=== PATIENT | female | born 1945 | race Two or more races ===

== ENCOUNTER 2023-05-05 10:32 | Outpatient (OUT) | payer MEDICARE, SELFPAY ==
[2023-05-05 12:07] LABS: Chol HDL Ratio 3.4; Cholesterol 180 mg/dL (<=200); HDL Cholesterol 53 mg/dL (40-60); LDL Cholesterol Calculated 111.6 mg/dL; Triglycerides 77 mg/dL (<=150); VLDL CHOLESTEROL 15.4 mg/dL
== END 2023-05-05 10:33 | disposition home or self-care (01) ==
LOC: LAB 10:42
PROVIDERS: PCP Family Medicine
DX: I25.10 Atherosclerotic heart disease of native coronary artery without angina pectoris (principal); I51.81 Takotsubo syndrome
CPT/HCPCS: 36415; 80061

== ENCOUNTER 2024-04-16 09:06 | Observation (INO) | payer MEDICARE, SELFPAY ==
[2024-04-16] VITALS (24 sets, daily range): BP systolic 106–158; BP diastolic 56–86; PULSE 46–70; TEMP 36.4–36.8; O2SAT 95–100; BMI 27.3
--- NOTE | 2024-04-16 09:12 | XR_ITS ---
[facility] [place] [id number] Patient Name: ARACELI JAEGER MRN: [id number] date: 1945 Sex: F Assigned Patient Location: ED.MAIN Current Patient Location: ED.MAIN Accession/Order Number: [id number] Exam Date: 04/16/2024 10:29 Report Date: 04/16/2024 10:29 At the request of: JESE BABB Procedure: XR chest 1V Single view chest: CLINICAL HISTORY: chest pain COMPARISON: None FINDINGS: The heart is normal in size. The lungs are clear. The pulmonary vasculature is normal. Mediastinum and hilar regions are unremarkable. No pleural effusions are seen. Visualized bones are intact. XR/XR chest 1V IMPRESSION: NEGATIVE CHEST. Impression dictated by: Matt Dee Jr., D.O.04/16/2024 10:29 AM Dictation Location: [facility] Electronically authenticated by: [id number] Y Date: 04/16/2024 10:29
--- NOTE | 2024-04-16 09:12 | ECG_ITS ---
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
[2024-04-16 09:40] LABS: Basophils Absolute Auto 0.1 10^3/uL (0.0-0.1); Basophils Percent Auto 0.8 % (0.2-2.0); Eosinophils Absolute Auto 0.1 10^3/uL (0.0-0.7); Eosinophils Percent Auto 0.7 % (0.9-7.0); Hematocrit 40.4 % (36.0-48.0); Hemoglobin 13.3 g/dL (12.0-16.0); Immature Granulocytes Abs Auto 0.05 10^3/uL (0.00-0.03); Immature Granulocytes Pct Auto 0.6 % (0.0-0.5); Lymphocytes Absolute Auto 1.4 10^3/uL (1.2-3.8); Lymphocytes Percent Auto 15.7 % (20.5-60.0); Mean Corpuscular HGB Conc 32.9 g/dL (29.9-35.2); Mean Corpuscular Hemoglobin 28.9 pg (26.7-34.0); Mean Corpuscular Volume 87.6 fL (81.0-99.0); Mean Platelet Volume 9.8 fL (9.5-13.5); Monocytes Absolute Auto 0.5 10^3/uL (0.3-0.8); Monocytes Percent Auto 5.5 % (1.7-12.0); Neutrophils Absolute Auto 6.8 10^3/uL (1.4-6.5); Neutrophils Percent Auto 76.7 % (43.0-75.0); Platelet Count 287 10^3/uL (150-450); Red Blood Count 4.61 10^6/uL (4.20-5.40); Red Cell Distribution Width 12.7 % (11.0-15.0); White Blood Count 8.9 10^3/uL (4.0-11.0)
[2024-04-16 09:47] LABS: BUN Creatinine Ratio 28.4; Calcium 9.4 mg/dL (8.5-10.1); Carbon Dioxide 25.4 mmol/L (21.0-32.0); Chloride 105 mmol/L (98-107); Estimated GFR (African America >60 (>=60 mL/min/1.73m^2); Estimated GFR (Non-African Ame >60 (>=60 mL/min/1.73m^2); Glucose 114 mg/dL (74-106); Potassium 4.4 mmol/L (3.5-5.1); Sodium 139 mmol/L (136-145); Troponin I High Sensitivity <4.0 pg/mL (4.0-51.3)
--- NOTE | 2024-04-16 09:58 | ED.CHESTPAI1 ---
HPI - Chest Pain General Chief Complaint: Shortness of Breath/Dyspnea Stated Complaint: CHEST PAINS SOB Time Seen by Provider: 04/16/24 09:12 Mode of arrival: walk-in History of Present Illness HPI narrative: cc = chest pain, SOB Yesterday morning, the patient woke with chest heaviness across the entirety of her chest as well as associated shortness of breath. As the day progressed both the chest pain and the shortness of breath dissipated. By this morning when she woke up, the pain across the chest and the shortness of breath had returned. Both have continued as she has gotten up and started her day and not improved like it did yesterday. She has not skipped any doses of her medications. She is due to take her aspirin and carvedilol around 10 AM. She denies any recent injury or illness. No cough or cold symptoms. No fever or chills. No sweats. She did have some dizziness yesterday in association with the chest pain and shortness of breath. She has less today. Prior medical history includes cardiac catheterization with stenting in 2019. This was done at [facility] but she currently sees Dr. Leblanc at [facility]. Related Data Home Medications ?Medication ?Instructions ?Recorded ?Confirmed carvedilol 6.25 mg tablet 6.25 mg PO Q12H 04/16/24 04/16/24 nitroglycerin 0.4 mg sublingual 0.4 mg sublingual Q5M PRN chest 04/16/24 04/16/24 tablet pain ramipril 2.5 mg capsule 2.5 mg PO DAILY 04/16/24 04/16/24 Allergies Allergy/AdvReac Type Severity Reaction Status Date / Time No Known Drug Allergies Allergy Verified 04/16/24 09:09 [facility] Social History Little interest or pleasure in doing things: not at all Feeling down, depressed, or hopeless: not at all Exam Narrative Exam Narrative: Nurses notes and vital signs reviewed and patient is not hypoxic. afebrile General: Well-appearing and in no apparent distress. Skin: Warm, dry, no pallor noted. Eye: Pupils are equal, round and EOMI. No scleral icterus. Ears, Nose, Mouth, and Throat: Oral mucosa is moist Cardiovascular: Regular Rate and Rhythm without murmur, gallop or rub. Respiratory: No accessory muscle use or respiratory distress. Lungs are clear to auscultation, no wheezing, rales or rhonchi Chest Wall: no tenderness, crepitus or subcutaneous emphysema Musculoskeletal: normal ROM, no calf or popliteal tenderness, no lower extremity edema/swelling GI: Abdomen is soft, non-distended. Normal bowel sounds. No tenderness to palpation. No rebound, guarding, or rigidity noted. Neurological: A&O x4. No cranial nerve dysfunction observed. No truncal ataxia. Moves all extremities. Sensation intact. Psychiatric: Cooperative and interactive. Normal mood and affect. Constitutional Vital Signs, click to edit/add: Last Vital Signs Temp 98.2 F 04/16/24 09:10 Pulse 50 L 04/16/24 11:20 Resp 18 04/16/24 11:20 BP 128/86 04/16/24 11:00 Pulse Ox 100 04/16/24 11:20 Course Vital Signs Vital signs: Vital Signs Temperature 98.2 F 04/16/24 09:10 Pulse Rate 70 04/16/24 09:10 Respiratory Rate 18 04/16/24 09:10 Blood Pressure 157/73 H 04/16/24 09:10 Pulse Oximetry 99 04/16/24 09:10 Temperature 98.2 F 04/16/24 09:10 Pulse Rate 50 L 04/16/24 11:20 Respiratory Rate 18 04/16/24 11:20 Blood Pressure 128/86 04/16/24 11:00 Pulse Oximetry 100 04/16/24 11:20 MDM - Chest Pain MDM Narrative Medical decision making narrative: Cardiac monitoring and continuous pulse ox initiated. Patient was placed on nuclear monitoring technician and EKG obtained. Blood drawn and sent for evaluation. Portable chest x-ray obtained. Chest x-ray was negative. Blood testing including CBC, BMP, troponin and BNP were negative. Repeat troponin was negative Patient was given 162mg aspirin and 6.25mg carvedilol, per her daily dosing, at 10 AM. This patient's story is suspicious and her history gives her a heart score of 6. I spoke to the patient about staying in the hospital to be observed overnight for additional testing with echocardiogram and possible cardiology consult in the morning and she was agreeable. I spoke with Dr. Arthur, the hospitalist on-call, who also agreed to the admission. He said she could go to medical surgical floor with telemetry monitoring for her admission destination. Medical Records Data Attestation: I reviewed the patient's medical records. Lab Data Attestation: I reviewed the patient's lab results. Labs: Lab Results 04/16/24 04/16/24 Range/Units 09:19 10:51 WBC 8.9 (4.0-11.0) 10^3/uL RBC 4.61 (4.20-5.40) 10^6/uL Hgb 13.3 (12.0-16.0) g/dL Hct 40.4 (36.0-48.0) % MCV 87.6 (81.0-99.0) fL MCH 28.9 (26.7-34.0) pg MCHC 32.9 (29.9-35.2) g/dL RDW 12.7 (11.0-15.0) % Plt Count 287 (150-450) 10^3/uL MPV 9.8 (9.5-13.5) fL Neut % (Auto) 76.7 H (43.0-75.0) % Lymph % (Auto) 15.7 L (20.5-60.0) % [place] % (Auto) 5.5 (1.7-12.0) % Eos % (Auto) 0.7 L (0.9-7.0) % Baso % (Auto) 0.8 (0.2-2.0) % Neut # (Auto) 6.8 H (1.4-6.5) 10^3/uL Lymph # (Auto) 1.4 (1.2-3.8) 10^3/uL [place] # (Auto) 0.5 (0.3-0.8) 10^3/uL Eos # (Auto) 0.1 (0.0-0.7) 10^3/uL Baso # (Auto) 0.1 (0.0-0.1) 10^3/uL Abs Immat Gran (auto) 0.05 H (0.00-0.03) 10^3/uL Imm/Tot Granulo (auto) 0.6 H (0.0-0.5) % Sodium 139 (136-145) mmol/L Potassium 4.4 (3.5-5.1) mmol/L Chloride 105 (98-107) mmol/L Carbon Dioxide 25.4 (21.0-32.0) mmol/L Anion Gap 13.0 BUN 23.0 H (7.0-18.0) mg/dL Creatinine 0.81 (0.55-1.02) mg/dL Est GFR ( Amer) >60 (>=60 mL/min/1.73m^2) Est GFR (Non-Af Amer) >60 (>=60 mL/min/1.73m^2) BUN/Creatinine Ratio 28.4 Glucose 114 H (74-106) mg/dL Calcium 9.4 (8.5-10.1) mg/dL Troponin I High Sens <4.0 L <4.0 L (4.0-51.3) pg/mL NT-Pro-B Natriuret Pep 53.0 (<=1800.0) pg/mL Imaging Data Chest x-ray: Attestation: I have reviewed the pertinent imaging results. Radiologist's impression: ITS Impressions Chest X-Ray 04/16/24 09:12 IMPRESSION: NEGATIVE CHEST. Impression dictated by: Matt Dee Jr., D.O.04/16/2024 10:29 AM Dictation Location: [employer] Electronically authenticated by: [id number] Y Date: 04/16/2024 10:29 ECG Data Attestation: I personally reviewed and interpreted this ECG as follows: Interpretation: EKG interpretation: Emergency Department physician interpretation. Normal sinus rhythm at 63bpm. Normal axis, normal intervals and no ST segment elevation or depression. Heart Score History: Highly Suspicious ECG: Normal Age: >65 years Risk Factors: >3 Risk Factors/ HX of CAD:2 Troponin: <Normal Limit Total Heart Score Recommendations & Risks:: 6 Discharge Plan Discharge Chief Complaint: Shortness of Breath/Dyspnea Clinical Impression: Chest pain Patient Disposition: Admitted as Observation Time of Disposition Decision: 10:54
[2024-04-16] MEDS: CARVEDILOL 6.25 MG TABLET PO ×2 (10:11→21:19)
[2024-04-16] MEDS: ASPIRIN 81 MG TABLET.DR 162 MG PO (10:12)
[2024-04-16] MEDS: KETOROLAC TROMETHAMINE 30 MG/ML VIAL 15 MG IVP (11:00)
[2024-04-16 11:12] LABS: Troponin I High Sensitivity <4.0 pg/mL (4.0-51.3)
--- NOTE | 2024-04-16 12:04 | P.HP_ITS ---
HPI H&P: HPI History of Present Illness Chief complaint: CHEST PAINS SOB Narrative: Pt with chest pain yesterday morning with LOPEZ, seem to get better, then this am , same thing - so presented to the ER. + Hx cad with stent. When I saw patient in the hospital, up in the medical surgical floor, she was essentially pain-free but did have about 30 to 40 minutes prior to that an episode of severe chest pain radiating into the back, some into her left arm as well, this is somewhat similar to her heart trouble in the past but not exactly like her heart trouble in the past, resolved with 1 sublingual nitro but did drop her blood pressure significantly, she also states she got pain relief from the IV Protonix, stat EKG and troponins were ordered, repeat EKG no change from ER troponin still pending Opioid HPI Opioid Management Most Recent Pain and Opioid Data: Last Pain Scale 10 04/16/24 15:22 04/16/24 Last Pain Assessment 04/16/24 15:00 Last MAR Pain Assessment 04/16/24 15:22 Last ORT Total Score 0 04/16/24 13:10 04/16/24 Last ORT Risk Category Low Risk 04/16/24 13:10 04/16/24 Review of Systems ROS Status of ROS 10 or more systems reviewed and unremark able except as noted in history and below [facility] Medical History (Updated 04/16/24 @ 13:45 by Mike Ann) Cataract (lens) fragments in eye following cataract surgery, bilateral ?H59.023 - Cataract (lens) fragments in eye following cataract surgery, bilateral (ICD-10) Abdominal hernia with obstruction ?K46.0 - Unspecified abdominal hernia with obstruction, without gangrene (ICD-10) Hip replacement planned Myocardial infarct, old ?I25.2 - Old myocardial infarction (ICD-10) Chest pain ?R07.9 - Chest pain, unspecified (ICD-10) Social History Highest level of school completed/degree received: high school graduate Little interest or pleasure in doing things: not at all Feeling down, depressed, or hopeless: not at all Meds Home Medications and Allergies Home Medications ?Medication ?Instructions ?Recorded ?Confirmed ?Type carvedilol 6.25 mg tablet 6.25 mg PO Q12H 04/16/24 04/16/24 History nitroglycerin 0.4 mg sublingual 0.4 mg sublingual Q5M PRN chest 04/16/24 04/16/24 History tablet pain ramipril 2.5 mg capsule 2.5 mg PO DAILY 04/16/24 04/16/24 History Allergies Allergy/AdvReac Type Severity Reaction Status Date / Time No Known Drug Allergies Allergy Verified 04/16/24 09:09 Exam Constitutional Vital Signs, click to edit/add: Last Vital Signs Temp 98.2 F 04/16/24 09:10 Pulse 50 L 04/16/24 11:20 Resp 18 04/16/24 11:20 BP 128/86 04/16/24 11:00 Pulse Ox 100 04/16/24 11:20 Documenting provider has reviewed patient's vital signs: yes Common normals: no apparent distress Chest Common normals: inspection of chest normal and palpation of chest normal Respiratory Common normals: normal respiratory effort, no retractions and no use of accessory muscles Cardio Common normals: regular rhythm; irregular rate Rate: bradycardic GI Common normals: Normal to inspection, nondistended, normoactive bowel sounds present Extremity Common normals: normal to inspection Results Labs Labs: Short CBC 04/16/24 Range/Units 09:19 WBC 8.9 (4.0-11.0) 10^3/uL Hgb 13.3 (12.0-16.0) g/dL Hct 40.4 (36.0-48.0) % Plt Count 287 (150-450) 10^3/uL BMP 04/16/24 09:19 Sodium 139 Potassium 4.4 Chloride 105 Carbon Dioxide 25.4 BUN 23.0 H Creatinine 0.81 Glucose 114 H Calcium 9.4 Assessment and Plan Assessment and Plan (1) Chest pain: (2) CAD (coronary artery disease): (3) Dyspnea: Plan Admission findings: trop neg , but + strong hx and the dyspnea - CAD and + CP, and LOPEZ with bradycardia- acute onset - track troponins and check echo- consult to cardiology tomorrow, with bradycardia, concern for inf wall ischemia, with recurrence of symptoms will place patient on heparin drip, also add Carafate Hypertension - continue with current meds Admission status: Chest pain but neg trop , echo in am and , medically neccessary treatment likely to span only one midnight - observation status
[2024-04-16] MEDS: ONDANSETRON PF 4 MG/2 ML VIAL IV ×2 (12:08→15:22)
[2024-04-16] MEDS: MORPHINE SULFATE 4 MG/ML VIAL IV (12:08)
[2024-04-16] MEDS: ALBUTEROL SULFATE 2.5 MG/3 ML VIAL NEB IH (12:13)
[2024-04-16 13:19] LABS: Troponin I High Sensitivity <4.0 pg/mL (4.0-51.3)
[2024-04-16 14:30] LABS: Internal Control Within Normal Limits; SARS-CoV-2 Ag NEGATIVE (NEGATIVE)
[2024-04-16] MEDS: ACETAMINOPHEN 500 MG TABLET 1000 MG PO ×2 (15:22→21:19)
[2024-04-16] MEDS: PANTOPRAZOLE SODIUM 40 MG VIAL IV (15:22)
[2024-04-16] MEDS: NITROGLYCERIN 0.4 MG BOTTLE SL (15:22)
--- NOTE | 2024-04-16 15:24 | ECG_ITS ---
The [facility] Test Date: 2024-04-16 Pat Name: ARACELI JAEGER Department: Room: Gender: Female Physician General Practice: : 1945 Requested By: CALIN YE Order Number: [id number] Reading MD: CALIN YE Measurements Intervals [place] Rate: 49 P: 18 NM: 175 QRS: 17 QRSD: 102 T: 35 QT: 465 QTc: 423 Interpretive Statements SINUS BRADYCARDIA WITH OCCASIONAL SUPRAVENTRICULAR PREMATURE COMPLEXES INTERPRETATION BASED ON A DEFAULT AGE OF 40 YEARS Compared to ECG 04/16/2024 09:13:55 Sinus rhythm no longer present Electronically Signed On 04-18-2024 10:36:35 EST by CALIN YE
[2024-04-16 16:00] LABS: Partial Thromboplastin Time 25.9 sec (22.3-36.2)
[2024-04-16 16:12] LABS: Creatine Kinase 83 U/L (26-192); Creatine Kinase MB 2.14 ng/mL (<=3.60); Myoglobin 68 ng/mL (9-82); Troponin I High Sensitivity 4.5 pg/mL (4.0-51.3)
[2024-04-16] MEDS: HEPARIN SODIUM (PORCINE) 5,000 UNIT/ML VIAL 2100 UNIT IV (18:03)
[2024-04-16] MEDS: HEPARIN SODIUM,PORCINE/D5W 25,000 UNIT/500 ML IV.SOLN 12.432 UNIT IV (18:03)
[2024-04-16] MEDS: SUCRALFATE 1 GM TABLET PO ×2 (18:04→21:30)
[2024-04-17] VITALS (15 sets, daily range): BP systolic 94–122; BP diastolic 56–74; PULSE 44–72; TEMP 36.3–36.8; O2SAT 93–96
[2024-04-17] MEDS: SUCRALFATE 1 GM TABLET PO ×3 (05:20→16:45)
--- NOTE | 2024-04-17 06:00 | CA_ITS ---
Patient Name: ARACELI JAEGER MR#: [id number] : 1945 Exam Date: 04/17/2024 Ordering Doctor: DR CALIN YE . ECHOCARDIOGRAM REPORT PROCEDURE: CA ECHO DOPPLER COMPLETE INDICATIONS: Dyspnea COMPARISON: None. DESCRIPTION: COMPLETE ECHOCARDIOGRAM Real-time transthoracic echocardiography with 2D, M-mode, spectral and color flow Doppler performed. QUALITY: Technical quality was good. LEFT VENTRICLE: Normal chamber size. Normal left ventricular wall thickness. LV EF: Global left ventricular systolic function is normal. Calculated left ventricular ejection fraction is 62%. No significant wall motion abnormalities. DIASTOLIC: Normal diastolic function. ATRIAL SEPTUM: Inadequately seen. LEFT ATRIUM: Normal chamber size. RIGHT ATRIUM: Mild dilatation. RIGHT VENTRICLE: Normal chamber size. Normal right ventricular systolic function. TRICUSPID VALVE: Normal mobility and thickness. Mild regurgitation. No evidence of pulmonary hypertension. RVSP 31mmHg MITRAL VALVE: Normal mobility and thickness. No evidence of mitral valve stenosis. There is no mitral annular calcification. Mild to moderate mitral regurgitation. AORTIC VALVE: Normal trileaflet appearance. No visible sclerosis. Normal leaflet mobility. No evidence of aortic valve stenosis. Trivial aortic regurgitation. AORTIC ROOT: Normal diameter and appearance. PULMONIC VALVE: Normal thickness and mobility. No stenosis. Trivial regurgitation. PERICARDIUM: No evidence of pericardial effusion. IVC: Not well visualized. CONCLUSION: 1. Global left ventricular systolic function is normal; visually estimated ejection fraction is 60 to 65% 2. Normal right ventricular size and systolic function 3. Normal diastolic function 4. The right atrium is mildly dilated 5. Mild tricuspid regurgitation 6. Mild to moderate mitral regurgitation Adult Echocardiography Procedure Report Left Ventricle LVEDD (3.7 - 5.6 cm): 4.00 cm LVESD (2.2 - 4.0 cm): 2.54 cm LVIVS thickness (0.6 - 1.2 cm): 0.92 cm LVPW thickness (0.5 - 1.0 cm): 0.78 cm e': 0.13 m/s E - e': 6.22 LVOT Max Gradient: 2.85 mm[Hg] LVOT Area (cm2): 0.84 m/s Peak Velocity (LVOT): 0.84 m/s Mean Velocity (LVOT): 0.59 m/s LVOT Diameter 1.96 cm Left Atrium LA Volume Index (2D A2C): 28.11 ml/m2 Left Atrium Systolic Dimension: 4.23 cm Mitral Valve MV E to A Ratio: 1.13 Mitral Valve A-Wave Peak Velocity: 0.74 m/s Mitral Valve E-Wave Peak Velocity: 0.83 m/s Right Ventricle RV Internal Diastolic Dimension: 2.95 cm Aorta AO Root Diam: 2.93 cm Ascending Ao Diam: 2.39 cm Aortic Valve AoV Area (Peak Ronny): 2.35 cm2, 2.35 cm2 AoV Area (VTI): 2.06 cm2, 2.06 cm2 Peak Velocity(Antegrade Flow): 1.09 m/s Peak Gradient(Antegrade Flow): 4.72 mm[Hg] Mean Velocity(Antegrade Flow): 0.77 m/s Mean Gradient(Antegrade Flow): 2.74 mm[Hg] Velocity Time Integral: 29.00 cm Tricuspid Valve Peak Velocity (Regurgitant Flow): 2.34 m/s, 2.50 m/s, 2.64 m/s Pulmonic Valve Mean Gradient: 1.67 mm[Hg], 1.60 mm[Hg] Mean Velocity: 0.61 m/s, 0.60 m/s Peak Velocity: 0.83 m/s Peak Gradient: 2.87 mm[Hg], 2.61 mm[Hg] Right Atrium Right Atrium Systolic Pressure: 31.55 ml, 31.55 ml Dictated by: Jose Alfredo Leblanc M.D. on 04/17/2024 at 14:33 Approved by: Jose Alfredo Leblanc M.D. on 04/17/2024 at 14:36
[2024-04-17 06:02] LABS: Basophils Absolute Auto 0.1 10^3/uL (0.0-0.1); Basophils Percent Auto 0.8 % (0.2-2.0); Eosinophils Absolute Auto 0.1 10^3/uL (0.0-0.7); Eosinophils Percent Auto 2.3 % (0.9-7.0); Hematocrit 38.3 % (36.0-48.0); Hemoglobin 12.5 g/dL (12.0-16.0); Immature Granulocytes Abs Auto 0.03 10^3/uL (0.00-0.03); Immature Granulocytes Pct Auto 0.5 % (0.0-0.5); Lymphocytes Absolute Auto 1.5 10^3/uL (1.2-3.8); Lymphocytes Percent Auto 23.5 % (20.5-60.0); Mean Corpuscular HGB Conc 32.6 g/dL (29.9-35.2); Mean Corpuscular Hemoglobin 28.9 pg (26.7-34.0); Mean Corpuscular Volume 88.5 fL (81.0-99.0); Mean Platelet Volume 9.9 fL (9.5-13.5); Monocytes Absolute Auto 0.4 10^3/uL (0.3-0.8); Monocytes Percent Auto 6.3 % (1.7-12.0); Neutrophils Absolute Auto 4.1 10^3/uL (1.4-6.5); Neutrophils Percent Auto 66.6 % (43.0-75.0); Platelet Count 251 10^3/uL (150-450); Red Blood Count 4.33 10^6/uL (4.20-5.40); Red Cell Distribution Width 12.8 % (11.0-15.0); White Blood Count 6.2 10^3/uL (4.0-11.0)
[2024-04-17 06:22] LABS: BUN Creatinine Ratio 20.2; Calcium 8.9 mg/dL (8.5-10.1); Carbon Dioxide 26.2 mmol/L (21.0-32.0); Chloride 105 mmol/L (98-107); Estimated GFR (African America >60 (>=60 mL/min/1.73m^2); Estimated GFR (Non-African Ame >60 (>=60 mL/min/1.73m^2); Glucose 108 mg/dL (74-106); Potassium 4.2 mmol/L (3.5-5.1); Sodium 139 mmol/L (136-145); Troponin I High Sensitivity 4.3 pg/mL (4.0-51.3)
--- NOTE | 2024-04-17 06:53 | P.DS_ITS ---
DS: Providers Provider Date of admission: 04/16/24 12:47 Primary care physician: Sunny Manzo MD Consults: 04/16/24 12:12 Occupational Therapy Eval and Treat Routine Reason for consultation: Only if needed for Rehab Has provider been notified: No Physical Therapy Eval and Treat Routine Reason for consultation: Eval and Treat Has provider been notified: No 04/16/24 12:19 Consult to Cardiology Routine Reason for consultation: cp Has provider been notified: No DS: Diagnosis Discharge Diagnosis (1) Chest pain: (2) CAD (coronary artery disease): (3) Dyspnea: Plan Admission findings: trop neg , but + strong hx and the dyspnea - CAD and + CP, and LOPEZ with bradycardia- acute onset -see cardiology consultation Hypertension - continue with current meds Admission status: Chest pain but neg trop , echo in am and , medically neccessary treatment likely to span only one midnight - observation status ? DS: Summary Hospital Course Hospital Course: Patient mated with the increasing episodes of chest pain. Somewhat similar to her previous episodes where she needed stent placement, in ER her pain is since resolved but had another episode up on the floor, repeat EKG unremarkable, high- sensitivity troponins remained normal, echo is pending, cardiology consult is pending, likely anticipate patient is being discharged to home or transfer to [facility] for continued cardiac care Status at Discharge Overall status at discharge: patient is not back to baseline Time Spent with Patient Time attestation: Total time spent providing and/or coordinating discharge services: Time spent: greater than 30 minutes Exam Constitutional Vital Signs, click to edit/add: Last Vital Signs Temp 97.4 F L 04/17/24 03:58 Pulse 47 L 04/17/24 06:00 Resp 18 04/17/24 03:58 BP 94/56 04/17/24 03:58 Pulse Ox 93 L 04/17/24 03:58 O2 Del Method Room Air 04/17/24 03:58 Documenting provider has reviewed patient's vital signs: yes Common normals: no apparent distress Chest Common normals: inspection of chest normal and palpation of chest normal Respiratory Common normals: normal respiratory effort, no retractions and clear to auscultation bilaterally Cardio Common normals: regular rhythm and no murmurs; irregular rate Rate: bradycardic GI Common normals: Normal to inspection, nondistended, normoactive bowel sounds present Extremity Common normals: normal to inspection DS: Data Data Completed and Pending Labs on day of discharge: Labs from last 24 hours 04/17/24 04/17/24 04/16/24 05:41 00:05 15:41 WBC 6.2 RBC 4.33 Hgb 12.5 Hct 38.3 MCV 88.5 MCH 28.9 MCHC 32.6 RDW 12.8 Plt Count 251 MPV 9.9 Neut % (Auto) 66.6 Lymph % (Auto) 23.5 [place] % (Auto) 6.3 Eos % (Auto) 2.3 Baso % (Auto) 0.8 Neut # (Auto) 4.1 Lymph # (Auto) 1.5 [place] # (Auto) 0.4 Eos # (Auto) 0.1 Baso # (Auto) 0.1 Abs Immat Gran (auto) 0.03 Imm/Tot Granulo (auto) 0.5 APTT 25.9 PTT (Heparin Absorb) 41.0 L* Sodium 139 Potassium 4.2 Chloride 105 Carbon Dioxide 26.2 Anion Gap 12.0 BUN 18.0 Creatinine 0.89 Est GFR ( Amer) >60 Est GFR (Non-Af Amer) >60 BUN/Creatinine Ratio 20.2 Glucose 108 H Calcium 8.9 Total Creatine Kinase 83 CK-MB (CK-2) 2.14 Myoglobin 68 Troponin I High Sens 4.3 4.5 NT-Pro-B Natriuret Pep SARS-CoV-2 Ag (CV2AG) 04/16/24 04/16/24 04/16/24 14:14 12:58 10:51 WBC RBC Hgb Hct MCV MCH MCHC RDW Plt Count MPV Neut % (Auto) Lymph % (Auto) [place] % (Auto) Eos % (Auto) Baso % (Auto) Neut # (Auto) Lymph # (Auto) [place] # (Auto) Eos # (Auto) Baso # (Auto) Abs Immat Gran (auto) Imm/Tot Granulo (auto) APTT PTT (Heparin Absorb) Sodium Potassium Chloride Carbon Dioxide Anion Gap BUN Creatinine Est GFR ( Amer) Est GFR (Non-Af Amer) BUN/Creatinine Ratio Glucose Calcium Total Creatine Kinase CK-MB (CK-2) Myoglobin Troponin I High Sens <4.0 L <4.0 L NT-Pro-B Natriuret Pep SARS-CoV-2 Ag (CV2AG) Negative 04/16/24 09:19 WBC 8.9 RBC 4.61 Hgb 13.3 Hct 40.4 MCV 87.6 MCH 28.9 MCHC 32.9 RDW 12.7 Plt Count 287 MPV 9.8 Neut % (Auto) 76.7 H Lymph % (Auto) 15.7 L [place] % (Auto) 5.5 Eos % (Auto) 0.7 L Baso % (Auto) 0.8 Neut # (Auto) 6.8 H Lymph # (Auto) 1.4 [place] # (Auto) 0.5 Eos # (Auto) 0.1 Baso # (Auto) 0.1 Abs Immat Gran (auto) 0.05 H Imm/Tot Granulo (auto) 0.6 H APTT PTT (Heparin Absorb) Sodium 139 Potassium 4.4 Chloride 105 Carbon Dioxide 25.4 Anion Gap 13.0 BUN 23.0 H Creatinine 0.81 Est GFR ( Amer) >60 Est GFR (Non-Af Amer) >60 BUN/Creatinine Ratio 28.4 Glucose 114 H Calcium 9.4 Total Creatine Kinase CK-MB (CK-2) Myoglobin Troponin I High Sens <4.0 L NT-Pro-B Natriuret Pep 53.0 SARS-CoV-2 Ag (CV2AG) Discharge Plan Discharge Disposition: [facility] Hospital Discharge Date/Time: 04/17/24 18:14
[2024-04-17 07:31] LABS: PTT Heparin Monitor 46.2 sec (43.5-61.5)
--- NOTE | 2024-04-17 08:20 | CM.NOTE ---
Rounds made with Dr. Arthur, discussed with pt plan of care for echo and to consult cardiology for further recommendations. Pt denies CP this AM, possible discharge to home this afternoon. Pt will stay in OBS status.
[2024-04-17] MEDS: ASPIRIN 81 MG TABLET.DR PO (09:03)
--- NOTE | 2024-04-17 09:30 | CM.NOTE ---
Medicare Outpatient Observation Notice discussed with pt, pt verbalizes understanding and signs paper. Original given to pt and copy placed on pt's chart.
[2024-04-17 13:45] LABS: PTT Heparin Monitor 45.3 sec (43.5-61.5)
[2024-04-17] MEDS: PANTOPRAZOLE SODIUM 40 MG VIAL IV (14:30)
== END 2024-04-17 18:14 | disposition short-term general hospital (02) ==
LOC: ER 10:54 → MS 12:55
PROVIDERS: Admitting Provider Family Medicine; Emergency Provider Emergency Medicine; PCP Family Medicine; Visit Provider Family Medicine
DX: I25.10 Atherosclerotic heart disease of native coronary artery without angina pectoris (principal); R07.9 Chest pain, unspecified; R06.09 Other forms of dyspnea; R06.02 Shortness of breath; Z79.899 Other long term (current) drug therapy; Z79.82 Long term (current) use of aspirin; R42 Dizziness and giddiness; Z95.5 Presence of coronary angioplasty implant and graft; R00.1 Bradycardia, unspecified; I10 Essential (primary) hypertension
CPT/HCPCS: 36415; 71045; 80048; 82550; 82553; 83874; 83880; 84484; 85025; 85730; 87811; 93005; 93306; 94640; 94667; 94668; 94761; 96374; 96375; 96376; 97165; 99285; G0378; J1644; J1885; J2270; J2405

== ENCOUNTER 2024-04-24 13:40 | Outpatient (OUT) | payer MEDICARE, SELFPAY ==
[2024-04-24 14:07] LABS: Basophils Percent Auto 0.7 % (0.2-2.0); Eosinophils Absolute Auto 0.1 10^3/uL (0.0-0.7); Hematocrit 32.7 % (36.0-48.0); Hemoglobin 11.1 g/dL (12.0-16.0); Immature Granulocytes Abs Auto 0.05 10^3/uL (0.00-0.03); Immature Granulocytes Pct Auto 0.8 % (0.0-0.5); Lymphocytes Absolute Auto 1.1 10^3/uL (1.2-3.8); Lymphocytes Percent Auto 18.3 % (20.5-60.0); Mean Corpuscular HGB Conc 33.9 g/dL (29.9-35.2); Mean Corpuscular Hemoglobin 29.5 pg (26.7-34.0); Monocytes Absolute Auto 0.4 10^3/uL (0.3-0.8); Monocytes Percent Auto 7.2 % (1.7-12.0); Neutrophils Absolute Auto 4.2 10^3/uL (1.4-6.5); Platelet Count 283 10^3/uL (150-450); Red Blood Count 3.76 10^6/uL (4.20-5.40); Red Cell Distribution Width 12.7 % (11.0-15.0)
[2024-04-24 14:35] LABS: Anion Gap 13.5; BUN Creatinine Ratio 23.5; Calcium 8.9 mg/dL (8.5-10.1); Chloride 103 mmol/L (98-107); Estimated GFR (African America >60 (>=60 mL/min/1.73m^2); Estimated GFR (Non-African Ame >60 (>=60 mL/min/1.73m^2); Glucose 96 mg/dL (74-106); Potassium 3.5 mmol/L (3.5-5.1); Sodium 140 mmol/L (136-145)
== END 2024-04-24 13:41 | disposition home or self-care (01) ==
LOC: LAB 13:43
PROVIDERS: PCP Family Medicine; Visit Provider Student in an Organized Health Care Education/Training Program
DX: I21.4 Non-ST elevation (NSTEMI) myocardial infarction (principal)
CPT/HCPCS: 36415; 80048; 85025

== ENCOUNTER 2024-06-07 09:07 | Outpatient (OUT) | payer MEDICARE, SELFPAY ==
[2024-06-07 09:54] LABS: Alanine Aminotransferase 36 U/L (14-59); Albumin Globulin Ratio 1.1; Albumin Level 3.6 g/dL (3.4-5.0); Alkaline Phosphatase 87 U/L (46-116); Anion Gap 10.6; Aspartate Amino Transferase 28 U/L (15-37); Bilirubin Total 0.4 mg/dL (0.2-1.0); Calcium 8.8 mg/dL (8.5-10.1); Carbon Dioxide 30.5 mmol/L (21.0-32.0); Chloride 105 mmol/L (98-107); Chol HDL Ratio 3.2; Cholesterol 165 mg/dL (<=200); Estimated GFR (African America >60 (>=60 mL/min/1.73m^2); Estimated GFR (Non-African Ame >60 (>=60 mL/min/1.73m^2); Globulin 3.4 g/dL; Glucose 108 mg/dL (74-106); HDL Cholesterol 51 mg/dL (40-60); Potassium 4.1 mmol/L (3.5-5.1); Sodium 142 mmol/L (136-145); Triglycerides 85 mg/dL (<=150)
== END 2024-06-07 09:08 | disposition home or self-care (01) ==
LOC: LAB 09:09
PROVIDERS: PCP Family Medicine; Visit Provider Physician Assistant Medical
DX: E78.2 Mixed hyperlipidemia (principal); Z95.5 Presence of coronary angioplasty implant and graft; I25.10 Atherosclerotic heart disease of native coronary artery without angina pectoris
CPT/HCPCS: 36415; 80053; 80061

== ENCOUNTER 2024-06-29 07:29 | Outpatient (RCR) | payer MEDICARE, SELFPAY ==
[2024-06-29 09:58] VITALS: BP 96/65; PULSE 65; TEMP 36.3; O2SAT 95
[2024-06-29] MEDS: INCLISIRAN SODIUM 284 MG/1.5 ML SYRINGE SQ (10:07)
== END 2024-06-30 07:59 | disposition home or self-care (01) ==
LOC: INF 07:29
PROVIDERS: PCP Family Medicine; Visit Provider Internal Medicine Interventional Cardiology
DX: E78.5 Hyperlipidemia, unspecified (principal); I25.10 Atherosclerotic heart disease of native coronary artery without angina pectoris
CPT/HCPCS: 96372; J1306

== ENCOUNTER 2024-09-29 07:40 | Outpatient (RCR) | payer MEDICARE, SELFPAY ==
[2024-09-29 10:24] VITALS: BP 115/64; PULSE 46; TEMP 36.9; O2SAT 95
[2024-09-29] MEDS: INCLISIRAN SODIUM 284 MG/1.5 ML SYRINGE SQ (10:34)
== END 2024-10-15 23:59 | disposition home or self-care (01) ==
LOC: INF 07:40
PROVIDERS: PCP Family Medicine; Visit Provider Internal Medicine Interventional Cardiology
DX: E78.5 Hyperlipidemia, unspecified (principal); I25.10 Atherosclerotic heart disease of native coronary artery without angina pectoris
CPT/HCPCS: 96372; J1306

== ENCOUNTER 2024-11-01 14:35 | Emergency (ER) | payer MEDICARE, SELFPAY ==
[2024-11-01] VITALS (20 sets, daily range): BP systolic 114–130; BP diastolic 68–92; PULSE 54–75; TEMP 36.7; O2SAT 97–100; BMI 25.2
--- OUTSIDE RECORDS SUMMARY | 2024-11-01 14:46 | XMS_ITS | Encounter Summary ---
Author Organization [facility] Address [address] [place] [address] Care Team Providers Care Laser Printing Operator Name Role Phone Sunny Manzo MD Primary Care Provider [phone] Sunny Manzo MD Unavailable Jensen Barnett MA Unavailable [phone] Encounter Details Date Type Department Care Team (Late st Contact Info) Description 04/20/2024 Abstract [facility] [address] [place] [address] Sunny Manzo MD [address] [place] [address] Social History Tobacco Use Types Packs/Day Years Used Date Smoking Tobacco: Never Passive Smoke Exposure: Never Smokeless Tobacco: Never Alcohol Use Standard Drinks/Week Comments Never 0 (1 standard drink = 0.6 oz pur e alcohol) Social Connection and Isolat ion Panel [NHANES] Answer Date Recorded In a typical week, how many times do you talk on the phone with family, friends, or neighbors? Three times a week 05/06/2023 How often do you get togethe r with friends or relatives? Once a week 05/06/2023 How often do you attend chur ch or denominational services? More than 4 times per year 05/06/2023 Do you belong to any clubs o r organizations such as scientologist groups, unions, fraternal or athletic groups, or school groups? Yes 05/06/2023 How often do you attend meet ings of the clubs or organizations you belong to? More than 4 times per year 05/06/2023 Are you , , di vorced, , never , or living with a partner? 05/06/2023 AUDIT-C Answer Date Recorded Q1: How often do you have a drink containing alcohol? Monthly or less 05/06/2023 Q2: How many drinks containi ng alcohol do you have on a typical day when you are drinking? Patient does not drink Q3: How often do you have si x or more drinks on one occasion? Never 05/06/2023 PHQ-2 Answer Date Recorded Patient Health Questionnaire-2 Score 0 08/10/2023 [facility] Occupat ional [facility] - Occupational Stress Questionnaire Answer Date Recorded Do you feel stress - tense, restless, nervous, or anxious, or unable to sleep at night because your mind is troubled all the time - these days? Only a little 05/06/2023 Exercise Vital Sign Answer Date Recorde d On average, how many days pe r week do you engage in moderate to strenuous exercise (like a brisk walk)? 2 days 05/06/2023 On average, how many minutes do you engage in exercise at this level? 60 min 05/06/2023 Hunger Vital Sign Answer Date Recorded Within the past 12 months, y ou worried that your food would run out before you got the money to buy more. Never true 05/06/19 24 Within the past 12 months, t he food you bought just didn't last and you didn't have money to get more. Never true 05/06/2023 PRAPARE - Transportation Answer Date Re corded In the past 12 months, has l ack of transportation kept you from medical appointments or from getting medications? No 04/16 In the past 12 months, has l ack of transportation kept you from meetings, work, or from getting things needed for daily living? No 05/06/2023 Housing Stability Vital Sign Answer James e Recorded In the last 12 months, was t here a time when you were not able to pay the mortgage or rent on time? No 05/06/2023 In the last 12 months, how many places have you lived? 0 05/06/2023 In the last 12 months, was t here a time when you did not have a steady place to sleep or slept in a fpc (including now)? No 05/06/2023 Comments Unknown Sex and Gender Information Value Date Recorded Sex Assigned at Female 11/19/2023 8:38 AM EDT Legal Sex Female 8:05 PM EDT Gender Identity Not on file Sexual Orientation Not on file documented as of this encounter Plan of Treatment Not on file documented as of this encounter Visit Diagnoses Not on filedocumented in this encounter Care Teams Laser Printing Operator Relationship Specialty Start Date End Date Sunny Manzo MD PCP - General Family Medicine 03/23/23 Sunny Manzo MD [address] [place] [address] PCP - ACO Reach 03/24/24 Jensen Barnett MA [address] [place] [address] Family Medicine 05/24/24 05/31/24 documented as of this encounter
--- OUTSIDE RECORDS SUMMARY | 2024-11-01 14:46 | XMS_ITS | Encounter Summary ---
Author Organization [facility] Address [facility] [id number] [address] [place] [address] Care Team Providers Care Automotive Diagnostic Technician Name Role Phone Sunny Manzo MD Primary Care Provider [phone] Encounter Details Date Type Department Care Team (Late st Contact Info) Description 05/20/2020 Orders Only [facility] [address] [place] [id number] External, Scanning Provider Social History Tobacco Use Types Packs/Day Years Used Date Smoking Tobacco: Never Smokeless Tobacco: Never Alcohol Use Standard Drinks/Week Comments Yes 0 (1 standard drink = 0.6 oz pur e alcohol) drinks wine occasionally Social Connection and Isolat ion Panel [NHANES] Answer Date Recorded In a typical week, how many times do you talk on the phone with family, friends, or neighbors? More than three times a week 09/04/2019 How often do you get togethe r with friends or relatives? More than three times a week 09/04/2019 How often do you attend chur ch or mu-ism services? Patient declined 09/04/2019 Do you belong to any clubs o r organizations such as taoism groups, unions, fraternal or athletic groups, or school groups? Patient declined 09/04/2019 How often do you attend meet ings of the clubs or organizations you belong to? Patient declined 09/04/2019 Are you , , di vorced, , never , or living with a partner? 09/04/2019 AUDIT-C Answer Date Recorded Frequency of Alcohol Consumption Not on file 09/04/2019 Average Number of Drinks Not on file 020 Q3: How often do you have si x or more drinks on one occasion? Less than monthly 09/04/2019 Overall Financial Resource Strain (CARDIA) Answe r Date Recorded How hard is it for you to pa y for the very basics like food, housing, medical care, and heating? Not hard at all 09/04/2019 PHQ-2 Answer Date Recorded Total Score 0 09/04/2019 [facility] of Occupat ional Health - Occupational Stress Questionnaire Answer Date Recorded Do you feel stress - tense, restless, nervous, or anxious, or unable to sleep at night because your mind is troubled all the time - these days? Only a little 09/04/2019 Exercise Vital Sign Answer Date Recorde d On average, how many days pe r week do you engage in moderate to strenuous exercise (like a brisk walk)? 0 days 09/04/2019 On average, how many minutes do you engage in exercise at this level? 0 min 09/04/2019 PRAPARE - Transportation Answer Date Re corded In the past 12 months, has l ack of transportation kept you from medical appointments or from getting medications? No 08/16 In the past 12 months, has l ack of transportation kept you from meetings, work, or from getting things needed for daily living? No 09/04/2019 Childcare Answer Date Recorded Do problems getting child ca re make it difficult for you to work or study? No 09/04/2019 Employment Answer Date Recorded Do you need help finding a [facility] career center and/or a training program? No 09/04/2019 Purpose - Life Answer Date Recorded Purpose and direction in life Unknown Comments No Sex and Gender Information Value Date Recorded Sex Assigned at Not on file Legal Sex Female 11:28 AM EDT Gender Identity Not on file Sexual Orientation Not on file COVID-19 Exposure Response Date Recorded In the last month, have you been in contact with someone who was confirmed or suspected to have Coronavirus / COVID-19? No / Unsure 05/17/2020 10:45 AM EDT documented as of this encounter Plan of Treatment Not on file documented as of this encounter Goals Goal Patient Goal Type Associated Problems Recent Progress Patient-Stated? Author Home with General Yes Florida Cardona, RN Note: Evaluation of progress towards goal: Patient plans to discharge home with home care and support of spouse. - [place] Cardona RN 09/04/19 1:56 PM documented as of this encounter Procedures Procedure Name Priority Date/Time Associated Diagnosis Comments LIPID PROFILE Routine 04/24/2019 documented in this encounter Results * Lipid profile (04/24/2019) External Cholesterol 190 MANUALLY TRANSCRIBED RESULTS External Cholesterol:Hdl 4 MANUALLY TRANSCRIBED RESULTS External Hdl Cholesterol 49 MANUALLY TRANSCRIBED RESULTS External Ldl (Calc) 119 MANUALLY TRANSCRIBED RESULTS External Triglycerides 108 MANUALLY TRANSCRIBED RESULTS External Very Low Lipoprotein 22 MANUALLY TRANSCRIBED RESULTS us Scanning Provider External LAB BLOOD ORDERABLES Edited Result - Final MANUALLY TRANSCRIBED RESULTS documented in this encounter Visit Diagnoses Not on filedocumented in this encounter Additional Health Concerns Assessment Noted Time PHQ-9 Depression Total Score: 0 09/04/19 20 1:34 PM EDT A Body Mass Index follow-up plan has been documented for the patient 12/08/2017 11:16 AM EDT documented as of this encounter Care Teams Automotive Diagnostic Technician Relationship Specialty Start Date End Date Sunny Manzo MD PCP - General Family Medicine 11/04/20 documented as of this encounter
--- OUTSIDE RECORDS SUMMARY | 2024-11-01 14:46 | XMS_ITS | Encounter Summary ---
[facility] Address [facility] [id number] [address] [place] [address] Care Team Providers Care Guest Relations Associate Name Role Phone Sunny Manzo MD Primary Care Provider [phone] Reason for Visit * Reason Onset Date Comments Med Refill 11/06/2016 Encounter Details Date Type Department Care Team (Late st Contact Info) Description 11/06/2016 Refill [facility] [address] [id number] Veronica Ayala, RN Med Refill Social History Tobacco Use Types Packs/Day Years Used Date Smoking Tobacco: Never Smokeless Tobacco: Never Alcohol Use Standard Drinks/Week Comments Yes 0 (1 standard drink = 0.6 oz pur e alcohol) drinks wine occasionally Comments Unknown Sex and Gender Information Value Date Recorded Sex Assigned at Not on file Legal Sex Female 11:28 AM EDT Gender Identity Not on file Sexual Orientation Not on file documented as of this encounter Plan of Treatment Not on file documented as of this encounter Visit Diagnoses Not on filedocumented in this encounter Care Teams Guest Relations Associate Relationship Specialty Start Date End Date Sunny Manzo MD PCP - General Family Medicine 11/04/20 documented as of this encounter
--- OUTSIDE RECORDS SUMMARY | 2024-11-01 14:46 | XMS_ITS | Encounter Summary ---
Author Organization [facility] Address [facility] [id number] [address] [place] [address] Care Team Providers Care Tongue Binder Name Role Phone Sunny Manzo MD Primary Care Provider [phone] Encounter Details Date Type Department Care Team (Late st Contact Info) Description 05/20/2020 Orders Only [facility] [address] [place] [phone] External, Scanning Provider Social History Tobacco Use [...] often do you attend chur ch or mandaen services? Patient declined 09/04/2019 Do you belong to any clubs o r organizations such as sikh groups, unions, fraternal or athletic groups, or [...] Answer Date Recorded Total Score 0 09/04/2019 [facility] Occupat ional Health - [...] Recorded Do you need help finding a [facility] career center and/or a training program? [...] Procedure Name Priority Date/Time Associated Diagnosis Comments MULTIPLE LABS Routine 04/23/2020 documented in this encounter Results * Multiple labs (04/23/2020) us Scanning Provider External [facility] Final Result MANUALLY TRANSCRIBED RESULTS documented in this encounter Visit Diagnoses Not on filedocumented in this encounter Additional Health Concerns Assessment Noted Time PHQ-9 Depression Total Score: 0 09/04/19 20 1:34 PM EDT A Body Mass Index follow-up plan has been documented for the patient 12/08/2017 11:16 AM EDT documented as of this encounter Care Teams Tongue Binder Relationship Specialty Start Date End Date Sunny Manzo MD PCP - General Family Medicine 11/04/20 documented as of this encounter
--- OUTSIDE RECORDS SUMMARY | 2024-11-01 14:46 | XMS_ITS | Encounter Summary ---
Author Organization [facility] [facility] Address [id number] [address] [place] [address] Care Team Providers Care Proposal Director Name Role Phone Sunny Manzo MD Primary Care Provider [phone] Reason for Visit * Reason Onset Date Comments Med Refill 12/20/2017 Encounter Details Date Type Department Care Team (Late st Contact Info) Description 12/20/2017 Refill [facility] [address] [place] [phone] Sara Lombardo RN Med Refill Social History Tobacco Use Types Packs/Day Years Used Date Smoking Tobacco: Never Smokeless Tobacco: Never Alcohol Use Standard Drinks/Week Comments Yes 0 (1 standard drink = 0.6 oz pur e alcohol) drinks wine occasionally Comments No Sex and Gender Information Value Date Recorded Sex Assigned at Not on file Legal Sex Female 11:28 AM EDT Gender Identity Not on file Sexual Orientation Not on file documented as of this encounter Plan of Treatment Not on file documented as of this encounter Visit Diagnoses Not on filedocumented in this encounter Additional Health Concerns Assessment Noted Time A Body Mass Index follow-up plan has been documented for the patient 12/08/2017 11:16 AM EDT documented as of this encounter Care Teams Proposal Director Relationship Specialty Start Date End Date Sunny Manzo MD PCP - General Family Medicine 11/04/20 documented as of this encounter
--- OUTSIDE RECORDS SUMMARY | 2024-11-01 14:46 | XMS_ITS | Encounter Summary ---
Author Organization [facility] Address [address] [place] [address] Care Team Providers Care Supervisor Forming And Tempering Name Role Phone Sunny Manzo MD Primary Care Provider [phone] Sunny Manzo MD Unavailable Jensen Barnett MA Unavailable [phone] Encounter Details Date Type Department Care Team (Late st Contact Info) Description 12/02/2023 Orders Only [facility] [address] [place] [id number] Haylie Anna NP Social History Tobacco Use Types Packs/Day Years [...] often do you attend chur ch or restorationism services? More than 4 times per year 05/06/2023 Do you belong to any clubs o r organizations such as mandaeism groups, unions, fraternal or athletic groups, or [...] Recorded Patient Health Questionnaire-2 Score 0 08/10/2023 [facility] - Occupational Stress Questionnaire Answer Date Recorded [...] place to sleep or slept in a fci (including now)? No 05/06/2023 Comments Unknown Sex and Gender Information Value Date Recorded Sex Assigned at Female 11/19/2023 8:38 AM EDT Legal Sex Female 8:05 PM EDT Gender Identity Not on file Sexual Orientation Not on file documented as of this encounter Plan of Treatment Not on file documented as of this encounter Procedures Procedure Name Priority Date/Time Associated Diagnosis Comments ELECTROCARDIOGRAM REPORT Routine 7:58 AM EDT documented in this encounter Results * Electrocardiogram Report (12/01/2023 7:58 AM EDT) Haylie Anna ADVERTISING TRAFFIC MANAGER IN CLINIC/BEDSIDE ORDERA BLES Final Result documented in this encounter Visit Diagnoses Not on filedocumented in this encounter Care Teams Supervisor Forming And Tempering Relationship Specialty Start Date End Date Sunny Manzo MD PCP - General Family Medicine 03/23/23 Sunny Manzo MD [address] [place] [address] PCP - ACO Reach 03/24/24 Jensen Barnett MA [address] [place] [address] Family Medicine 05/24/24 05/31/24 documented as of this encounter
--- OUTSIDE RECORDS SUMMARY | 2024-11-01 14:46 | XMS_ITS | Encounter Summary ---
Author [facility] Address [id number] [address] [place] [address] Care Team Providers Care Continuity Manager Name Role Phone Sunny Manzo MD Primary Care Provider [phone] Reason for Visit * Reason Comments Med Refill Encounter Details Date Type Department Care Team (Late st Contact Info) Description 06/09/2023 Refill [facility] [address] [place] [phone] Joon Barron DO [address] [place] [address] Med Refill Social History Tobacco Use Types [...] often do you attend chur ch or mormon services? Patient declined 09/04/2019 Do you belong to any clubs o r organizations such as yarsani groups, unions, fraternal or athletic groups, or [...] Answer Date Recorded Total Score 0 09/04/2019 [facility] of Occupat ional Health - Occupational Stress [...] Recorded Do you need help finding a [place] career center and/or a training program? No 09/04/2019 Hunger Screening Answer Date Recorded Within the past 12 months we worried whether our food would run out before we got money to buy more. Never True 05/11/2023 Within the past 12 months th e food we bought just didn't last and we didn't have money to get more. Never True 05/11/2023 Purpose - Life Answer Date Recorded Purpose and direction in life Unknown Comments No Sex and Gender Information Value Date Recorded Sex Assigned at Not on file Legal Sex Female 11:28 AM EDT Gender Identity Not on file Sexual Orientation Not on file documented as of this encounter Miscellaneous Notes * Telephone Encounter - Estephania Barber RN - 06/09/2023 12:18 AM EDT Please sign and route. Overdue labs. Letter mailed. Thank you documented in this encounter Plan of Treatment Not on file documented as of this encounter Goals Goal Patient Goal Type Associated Problems Recent Progress Patient-Stated? Author Home with General Yes [place] Cardona RN Note: Evaluation of progress towards goal: Patient plans to discharge home with home care and support of spouse. 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
--- OUTSIDE RECORDS SUMMARY | 2024-11-01 14:46 | XMS_ITS | Clinical Summary ---
Author Organization [employer] tem Address [facility] [id number] [address] [place] [address] Care Team Providers Care Irrigation Engineer Name Role Phone Sunny Manzo MD Primary Care Provider [phone] Allergies Active Allergy Reactions Criticality Noted Date Comments Mfusggy-Cfq-Gvx Reductase Inhibitors pain,Nausea 09/29/2018 Patient states that she gets achy all over and nauseated when she takes statins Medications LACTOBAC NO.41/BIFIDOBACT NO.7 (PROBIOTIC-10 ORAL) Take 1 tablet by mouth daily. Active NITROGLYCERIN SL Place 1 tablet under the tongue as needed. Active coenzyme Q10 10 mg capsule Take 10 capsules (100 mg total) by mouth in the morning. Active MAGNESIUM OXIDE,ASPARTATE,CITR ORAL Take 250 mg by mouth in the morning. Active cholecalciferol, vitamin D3, (VITAMIN D3) 25 mcg (1,000 unit) capsule Take 1 capsule (1,000 Units total) by mouth in the morning. Active omeprazole (PriLOSEC OTC) 20 mg EC tablet Take 1 tablet (20 mg total) by mouth in the morning. Active ascorbic acid (VITAMIN C) 500 mg tablet Take 1 tablet (500 mg total) by mouth in the morning. Active b complex vitamins capsule Take 1 capsule by mouth in the morning. Active ALPRAZolam (NIRAVAM) 0.25 mg disintegrating tablet Dissolve 1 tablet (0.25 mg total) on tongue nightly as needed for anxiety. Active ramipriL (ALTACE) 2.5 mg capsuleIndications:Coron taniya artery disease involving chitina coronary artery of chitina heart without angina pectoris,Takotsubo cardiomyopathy,Status post angioplasty with stent,Pure hypercholesterolemia TAKE 1 CAPSULE (2.5 MG TOTAL) BY MOUTH IN THE MORNING. 90 capsule 06/09/19 24 Active aspirin 81 mg chewable tabletIndications:Brewer ry artery disease involving chitina coronary artery of chitina heart without angina pectoris,Takotsubo cardiomyopathy,Status post angioplasty with stent,Pure hypercholesterolemia CHEW 1 TABLET (81 MG TOTAL) AND SWALLOW IN THE MORNING. 90 tablet 3 06/11/19 24 Active carvediloL (COREG) 6.25 mg tabletIndications:Brewer ry artery disease involving chitina coronary artery of chitina heart without angina pectoris,Takotsubo cardiomyopathy,Status post angioplasty with stent,Pure hypercholesterolemia TAKE 1 TABLET (6.25 MG TOTAL) BY MOUTH IN THE MORNING AND IN THE EVENING WITH MEALS 180 tablet 2 07/06/19 24 Active Active Problems Problem Noted Date Diagnosed Date Preoperative clearance 08/31/2019 Encounter for preadmission testing 08/21/2019 Takotsubo cardiomyopathy 10/24/2018 Pain of left hip joint 03/21/2018 Primary osteoarthritis of left hip 03/21/2018 Coronary artery disease invo lving chitina coronary artery of chit[place] heart without angina pectoris 01/27/2018 Thickened endometrium 09/01/2017 Right ovarian cyst 09/01/2017 Gastric volvulus 06/17/2017 Partial bowel obstruction 2017 Status post angioplasty with stent 11/04/2016 Pure hypercholesterolemia 11/04/2016 Resolved Problems Problem Noted Date Diagnosed Date Resolved Date Chronic combined systolic an d diastolic congestive heart failure 10/23/2018 05/23/2021 Non-STEMI (non-ST elevated m yocardial infarction) 09/29/2018 08/31/2019 NSTEMI (non-ST elevated myoc ardial infarction) 06/03/2017 08/31/2019 Partial small bowel obstruction 2017 08/31/2019 Mitral stenosis with insufficiency 11/04/2016 08/04/2017 ACS (acute coronary syndrome) 10/10/2016 08/31/2019 Immunizations Immunization Administration Dates Next Due COVID-19, mRNA, LNP-S, PF, 100mcg/0.5mL Dose 12/2020,03/28/2020 Influenza, Trivalent, Adjuvanted 11/13/2017 Family History Medical History Relation Name Comments Heart disease Father Stroke Father Cancer Maternal Grandmother STOMACH Diabetes Mother Heart disease Mother Arthritis Sister Breast cancer Neg Hx Cervical cancer Neg Hx Colon cancer Neg Hx Lung cancer Neg Hx Ovarian cancer Neg Hx Relation Name Status Comments Father Maternal Grandmother Mother Sister Social History Tobacco Use Types Packs/Day Years Used Date Smoking Tobacco: Never Smokeless Tobacco: Never Tobacco Cessation:Counseling Given: Not Answered Alcohol Use Standard Drinks/Week Comments Yes 0 [...] often do you attend chur ch or hinduism services? Patient declined 09/04/2019 Do you belong to any clubs o r organizations such as voodoo groups, unions, fraternal or athletic groups, or [...] 0 09/04/2019 [facility] [place] of Occupat ional Health - Occupational Stress [...] Recorded Do you need help finding a [employer] career center and/or a training program? No [...] on file Sexual Orientation Not on file Last Filed Vital Signs Vital Sign Reading Time Taken Comments Blood Pressure 130/74 05/11/2023 10:10 AM EDT Pulse 69 05/11/2023 10:10 AM EDT Temperature 36.5 C (97.7 F) 08/28/2021 2:53 PM EDT Respiratory Rate 15 08/28/2021 7:40 PM EDT Oxygen Saturation 99% 05/11/2023 10:10 AM EDT Inhaled Oxygen Concentration - - Weight 62.6 kg (138 lb) 05/11/2023 10:10 AM EDT Height 149.9 cm (4' 11 ) 05/11/2023 10:10 AM EDT Body Mass Index 27.87 05/11/2023 10:10 AM EDT Plan of Treatment Health Maintenance Due Date Last Done Comments Depression Screening 1959 DTaP,Tdap and Td Vaccines (1 - Tdap) 1966 Zoster (Shingles) Vaccine (1 of 2) 1997 Fall Risk Screening 2012 Tobacco Screening 05/10/2024 05/11/2023 COVID-19 Vaccine (2024- 6 season) 2024 01/18/2023, 10/28/2021, 12/12/2020, Additional history exists Influenza Vaccine 10/16/2024 01/18/2023, , 11/22/2019, Additional history exists Goals Goal Patient Goal Type Associated Problems Recent Progress Patient-Stated? Author Home with General Yes [place] Cardona RN Note: Evaluation of progress towards goal: Patient plans to discharge home with home care and support of spouse. - [place] Cardona RN 09/04/19 1:56 PM Medical Devices Implanted Type Area Lead Technical Writer Device Identifier Shelf Expiration Date Model / Serial / Lot Lens Iol Ultrasert 14.0d - [id number] - [id number] Implanted:Q ty: 1 on 04/15/2021 by Adrienne Braga MD at [facility] Lens Left: Eye [employer] 11/12/2022 AU00T0 14.0 / [id number] / NA Lens Iol Ultrasert 13.0d - [id number] - [id number] Implanted:Q ty: 1 on 05/01/2021 by Adrienne Braga MD at [facility] Lens Right: Eye [employer] 08/06/2023 AU00T0 13.0 / [id number] / NA Mesh Tiss 10x7cm [place] - [id number] - [id number] Implanted:Q ty: 1 on 06/07/2017 by Colin Morales MD at [facility] Mesh N/A: Abdomen [place] 02/15/2020 NW1981 / [id number] / [id number] Shl [employer]b [employer] 52e - [id number] Implanted:Q ty: 1 on 09/04/2019 by Juan Velasco MD at [facility] Orthopedic Implant Left: Hip [employer] 03/07/2029 [id number] / / [id number] Linr Actb G7 Ntrl 36mm E - [id number] Implanted:Q ty: 1 on 09/04/2019 by Juan Velasco MD at [facility] Orthopedic Implant Left: Hip [employer] 08/03/2023 [id number] / / [id number] Stm Fem 115mm 133d 15 Std Os - [id number] Implanted:Q ty: 1 on 09/04/2019 by Juan Velasco MD at [facility] Orthopedic Implant Left: Hip [employer] 01/27/2029 [id number] / / [id number] Hd Fem 36mm Opt Shl Actb G7 Bl Rpl 650-1057 - [id number] Implanted:Q ty: 1 on 09/04/2019 by Juan Velasco MD at [facility] Orthopedic Implant Left: Hip [employer] 05/19/2028 [id number] / / [id number] Slv Fem Opt -3mm Tpr Hip Blx D Rpl 650-1065 - [id number] Implanted:Q ty: 1 on 09/04/2019 by Juan Velasco MD at [facility] Orthopedic Implant Left: Hip [employer] 08/29/2028 650-1065 / / [id number] Jake [employer] Alpine 3.0x15mm Repl [id number] - [id number] Implanted:Q ty: 1 on 10/12/2016 by Hamilton Gleason MD at [facility] Stent N/A: Heart MORALES [id number] 07/24/2019 [id number] / / [id number] 13 Jake [employer] Alpine 2.83u89rd Repl [id number] - [id number] Implanted:Q ty: 1 on 10/12/2016 by Hamilton Gleason MD at [facility] Stent N/A: Heart MORALES [id number] / / [id number] Insurance MEDICARE [facility] Advance Directives * Full Code (Latest Code Status on File) Date Activated Date Inactivated Comments 09/29/2018 10:11 PM 10/01/2018 8:10 PM * Full Code Date Activated Date Inactivated Comments 2017 11:52 PM 04/09/2017 4:40 PM Care Teams Irrigation Engineer Relationship Specialty Start Date End Date Sunny Manzo MD PCP - General Family Medicine 11/04/20
--- OUTSIDE RECORDS SUMMARY | 2024-11-01 14:46 | XMS_ITS | Encounter Summary ---
Author Organization [facility] Address [address] [place] [address] Care Team Providers Care Commercial Project Manager Name Role Phone Sunny Manzo MD Primary Care Provider [phone] Sunny Manzo MD Unavailable Jensen Barnett MA Unavailable [phone] Encounter Details Date Type Department Care Team (Late st Contact Info) Description 04/17/2024 Orders Only [facility] [address] [place] [address] Braydon Sheridan MD [address] [facility] Social History Tobacco Use Types Packs/Day Years [...] often do you attend chur ch or catholic services? More than 4 times per year 05/06/2023 Do you belong to any clubs o r organizations such as religious groups, unions, fraternal or athletic groups, or [...] Recorded Patient Health Questionnaire-2 Score 0 08/10/2023 [facility] of Occupat ional Health - Occupational [...] place to sleep or slept in a mcfp (including now)? No 05/06/2023 Comments Unknown Sex and Gender Information Value Date Recorded Sex Assigned at Female 11/19/2023 8:38 AM EDT Legal Sex Female 8:05 PM EDT Gender Identity Not on file Sexual Orientation Not on file documented as of this encounter Plan of Treatment Not on file documented as of this encounter Procedures Procedure Name Priority Date/Time Associated Diagnosis Comments XR CHEST 1 VIEW Routine 04/16/2024 10:28 AM EST documented in this encounter Results * XR chest 1 view (04/16/2024 10:28 AM EST) Anatomical Region Laterality Modality Chest Radiographic Graciela ging Braydon Sheridan MD IMG XR PROCEDURES Final Result documented in this encounter Visit Diagnoses Not on filedocumented in this encounter Care Teams Commercial Project Manager Relationship Specialty Start Date End Date Sunny Manzo MD PCP - General Family Medicine 03/23/23 Sunny Manzo MD [address] [place] [address] PCP - ACO Reach 03/24/24 Jensen Barnett MA [address] [place] [address] Family Medicine 05/24/24 05/31/24 documented as of this encounter
--- NOTE | 2024-11-01 14:59 | ECG_ITS ---
[facility] Test Date: 2024-11-01 Pat Name: ARACELI JAEGER Department: Room: - Gender: Female Covering Machine Tender: : 1945 Requested By: [id number] Order Number: [id number] Reading MD: LISHA LOVETT M.D. Measurements Intervals [place] Rate: 56 P: 22 GA: 158 QRS: -30 QRSD: 140 T: 12 QT: 436 QTc: 427 Interpretive Statements SINUS BRADYCARDIA 2450 Right bundle branch block 7202 Moderate left axis deviation 9150 abnormal ECG Compared to ECG 04/16/2024 15:32:07 Right bundle-branch block now present Left-axis deviation now present Electronically Signed On 11-01-2024 17:54:37 EDT by LISHA LOVETT M.D.
--- NOTE | 2024-11-01 14:59 | XR_ITS ---
The [place] [id number] Patient Name: ARACELI JAEGER MRN: [id number] date: 1945 Sex: F Assigned Patient Location: ER Current Patient Location: ER Accession/Order Number: [id number] Exam Date: 11/01/2024 15:22 Report Date: 11/01/2024 15:41 At the request of: CECILIO SHOEMAKER MD Procedure: XR chest 1V XR chest 1V 11/01/2024 3:24 PM SIGNS AND SYMPTOMS: Upper back pain, shortness of breath PROTOCOL: Frontal radiograph of the chest COMPARISON: 04/16/2024 FINDINGS: The trachea is midline. The heart and mediastinal structures are within normal limits. The lung parenchyma is clear. The bony thorax is intact. XR/XR chest 1V IMPRESSION: No acute cardiopulmonary pathology. Impression dictated by: Roge Vora M.D. 11/01/2024 3:41 PM Dictation Location: [place] [address] Electronically authenticated by: [id number] Y Date: 11/01/2024 15:41
--- NOTE | 2024-11-01 15:16 | ED.GENADUL1 ---
HPI HPI - General Adult General Chief complaint: Chest Pain Stated complaint: CHEST/BACK PAIN Time Seen by Provider: 11/01/24 14:45 Source: patient Mode of arrival: walk-in History of Present Illness HPI narrative: 79-year-old female presenting for pain in her right upper back. Is been coming and going since this morning. She states the only 2 time she had pains like this is when she had her 2 heart attacks. No trauma or unusual activity. No anterior chest wall pain. No fever or cough but sometimes she feels short of breath. No swelling in her ankles. Related Data Home Medications ?Medication ?Instructions ?Recorded ?Confirmed carvedilol 6.25 mg tablet 6.25 mg PO Q12H 04/16/24 11/01/24 nitroglycerin 0.4 mg sublingual 0.4 mg sublingual Q5M PRN chest 04/16/24 11/01/24 tablet pain alprazolam 0.5 mg tablet 0.5 mg PO TID PRN anxiety 11/01/24 11/01/24 aspirin 81 mg tablet,delayed 81 mg PO DAILY 11/01/24 11/01/24 release clopidogrel 75 mg tablet 75 mg PO DAILY 11/01/24 11/01/24 trazodone 50 mg tablet 50 mg PO QPM 11/01/24 11/01/24 Allergies Allergy/AdvReac Type Severity Reaction Status Date / Time No Known Drug Allergies Allergy Verified 04/16/24 09:09 Opioid HPI Opioid Management Most Recent Opioid Data: Last Pain Scale 0 04/17/24, 13:27 Last ORT Total Score 0 04/16/24, 13:10 Last ORT Risk Category Low Risk 04/16/24, 13:10 Review of Systems ROS Narrative A ten point review of systems is negative except as noted above. [facility] Medical History (Updated 11/01/24 @ 17:23 by Joao Cano MD) Dyspnea ?R06.00 - Dyspnea, unspecified (ICD-10) CAD (coronary artery disease) ?I25.10 - Atherosclerotic heart disease of [place] coronary artery without angina pectoris (ICD-10) Chest pain ?R07.9 - Chest pain, unspecified (ICD-10) Cataract (lens) fragments in eye following cataract surgery, bilateral ?H59.023 - Cataract (lens) fragments in eye following cataract surgery, bilateral (ICD-10) Abdominal hernia with obstruction ?K46.0 - Unspecified abdominal hernia with obstruction, without gangrene (ICD-10) Hip replacement planned Myocardial infarct, old ?I25.2 - Old myocardial infarction (ICD-10) Chest pain ?R07.9 - Chest pain, unspecified (ICD-10) Social History Highest level of school completed/degree received: high school graduate Little interest or pleasure in doing things: not at all Feeling down, depressed, or hopeless: not at all Exam Narrative Exam Narrative: Nurses note and vital signs reviewed and patient is not hypoxic. General: The patient appears in no apparent distress. Patient is resting on cart. Skin: Warm, dry, no pallor noted. There is no rash noted. Head: Normocephalic, atraumatic Eye: Normal conjunctiva, no drainage Ears, Nose, Mouth, and Throat: oral mucosa is moist. Nares patent. Cardiovascular: Regular Rate and Rhythm Respiratory: Patient is in no distress, no accessory muscle use, lungs are clear to auscultation, no wheezing, rales or rhonchi Back: non-tender, no bruise or rash GI: Soft and nontender Musculoskeletal: There is an old bruise below her right knee. Ankles are not swollen Neurological: A&O, normal speech Psychiatric: Cooperative Constitutional Vital Signs, click to edit/add: Last Vital Signs Temp 98.0 F 11/01/24 14:40 Pulse 59 L 11/01/24 17:21 Resp 22 H 11/01/24 17:21 BP 114/68 11/01/24 17:21 Pulse Ox 99 11/01/24 17:21 O2 Del Method Room Air 11/01/24 14:40 Course Vital Signs Vital signs: Vital Signs Temperature 98.0 F 11/01/24 14:40 Pulse Rate 67 11/01/24 14:40 Respiratory Rate 18 11/01/24 14:40 Blood Pressure 130/85 11/01/24 14:40 Pulse Oximetry 97 11/01/24 14:40 Oxygen Delivery Method Room Air 11/01/24 14:40 Temperature 98.0 F 11/01/24 14:40 Pulse Rate 59 L 11/01/24 17:21 Respiratory Rate 22 H 11/01/24 17:21 Blood Pressure 114/68 11/01/24 17:21 Pulse Oximetry 99 11/01/24 17:21 Oxygen Delivery Method Room Air 11/01/24 14:40 Medical Decision Making MDM Narrative Medical decision making narrative: Her workup including 2 sets of troponin is negative. No acute findings on EKG. Case discussed with Dr. Leblanc, her production artist, and follow-up was arranged in the office. He is planning on doing an outpatient stress test. Differential Diagnosis Differential Diagnosis: Muscle pain, [place], pneumothorax, pneumonia Lab Data Lab results reviewed: Yes I reviewed the patient's lab results Labs: Lab Results 11/01/24 11/01/24 Range/Units 15:10 16:02 WBC 6.3 (4.0-11.0) 10^3/uL RBC 4.13 L (4.20-5.40) 10^6/uL Hgb 12.4 (12.0-16.0) g/dL Hct 36.1 (36.0-48.0) % MCV 87.4 (81.0-99.0) fL MCH 30.0 (26.7-34.0) pg MCHC 34.3 (29.9-35.2) g/dL RDW 13.2 (11.0-15.0) % Plt Count 309 (150-450) 10^3/uL MPV 9.6 (9.5-13.5) fL Neut % (Auto) 65.5 (43.0-75.0) % Lymph % (Auto) 25.2 (20.5-60.0) % Gallia % (Auto) 6.4 (1.7-12.0) % Eos % (Auto) 1.6 (0.9-7.0) % Baso % (Auto) 0.8 (0.2-2.0) % Neut # (Auto) 4.1 (1.4-6.5) 10^3/uL Lymph # (Auto) 1.6 (1.2-3.8) 10^3/uL [place] # (Auto) 0.4 (0.3-0.8) 10^3/uL Eos # (Auto) 0.1 (0.0-0.7) 10^3/uL Baso # (Auto) 0.1 (0.0-0.1) 10^3/uL Abs Immat Gran (auto) 0.03 (0.00-0.03) 10^3/uL Imm/Tot Granulo (auto) 0.5 (0.0-0.5) % Sodium 141 (136-145) mmol/L Potassium 4.0 (3.5-5.1) mmol/L Chloride 105 (98-107) mmol/L Carbon Dioxide 27.3 (21.0-32.0) mmol/L Anion Gap 12.7 BUN 21.0 H (7.0-18.0) mg/dL Creatinine 0.66 (0.55-1.02) mg/dL Est GFR ( Amer) >60 (>=60 mL/min/1.73m^2) Est GFR (Non-Af Amer) >60 (>=60 mL/min/1.73m^2) BUN/Creatinine Ratio 31.8 Glucose 91 (74-106) mg/dL Calcium 9.3 (8.5-10.1) mg/dL Troponin I High Sens 5.4 5.6 (4.0-51.3) pg/mL Imaging Data Chest x-ray: Radiologist's impression: ITS Impressions Chest X-Ray 11/01/24 14:59 IMPRESSION: No acute cardiopulmonary pathology. Impression dictated by: Roge Vora M.D. 11/01/2024 3:41 PM Dictation Location: [place] [address] Electronically authenticated by: [id number] Y Date: 11/01/2024 15:41 ECG Data Attestation: I personally reviewed and interpreted this ECG as follows: (EKG on my interpretation shows sinus rhythm with right bundle branch block and no acute changes) Discharge Plan Discharge Chief Complaint: Chest Pain Clinical Impression: Back pain Patient Disposition: Home, Self-Care Time of Disposition Decision: 17:22 Condition: Good Mode of Transportation: Private Vehicle Prescriptions / Home Meds: No Action carvedilol 6.25 mg tablet 6.25 mg PO Q12H nitroglycerin 0.4 mg tablet, sublingual 0.4 mg sublingual Q5M PRN (Reason: chest pain) alprazolam 0.5 mg tablet 0.5 mg PO TID PRN (Reason: anxiety) aspirin 81 mg tablet,delayed release (DR/EC) 81 mg PO DAILY clopidogrel 75 mg tablet 75 mg PO DAILY trazodone 50 mg tablet 50 mg PO QPM Print Language: Czech Instructions: Back Pain (ED) Additional Instructions: Follow-up with your production artist. They are planning an outpatient stress test. Referrals: Sunny Manzo MD [Primary Care Provider, Family Practice] - 1 week
[2024-11-01] MEDS: ASPIRIN 81 MG TAB.CHEW 324 MG PO (15:22)
[2024-11-01 15:31] LABS: Hematocrit 36.1 % (36.0-48.0); Hemoglobin 12.4 g/dL (12.0-16.0); Immature Granulocytes Abs Auto 0.03 10^3/uL (0.00-0.03); Immature Granulocytes Pct Auto 0.5 % (0.0-0.5); Lymphocytes Absolute Auto 1.6 10^3/uL (1.2-3.8); Mean Corpuscular HGB Conc 34.3 g/dL (29.9-35.2); Mean Corpuscular Hemoglobin 30.0 pg (26.7-34.0); Mean Corpuscular Volume 87.4 fL (81.0-99.0); Platelet Count 309 10^3/uL (150-450); Red Blood Count 4.13 10^6/uL (4.20-5.40); White Blood Count 6.3 10^3/uL (4.0-11.0)
[2024-11-01 15:47] LABS: Anion Gap 12.7; Blood Urea Nitrogen 21.0 mg/dL (7.0-18.0); Calcium 9.3 mg/dL (8.5-10.1); Carbon Dioxide 27.3 mmol/L (21.0-32.0); Chloride 105 mmol/L (98-107); Estimated GFR (African America >60 (>=60 mL/min/1.73m^2); Estimated GFR (Non-African Ame >60 (>=60 mL/min/1.73m^2); Glucose 91 mg/dL (74-106); Potassium 4.0 mmol/L (3.5-5.1); Sodium 141 mmol/L (136-145)
--- OUTSIDE RECORDS SUMMARY | 2024-11-01 15:50 | XMS_ITS | CCD ---
Author Organization [facility] Care Team Providers Care Biscuitware Brusher Name Role Phone RAS GARZA Attending Unavailable SUNNY HENNING Referring Unavailable SUNNY HENNING Primary Care Unavailable Sunny Henning MD Primary Care Provider Sunny Henning MD Primary Care Provider Sunny Henning MD Unavailable ELTAHAWY, EHAB Attending Unavailable ELTAHAWY, EHAB Attending Unavailable ORALIA OLSEN Attending Unavailable ELTAHAWY, EHAB Referring Unavailable ELTAHAWY, EHAB Referring Unavailable RUDD, RHETT CHUL Referring Unavailable ELTAHAWY, EHAB Referring Unavailable RUDD, RHETT CHUL Attending Unavailable HOCALIN Daly Referring Unavailable HORANI, SIERRA Admitting Unavailable ELTAHAWY, EHAB Attending Unavailable SUNNY HENNING Attending Unavailable MILADY, SUNNY Attending Unavailable SUNNY HENNING Attending Unavailable MILADY, SUNNY Attending Unavailable Allergies Allergy Classification Reported Allergen(s) Allergy Type Date of Onset Reaction(s) Facility (6 sources) Hmg-Coa Reductase Inhibitors (Statins); Translations: [OXYGNYM-KFH-UCE REDUCTASE INHIBITORS] Propensity to adverse reactions to drug (disorder) 9 pain, Nausea [facility] (18 sources) HMG-CoA reductase inhibitor Propensity to adverse reactions 4 [facility] Medications Current Medications Medication Drug Class(es) Dates Sig (Normalized) Sig (Original) ALPRAZolam 0.5 mg oral tablet (20 sources) Benzodiazepine Start: 05-03-2024 End: 10-11-2024 take 1 tablet by mouth three times daily as needed for anxiety ALPRAZolam (Xanax) 0.5 MG tablet Indications: Generalized anxiety disorder TAKE 1 TABLET BY MOUTH THREE TIMES A DAY NEEDED FOR ANXIETY 90 tablet 10/11/2024 Active Start: 05-10-2023 End: 12-28-2023 take 1 tablet by mouth three times daily as needed for anxiety ALPRAZolam (Xanax) 0.5 MG tablet Indications: Generalized anxiety disorder (CMS/HCC) Take 1 tablet (0.5 mg) by mouth 3 (three) times a day as needed for anxiety for up to 20 days 60 tablet 12/08/2023 Active ALPRAZolam (FABIO VAM) 0.25 mg disintegrating tablet Dissolve 1 tablet (0.25 mg total) on tongue nightly as needed for anxiety. Active ascorbic acid 500 mg oral capsule (6 sources) Vitamin C take 1 capsule by mo ut once daily Ascorbic Acid (Vitamin C) 500 MG capsule Take 500 mg by mouth 1 (one) time each day Active take 1 tablet by mouth [facility] ascorbic acid (VITAMIN C) 500 mg tablet Take 1 tablet (500 mg total) by mouth in the morning. Active aspirin 81 mg chewable tablet (20 sources) Platelet Aggregation Inhibitor, Nonsteroidal Anti-inflammatory Drug Start: 05-11-2022 End: 06-11-2023 aspirin 81 mg chewable tablet Indications: Coronary artery disease involving grayling coronary artery of grayling heart without angina pectoris , Takotsubo cardiomyopathy , Status post angioplasty with stent , Pure hypercholesterolemia CHEW 1 TABLET (81 MG TOTAL) AND SWALLOW IN THE MORNING. 90 tablet 3 06/11/2023 Active take 1 tablet by mouth in the [facility] aspirin 81 MG EC tablet Take 81 mg by mouth in the morning. Active b complex vitamins capsule (3 sources) take 1 capsule by ne ut in the morning b complex vitamins capsule Take 1 capsule by mouth in the morning. Active take 1 capsule [facility] b complex vitamins capsule Take 1 capsule by mouth in the morning. 0 Active carvedilol 3.125 mg oral tablet (20 sources) alpha-Adrenergic Daija, beta-Adrenergic Daija Start: 06-13-2024 take 1 tablet by mouth in the morning carvedilol (Coreg) 3.125 MG tablet Take 3.125 mg by mouth in the morning and 3.125 mg in the evening. Take with meals. 06/13/2024 Active Start: 12-08-2023 End: 08-04-2024 take 1 tablet by mouth in the morning carvedilol (Coreg) 6.25 MG tablet Indications: Essential hypertension, benign Take 1 tablet (6.25 mg) by mouth in the morning and 1 tablet (6.25 mg) in the evening. Take with meals. 180 tablet 3 12/08/2023 08/04/2024 Discontinued Start: 07-06-2023 take 1 tablet by lo th at mealtime carvediloL (COREG) 6.25 mg tablet Indications: Coronary artery disease involving grayling coronary artery of grayling heart without angina pectoris , Takotsubo cardiomyopathy , Status post angioplasty with stent , Pure hypercholesterolemia TAKE 1 TABLET (6.25 MG TOTAL) BY MOUTH IN THE MORNING AND IN THE EVENING WITH MEALS 180 tablet 2 07/06/2023 Active Start: 05-11-2022 End: 12-08-2023 take 1 tablet by mouth in the morning, then take 1 tablet by mouth at mealtime carvediloL (COREG) 6.25 mg tablet Indications: Coronary artery disease involving grayling coronary artery of grayling heart without angina pectoris , Takotsubo cardiomyopathy , Status post angioplasty with stent , Pure hypercholesterolemia Take 1 tablet (6.25 mg total) by mouth in the morning and 1 tablet (6.25 mg total) in the evening. Take with meals. 180 tablet 3 05/11/2022 Active cholecalciferol 0.05 mg oral tablet (20 sources) Vitamin D take 1 tablet by mouth in the morning cholecalciferol (Vitamin D-3) 50 MCG (2000 UT) tablet Take 2,000 Units by mouth in the morning. Active take 1 capsule by mo uth in the morning cholecalciferol, vitamin D3, (VITAMIN D3 ) 25 mcg (1,000 unit) capsule Take 1 capsule (1,000 Units total) by mouth in the morning. Active clopidogrel 75 mg oral tablet (15 sources) P2Y12 Platelet Inhibitor Start: 04-21-2024 End: 05-21-2024 take 1 tablet by mouth once daily clopidogrel (Plavix) 75 MG tablet Indications: 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 Take 1 tablet (75 mg) by mouth Daily 30 tablet 5 05/03/2024 Active FLUoxetine 10 mg oral capsule (3 sources) Serotonin Reuptake Inhibitor Start: 07-12-2024 End: 08-04-2024 take 1 capsule by mouth once daily FLUoxetine (PROzac) 10 MG capsule Indications: Generalized anxiety disorder Take 1 capsule (10 mg) by mouth Daily 30 capsule 2 07/12/2024 08/04/2024 Discontinued LACTOBAC NO.41/BIFIDOBACT NO.7 (PROBIOTIC-10 ORAL) (4 sources) take 1 tablet by mouth once daily LACTOBAC NO.41/BIFIDOBACT NO.7 (PROBIOTIC-10 ORAL) Take 1 tablet by mouth daily. Active take 1 tablet by mouth once amanda y LACTOBAC NO.41/BIFIDOBACT NO.7 (PROBIOTIC-10 ORAL) Take 1 tablet by mouth daily. 0 Active magnesium oxide,aspartate,ci tr 400 mg magnesium capsule (1 source) take 1 capsule by mouth once daily magnesium oxide,aspartate,citr 400 mg magnesium capsule Take 400 mg by mouth daily. 0 Active MAGNESIUM OXIDE,ASPARTATE,CI TR ORAL (3 sources) take 250 mg by mouth in the morning MAGNESIUM OXIDE,ASPARTATE,CITR ORAL Take 250 mg by mouth in the morning. Active take 250 mg by mouth in the morn ing MAGNESIUM OXIDE,ASPARTATE,CITR ORAL Take 250 mg by mouth in the morning. 0 Active nitroglycerin 0.4 mg sublingual tablet (20 sources) Nitrate Vasodilator Start: 08-04-2023 nitroglyce rin (Nitrostat) 0.4 MG SL tablet Indications: 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 PLACE 1 TABLET (0.4 MG) UNDER THE TONGUE EVERY 5 MINUTES NEEDED FOR CHEST PAIN 225 tablet 2 08/04/[address] 1 tablet under the tongue as needed. Active NITROGLYCERIN SL Place 1 tablet under the tongue as needed. 0 Active omeprazole 20 mg delayed release oral capsule (7 sources) Proton Pump Inhibitor Start: 06-28-2023 End: 12-08-2023 take 1 capsule by mouth before mealtime omeprazole (PriLOSEC) [address] capsule Indications: Gastroesophageal reflux disease without esophagitis Take 1 capsule (20 mg) by mouth in the morning. Take before meals. Do not crush or chew.. 30 capsule 3 06/28/2023 12/08/2023 Discontinued take 1 tablet by mouth in the mo rning omeprazole (PriLOSEC OTC) 20 mg EC tablet Take 1 tablet (20 mg total) by mouth in the morning. Active ondansetron 4 mg oral tablet (17 sources) Serotonin-3 Receptor Antagonist Start: 07-13-2023 End: 10-06-2024 take 1 tablet by mouth every six hours for nausea ondansetron (Zofran) 4 MG tablet Indications: Gastroesophageal reflux disease without esophagitis Take 1 tablet (4 mg) by mouth every 6 (six) hours if needed for nausea or vomiting 20 tablet 2 07/13/2023 10/06/2024 Discontinued ramipril 2.5 mg oral capsule (17 sources) Angiotensin Converting Enzyme Inhibitor Start: 05-03-2024 End: 08-04-2024 ramipril (Altace) 2.5 MG capsule 05/03/2024 08/04/2024 Discontinued Start: 12-08-2023 take 1 capsule by mo uth once daily ramipril (Altace) 2.5 MG capsule Indications: Essential hypertension, benign (CMS/HCC) Take 1 capsule (2.5 mg) by mouth Daily 90 capsule 3 12/08/2023 Active Start: 12-08-2023 take 1 capsule by mo uth once daily ramipril (Altace) 2.5 MG capsule Indications: Essential hypertension, benign (CMS/HCC) Take 1 capsule (2.5 mg) by mouth Daily 90 capsule 3 12/08/2023 Active Start: 10-08-2023 End: 12-08-2023 take 1 capsule by mouth in the morning ramipril (Altace) 2.5 MG capsule Indications: Atherosclerotic heart disease of grayling coronary artery without angina pectoris (CMS/HCC) , Takotsubo syndrome TAKE 1 CAPSULE (2.5 MG TOTAL) BY MOUTH IN THE MORNING. 90 capsule 3 10/08/2023 12/08/2023 Discontinued (Reorder) Start: 06-09-2023 take 1 capsule by mo uth in the morning ramipriL (ALTACE) 2.5 mg capsule Indications: Coronary artery disease involving grayling coronary artery of grayling heart without angina pectoris , Takotsubo cardiomyopathy , Status post angioplasty with stent , Pure hypercholesterolemia TAKE 1 CAPSULE (2.5 MG TOTAL) BY MOUTH IN THE MORNING. 90 capsule 06/09/2023 Active Start: 05-11-2022 take 1 capsule by mo uth in the morning ramipriL (ALTACE) 2.5 mg capsule Indications: Coronary artery disease involving grayling coronary artery of grayling heart without angina pectoris , Takotsubo cardiomyopathy , Status post angioplasty with stent , Pure hypercholesterolemia Take 1 capsule (2.5 mg total) by mouth in the morning. 90 capsule 3 05/11/2022 Active sertraline 25 mg oral tablet (7 sources) Serotonin Reuptake Inhibitor Start: 08-28-2024 End: 10-06-2024 take 1 tablet by mouth once daily sertraline (Zoloft) 25 MG tablet Indications: Generalized anxiety disorder TAKE 1 TABLET BY MOUTH EVERY DAY 90 tablet 1 08/28/2024 10/06/2024 Discontinued Start: 08-04-2024 take 1 tablet by lo th once daily sertraline (Zoloft) 25 MG tablet Indications: Generalized anxiety disorder Take 1 tablet (25 mg) by mouth Daily 30 tablet 2 08/04/2024 Active traZODone hydrochloride 50 mg oral tablet (18 sources) Serotonin Reuptake Inhibitor Start: 05-31-2024 take 1 tablet by mouth at bedtime traZODone (Desyrel) 50 MG tablet Indications: Primary insomnia TAKE 1 TABLET BY MOUTH AT BEDTIME 90 tablet 1 05/31/2024 Active take 1 tablet by mouth at bedtim e traZODone (Desyrel) 50 MG tablet Take 50 mg by mouth at bedtime Active ubidecarenone 10 mg oral capsule (4 sources) coenzyme Q10 10 mg capsule Take 10 capsules (100 mg total) by mouth in the morning. Active ubidecarenone 100 mg / vitam in e 5 unt oral capsule (18 sources) take 1 capsule by mo uth in the morning coenzyme Q-10 100 MG capsule Take 100 mg by mouth in the morning. Active Completed/Discontinued Medications Medication Drug Class(es) Dates Sig (Normalized) Sig (Original) ezetimibe 10 mg oral tablet (2 sources) Dietary Cholesterol Absorption Inhibitor Start: 12-07-2022 End: 05-11-2023 take 1 tablet by mouth in the morning ezetimibe (ZETIA) 10 mg tablet TAKE 1 TABLET (10 MG TOTAL) BY MOUTH IN THE MORNING 90 tablet 1 12/07/2022 05/11/2023 Discontinued Problems Active Problems Problem Classification Problem Date Documented Date Episodic/Chronic Acute myocardial infarction (10 sources) Myocardial infarction; Translations: [Non-ST elevation (NSTEMI) myocardial infarction] Onset: 06-03-2017 Resolved: 08-31-2019 08-31-2019 Chronic Anxiety disorders (20 sources) Generalized anxiety disorder; Translations: [Generalized anxiety disorder] Onset: 05-10-2023 05-10-2023 Chronic Cardiac dysrhythmias (2 sources) Ventricular premature depolarization; Translations: [Ventricular premature depolarization] Onset: 04-27-2024 Chronic Congestive heart failure; nonhypertensive (4 sources) Chronic combined systolic and diastolic heart failure; Translations: [Chronic combined systolic (congestive) and diastolic (congestive) heart failure] Onset: 10-23-2018 Resolved: 05-23-2021 05-23-2021 Chronic Coronary atherosclerosis and other heart disease (20 sources) Coronary arteriosclerosis; Translations: [Atherosclerotic heart disease of grayling coronary artery without angina pectoris] Onset: 10-10-2016 Resolved: 08-31-2019 05-10-2023 Chronic Disorders of lipid metabolism (8 sources) Pure hypercholesterolemia; Translations: [Pure hypercholesterolemia, unspecified] Onset: 11-04-2016 06-11-2023 Chronic Esophageal disorders (18 sources) Gastroesophageal reflux disease without esophagitis; Translations: [Gastro-esophageal reflux disease without esophagitis] Onset: 05-10-2023 05-10-2023 Chronic Essential hypertension (20 sources) Benign essential hypertension; Translations: [Essential (primary) hypertension] Onset: 05-10-2023 05-10-2023 Chronic Miscellaneous mental health disorders (20 sources) Primary insomnia; Translations: [Primary insomnia] Onset: 05-10-2023 05-10-2023 Chronic Osteoarthritis (20 sources) Osteoarthritis of left hip joint; Translations: [Unilateral primary osteoarthritis, left hip] Onset: 03-21-2018 05-10-2023 Chronic Other and ill-defined heart disease (6 sources) Takotsubo cardiomyopathy; Translations: [Takotsubo syndrome] Onset: 10-24-2018 06-11-2023 Chronic Other circulatory disease (6 sources) History of angioplasty; Translations: [Peripheral vascular angioplasty status with implants and grafts] Onset: 11-04-2016 06-11-2023 Chronic Other screening for suspected conditions (not mental disorders or infectious disease) (4 sources) Endometrium thickened; Translations: [Abnormal findings on diagnostic imaging of other specified body structures] Onset: 09-01-2017 09-01-2017 Chronic Past or Other Problems Problem Classification Problem Date Documented Da te Episodic/Chronic Allergic reactions (18 sources) 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; Translations: [Other insect allergy status] Onset: 08-10-2023 Resolved: 10-06-2024 08-10-2023 Episodic Cardiac dysrhythmias (2 sources) Palpitations; Translations: [Palpitations] Onset: 04-27-2024 Episodic Coronary atherosclerosis and other heart disease (2 sources) Presence of coronary angioplasty implant and graft; Translations: [Presence of coronary angioplasty implant and graft] Onset: 04-27-2024 Episodic Diabetes mellitus without complication (18 sources) Prediabetes; Translations: [Prediabetes] Onset: 05-10-2023 05-10-2023 Episodic Heart valve disorders (4 sources) Mitral stenosis with insufficiency; 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] Onset: 11-04-2016 Resolved: 08-04-2017 08-04-2017 Chronic Intestinal obstruction without hernia (8 sources) Partial obstruction of intestine; Translations: [Partial intestinal obstruction, unspecified as to cause] Onset: 2017 Resolved: 08-31-2019 2017 Episodic Mood disorders (12 sources) Mood disorders Onset: 09-04-2019 Resolved: 08-04-2024 09-04-2019 Other circulatory disease (2 sources) Elevated blood-pressure reading, without diagnosis of hypertension; Translations: [Elevated blood-pressure reading, without diagnosis of hypertension] Onset: 04-27-2024 Episodic Other disorders of stomach and duodenum (4 sources) Gastric volvulus; Translations: [Other diseases of stomach and duodenum] Onset: 06-17-2017 06-17-2017 Episodic Other lower respiratory disease (2 sources) Shortness of breath; Translations: [Shortness of breath] Onset: 04-27-2024 Episodic Other non-traumatic joint disorders (4 sources) Pain of left hip joint; Translations: [Pain in left hip] Onset: 03-21-2018 03-21-2018 Episodic Ovarian cyst (4 sources) Cyst of right ovary; Translations: [Unspecified ovarian cyst, right side] Onset: 09-01-2017 09-01-2017 Episodic Skin and subcutaneous tissue infections (18 sources) Cellulitis of neck; Translations: [Cellulitis of neck] Onset: 08-10-2023 Resolved: 12-08-2023 08-10-2023 Episodic Superficial injury; contusion (18 sources) Insect bite of head and neck; Translations: [Insect bite of unspecified part of neck, initial encounter] Onset: 08-10-2023 08-10-2023 Episodic Unclassified (4 sources) Onset: 12-08-2017 12-08-2017 Results Test Name Value Interpretation Reference Range Facility ITPon 09-22-2024 [facility] [place] [id number] Cardiac Rehab Report Signed Patient: DIANA JAEGER MR#: [id number] : 1945 Acct:[id number] Age/Sex: 79 / F ADM Date: 09/21/24 Loc: CR Attending Dr: Oralia AGUILAR Ordering Physician: Jose Alfredo Fregoso M.D. Date of Service: 09/06/24 Procedure(s): ITP Accession Number(s): [id number] cc: [facility] Test Date: 2024-09-06 Pat Name: DIANA JAEGER Department: Room: - Gender: Female Berry Picker: : 1945 Requested By: JOSE ALFREDO FREGOSO Order Number: [id number] Reading MD: LISHA LOVETT M.D. Interpretive Statements Patient may continue cardiac rehab as outlined in the treatment plan. Electronically Signed On 09-22-2024 10:19:08 EDT by LISHA LOVETT M.D. Dictated By: LISHA LOVETT Signed By: 09/22/24 1019 09/22/24 1019 DD/ 1118 TD/TT: Filer Repairer: [facility] Radiology Radiologtawana greene MD - 09/22/2024 [facility] [place] [id number] Cardiac Rehab Report Signed Patient: DIANA JAEGER MR#: [id number] : 1945 Acct:[id number] Age/Sex: 79 / F ADM Date: 09/21/24 Loc: CR Attending Dr: Oralia AGUILAR Ordering Physician: Jose Alfredo Fregoso M.D. Date of Service: 09/06/24 Procedure(s): ITP Accession Number(s): [id number] cc: [facility] Test Date: 2024-09-06 Pat Name: DIANA JAEGER Department: Room: - Gender: Female Berry Picker: : 1945 Requested By: JOSE ALFREDO FREGOSO Order Number: [id number] Juli MD: LISHA LOVETT M.D. Interpretive Statements Patient may continue cardiac rehab as outlined in the treatment plan. Electronically Signed On 09-22-2024 10:19:08 EDT by LISHA LOVETT M.D. Dictated By: LISHA LOVETT Signed By: 09/22/24 1019 09/22/24 1019 DD/ 1118 TD/TT: Filer Repairer: [facility] ITPOrdered By: Radiologist R adiology on 09-22-2024 [facility] Work Phone: ITPon 09-06-2024 Radiology Study observation (narrative) [facility] Office Visiton 08-29-2024 Follow-up visit [id number] Cherry Jaeger ma 1945 F Date Provider Department Center 08/29/2024 JOSE ALFREDO LEWIS [facility] Family History Problem Relation Age of Onset Other Mother Other Father Family Status - Relation Status Age at Mother Father Level of Service:74950 [place] OFFICE/OUTPATIENT ESTABLISHED LOW MDM 20 MIN Normal [facility] Abstracton 08-28-2024 Abstract [id number] Cherry Jaeger ma 1945 F Date Provider Department Center 08/28/2024 JOSE ALFREDO LEWIS [facility] Family History Problem Relation Age of Onset Other Mother Other Father Family Status - Relation Status Age at Mother Father Normal [facility] ITPon 08-10-2024 [place] [address] Cardiac Rehab Report Signed Patient: DIANA JAEGER MR#: [id number] : 1945 Acct:[id number] Age/Sex: 79 / F ADM Date: 08/09/24 Loc: CR Attending Dr: Oralia AGUILAR Ordering Physician: Hector Ruelas D.O. Date of Service: 08/10/24 Procedure(s): ITP Accession Number(s): [id number] cc: [facility] Test Date: 2024-08-10 Pat Name: DIANA JAEGER Department: Room: - Gender: Female Berry Picker: : 1945 Requested By: Hector Ruelas Order Number: [id number] Juli MD: Hector Ruelas Interpretive Statements Okay to continue with outlined treatment plan. Electronically Signed On 08-10-2024 15:36:48 EDT by Hector Ruelas Dictated By: Hector Ruelas D.O. Signed By: 08/10/24153608/10/241536 DD/ 09 TD/TT: Filer Repairer: [facility] Radiology, Radiologtawana greene MD - 08/10/2024 [place] [address] Cardiac Rehab Report Signed Patient: DIANA JAEGER MR#: [id number] : 1945 Acct:[id number] Age/Sex: 79 / F ADM Date: 08/09/24 Loc: CR Attending Dr: Oralia AGUILAR Ordering Physician: Hector Ruelas D.O. Date of Service: 08/10/24 Procedure(s): ITP Accession Number(s): [id number] cc: [facility] Test Date: 2024-08-10 Pat Name: DIANA JAEGER Department: Room: - Gender: Female Berry Picker: : 1945 Requested By: Hector Ruelas Order Number: [id number] Juli MD: Hector Ruelas Interpretive Statements Okay to continue with outlined treatment plan. Electronically Signed On 08-10-2024 15:36:48 EDT by Hector Ruelas Dictated By: Hector Ruelas D.O. Signed By: 08/10/24153608/10/241536 DD/ 09 TD/TT: Filer Repairer: JOSHUA Lopez Radiology Study observation (narrative) [facility] ITPOrdered By: Radiologist R adiology on 08-10-2024 [facility] Work Phone: ITPon 07-12-2024 [place] [address] Cardiac Rehab Report Signed Patient: DIANA JAEGER MR#: [id number] : 1945 Acct:[id number] Age/Sex: 79 / F ADM Date: 07/12/24 Loc: CR Attending Dr: Oralia AGUILAR Ordering Physician: Hector Ruelas D.O. Date of Service: 07/12/24 Procedure(s): ITP Accession Number(s): [id number] cc: [facility] Test Date: 2024-07-12 Pat Name: DIANA JAEGER Department: Room: - Gender: Female Berry Picker: : 1945 Requested By: Hector Ruelas Order Number: [id number] Juli MD: Hector Ruelas Interpretive Statements Okay to continue with outlined treatment plan. Electronically Signed On 07-12-2024 9:17:27 EDT by Hector Ruelas Dictated By: Hector Ruelas D.O. Signed By: 07/12/24 0917 07/12/24 0917 DD/ 0716 TD/TT: Filer Repairer: [facility] Radiology Radiologtawana greene MD - 07/12/2024 [place] [address] Cardiac Rehab Report Signed Patient: DIANA JAEGER MR#: [id number] : 1945 Acct:[id number] Age/Sex: 79 / F ADM Date: 07/12/24 Loc: CR Attending Dr: Oralia AGUILAR Ordering Physician: Hector Ruelas D.O. Date of Service: 07/12/24 Procedure(s): ITP Accession Number(s): [id number] cc: [facility] Test Date: 2024-07-12 Pat Name: DIANA JAEGER Department: Room: - Gender: Female Berry Picker: : 1945 Requested By: Hector Ruelas Order Number: [id number] Juli CHAN: Hector Ruleas Interpretive Statements Okay to continue with outlined treatment plan. Electronically Signed On 07-12-2024 9:17:27 EDT by Hector Ruelas Dictated By: Hector Ruelas D.O. Signed By: 07/12/24 0917 07/12/24 0917 DD/ 0716 TD/TT: Filer Repairer: JOSHUA Lopez Radiology Study observation (narrative) [facility] ITPOrdered By: Radiologist R adiology on 07-12-2024 [facility] Work Phone: ITPon 07-05-2024 [place] [address] Cardiac Rehab Report Signed Patient: DIANA JAEGER MR#: [id number] : 1945 Acct:[id number] Age/Sex: 79 / F ADM Date: 07/04/24 Loc: CR Attending Dr: Oralia AGUILAR Ordering Physician: Hector Ruelas D.O. Date of Service: 07/04/24 Procedure(s): ITP Accession Number(s): [id number] cc: [facility] Test Date: 2024-07-04 Pat Name: DIANA JAEGER Department: Room: - Gender: Female Berry Picker: : 1945 Requested By: Hector Ruelas Order Number: [id number] Juli MD: Hector Ruelas Interpretive Statements Okay to proceed with outlined treatment plan. Electronically Signed On 07-05-2024 18:37:48 EDT by Hector Ruelas Dictated By: Hector Ruelas D.O. Signed By: 07/05/247 07/05/24 183 DD/ 1516 TD/TT: Filer Repairer: [facility] Radiology Radiologtawana greene MD - 07/05/2024 [place] [address] Cardiac Rehab Report Signed Patient: DIANA JAEGER MR#: [id number] : 1945 Acct:[id number] Age/Sex: 79 / F ADM Date: 07/04/24 Loc: CR Attending Dr: Oralia AGUILAR Ordering Physician: Hector Ruelas D.O. Date of Service: 07/04/24 Procedure(s): ITP Accession Number(s): [id number] cc: [facility] Test Date: 2024-07-04 Pat Name: DIANA JAEGER Department: Room: - Gender: Female Berry Picker: : 1945 Requested By: Hector Ruelas Order Number: [id number] Juli MD: Hector Ruelas Interpretive Statements Okay to proceed with outlined treatment plan. Electronically Signed On 07-05-2024 18:37:48 EDT by Hector Ruelas Dictated By: Hector Ruelas D.O. Signed By: 07/05/24183607/05/241836 DD/ 15 TD/TT: Filer Repairer: [facility] ITPOrdered By: Radiologist R adiology on 07-05-2024 [facility] Work Phone: ITPon 07-04-2024 Radiology Study observation (narrative) [facility] ITPon 06-13-2024 [place] [address] Cardiac Rehab Report Signed Patient: DIANA JAEGER MR#: [id number] : 1945 Acct:[id number] Age/Sex: 79 / F ADM Date: 06/13/24 Loc: CR Attending Dr: Oralia AGUILAR Ordering Physician: Hector Ruelas D.O. Date of Service: 06/13/24 Procedure(s): ITP Accession Number(s): [id number] cc: [facility] Test Date: 2024-06-13 Pat Name: DIANA JAEGER Department: Room: - Gender: Female Berry Picker: : 1945 Requested By: Hector Ruelas Order Number: [id number] Juli MD: Hector Ruelas Interpretive Statements Okay to proceed with outlined treatment plan. Electronically Signed On 06-13-2024 17:53:39 EDT by Hector Ruelas Dictated By: Hector Ruelas D.O. Signed By: 06/13/24175206/13/241752 DD/ 03 TD/TT: Filer Repairer: [facility] Radiology Radiologtawana greene MD - 06/13/[address] [address] Cardiac Rehab Report Signed Patient: DIANA JAEGER MR#: [id number] : 1945 Acct:[id number] Age/Sex: 79 / F ADM Date: 06/13/24 Loc: CR Attending Dr: Oralia AGUILAR Ordering Physician: Hector Ruelas D.O. Date of Service: 06/13/24 Procedure(s): ITP Accession Number(s): [id number] cc: [facility] Test Date: 2024-06-13 Pat Name: DIANA JAEGER Department: Room: - Gender: Female Berry Picker: : 1945 Requested By: Hector Ruelas Order Number: [id number] Reading MD: Hector Ruelas Interpretive Statements Okay to proceed with outlined treatment plan. Electronically Signed On 06-13-2024 17:53:39 EDT by Hector Ruelas Dictated By: Hector Ruelas D.O. Signed By: 06/13/24175206/13/241752 DD/ 03 TD/TT: Filer Repairer: [facility] Radiology Study observation (narrative) [facility] ITPOrdered By: Radiologist R adiology on 06-13-2024 [facility] Work Phone: Office Visiton 06-13-2024 Follow-up visit [id number] MiteshCherry Gomez 1945 F Date Provider Department Center 06/13/2024 JOSE ALFREDO LEWIS [facility] Family History Problem Relation Age of Onset Other Mother Other Father Family Status - Relation Status Age at Mother Father Level of Service:58205 [place] OFFICE/OUTPATIENT ESTABLISHED MOD MDM 30 MIN Normal [facility] ALL LIPID PROFILE (FASTING)o n 06-07-2024 CHOL HDL RATIO 3.2 [facility] Comment on above: 3.3 - 4.4 LOW RISK 4.4 - 7.1 AVERAGE RISK 7.1 - 11.0 MODERATE RISK >11.0 HIGH RISK Cholesterol [Mass/Vol] 165 mg/dL NINF - 200 mg/dL [facility] Cholesterol in HDL [Mass/Vol] 51 mg/dL 40 - 60 mg/dL [facility] Comment on above: > or =60 mg/dl - LOW CARDIOVASCULAR RISK <40 mg/dl - HIGH CARDIOVASCULAR RISK Magnesium [Mass/Vol] 97 mg/dL [facility] Comment on above: <100 mg/dl OPTIMAL 100-129 mg/dl NEAR OR ABOVE OPTIMAL 130-159 mg/dl BORDERLINE HIGH 160-189 mg/dl HIGH >190 mg/dl VERY HIGH Magnesium [Mass/Vol] 17 mg/dL [facility] Triglyceride [Mass/Vol] 85 mg/dL NINF - 150 mg/dL [facility]CF CMP (CMP) (FOR REMOTE FH C USE)on 06-07-2024 Albumin [Mass/Vol] 3.6 g/dL 3.4 - 5.0 g/dL [facility] ALBUMIN GLOBULIN RATIO 1.1 [facility] ALP [Catalytic activity/Vol] 87 U/L 46 - 116 U/L [facility] ALT [Catalytic activity/Vol] 36 U/L 14 - 59 U/L [facility] Anion gap [Moles/Vol] 10.6 mmol/L [facility] AST [Catalytic activity/Vol] 28 U/L 15 - 37 U/L [facility] Bilirubin [Mass/Vol] 0.4 mg/dL 0.2 - 1.0 mg/dL [facility] Calcium [Mass/Vol] 8.8 mg/dL 8.5 - 10. 1 mg/dL [facility] Chloride [Moles/Vol] 105 mmol/L 98 - 107 mmol/L [facility] CO2 [Moles/Vol] 30.5 mmol/L 21.0 - 32.0 mmol/L [facility] Creatinine [Mass/Vol] 0.81 mg/dL 0.55 - 1.02 mg/dL [facility] GFR/1.73 sq M.predicted CKD-EPI (S/P/Bld) [Vol rate/Area] >60 >=60 mL/min/1.73m 2 [facility] Globulin (S) [Mass/Vol] 3.4 g/dL [facility] Glucose [Mass/Vol] 108 mg/dL High 74 - 106 mg/dL [facility] Interpretation and review of laboratory results Abnormal [facility] Potassium [Moles/Vol] 4.1 mmol/L 3.5 - 5.1 mmol/L [facility] Protein [Mass/Vol] 7 g/dL 6.4 - 8.2 g/dL [facility] Sodium [Moles/Vol] 142 mmol/L 136 - 145 mmol/L [facility] TBH EGFR-NON AF AUSTRIAN >60 >=60 mL/min/1.73m 2 [facility] Urea nitrogen [Mass/Vol] 17 mg/dL 7.0 - 18.0 mg/dL [facility] Urea nitrogen/Creatinine [Mass ratio] 21 mg/mg [facility] No Panel Informationon 06-07 [facility] 37on 04-27-2024 37 I renewed the Plavix for [address] Fregoso may want you to continue for longer though. I renewd the aspirin. Please start checking your BP at home, after lunch, after sitting quietly for at least 5 minutes. Goal for BP average below 130/80 Read over low cholesterol and heart healthy eating. Repeat cholesterol labs in 3 months. I sent referral to [facility] for cardiac rehab. Should call you in coming weeks. Kind regards, Oralia Olsen, [facility] Cardiovascular Medicine Contact me via [employer] [place] [phone] [facility] Follow-Upon 04-27-2024 Follow-Up [id number] Cherry Jaeger ma 1945 F Date Provider Department Center 04/27/2024 [id number]-ZYFKEHORALIA OLSEN [facility] CARD ID HeartVAS Family History Problem Relation Age of Onset Other Mother Other Father Family Status - Relation Status Age at Mother Father Level of Service:22926 [place] OFFICE/OUTPATIENT ESTABLISHED MOD MDM 30 MIN Reason for Visit and Comments: Follow-up [923363] - HF Normal [facility] ALL CBC WITH AUTO DIFFon BASOPHILS ABSOLUTE AUTO 0 [facility] Basophils/100 WBC (Bld) 0.7 % 0.2 - 2.0 % [facility] Eosinophils/100 WBC (Bld) 2 % 0.9 - 7.0 % [facility] Erythrocyte distribution width (RBC) [Ratio] 12.7 % 11.0 - 15.0 % [facility] Hematocrit (Bld) [Volume fraction] 32.7 % Low 36.0 - 48.0 % [facility] Hemoglobin (Bld) [Mass/Vol] 11.1 g/dL Low 12.0 - 16.0 g/dL [facility] IMMATURE GRANULOCYTES ABS AUTO 0.05 High [facility] Immature granulocytes/100 WBC (Bld) 0.8 % High 0.0 - 0.5 % [facility] Interpretation and review of laboratory results Abnormal [facility] LYMPHOCYTES ABSOLUTE AUTO 1.1 Low [facility] Lymphocytes/100 WBC (Bld) 18.3 % Low 20.5 - 60.0 % [facility] MCH (RBC) [Entitic mass] 29.5 pg 26.7 - 34.0 pg [facility] MCHC (RBC) [Mass/Vol] 33.9 g/dL 29.9 - 35.2 g/dL [facility] MCV (RBC) [Entitic vol] 87 fL 81.0 - 99.0 fL [facility] MONOCYTES ABSOLUTE AUTO 0.4 [facility] Monocytes/100 WBC (Bld) 7.2 % 1.7 - 12.0 % [facility] NEUTROPHILS ABSOLUTE AUTO 4.2 [facility] Neutrophils/100 WBC (Bld) 71 % 43.0 - 75.0 % [facility] Platelet mean volume (Bld) [Entitic vol] 10 fL 9.5 - 13.5 fL [facility] EO # 0.1 [facility] PLT 283 [facility] RBC 3.76 Low [facility] WBC 6 [facility] 30on 04-20-2024 30 The patient is Moderately Stable - Low risk of patient condition declining or worsening The patient's goals for the shift include comfort and rest The clinical goals for the shift include vss Over the shift, the patient did make progress toward the following goals. Problem: Pain - Adult Goal: Verbalizes/displays adequate comfort level or baseline comfort level Outcome: Progressing Problem: Safety - Adult Goal: Free from fall injury Outcome: Progressing Problem: Chronic Conditions and Co-morbidities Goal: Patient's chronic conditions and co-morbidity symptoms are monitored and maintained or improved Outcome: Progressing Problem: Discharge Planning Goal: Discharge to home or other facility with appropriate resources Outcome: Progressing Normal [facility] BASIC METABOLIC PANELon 03-0 Anion gap [Moles/Vol] 15 mmol/L Normal 7-20 [facility] Comment on above: Performed By: #### L [id number] #### [facility] (BEAKER) [address] [place] [address] Calcium [Mass/Vol] 8.6 mg/dL Normal 8.6-10.3 [facility] Comment on above: Performed By: #### L [id number] #### [facility] (BEAKER) [address] [place] [address] Chloride [Moles/Vol] 104 mmol/L Normal 98-107 [facility] Comment on above: Performed By: #### L [id number] #### [facility] (BEAKER) [address] [place] [address] CO2 [Moles/Vol] 20 mmol/L Low 21- [facility] Comment on above: Performed By: #### L [id number] #### [facility] (BEAKER) [address] [place] [address] Creatinine [Mass/Vol] 0.63 mg/dL Normal 0.60-1.20 [facility] Comment on above: Performed By: #### L [id number] #### [facility] ([facility]) [address] [place] [address] GLOMERULAR FILTRATION RATE ML/MIN/1.73 SQ M.PREDICTED 91.3 mL/min/1.73m*2 Normal >60.0 [facility] Comment on above: Result Comment: The [facility]???s estimated glomerular filtration rate (eGFR) will no longer include consideration of race in its calculation. The National Kidney Foundation???s eGFR Task Force developed new recommendations for the estimation of the glomerular filtration rate in the [place] They recommend immediate implementation of the new equation refit without the race variable in all laboratories because the calculation does not include race. In addition to not including race in the calculation and reporting, it included diversity in its development, and has acceptable performance characteristics and potential consequences that do not disproportionately affect any one group of individuals. Performed By: #### L [id number] #### [facility] ([facility]) [address] [place] [address] Glucose [Mass/Vol] 119 mg/dL High 70-100 [facility] Comment on above: Performed By: #### L [id number] #### [facility] ([facility]) [address] [place] [address] Potassium [Moles/Vol] 4.2 mmol/L Normal 3.5-5.1 [facility] Comment on above: Performed By: #### L [id number] #### [facility] ([facility]) [address] [place] [address] Sodium [Moles/Vol] 135 mmol/L Low 136-145 [facility] Comment on above: Performed By: #### L [id number] #### [facility] ([facility]) [address] [place] [address] Urea nitrogen [Mass/Vol] 17 mg/dL Normal 7-25 [facility] Comment on above: Performed By: #### L [id number] #### [facility] ([facility]) [address] [place] [address] UREA NITROGEN/CREATININE (MASS RATIO) IN SER/PLAS 27.0 Normal [facility] Comment on above: Performed By: #### L [id number] #### [facility] ([facility]) [address] [place] [address] CBCon 04-20-2024 Erythrocyte distribution width (RBC) [Ratio] 12.8 % Normal 11.5-15.0 [facility] Comment on above: Performed By: #### L [id number] ####[facility] ([facility])[address] [place] [address] ERYTHROCYTE MEAN CORPUSCULAR HEMOGLOBIN CONCENTRATION (G/DL) BY AUTOMATED 33.0 g/dL Normal 32.0-35.0 [facility] Comment on above: Performed By: #### L [id number] ####[facility] (BEAKER)[address] [place] [address] Hematocrit (Bld) [Volume fraction] 38.5 % Normal 36.0-48.0 [facility] Comment on above: Performed By: #### L [id number] ####[facility] (BEAKER)[address] [place] [address] Hemoglobin (Bld) [Mass/Vol] 12.7 g/dL Normal 12.0-15.0 [facility] Comment on above: Performed By: #### L [id number] ####[facility] ([facility])[address] [place] [address] MCH (RBC) [Entitic mass] 29.7 pg Normal 27.0-33.0 [facility] Comment on above: Performed By: #### L [id number] ####[facility] (BEAKER)[address] [place], [place] [address] MCV (RBC) [Entitic vol] 90.0 fL Normal 82.0-98.0 [facility] Comment on above: Performed By: #### L [id number] ####[facility] (BEAKER)[address] [place], [place] [address] PLATELETS (10*3/UL) IN BLOOD AUTOMATED COUNT 242 10*3/uL Normal 150-400 [facility] Comment on above: Performed By: #### L [id number] ####[facility] (BEAKER)[address] [place] [address] RBC (Bld) [#/Vol] 4.28 10*6/uL Normal 3.80-5.00 [facility] Comment on above: Performed By: #### L [id number] ####[facility] (BEAKER)[address] [place] [address] WBC (Bld) [#/Vol] 11.02 10*3/uL High 4.00-10.60 [facility] Comment on above: Performed By: #### L [id number] ####[facility] (BEAKER)[address] [place], [place] [address] HEMOGLOBIN AND HEMATOCRIT, B LOODon 03-06-2025 Hematocrit (Bld) [Volume fraction] 37.2 % Normal 36.0-48.0 [facility] Comment on above: Performed By: #### L [id number] #### [facility] ([facility]AKER) [address] [place] [address] Hemoglobin (Bld) [Mass/Vol] 12.6 g/dL Normal 12.0-15.0 [facility] Comment on above: Performed By: #### L [id number] #### [facility] (BEAKER) [address] [place] [address] VENOUS BLOOD GAS WITH IONIZE D CALCIUMon 04-20-2024 Base excess Calc (BldV) [Moles/Vol] -0.2000 mmol/L Normal [facility] Comment on above: Performed By: #### L [id number] ####[facility] [id number] [place] [address] [facility] CALCIUM IONIZED (MMOL/L) IN BLOOD 1.18 mmol/L Normal 1.15-1.33 [facility] Comment on above: Performed By: #### L [id number] ####[facility] [id number] [place] [address] [place] CO2 (BldV) [Partial pressure] 31 mm[Hg] Low 40-50 [facility] Comment on above: Performed By: #### L [id number] ####[facility] [id number] [place] [address] [place] HCO3 (Bld) [Moles/Vol] 22.6 mmol/L Normal [facility] Comment on above: Performed By: #### L [id number] ####[facility] [id number] [place] [address] [place] Oxygen (BldV) [Partial pressure] 62 mm[Hg] High 35-45 [facility] Comment on above: Performed By: #### L [id number] ####[facility] [id number] [place] [address] [place] OXYGEN SATURATION (%) IN VENOUS BLOOD 91.5 % High 65.0-75.0 [facility] Comment on above: Performed By: #### L [id number] ####[facility] [id number] [place] [address] [facility] PH OF VENOUS BLOOD 7.47 High 7.31-7.41 [facility] Comment on above: Performed By: #### L [id number] ####[facility] [id number] [place] [address] [facility] 30on 04-19-2024 30 The patient is Moderately Stable - Low risk of patient condition declining or worsening The patient's goals for the shift include comfort and rest The clinical goals for the shift include stable VS Over the shift, the patient did make progress toward her goals. Normal [facility] 30 Daily Case Managemen t Update Multidisciplinary rounds have been completed. Barriers to Discharge: Pending clinical course and improvement in clinical condition. Planning to proceed with coronary angiography today. GDMT. Chronic heart failure with improved EF 60-65%. From home with Discharge plan is to return home when medically ready. Diet: Dietary Orders (From admission, onward) Start Ordered 04/19/24 0001 Diet NPO Diet effective midnight Comments: Sips with medications Question: Reason for NPO: Answer: Operation/Procedure 04/18/24 1648 04/18/24 1819 Special Kitchen Request Once Comments: Omlette with zambian cheese mauritian cheese mushrooms green pepper 04/18/24 1819 Physician Expected Discharge Date: 04/20/2024 Discharge Delays: PT Six Click Score: 24 OT Six Click Score: PT Recommendations: OT Recommendations: New Consults: Normal [facility] 30 The patient is Moderately Stable - Low risk of patient condition declining or worsening The patient's goals for the shift include comfort, rest The clinical goals for the shift include vss,safety Problem: Pain - Adult Goal: Verbalizes/displays adequate comfort level or baseline comfort level Outcome: Progressing Problem: Safety - Adult Goal: Free from fall injury Outcome: Progressing Problem: Discharge Planning Goal: Discharge to home or other facility with appropriate resources Outcome: Progressing Flowsheets (Taken 04/18/20242035) Discharge to home or other facility with appropriate resources: Identify barriers to discharge with patient and caregiver Arrange for needed discharge resources and transportation as appropriate Identify discharge learning needs (meds, wound care, etc) Problem: Chronic Conditions and Co-morbidities Goal: Patient's chronic conditions and co-morbidity symptoms are monitored and maintained or improved Outcome: Progressing Flowsheets (Taken 04/18/20242035) Care Plan - Patient's Chronic Conditions and Co-Morbidity Symptoms are Monitored and Maintained or Improved: Monitor and assess patient's chronic conditions and comorbid symptoms for stability, deterioration, or improvement Collaborate with multidisciplinary team to address chronic and comorbid conditions and prevent exacerbation or deterioration Update acute care plan with appropriate goals if chronic or comorbid symptoms are exacerbated and prevent overall improvement and discharge Normal [facility] ANESon 04-19-2024 ANES --- Attestation signed by Jose Alfredo Fregoso MD at 04/19/2024 11:52 AM Jose Alfredo Fregoso MD, MPH, [facility], [facility], [facility] Interventional Cardiology Pager Email: 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 Use of blood products discussed with patient who consented to blood products. Plan discussed with fellow and attending. Additional Equipment Requests Normal [facility] ANTI-XA (HEPARIN LEVEL)on HEPARIN UNFRACTIONATED (U/ML) IN PPP BY CHROMOGENIC METHOD 0.30 IU/mL Normal 0.3-0.7 [facility] Comment on above: Result Comment: Swap[place] roxaban and Apixaban will interfere with the anti Xa assay used to monitor UFH and LMWH. Performed By: #### L [id number] #### [facility] ([facility]) [address] [place] [address] HEMOGLOBIN AND HEMATOCRIT, B LOODon 04-19-2024 Hematocrit (Bld) [Volume fraction] 37.2 % Normal 36.0-48.0 [facility] Comment on above: Performed By: #### L [id number] ####[facility] ([facility])[address] [place] [address] Hemoglobin (Bld) [Mass/Vol] 12.3 g/dL Normal 12.0-15.0 [facility] Comment on above: Performed By: #### L [id number] ####[facility] ([facility])[address] [place] [address] Hematocrit (Bld) [Volume fraction] 39.4 % Normal 36.0-48.0 [facility] Comment on above: Performed By: #### L [id number] #### [facility] (BEAKER) [address] [place] [address] Hemoglobin (Bld) [Mass/Vol] 13.0 g/dL Normal 12.0-15.0 [facility] Comment on above: Performed By: #### L [id number] #### [facility] ([facility] [address] [place] [address] HPon 04-19-2024 HP --- Attestation signed by Jose Alfredo Fregoso MD at 04/19/2024 11:52 AM Jose Alfredo Fregoso MD, MPH, [facility], [facility], [facility] Interventional Cardiology Pager Email: [email or web address] H&P reviewed. The patient was examined and there are no changes to the H&P. Will proceed with coronary angiogram for further assessment in the setting of unstable angina and significant CAD and prior PCI. Procedure's details, risks and benefits discussed with the patient and she's agreeable. [facility] NURSNOTEon 04-19-2024 NURSNOTE Updated report rizvi d to Pratima GARCIA on 3CD [facility] NURSNOTE Pt dry heaving, refu ses to take GI cocktail. Explained to patient importance of drinking GI cocktail; GI cocktail could help settle stomach. Stomach needs to be settled so Plavix can be given. Plavix needs to be given so stent doesn't clot off. If stent clots off or occludes, pt may need heart cath again to reopen coranary artery. Pt agreed to try GI cocktail. [facility] 30on 04-18-2024 30 The patient is Moderately Stable - Low risk of patient condition declining or worsening The patient's goals for the shift include get procedure The clinical goals for the shift include cardiac studies with stable vitals Over the shift, the patient did make progress toward the following goals. Barriers to progression include hospital routine and scheduling. Recommendations to address these barriers include communicate changes and update medical teams with new findings Problem: Pain - Adult Goal: Verbalizes/displays adequate comfort level or baseline comfort level Outcome: Progressing . [facility] ANTI-XA (HEPARIN LEVEL)on HEPARIN UNFRACTIONATED (U/ML) IN PPP BY CHROMOGENIC METHOD 0.35 IU/mL Normal 0.3-0.7 [facility] Comment on above: Order Comment: Check anti-Xa level every 6 hours while on heparin infusion, or per protocol. Result Comment: [place] roxaban and Apixaban will interfere with the anti Xa assay used to monitor UFH and LMWH. Performed By: #### L [id number] ####[facility] ([facility])[address] [place] [address] HEPARIN UNFRACTIONATED (U/ML) IN PPP BY CHROMOGENIC METHOD 0.30 IU/mL Normal 0.3-0.7 [facility] Comment on above: Order Comment: Check anti-Xa level every 6 hours while on heparin infusion, or per protocol. Result Comment: Swapna roxaban and Apixaban will interfere with the anti Xa assay used to monitor UFH and LMWH. Performed By: #### L [id number] #### [facility] ([facility]) [address] [place] [address] CBC WITH AUTO DIFFERENTIALon 04-18-2024 Basophils (Bld) [#/Vol] 0.08 10*3/uL Normal 0.00-0.20 [facility] Comment on above: Performed By: #### L [id number] #### [facility] ([facility]) [address] [place] [address] Basophils/100 WBC (Bld) 1.0 % Normal 0.0-1.0 [facility] Comment on above: Performed By: #### L [id number] #### [facility] ([facility]) [address] [place] [address] Eosinophils (Bld) [#/Vol] 0.19 10*3/uL Normal 0.00-0.50 [facility] Comment on above: Performed By: #### L [id number] #### [facility] ([facility]) [address] [place] [address] Eosinophils/100 WBC (Bld) 2.4 % Normal 0.0-6.0 [facility] Comment on above: Performed By: #### L [id number] #### [facility] ([facility]) [address] [place] [address] Erythrocyte distribution width (RBC) [Ratio] 13.0 % Normal 11.5-15.0 [facility] Comment on above: Performed By: #### L [id number] #### [facility] ([facility]) [address] [place] [address] ERYTHROCYTE MEAN CORPUSCULAR HEMOGLOBIN CONCENTRATION (G/DL) BY AUTOMATED 32.1 g/dL Normal 32.0-35.0 [facility] Comment on above: Performed By: #### L [id number] #### [facility] ([facility]) [address] [place] [address] Hematocrit (Bld) [Volume fraction] 39.9 % Normal 36.0-48.0 [facility] Comment on above: Performed By: #### L [id number] #### [facility] ([facility]) [address] [place] [address] Hemoglobin (Bld) [Mass/Vol] 12.8 g/dL Normal 12.0-15.0 [facility] Comment on above: Performed By: #### L [id number] #### [facility] ([facility]) [address] [place] [address] Immature granulocytes (Bld) [#/Vol] 0.05 10*3/uL Normal 0.00-0.20 [facility] Comment on above: Performed By: #### L [id number] #### [facility] ([facility]) [address] [place] [address] Immature granulocytes/100 WBC (Bld) 0.6 % Normal 0.0-1.0 [facility] Comment on above: Performed By: #### L [id number] #### [facility] ([facility]) [address] [place] [address] Lymphocytes (Bld) [#/Vol] 1.49 10*3/uL Normal 1.20-4.00 [facility] Comment on above: Performed By: #### L [id number] #### [facility] ([facility]) [address] [place] [address] Lymphocytes/100 WBC (Bld) 18.6 % Low 20.0-45.0 [facility] Comment on above: Performed By: #### L [id number] #### [facility] ([facility]) [address] [place] [address] MCH (RBC) [Entitic mass] 28.8 pg Normal 27.0-33.0 [facility] Comment on above: Performed By: #### L [id number] #### [facility] ([facility]) [address] [address] MCV (RBC) [Entitic vol] 89.7 fL Normal 82.0-98.0 [facility] Comment on above: Performed By: #### L [id number] #### [facility] ([facility]) [address] [place] [address] Monocytes (Bld) [#/Vol] 0.64 10*3/uL Normal 0.10-1.00 [facility] Comment on above: Performed By: #### L [id number] #### [facility] ([facility]) [address] [place] [address] Monocytes/100 WBC (Bld) 8.0 % Normal 5.0-12.0 [facility] Comment on above: Performed By: #### L [id number] #### [facility] ([facility]) [address] [place] [address] Neutrophils (Bld) [#/Vol] 5.56 10*3/uL Normal 1.60-7.60 [facility] Comment on above: Performed By: #### L [id number] #### [facility] ([facility]) [address] [place] [address] Neutrophils/100 WBC (Bld) 69.4 % Normal 40.0-72.0 [facility] Comment on above: Performed By: #### L [id number] #### [facility] ([facility]) [address] [place] [address] NRBC (PER 100 WBCS) BY AUTOMATED COUNT 0.0 % Normal 0 [facility] Comment on above: Performed By: #### L [id number] #### [facility] ([facility]) [address] [place] [address] PLATELETS (10*3/UL) IN BLOOD AUTOMATED COUNT 282 10*3/uL Normal 150-400 [facility] Comment on above: Performed By: #### L [id number] #### [facility] ([facility]) [address] [place] [address] RBC (Bld) [#/Vol] 4.45 10*6/uL Normal 3.80-5.00 [facility] Comment on above: Performed By: #### L [id number] #### [facility] ([facility]) [address] [place] [address] WBC (Bld) [#/Vol] 8.01 10*3/uL Normal 4.00-10.60 [facility] Comment on above: Performed By: #### L [id number] #### [facility] ([facility]) [address] [place] [address] CONSULTon 04-18-2024 CONSULT --- Attestation signed by Marija Johnson MD at 04/19/2024 6:10 AM I personally saw and examined the patient on the same date of service as the fellow. I discussed the findings and therapeutic plan with the fellow. Plan of care was discussed with patient, and patient is agreeable with plan. I agree with the documentation, except for any edits/updates below. Teaching Physician's Revisions: none Marija Johnson MD ID Cardiology Cardiology Consult Note Reason for Consult: Chest pain HPI: Diana Mendez is a 79 year old female patient with past history remarkable for primary hypertension, prediabetes, mixed hyperlipidemia, coronary artery disease with prior LAD stent in 2017, chronic heart failure with improved ejection fraction, history of stress induced cardiomyopathy who presented to [facility] as a transfer from [facility] where she initially presented complaining of chest pain, retrosternal in location, moderate to severe in intensity associated with shortness of breath with minimal exertion and fatigue, her symptoms have been ongoing for 2 days. She reported that she had about 3 episodes prior to presentation. Labs showed negative troponin, BNP 49. Cardiology team consulted for further evaluation and management. During my evaluation today, Patient denied having active chest pain, reported feeling slightly better, no acute events overnight. Cardiology ROS: Review of Systems Constitutional: Negative for activity change and appetite change. Respiratory: Positive for chest tightness. Negative for shortness of breath and wheezing. Cardiovascular: Positive for chest pain. Negative for palpitations and leg swelling. Gastrointestinal: Negative for abdominal pain, nausea and vomiting. Neurological: Negative for dizziness and light-headedness. Past Medical History She has a past medical history of CHF (congestive heart failure) (CMS/HCC), Coronary artery disease, GERD (gastroesophageal reflux disease), Hyperlipidemia, Hypertension, Myocardial infarction (CMS/HCC), and Takotsubo cardiomyopathy. Surgical History She has a past surgical history that includes Cardiac catheterization; Coronary stent placement; Hernia repair; Small intestine surgery; and Replacement total hip oncologic. Social History She reports that she has never smoked. She has never used smokeless tobacco. She reports that she does not currently use alcohol. No history on file for drug use. Family History Family History Problem Relation Name Age of Onset Other ( heart problems ) Mother Other ( heart problems ) Father Allergies Eeqnswa-zzj-kud reductase inhibitors Medications Current Outpatient Medications Medication Instructions ALPRAZolam (XANAX) 0.5 mg, oral, 3 times daily PRN aspirin 81 mg, oral, Daily RT carvedilol (COREG) 6.25 mg, oral, 2 times daily with meals cholecalciferol (VITAMIN D-3) 2,000 Units, oral, Daily RT nitroglycerin (Nitrostat) 0.[address] 1 TABLET (0.4 MG) UNDER THE TONGUE EVERY 5 MINUTES NEEDED FOR CHEST PAIN traZODone (DESYREL) 50 mg, oral, Nightly Medications Prior to Admission Medication Sig Dispense Refill Last Dose aspirin 81 mg EC tablet Take 81 mg by mouth in the morning. 04/17/2024 carvedilol (Coreg) 6.25 mg tablet Take 6.25 mg by mouth with breakfast and with evening meal. 04/17/2024 cholecalciferol (Vitamin D-3) 50 MCG (1999) tablet Take 2,000 Units by mouth in the morning. 04/16/2024 nitroglycerin (Nitrostat) 0.[address] 1 TABLET (0.4 MG) UNDER THE TONGUE EVERY 5 MINUTES NEEDED FOR CHEST PAIN 04/16/2024 ALPRAZolam (Xanax) 0.5 mg tablet Take 0.5 mg by mouth if needed in the morning, at noon, and at bedtime. More than a month traZODone (Desyrel) 50 mg tablet Take 50 mg by mouth at bedtime. More than a month Last Recorded Vitals Patient Vitals for the past 24 hrs: BP Temp Temp src Pulse Resp SpO2 Height Weight 04/18/24 0800 -- 36.4 ???C (97.5 ???F) [facility] -- -- -- -- -- 04/18/24 0613 -- -- -- -- -- -- -- 59.9 kg (132 lb) 04/18/24 0520 137/81 36.4 ???C (97.5 ???F) [facility] 95 20 98 % -- -- 04/18/24 0400 -- 36.4 ???C (97.5 ???F) [facility] 56 14 96 % -- -- 04/18/24 0000 119/54 -- -- 57 12 93 % -- -- 04/17/24 2100 -- -- -- -- -- -- -- 49.2 kg (108 lb 8 oz) 04/17/241999 139/64 36.3 ???C (97.3 ???F) [facility] 64 12 97 % 1.499 m (4' 11 ) 49.2 kg (108 lb 8 oz) Physical Examination: Physical Exam Constitutional: General: She is not in acute distress. Appearance: Normal appearance. She is not ill-appearing. HENT: Head: Normocephalic and atraumatic. Cardiovascular: Rate and Rhythm: Normal rate and regular rhythm. Heart sounds: Normal heart sounds. No murmur heard. Pulmonary: Breath sounds: Normal breath sounds. No wheezing or rales. Abdominal: Palpa (more content not included)... Normal [facility] HEMOGLOBIN A1Con 04-18-2024 Glucose [Mass/Vol] 120 mg/dL Normal [facility] Comment on above: Performed By: #### L [id number] #### [facility] ([facility]) [address] [place] [address] HbA1c (Bld) [Mass fraction] 5.8 % Normal 4.0-6.0 [facility] Comment on above: Performed By: #### L [id number] #### [facility] ([facility]) [address] [place] [address] HPon 04-18-2024 HP --- Attestation signed by Marija Johnson MD at 04/19/2024 6:10 AM I personally saw and examined the patient on the same date of service as the fellow. I discussed the findings and therapeutic plan with the fellow. Plan of care was discussed with patient, and patient is agreeable with plan. I agree with the documentation, except for any edits/updates below. Teaching Physician's Revisions: none Marija Johnson MD ID Cardiology Cardiology Consult Note Reason for Consult: Chest pain HPI: Diana Mendez is a 79 year old female patient with past history remarkable for primary hypertension, prediabetes, mixed hyperlipidemia, coronary artery disease with prior LAD stent in 2017, chronic heart failure with improved ejection fraction, history of stress induced cardiomyopathy who presented to [facility] as a transfer from [facility] where she initially presented complaining of chest pain, retrosternal in location, moderate to severe in intensity associated with shortness of breath with minimal exertion and fatigue, her symptoms have been ongoing for 2 days. She reported that she had about 3 episodes prior to presentation. Labs showed negative troponin, BNP 49. Cardiology team consulted for further evaluation and management. During my evaluation today, Patient denied having active chest pain, reported feeling slightly better, no acute events overnight. Cardiology ROS: Review of Systems Constitutional: Negative for activity change and appetite change. Respiratory: Positive for chest tightness. Negative for shortness of breath and wheezing. Cardiovascular: Positive for chest pain. Negative for palpitations and leg swelling. Gastrointestinal: Negative for abdominal pain, nausea and vomiting. Neurological: Negative for dizziness and light-headedness. Past Medical History She has a past medical history of CHF (congestive heart failure) (CMS/HCC), Coronary artery disease, GERD (gastroesophageal reflux disease), Hyperlipidemia, Hypertension, Myocardial infarction (CMS/HCC), and Takotsubo cardiomyopathy. Surgical History She has a past surgical history that includes Cardiac catheterization; Coronary stent placement; Hernia repair; Small intestine surgery; and Replacement total hip oncologic. Social History She reports that she has never smoked. She has never used smokeless tobacco. She reports that she does not currently use alcohol. No history on file for drug use. Family History Family History Problem Relation Name Age of Onset Other ( heart problems ) Mother Other ( heart problems ) Father Allergies Liyvsau-qrm-auz reductase inhibitors Medications Current Outpatient Medications Medication Instructions ALPRAZolam (XANAX) 0.5 mg, oral, 3 times daily PRN aspirin 81 mg, oral, Daily RT carvedilol (COREG) 6.25 mg, oral, 2 times daily with meals cholecalciferol (VITAMIN D-3) 2,000 Units, oral, Daily RT nitroglycerin (Nitrostat) 0.[address] 1 TABLET (0.4 MG) UNDER THE TONGUE EVERY 5 MINUTES NEEDED FOR CHEST PAIN traZODone (DESYREL) 50 mg, oral, Nightly Medications Prior to Admission Medication Sig Dispense Refill Last Dose aspirin 81 mg EC tablet Take 81 mg by mouth in the morning. 04/17/2024 carvedilol (Coreg) 6.25 mg tablet Take 6.25 mg by mouth with breakfast and with evening meal. 04/17/2024 cholecalciferol (Vitamin D-3) 50 MCG (1999 [place]) tablet Take 2,000 Units by mouth in the morning. 04/16/2024 nitroglycerin (Nitrostat) 0.[address] 1 TABLET (0.4 MG) UNDER THE TONGUE EVERY 5 MINUTES NEEDED FOR CHEST PAIN 04/16/2024 ALPRAZolam (Xanax) 0.5 mg tablet Take 0.5 mg by mouth if needed in the morning, at noon, and at bedtime. More than a month traZODone (Desyrel) 50 mg tablet Take 50 mg by mouth at bedtime. More than a month Last Recorded Vitals Patient Vitals for the past 24 hrs: BP Temp Temp src Pulse Resp SpO2 Height Weight 04/18/24 0800 -- 36.4 ???C (97.5 ???F) [facility] -- -- -- -- -- 04/18/24 0613 -- -- -- -- -- -- -- 59.9 kg (132 lb) 04/18/24 0520 137/81 36.4 ???C (97.5 ???F) [facility] 95 20 98 % -- -- 04/18/24 0400 -- 36.4 ???C (97.5 ???F) [facility] 56 14 96 % -- -- 04/18/24 0000 119/54 -- -- 57 12 93 % -- -- 04/17/24 2100 -- -- -- -- -- -- -- 49.2 kg (108 lb 8 oz) 04/17/241999 139/64 36.3 ???C (97.3 ???F) [facility] 64 12 97 % 1.499 m (4' 11 ) 49.2 kg (108 lb 8 oz) Physical Examination: Physical Exam Constitutional: General: She is not in acute distress. Appearance: Normal appearance. She is not ill-appearing. HENT: Head: Normocephalic and atraumatic. Cardiovascular: Rate and Rhythm: Normal rate and regular rhythm. Heart sounds: Normal heart sounds. No murmur heard. Pulmonary: Breath sounds: Normal breath sounds. No wheezing or rales. Abdominal: Palpa (more content not included)... Normal [facility] LIPID PANELon 04-18-2024 CHOL/HDL 3.9 mg/dL Normal [facility] Comment on above: Performed By: #### L [id number] #### [facility] ([facility]) [address] [place] [address] Cholesterol [Mass/Vol] 181 mg/dL Normal 120-200 [facility] Comment on above: Performed By: #### L [id number] #### [facility] ([facility]) [address] [place] [address] Magnesium [Mass/Vol] 141 mg/dL Normal 40-149 [facility] Comment on above: Result Comment: TRIG LYCERIDE REFERENCE RANGE: 20 YEARS AND OLDER CARDIOVASCULAR RISK LESS THAN 150 mg/dL LOW RISK 150 TO 199 mg/dL BORDERLINE RISK 200 mg/dL AND GREATER HIGH RISK Performed By: #### L [id number] #### [facility] ([facility]) [address] [place] [address] Magnesium [Mass/Vol] 106 mg/dL Normal 0-160 [facility] Comment on above: Performed By: #### L [id number] #### [facility] ([facility]) [address] [place] [address] Magnesium [Mass/Vol] 47 mg/dL Normal 23-92 [facility] Comment on above: Performed By: #### L [id number] #### [facility] ([facility]) [address] [place] [address] NON HDL CHOL. (LDL+VLDL) 134 Normal [facility] Comment on above: Performed By: #### L [id number] #### [facility] ([facility]) [address] [place] [address] TOTAL VLDL-C 28 mg/dL Normal 0-40 [facility] Comment on above: Performed By: #### L [id number] #### [facility] ([facility]) [address] [place] [address] TROPONIN Ion 04-18-2024 Troponin I.cardiac [Mass/Vol] 0.00 ng/mL Normal 0.00-0.04 [facility] Comment on above: Performed By: #### L [id number] #### [facility] ([facility]) [address] [facility] [address] Troponin I.cardiac [Mass/Vol] 0.00 ng/mL Normal 0.00-0.04 [facility] Comment on above: Performed By: #### L [id number] #### [facility] ([facility]) [address] [place] [address] Troponin I.cardiac [Mass/Vol] 0.00 ng/mL Normal 0.00-0.04 [facility] Comment on above: Performed By: #### L [id number] ####[facility] ([facility])[address] [place] [address] 30on 04-17-2024 30 The patient is Moderately Stable - Low risk of patient condition declining or worsening The patient's goals for the shift include VSS The clinical goals for the shift include VSS Problem: Pain - Adult Goal: Verbalizes/displays adequate comfort level or baseline comfort level 04/17/20242112 by Bear Jamison RN Outcome: Progressing Problem: Safety - Adult Goal: Free from fall injury 04/17/20242112 by Bear Jamison RN Outcome: Progressing Flowsheets (Taken 04/17/20242112) Free from fall injury: Assess patient frequently for physical needs Identify cognitive and physical deficits and behaviors that affect risk of falls Educate patient/family on patient safety, including physical limitations [place] fall precautions as indicated by assessment Instruct patient to call for assistance with activity based on assessment Consider OT/PT consult to assist with strengthening/mobility Modify environment to reduce risk of injury 04/17/20242112 by Bear Jamison RN Outcome: Progressing Flowsheets (Taken 04/17/20242112) Free from fall injury: Assess patient frequently for physical needs Identify cognitive and physical deficits and behaviors that affect risk of falls Educate patient/family on patient safety, including physical limitations [place] fall precautions as indicated by assessment Instruct patient to call for assistance with activity based on assessment Consider OT/PT consult to assist with strengthening/mobility Modify environment to reduce risk of injury Problem: Discharge Planning Goal: Discharge to home or other facility with appropriate resources 04/17/20242112 by Bear Jamison RN Outcome: Progressing Flowsheets (Taken 04/17/20242112) Discharge to home or other facility with appropriate resources: Identify barriers to discharge with patient and caregiver Arrange for needed discharge resources and transportation as appropriate Identify discharge learning needs (meds, wound care, etc) Arrange for interpreters to assist at discharge as needed Refer to discharge planning if patient needs post-hospital services based on physician order or complex needs related to functional status, cognitive ability or social support system 04/17/20242112 by Bear Jamison RN Outcome: Progressing Flowsheets (Taken 04/17/20242112) Discharge to home or other facility with appropriate resources: Identify barriers to discharge with patient and caregiver Arrange for needed discharge resources and transportation as appropriate Identify discharge learning needs (meds, wound care, etc) Arrange for interpreters to assist at discharge as needed Refer to discharge planning if patient needs post-hospital services based on physician order or complex needs related to functional status, cognitive ability or social support system Problem: Chronic Conditions and Co-morbidities Goal: Patient's chronic conditions and co-morbidity symptoms are monitored and maintained or improved 04/17/20242112 by Bear Jamison RN Outcome: Progressing Flowsheets (Taken 04/17/20242112) Care Plan - Patient's Chronic Conditions and Co-Morbidity Symptoms are Monitored and Maintained or Improved: Monitor and assess patient's chronic conditions and comorbid symptoms for stability, deterioration, or improvement Collaborate with multidisciplinary team to address chronic and comorbid conditions and prevent exacerbation or deterioration Update acute care plan with appropriate goals if chronic or comorbid symptoms are exacerbated and prevent overall improvement and discharge 04/17/20242112 by Bear Jamison RN Outcome: Progressing Flowsheets (Taken 04/17/20242112) Care Plan - Patient's Chronic Conditions and Co-Morbidity Symptoms are Monitored and Maintained or Improved: Monitor and assess patient's chronic conditions and comorbid symptoms for stability, deterioration, or improvement Collaborate with multidisciplinary team to address chronic and comorbid conditions and prevent exacerbation or deterioration Update acute care plan with appropriate goals if chronic or comorbid symptoms are exacerbated and prevent overall improvement and discharge Normal [facility] 30 The patient is Moderately Stable - Low risk of patient condition declining or worsening The patient's goals for the shift include VSS The clinical goals for the shift include VSS Normal [facility] APTTon 04-17-2024 ACTIVATED PARTIAL THROMBOPLASTIN TIME IN PPP BY COAGULATION ASSAY 27.3 Seconds Normal 25.0-35.0 [facility] Comment on above: Order Comment: Basel ine aPTT before initiating heparin infusion. Result Comment: Clin ical significance of the APTT is questionable in the presence of heparin. Performed By: #### L [id number] ####[facility] ([facility])[address] [place] [address] B-TYPE NATRIURETIC PEPTIDEon 04-17-2024 Natriuretic peptide B (Bld) [Mass/Vol] 49 pg/mL Normal 0-100 [facility] Comment on above: Performed By: #### L [id number] #### [facility] ([facility]) [address] [place] [address] CBC WITH AUTO DIFFERENTIALon 04-17-2024 Basophils (Bld) [#/Vol] 0.05 10*3/uL Normal 0.00-0.20 [facility] Comment on above: Performed By: #### L [id number] #### [facility] ([facility]) [address] [place] [address] Basophils/100 WBC (Bld) 0.6 % Normal 0.0-1.0 [facility] [facility] Comment on above: Performed By: #### L [id number] #### [facility] ([facility]) [address] [place] [address] Eosinophils (Bld) [#/Vol] 0.15 10*3/uL Normal 0.00-0.50 [facility] Comment on above: Performed By: #### L [id number] #### [facility] ([facility]) [address] [place] [address] Eosinophils/100 WBC (Bld) 1.8 % Normal 0.0-6.0 [facility] Comment on above: Performed By: #### L [id number] #### [facility] ([facility]) [address] [place] [address] Erythrocyte distribution width (RBC) [Ratio] 13.0 % Normal 11.5-15.0 [facility] Comment on above: Performed By: #### L [id number] #### [facility] ([facility]) [address] [place] [address] ERYTHROCYTE MEAN CORPUSCULAR HEMOGLOBIN CONCENTRATION (G/DL) BY AUTOMATED 33.5 g/dL Normal 32.0-35.0 [facility] Comment on above: Performed By: #### L [id number] #### [facility] ([facility]) [address] [place] [address] Hematocrit (Bld) [Volume fraction] 39.4 % Normal 36.0-48.0 [facility] Comment on above: Performed By: #### L [id number] #### [facility] ([facility]) [address] [place] [address] Hemoglobin (Bld) [Mass/Vol] 13.2 g/dL Normal 12.0-15.0 [facility] Comment on above: Performed By: #### L [id number] #### [facility] ([facility]) [address] [place] [address] Immature granulocytes (Bld) [#/Vol] 0.03 10*3/uL Normal 0.00-0.20 [facility] Comment on above: Performed By: #### L [id number] #### [facility] ([facility]) [address] [place] [address] Immature granulocytes/100 WBC (Bld) 0.4 % Normal 0.0-1.0 [facility] Comment on above: Performed By: #### L [id number] #### [facility] ([facility]) [address] [place] [address] Lymphocytes (Bld) [#/Vol] 1.54 10*3/uL Normal 1.20-4.00 [facility] Comment on above: Performed By: #### L [id number] #### [facility] ([facility]) [address] [place] [address] Lymphocytes/100 WBC (Bld) 18.8 % Low 20.0-45.0 [facility] Comment on above: Performed By: #### L [id number] #### [facility] ([facility]) [address] [place] [address] MCH (RBC) [Entitic mass] 29.1 pg Normal 27.0-33.0 [facility] Comment on above: Performed By: #### L [id number] #### [facility] ([facility]) [address] [place] [address] MCV (RBC) [Entitic vol] 86.8 fL Normal 82.0-98.0 [facility] Comment on above: Performed By: #### L [id number] #### [facility] ([facility]) [address] [place] [address] Monocytes (Bld) [#/Vol] 0.54 10*3/uL Normal 0.10-1.00 [facility] Comment on above: Performed By: #### L [id number] #### [facility] ([facility]) [address] [place] [address] Monocytes/100 WBC (Bld) 6.6 % Normal 5.0-12.0 [facility] Comment on above: Performed By: #### L [id number] #### [facility] ([facility]) [address] [place] [address] Neutrophils (Bld) [#/Vol] 5.88 10*3/uL Normal 1.60-7.60 [facility] Comment on above: Performed By: #### L [id number] #### [facility] ([facility]) [address] [place] [address] Neutrophils/100 WBC (Bld) 71.8 % Normal 40.0-72.0 [facility] Comment on above: Performed By: #### L [id number] #### [facility] ([facility]) [address] [place] [address] NRBC (PER 100 WBCS) BY AUTOMATED COUNT 0.0 % Normal 0 [facility] Comment on above: Performed By: #### L [id number] #### [facility] ([facility]) [address] [place] [address] PLATELETS (10*3/UL) IN BLOOD AUTOMATED COUNT 282 10*3/uL Normal 150-400 [facility] Comment on above: Performed By: #### L [id number] #### [facility] ([facility]) [address] [place] [address] RBC (Bld) [#/Vol] 4.54 10*6/uL Normal 3.80-5.00 [facility] Comment on above: Performed By: #### L [id number] #### [facility] ([facility]) [address] [place] [address] WBC (Bld) [#/Vol] 8.19 10*3/uL Normal 4.00-10.60 [facility] Comment on above: Performed By: #### L [id number] #### [facility] ([facility]) [address] [place] [address] COMPREHENSIVE METABOLIC PANE James 04-17-2024 Albumin [Mass/Vol] 4.4 g/dL Normal 3.5-5.7 [facility] Comment on above: Performed By: #### L [id number] #### [facility] ([facility]) [address] [place] [address] ALP [Catalytic activity/Vol] 72 U/L Normal 34-104 [facility] Comment on above: Performed By: #### L [id number] #### [facility] ([facility]) [address] [place] [address] ALT [Catalytic activity/Vol] 13 U/L Normal 7-52 [facility] Comment on above: Performed By: #### L [id number] #### [facility] ([facility]) [address] [place] [address] Anion gap [Moles/Vol] 11 mmol/L Normal 7-20 [facility] Comment on above: Performed By: #### L [id number] #### [facility] ([facility]) [address] [place] [address] AST [Catalytic activity/Vol] 16 U/L Normal 13-39 [facility] Comment on above: Performed By: #### L [id number] #### [facility] ([facility]) [address] [place] [address] Bilirubin [Mass/Vol] 0.5 mg/dL Normal 0.3-1.0 [facility] Comment on above: Performed By: #### L [id number] #### [facility] ([facility]) [address] [place] [address] Calcium [Mass/Vol] 9.3 mg/dL Normal 8.6-10.3 [facility] Comment on above: Performed By: #### L [id number] #### [facility] ([facility]) [address] [place] [address] Chloride [Moles/Vol] 106 mmol/L Normal 98-107 [facility] Comment on above: Performed By: #### L [id number] #### [facility] ([facility]) [address] [place] [address] CO2 [Moles/Vol] 25 mmol/L Normal 21-31 [facility] Comment on above: Performed By: #### L [id number] #### [facility] ([facility]) [address] [place] [address] Creatinine [Mass/Vol] 0.72 mg/dL Normal 0.60-1.20 [facility] Comment on above: Performed By: #### L [id number] #### [facility] ([facility]) [address] [place] [address] GLOMERULAR FILTRATION RATE ML/MIN/1.73 SQ M.PREDICTED 86.1 mL/min/1.73m*2 Normal >60.0 [facility] Comment on above: Result Comment: The [facility]???s estimated glomerular filtration rate (eGFR) will no longer include consideration of race in its calculation. The National Kidney Foundation???s eGFR Task Force developed new recommendations for the estimation of the glomerular filtration rate in the [place] They recommend immediate implementation of the new equation refit without the race variable in all laboratories because the calculation does not include race. In addition to not including race in the calculation and reporting, it included diversity in its development, and has acceptable performance characteristics and potential consequences that do not disproportionately affect any one group of individuals. Performed By: #### L [id number] #### [facility] ([facility]) [address] [place] [address] Glucose [Mass/Vol] 103 mg/dL High 70-100 [facility] Comment on above: Performed By: #### L [id number] #### [facility] ([facility]) [address] [place] [address] Potassium [Moles/Vol] 3.9 mmol/L Normal 3.5-5.1 [facility] Comment on above: Performed By: #### L [id number] #### [facility] ([facility]) [address] [place] [address] Protein [Mass/Vol] 7.4 g/dL Normal 6.0-8.3 [facility] Comment on above: Performed By: #### L [id number] #### [facility] ([facility]) [address] [place] [address] Sodium [Moles/Vol] 138 mmol/L Normal 136-145 [facility] Comment on above: Performed By: #### L [id number] #### [facility] ([facility]) [address] [place] [address] Urea nitrogen [Mass/Vol] 12 mg/dL Normal 7-25 [facility] Comment on above: Performed By: #### L [id number] #### [facility] ([facility]) [address] [place] [address] UREA NITROGEN/CREATININE (MASS RATIO) IN SER/PLAS 16.7 Normal [facility] Comment on above: Performed By: #### L [id number] #### [facility] ([facility]) [address] [place] [address] LACTIC ACID, PLASMAon 2024 LACTATE (MMOL/L) IN SER/PLAS 1.2 mmol/L Normal 0.5-2.2 [facility] Comment on above: Performed By: #### L [id number] #### [facility] ([facility]) [address] [place] [address] MAGNESIUMon 04-17-2024 Magnesium [Mass/Vol] 2.2 mg/dL Normal 1.9-2.7 [facility] Comment on above: Performed By: #### L [id number] ####[facility] ([facility])[address] [place] [address] PHOSPHORUSon 04-17-2024 Magnesium [Mass/Vol] 3.3 mg/dL Normal 2.5-5.0 [facility] Comment on above: Performed By: #### L [id number] #### [facility] ([facility]) [address] [place] [address] PROTIME-INRon 04-17-2024 INR IN PPP BY COAGULATION ASSAY 1.01 Normal 0.90-1.10 [facility] Comment on above: Result Comment: ACCC P RECOMMENDED INR FOR WARFARIN THERAPY CONDITION INR PROPHYLAXIS OF VENOUS THROMBOSIS 2-3 (HIGH-RISK SURGERY) TREATMENT OF VENOUS THROMBOSIS 2-3 TREATMENT OF PULMONARY EMBOLISM 2-3 PREVENTION OF SYSTEMIC EMBOLISM: 2-3 ACUTE MYOCARDIAL INFARCTION TISSUE HEART VALVES VALVULAR HEART DISEASE ATRIAL FIBRILLATION RECURRENT SYSTEMIC EMBOLISM MECHANICAL HEART VALVE 2.5-3.5 FROM: ORAL ANTICOAGULANTS. MECHANISM OF ACTION, CLINICAL EFFECTIVENESS, AND OPTIMAL THERAPEUTIC RANGE. CHEST 1995;108:231S-246S. Performed By: #### L [id number] ####[facility] ([facility])[address] [place] [address] PROTHROMBIN TIME (PT) IN PPP BY COAGULATION ASSAY 13.3 Seconds Normal 12.3-14.8 [facility] Comment on above: Performed By: #### L [id number] ####[facility] ([facility])[address] [place] [address] TROPONIN Ion 04-17-2024 Troponin I.cardiac [Mass/Vol] 0.00 ng/mL Normal 0.00-0.04 [facility] Comment on above: Performed By: #### L [id number] #### [facility] ([facility]) [address] [place] [address] Office Visiton 12-01-2023 Follow-up visit [id number] Cherry Jaeger ma 1945 F Date Provider Department Center 12/01/2023 [facility] Family History Problem Relation Age of Onset Other Mother Other Father Family Status - Relation Status Age at Mother Father Level of Service:700[address] [place] OFFICE/OUTPATIENT NEW LOW MDM 30 MINUTES Normal [facility] Vital Signs Date Time Vital Sign Value Performing Clinician Facility 10-06-2024 10:41-0400 Body height 152.4 cm Sunny Henning MD Work Phone: [facility] 10-06-2024 10:41-0400 Body mass index (BMI) [Ratio] 24.61 kg/m2 Sunny Henning MD Work Phone: [facility] 10-06-2024 10:41-0400 Body temperature 97.11 [degF] Sunny Henning MD Work Phone: [facility] 10-06-2024 10:41-0400 Body weight 57.15 kg Sunny Henning MD Work Phone: [facility] 10-06-2024 10:41-0400 Diastolic blood pressure 70 mm[Hg] Sunny Henning MD Work Phone: [facility] 10-06-2024 10:41-0400 Heart rate 56 /min Sunny Henning MD Work Phone: [facility] 10-06-2024 10:41-0400 Respiratory rate 20 /min Sunny Henning MD Work Phone: [facility] 10-06-2024 10:41-0400 SaO2% (BldA) [Mass fraction] 99 % Sunny Henning MD Work Phone: [facility] 10-06-2024 10:41-0400 Systolic blood pressure 110 mm[Hg] Sunny Henning MD Work Phone: [facility] 08-04-2024 10:56-0400 Body height 152.4 cm Sunny Henning MD Work Phone: [facility] 08-04-2024 10:56-0400 Body mass index (BMI) [Ratio] 25.39 kg/m2 Sunny Henning MD Work Phone: [facility] 08-04-2024 10:56-0400 Body temperature 97.5 [degF] Sunny Henning MD Work Phone: [facility] 08-04-2024 10:56-0400 Body weight 58.97 kg Sunny Henning MD Work Phone: [facility] 08-04-2024 10:56-0400 Diastolic blood pressure 62 mm[Hg] Sunny Henning MD Work Phone: [facility] 08-04-2024 10:56-0400 Heart rate 70 /min Sunny Henning MD Work Phone: [facility] 08-04-2024 10:56-0400 Respiratory rate 20 /min Sunny Henning MD Work Phone: [facility] 08-04-2024 10:56-0400 SaO2% (BldA) [Mass fraction] 97 % Sunny Henning MD Work Phone: [facility] 08-04-2024 10:56-0400 Systolic blood pressure 118 mm[Hg] Sunny Henning MD Work Phone: [facility] 12-08-2023 09:29-0400 Body height 152.4 cm Sunny Henning MD Work Phone: [facility] 12-08-2023 09:29-0400 Body mass index (BMI) [Ratio] 26.95 kg/m2 Sunny Henning MD Work Phone: [facility] 12-08-2023 09:29-0400 Body temperature 97.3 [degF] Sunny Henning MD Work Phone: [facility] 12-08-2023 09:29-0400 Body weight 62.6 kg Sunny Henning MD Work Phone: [facility] 12-08-2023 09:29-0400 Diastolic blood pressure 50 mm[Hg] Sunny Henning MD Work Phone: [facility] 12-08-2023 09:29-0400 Heart rate 53 /min Sunny Henning MD Work Phone: [facility] 12-08-2023 09:29-0400 Respiratory rate 20 /min Sunny Henning MD Work Phone: [facility] 12-08-2023 09:29-0400 SaO2% (BldA) [Mass fraction] 97 % Sunny Henning MD Work Phone: [facility] 12-08-2023 09:29-0400 Systolic blood pressure 112 mm[Hg] Sunny Henning MD Work Phone: [facility] 05-11-2023 10:10-0400 Body height 149.9 cm Ras Garza MD Work Phone: [facility] 05-11-2023 10:10-0400 Body mass index (BMI) [Ratio] 27.87 kg/m2 Ras Garza MD Work Phone: [employer] 05-11-2023 10:10-0400 Body weight 62.6 kg Ras Garza MD Work Phone: [employer] 05-11-2023 10:10-0400 Diastolic blood pressure 74 mm[Hg] Ras Garza MD Work Phone: [employer] 05-11-2023 10:10-0400 Heart rate 69 /min Ras Garza MD Work Phone: [employer] 05-11-2023 10:10-0400 SaO2% (BldA) [Mass fraction] 99 % Ras Garza MD Work Phone: [employer] 05-11-2023 10:10-0400 Systolic blood pressure 130 mm[Hg] Ras Garza MD Work Phone: [employer] Encounters Encounter Date Encounter Type Care Provider Facility Start: 10-11-2024 End: 10-11-2024 Refill Sunny Henning MD Work Phone: [facility] Comment on above: Generalized anxiety disorder Start: 10-06-2024 End: 10-06-2024 Patric Henning MD Work Phone: [facility] Start: 10-06-2024 End: 10-06-2024 Bamm[employer]helle [employer] Henning MD Work Phone: [facility] Start: 10-06-2024 End: 10-06-2024 Office outpatient visit 25 minutes Sunny Henning MD Work Phone: [facility] Comment on above: Essential hypertensi on, benign (Primary Dx); Generalized anxiety disorder ; Primary insomnia; Primary osteoarthritis of left hip; 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 Start: 10-06-2024 End: 10-06-2024 ambulatory SUNNY HENNING Not Available Start: 09-06-2024 End: 09-22-2024 Clinisync Result Encounter Generic External Data Provider [facility] Unsolicited Start: 09-06-2024 End: 09-22-2024 Clinisync Result Encounter Generic External Data Provider [facility] Unsolicited Start: 08-29-2024 End: 08-29-2024 ambulatory [facility] Start: 08-10-2024 End: 08-10-2024 Clinisync Result Encounter Generic External Data Provider [facility] Unsolicited Start: 08-10-2024 End: 08-10-2024 Clinisync Result Encounter Generic External Data Provider [facility] Unsolicited Start: 08-04-2024 End: 08-04-2024 Bamboo flowsheet Sunny Henning MD Work Phone: [facility] Start: 08-04-2024 End: 08-04-2024 Bamboo flowsheet Sunny Henning MD Work Phone: [facility] Start: 08-04-2024 End: 08-04-2024 Patient encounter procedure Sunny Henning MD Work Phone: [facility] Work Phone: Start: 08-04-2024 End: 08-04-2024 Postop follow up visit related to original px Sunny Henning MD Work Phone: [facility] Comment on above: Medicare annual well ness visit, subsequent (Primary Dx); Generalized anxiety disorder Start: 08-04-2024 End: 08-04-2024 ambulatory SUNNY HENNING Not Available Start: 07-12-2024 End: 07-12-2024 Clinisync Result Encounter Generic External Data Provider [facility] Unsolicited Start: 07-12-2024 End: 07-12-2024 Clinisync Result Encounter Generic External Data Provider [facility] Unsolicited Start: 07-04-2024 End: 07-05-2024 Clinisync Result Encounter Generic External Data Provider [facility] Unsolicited Start: 07-04-2024 End: 07-05-2024 Clinisync Result Encounter Generic External Data Provider [facility] Unsolicited Start: 06-20-2024 End: 06-20-2024 Refill Sunny Henning MD Work Phone: [facility] Comment on above: Generalized anxiety disorder (CMS/HCC) Start: 06-13-2024 End: 06-13-2024 Clinisync Result Encounter Generic External Data Provider [facility] Unsolicited Start: 06-13-2024 End: 06-13-2024 Clinisync Result Encounter Generic External Data Provider [facility] Unsolicited Start: 06-13-2024 End: 06-13-2024 ambulatory [facility] Start: 06-07-2024 End: 06-07-2024 Clinisync Result Encounter Generic External Data Provider [facility] Unsolicited Start: 06-07-2024 End: 06-07-2024 Clinisync Result Encounter Generic External Data Provider [facility] Unsolicited Start: 05-03-2024 End: 05-03-2024 ambulatory SUNNY HENNING Not Available Start: 04-27-2024 ambulatory [facility] Start: 04-24-2024 End: 04-24-2024 Clinisync Result Encounter Generic External Data Provider [facility] Unsolicited Start: 04-24-2024 End: 04-24-2024 Clinisync Result Encounter Generic External Data Provider [facility] Unsolicited Start: 04-19-2024 Evaluation and manag ement of inpatient [facility] Start: 04-18-2024 Evaluation and manag ement of inpatient [facility] Start: 04-17-2024 End: 04-20-2024 Evaluation and management of inpatient [facility] Start: 12-08-2023 End: 12-08-2023 Ptaric flowsheet Sunny Henning MD Work Phone: [facility] Start: 12-08-2023 End: 12-08-2023 Patric valentinheet Sunny Henning MD Work Phone: [facility] Start: 12-08-2023 End: 12-08-2023 Office outpatient visit 25 minutes Sunny Henning MD Work Phone: [facility] Comment on above: Essential hypertensi on, benign (CMS/HCC) (Primary Dx); Generalized anxiety disorder (CMS/HCC); 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 (CMS/HCC); Primary insomnia; Primary osteoarthritis of left hip Start: 12-08-2023 End: 12-08-2023 ambulatory SUNNY HENNING Not Available Start: 12-01-2023 End: 12-01-2023 ambulatory [facility] Start: 07-06-2023 End: 07-06-2023 Refill Hazem Malas DO [facility] Comment on above: Med Refill Start: 06-11-2023 End: 06-11-2023 Refill Hazem Malas DO Work Phone: [facility] Comment on above: Med Refill Start: 05-11-2023 End: 05-11-2023 ambulatory RAS GARZA [facility] Start: 05-11-2023 End: 05-11-2023 Office outpatient visit 15 minutes Ras Garza MD Work Phone: [facility] Comment on above: Coronary artery dise ase involving grayling coronary artery of grayling heart without angina pectoris (Primary Dx) Start: 05-10-2023 Telephone encounter Pratima snell [facility] Start: 08-31-2019 Preoperative state Pratima Jeffers [facility] Start: 08-21-2019 Admission to establishment Ilda Arias [facility] Work Phone: Procedures Date Procedure Procedure Detail Performing Clinician Start: 09-06-2024 ITP Generic Ex ternal Data Provider Start: 08-10-2024 ITP Generic Ex ternal Data Provider Start: 07-12-2024 ITP Generic Ex ternal Data Provider Start: 07-04-2024 ITP Generic Ex ternal Data Provider Start: 06-13-2024 ITP Generic Ex ternal Data Provider Start: 06-07-2024 ALL LIPID PROFILE (FASTING) Generic External Data Provider Start: 06-07-2024 [facility] CMP (CMP) (FOR [facility] USE) Generic External Data Provider Start: 04-24-2024 ALL CBC WITH AUTO DIFF Generic External Data Provider Plan of Treatment Date Care Activity Detail Author Start: 08-04-2025 Medicare Annual Well ness (AWV) Medicare Annual Wellness (AWV) [facility] Start: 04-09-2025 End: 04-09-2025 Patient encounter procedure 04/09/2025 10:30 AM EST Office Visit [facility] [address] [place] [phone] Sunny Henning MD [address] [place] [phone] [facility] Start: 12-07-2024 Medicare Annual Well ness (AWV) Medicare Annual Wellness (AWV) [facility] Start: 10-16-2024 Influenza vaccination Influenz a Vaccine (#1) [facility] Start: 10-06-2024 End: 10-06-2024 Patient encounter procedure [facility] Comment on above: Arrived Start: 08-04-2024 End: 08-04-2024 Patient encounter procedure [facility] Comment on above: Arrived Start: 06-07-2024 End: 06-07-2024 Patient encounter procedure 06/07/2024 10:00 AM EDT Office Visit [facility] [address] [place] [address] Sunny Henning MD [address] [place] [phone] [facility] Start: 05-10-2024 Adult BMI Screening Adult BMI Screen ing [facility] Start: 05-10-2024 Tobacco Screening Tobacco Screening [facility] Start: 05-04-2024 End: 05-04-2024 Patient encounter procedure 05/04/2024 3:30 PM EDT Office Visit [facility] [address] [place] [phone] Sunny Henning MD [address] [place] [phone] [facility] Start: 12-08-2023 End: 12-08-2023 Patient encounter procedure 12/08/2023 9:30 AM EDT Office Visit [facility] [address] [place] [phone] Sunny Henning MD [address] [place] [phone] Arrived [facility] Comment on above: Arrived Start: 11-12-2023 Adult BMI Screening Adult BMI Screen ing [facility] Start: 11-12-2023 Tobacco Screening Tobacco Screening [facility] Start: 10-17-2023 Influenza vaccination N [facility] Start: 05-11-2023 End: 05-11-2023 Patient encounter procedure 05/11/2023 10:30 AM EDT Office Visit [facility] [address] [place] [address] Ras Garza MD [address] [facility] [address] [place] [address] [facility] Start: 10-16-2022 COVID-19 Vaccine ( season) COVID-19 Vaccine ( season) [facility] Start: 10-16-2022 Influenza vaccination Influenza Vacc ine [facility] Start: 2012 Fall Risk Screening Fall Risk Screen ing [facility] Start: 1997 Administration of varicella zoster vaccine Zoster (Shingles) Vaccine (1 of 2) [facility] Start: 1966 DTaP,Tdap and Td Vac cines (1 - Tdap) DTaP,Tdap and Td Vaccines (1 - Tdap) [facility] Start: 1965 Adult BMI Follow Up Plan Adult BMI Follow Up Plan [facility] Start: 1959 Depression Screening Depression Scre ening [facility] Start: 1945 Medicare Annual Well ness (AWV) Medicare Annual Wellness (AWV) [facility] Start: 1945 Medicare Annual Well ness Visit Medicare Annual Wellness Visit [facility] Immunizations Immunization Date Immunization Notes Care Provider Fa cili 12-08-2023 influenza virus vaccine, unspecified formulation Generic Provider [facility] 01-18-2023 influenza virus vaccine, unspecified formulation Joon Barron DO Work Phone: [facility] 10-28-2021 influenza virus vaccine, unspecified formulation Pratima Arias [facility] 04-25-2020 COVID-19, mRNA, LNP- S, PF, 100mcg/0.5mL Dose Pratima Arias [facility] 03-28-2020 COVID-19, mRNA, LNP- S, PF, 100mcg/0.5mL Dose Pratimasilvia Arias [facility] 11-13-2017 Seasonal trivalent influenza vaccine, adjuvanted, preservative free Pratima Arias [facility] Payers Date Payer Category Payer Private Health Insurance [id number] 2021 Unknown [id number] 2012 Medicare [id number] 2012 Medicare [id number] 1945 Unknown [id number] 1947 Unknown [id number] 1947 Unknown [id number] 1947 Unknown [id number] 1947 Unknown [id number] Social History Date Type Detail Facility Start: 05-23-2021 End: 08-10-2023 Tobacco smoking status NHIS Never smoked tobacco [facility] Start: 05-23-2021 End: 08-10-2023 Tobacco use and exposure Smokeless tobacco non-user [facility] Start: 08-10-2023 End: 10-06-2024 Alcoholic beverage intake Lifetime non-drinker (finding) [facility] Start: 05-06-2023 End: 09-30-2024 History of Social function [facility] Start: 05-06-2023 End: 09-30-2024 Social connection and isolation panel [facility] Do you belong to any clubs or organizations such as taoist groups, unions, fraternal or athletic groups, or school groups? Yes [facility] Are you now , , , , never or living with a partner? [facility] How often to you hav e a drink containing alcohol? Monthly or less [facility] How many standard drinks containing alcohol do you have on a typical day? Patient does not drink [facility] How often do you hav e 6 or more drinks on 1 occasion? Never [facility] Do you feel stress - tense, restless, nervous, or anxious, or unable to sleep at night because your mind is troubled all the time - these days [OSQ] Only a little [facility] (I/We) worried wheth er (my/our) food would run out before (I/we) got money to buy more. Never true [facility] In the past 12 month s, was there a time when you were not able to pay the mortgage or rent on time? No [facility] Start: 1945 Sex assigned at Female [facility] Start: 11-11-2022 End: 05-11-2023 Alcoholic beverage intake Current drinker of alcohol (finding) [facility] How often do you hav e 6 or more drinks on 1 occasion? Less than monthly [facility] Start: 10-10-2016 Alcohol Comment drinks wine occasionally [facility] Start: 1945 Sex assigned at Not on file [facility] Do you feel stress - tense, restless, nervous, or anxious, or unable to sleep at night because your mind is troubled all the time - these days [OSQ] To some extent [facility] NEGATED: Highlighted rowStart: NINF History of tobacco use Passive smoker [facility] Medical Equipment Procedure Code Equipment Code Equipment Origin al Text Equipment Identifier Dates Lens Iol Ultrase rt 14.0d - [id number] - [id number] Start: 04-15-2021 Lens Iol Ultrase rt 13.0d - [id number] - [id number] Start: 05-01-2021 Mesh Tiss 10x7cm Weed - [id number] - [id number] Start: 06-07-2017 Shl Actb G7 Pps Ltd 52e - [id number] Start: 09-04-2019 Linr Actb G7 Ntr l 36mm E - [id number] Start: 09-04-2019 Stm Fem 115mm 13 3d 15 Std Os - [id number] Start: 09-04-2019 Hd Fem 36mm Opt Shl Actb G7 Bl Rpl 650-1057 - [id number] Start: 09-04-2019 Slv Fem Opt -3mm Tpr Hip Blx D Rpl 650-1065 - [id number] Start: 09-04-2019 Juanjose Xience Alpin e 3.0x15mm Repl [id number] - [id number] FDA Start: 10-12-2016 Juanjose Xience Alpin e 2.87b49ij Repl [id number] - [id number] Start: 10-12-2016 Goals Date Patient Goal Desired Activity /State Personal health goal Comment on above: Formatting of this n ote might be different from the original. Evaluation of progress towards goal: Patient plans to discharge home with home care and support of spouse. - [place] Cardona RN 09/04/19 1:56 PM Functional Status Date Assessment Result Facility 08-04-2024 Patient Health Quest ionnaire 2 item (PHQ-2) [Reported] [facility] Clinical Notes 05-10-2023 to 10-06-2024 Sunny Henning MD - 10/06/2024 11:13 AM Irena Henning MD - 10/06/2024 11:12 AM Irena Henning MD - 10/06/2024 11:12 AM Irena Henning MD - 10/06/2024 11:12 AM EDT Note Date & Type Note Facility 10-06-2024 History of Present illness Narrative Associated Problem(s): Primary osteoarthritis of left hip Minimal pain and use OTC PRN. Associated Problem(s): Primary insomnia Sleeping well with medication and continue. Associated Problem(s): Generalized anxiety disorder Symptoms stable without SSRI and monitor. Use xanax PRN. Associated Problem(s): Essential hypertension, benign BP controlled and monitor PRN. 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 Follow with cardiology. Images from the original note were not included. Subjective Patient ID: Diana Jaeger is a 79 y.o. female who presents for Follow-up (2m). Follow up HTN, anxiety, insomnia, and OA hip. Patient doing well today. Checking BP PRN and typically controlled. BP normal today. Taking medication daily and tolerating without side effects. Anxiety stable. Stopped zoloft due to sedation but overall feels like doing well. Not as stressed out or overwhelmed. Not as nervous or worry as much. Not as freeman or irritable. Using xanax PRN and helps when needed. Sleeping well with trazodone. Able to fall asleep and stays asleep. OA hip doing well. Still having minimal pain after IVAN. Able to increase activity and walk and do things around the house. Using OTC PRN and helps. Following with cardiology and no chest pain. In cardiac rehab. Review of Systems Respiratory: Negative for cough, shortness of breath and wheezing. Cardiovascular: Negative for chest pain and palpitations. Gastrointestinal: Negative for abdominal pain, diarrhea, nausea and vomiting. Genitourinary: Negative for dysuria. Objective Physical Exam Constitutional: General: She is not in acute distress. Appearance: Normal appearance. HENT: Head: Normocephalic. Right Ear: Tympanic membrane normal. Left Ear: Tympanic membrane normal. Eyes: Extraocular Movements: Extraocular movements intact. Pupils: Pupils are equal, round, and reactive to light. Cardiovascular: Rate and Rhythm: Normal rate and regular rhythm. Heart sounds: No murmur heard. No friction rub. No gallop. Pulmonary: Effort: Pulmonary effort is normal. Breath sounds: Normal breath sounds. No wheezing, rhonchi or rales. Abdominal: General: Bowel sounds are normal. There is no distension. Palpations: Abdomen is soft. Tenderness: There is no abdominal tenderness. There is no guarding or rebound. Musculoskeletal: Cervical back: Neck supple. Right lower leg: No edema. Left lower leg: No edema. Neurological: Mental Status: She is alert. Assessment/Plan Problem List Items Addressed This Visit Essential hypertension, benign - Primary BP controlled and monitor PRN. 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 Follow with cardiology. Generalized anxiety disorder Symptoms stable without SSRI and monitor. Use xanax PRN. Primary insomnia Sleeping well with medication and continue. Primary osteoarthritis of left hip Minimal pain and use OTC PRN. documented in this encounter [facility] 08-29-2024 Note [facility] Cardiology Clinic Note Chief Complaint: Patient here for 3 month follow up. Patient states she is feeling good. Patient states she is doing cardiac rehab which is going well. Patient denies leg swelling, chest pain, palpitations, LOPEZ or SOB. Patient states when she runs the sweeper in the living room she does feel a heaviness in her chest and LOPEZ. Patient states she can do the upstairs without any problem. Patient states this is the only time she has any complaints about how she feels. HPI: Diana Jaeger is a 79 y.o. female With a history of coronary artery disease, prior PCI, stress-induced cardiomyopathy, here to establish care She has a history of PCI and stent placement in 2017. At that time, she was having significant back pain related to exertion. She was found to have an LAD stenosis that was treated percutaneously. She had recurrent symptoms in 2019; a repeat cath at that time showed a patent stent without moderate, nonhemodynamically significant stenosis in the RCA. She has had no similar symptoms since. She is able to push mow her lawn more with no exertional chest pain or shortness of breath. She has no orthopnea, no paroxysmal external dyspnea, no lower extremity edema. UPDATE 06/12/2024 Doing well from a physical standpoint; no further chest pain or shortness of breath. The radial access site has not caused any problems. She has no bleeding. No orthopnea, no paroxysmal tunnel dyspnea, no lower extremity edema. Finds herself crying for minimal reasons; has discussed this with her family physician. UPDATE: 08/29/2024 Patient is doing well from cardiology standpoint. She denies chest pain, shortness of breath, abdominal pain, orthopnea, paroxysmal nocturnal dyspnea or lower extremity swelling. She is following with cardiac rehabilitation. She is compliant with her medication including DAPT and Coreg. Her blood pressure is stable in the office today. She is now on Leqvio as she could not tolerate statin or Zetia. She is following with her PCP for the anxiety and she was just recently started on Xanax and Zoloft. Cardiology ROS: Review of Systems Constitutional: Negative for chills, fever, malaise/fatigue and night sweats. HENT: Negative for hoarse voice and sore throat. Eyes: Negative for pain and photophobia. Cardiovascular: Positive for dyspnea on exertion. Negative for chest pain, cyanosis, irregular heartbeat, leg swelling and orthopnea. Respiratory: Negative for cough, hemoptysis, shortness of breath and snoring. Endocrine: Negative for polydipsia and polyphagia. Skin: Negative for dry skin and flushing. Musculoskeletal: Negative for back pain. All other systems reviewed and are negative. Past Medical History She has a past medical history of Anxiety, CHF (congestive heart failure) (CMS/HCC), Coronary artery disease, GERD (gastroesophageal reflux disease), Hyperlipidemia, Hypertension, Myocardial infarction (CMS/HCC), and Takotsubo cardiomyopathy. Surgical History She has a past surgical history that includes Cardiac catheterization; Coronary stent placement; Hernia repair; Small intestine surgery; and Replacement total hip oncologic. Social History She reports that she has never smoked. She has never used smokeless tobacco. She reports that she does not currently use alcohol. She reports that she does not use drugs. Family History Family History Problem Relation Name Age of Onset Other ( heart problems ) Mother Other ( heart problems ) Father Allergies Dwyeseb-opr-tev reductase inhibitors Medications Current Outpatient Medications: ALPRAZolam (Xanax) 0.5 mg tablet, Take 0.5 mg by mouth if needed in the morning, at noon, and at bedtime., Disp: , Rfl: aspirin 81 mg EC tablet, Take 1 tablet (81 mg) by mouth in the morning., Disp: 90 tablet, Rfl: 3 carvedilol (Coreg) 3.125 mg tablet, Take 1 tablet (3.125 mg) by mouth with breakfast and with evening meal., Disp: 180 tablet, Rfl: 3 cholecalciferol (Vitamin D-3) 50 MCG (2000 UT) tablet, Take 2,000 Units by mouth in the morning., Disp: , Rfl: clopidogrel (Plavix) 75 mg tablet, Take 1 tablet (75 mg) by mouth once daily as directed., Disp: 90 tablet, Rfl: 3 nitroglycerin (Nitrostat) 0.4 mg SL tablet, PLACE 1 TABLET (0.4 MG) UNDER THE TONGUE EVERY 5 MINUTES NEEDED FOR CHEST PAIN, Disp: , Rfl: traZODone (Desyrel) 50 mg tablet, Take 50 mg by mouth at bedtime., Disp: , Rfl: Last Recorded Vitals BP 112/73 (BP Location: Left arm, Patient Position: Sitting) Pulse 67 Ht 1.499 m (4' 11 ) Wt 57.2 kg (126 lb) SpO2 97% BMI 25.45 kg/m??? Physical Examination: GENERAL: alert and oriented x3, well developed, in no acute distress. HEAD: atraumatic, normocephalic. EYES: JASMEET, EOMI. NECK: trachea midline, no JVD present, no carotid bruits present. CARDIAC: S1, S2 present. RRR. No murmur, rubs, or gallops. RESPIRATORY: CTAB, no increased effort of breathing, (more content not included)... [facility] 08-04-2024 History of Present illness Narrative Associated Problem(s): Generalized anxiety disorder Severe symptoms and did not tolerate prozac. Try zoloft and warned will take 2-3 weeks to notice improvement in mood. Use xanax PRN. Associated Problem(s): Medicare annual wellness visit, subsequent Reviewed labs. Discussed proper diet and regular aerobic exercise. Need aerobic exercise 5-6 days a week for 30 minutes at a time. Smaller portions and limit total calories. Tetanus every 10 years. Advised not to smoke. Images from the original note were not included. Subjective Patient ID: Diana Jaeger is a 79 y.o. female who presents for Medicare Annual Wellness Visit Subsequent (wellness). Presents for medicare annual wellness visit. Patient stable today. Weight down 8 pounds in the past year. In cardiac rehab and doing well after stent. Tries to watch diet and eat healthy. Increased fruits and vegetables. Smaller portions and limits snacking. Tries to limit total daily calories. Reviewed labs. Continues to have severe anxiety. Tried prozac but felt out of it and couldn't sleep. Using xanax PRN and helps. Review of Systems Respiratory: Negative for cough, shortness of breath and wheezing. Cardiovascular: Negative for chest pain and palpitations. Gastrointestinal: Negative for abdominal pain, diarrhea, nausea and vomiting. Genitourinary: Negative for dysuria. Objective Physical Exam Constitutional: General: She is not in acute distress. Appearance: Normal appearance. HENT: Head: Normocephalic. Right Ear: Tympanic membrane normal. Left Ear: Tympanic membrane normal. Eyes: Extraocular Movements: Extraocular movements intact. Pupils: Pupils are equal, round, and reactive to light. Cardiovascular: Rate and Rhythm: Normal rate and regular rhythm. Heart sounds: No murmur heard. No friction rub. No gallop. Pulmonary: Effort: Pulmonary effort is normal. Breath sounds: Normal breath sounds. No wheezing, rhonchi or rales. Abdominal: General: Bowel sounds are normal. There is no distension. Palpations: Abdomen is soft. Tenderness: There is no abdominal tenderness. There is no guarding or rebound. Musculoskeletal: General: No swelling or tenderness. Cervical back: Neck supple. Right lower leg: No edema. Left lower leg: No edema. Skin: Findings: No erythema or rash. Neurological: General: No focal deficit present. Mental Status: She is alert and oriented to person, place, and time. Cranial Nerves: No cranial nerve deficit. Motor: No weakness. Gait: Gait normal. Assessment/Plan Problem List Items Addressed This Visit Generalized anxiety disorder Severe symptoms and did not tolerate prozac. Try zoloft and warned will take 2-3 weeks to notice improvement in mood. Use xanax PRN. Relevant Medications sertraline (Zoloft) 25 MG tablet Medicare annual wellness visit, subsequent - Primary Reviewed labs. Discussed proper diet and regular aerobic exercise. Need aerobic exercise 5-6 days a week for 30 minutes at a time. Smaller portions and limit total calories. Tetanus every 10 years. Advised not to smoke. documented in this encounter [facility] 06-13-2024 Note [facility] Cardiology Clinic Note Chief Complaint: Patient here for 1 mo follow up CAD, unstable angina, and HFimpEF. Underwent PCI last month. She will start cardiac rehab after her trip to [place]. Had lipid panel last week. She's still fatigued s/p intervention. HPI: Diana Jaeger is a 79 y.o. female With a history of coronary artery disease, prior PCI, stress-induced cardiomyopathy, here to establish care She has a history of PCI and stent placement in 2017. At that time, she was having significant back pain related to exertion. She was found to have an LAD stenosis that was treated percutaneously. She had recurrent symptoms in 2019; a repeat cath at that time showed a patent stent without moderate, nonhemodynamically significant stenosis in the RCA. She has had no similar symptoms since. She is able to push mow her lawn more with no exertional chest pain or shortness of breath. She has no orthopnea, no paroxysmal external dyspnea, no lower extremity edema. UPDATE 06/12/2024 Doing well from a physical standpoint; no further chest pain or shortness of breath. The radial access site has not caused any problems. She has no bleeding. No orthopnea, no paroxysmal tunnel dyspnea, no lower extremity edema. Finds herself crying for minimal reasons; has discussed this with her family physician. Cardiology ROS: Review of Systems Constitutional: Positive for malaise/fatigue. Cardiovascular: Positive for dyspnea on exertion. All other systems reviewed and are negative. Past Medical History She has a past medical history of Anxiety, CHF (congestive heart failure) (CMS/HCC), Coronary artery disease, GERD (gastroesophageal reflux disease), Hyperlipidemia, Hypertension, Myocardial infarction (CMS/HCC), and Takotsubo cardiomyopathy. Surgical History She has a past surgical history that includes Cardiac catheterization; Coronary stent placement; Hernia repair; Small intestine surgery; and Replacement total hip oncologic. Social History She reports that she has never smoked. She has never used smokeless tobacco. She reports that she does not currently use alcohol. No history on file for drug use. Family History Family History Problem Relation Name Age of Onset Other ( heart problems ) Mother Other ( heart problems ) Father Allergies Goztoee-hum-mgp reductase inhibitors Medications Current Outpatient Medications: ALPRAZolam (Xanax) 0.5 mg tablet, Take 0.5 mg by mouth if needed in the morning, at noon, and at bedtime., Disp: , Rfl: aspirin 81 mg EC tablet, Take 1 tablet (81 mg) by mouth in the morning., Disp: 90 tablet, Rfl: 3 carvedilol (Coreg) 6.25 mg tablet, Take 6.25 mg by mouth with breakfast and with evening meal., Disp: , Rfl: cholecalciferol (Vitamin D-3) 50 MCG (2000 UT) tablet, Take 2,000 Units by mouth in the morning., Disp: , Rfl: clopidogrel (Plavix) 75 mg tablet, Take 1 tablet (75 mg) by mouth in the morning., Disp: 90 tablet, Rfl: 3 nitroglycerin (Nitrostat) 0.4 mg SL tablet, PLACE 1 TABLET (0.4 MG) UNDER THE TONGUE EVERY 5 MINUTES NEEDED FOR CHEST PAIN, Disp: , Rfl: traZODone (Desyrel) 50 mg tablet, Take 50 mg by mouth at bedtime., Disp: , Rfl: Last Recorded Vitals BP 90/65 (BP Location: Right arm, Patient Position: Sitting) Pulse 73 Ht 1.499 m (4' 11 ) Wt 60.8 kg (134 lb) SpO2 98% BMI 27.06 kg/m??? Physical Examination: GENERAL: alert and oriented x3, well developed, in no acute distress. HEAD: atraumatic, normocephalic. EYES: JASMEET, EOMI. NECK: trachea midline, no JVD present, no carotid bruits present. CARDIAC: S1, S2 present. RRR. No murmur, rubs, or gallops. RESPIRATORY: CTAB, no increased effort of breathing, no rales, rhonchi, or wheezing. ABDOMEN: soft, nontender, nondistended. EXTREMITIES: no lower extremity edema, peripheral pulses are 2+ bilaterally. No rash/skin discoloration present. NEURO: strength/sensation equal and symmetric in bilateral upper and lower extremities. PSYCH: appropriate mood, affect, and judgement. Investigations: Narrative Left Ventricle: Systolic function is normal with an ejection fraction of 55-60%. Left Ventricle: Normal diastolic function is present. Medial E' is 6.09 cm/s. Left Ventricle Left ventricle appears normal in size. Wall thickness is normal. Systolic function is normal with an ejection fraction of 55-60%. See wall score diagram for wall motion abnormalities. Normal diastolic function is present. Medial E' is 6.09 cm/s. Right Ventricle Right ventricular size appears normal. Systolic function is normal. Left Atrium Left atrium is normal in size. The left atrial volume index is 20.9 mL/m2. Right Atrium Right atrium is normal in size. The right atrial area is 11.5 cm2. IVC/SVC IVC appears normal. Mitral Valve The leaflets are mildly thickened and exhibit normal excursion. There is [id number] regurgitation. There is no evidence of mitral valve st (more content not included)... [facility] 04-27-2024 Note [facility] CARDIOLOGY PROGR ESS NOTE HVC Overview HPI: Diana Jaeger is a 79 y.o. female here for FU of recent hospitalization for [place] with Stenting of LAD She is followed by Divine Fregoso since 11/2023 HPI PMH: Recent unstable angina with additional stent to LAD, history of CAD with stenting of proximal and mid LAD (2017). Also heart failure with improved EF, history of stress-induced cardiomyopathy, hypertension, prediabetes, dyslipidemia, 04/17/2024 admitted as transfer from [facility] for unstable angina I with anterior wall chest pain described as dull and sometimes heavy, nonradiating associated with dyspnea, fatigue and weakness, progressive dyspnea for 2 days and fatigue. Serial troponin negative. Echocardiogram found preserved EF, normal diastolic function and moderate MR. Coronary angiogram found severe LAD stenosis treated with PTCI and stent, finding patent stents of the proximal and mid LAD and moderate disease of left circumflex and RCA. She discharged home on Plavix in addition to her usual aspirin, carvedilol, home Ramipril was discontinued because of hypotension in hospital. 04/27/24 Today patient says she is generally feeling well, and feels has recovered from her hospitalization. She is very concerned as to whether she actually had a heart attack or any actual damage to her heart. This was reviewed in detail. She is compliant with her current medication, with casual walking has no angina symptoms. She denies lower extremity edema, CPOE, LOPEZ, positional lightheadedness, palpitations, racing heart beats, syncope or near syncope, orthopnea, PND, claudication pain, GI or other bleeding. Hospitalization and findings reviewed and discussed with patient Plan: Renewed Plavix for [address] year, but Dr. Fregoso may extend this, start checking home vital signs after lunch with proper technique, repeat cholesterol labs in 3 months, referral to [facility] for cardiac rehab. After extended discussion, she declines alternative to statin, and we will recheck lipids in 3 months. Wt Readings from Last 3 Encounters: 04/27/24 62.9 kg (138 lb 9.6 oz) 04/20/24 59 kg (130 lb) 12/01/23 62.1 kg (137 lb) Assessment and Plan #CAD #Unstable angina. #Hyperlipidemia --Currently denies angina, chest pain --3/5/25 [facility]: Severe stenosis of the left anterior descending (LAD) artery was successfully treated with balloon angioplasty and Synergy drug-eluting stent placement. The proximal and mid LAD stents remain patent. Moderate disease is noted in the left circumflex and right coronary arteries. Noninvasive imaging confirms normal global left ventricular systolic function. Post-procedural chest pain is likely due to adventitial stretch. --Aggressive cardiovascular risk factor modification was discussed, including medications, lifestyle and diet, she is agreeable to cardiac rehab in her local area. --Continue current aspirin, Plavix and carvedilol --She is not on a statin because of past intolerance. She is not interested in PCSK9 inhibitor Zetia, and prefers to work with diet and lifestyle to reduce her LDL. I discussed with her quite seriously that with a history of 3 stents she has significant buildup of cholesterol, which will also confer risk for future heart attack, stroke and other microvascular complications. She acknowledged this information and will consider. -04/18/2024, LDL 106, HDL 47, triglycerides 141, not on statin --Will fax referral to [facility] for phase 2 cardiac rehab. --Given written information regarding Mediterranean diet and heart healthy eating plan --Following up with Dr. Fregoso regarding duration of dual antiplatelet therapy and lipid management. #HFimpEF #Hypertension Hx of stress induced cardiomyopathy, resolved -Today, appears euvolemic, NYHA I. Blood pressure soft but well-tolerated, no angina of effort or rest. Very good exercise tolerance. -- TTE (limited) 04/19/2024, LV is normal size, global left ventricular systolic function is normal, mild MR. --GDMT optimization in progress, limited by soft blood pressures. Her latest echo shows no diastolic dysfunction, so will not attempt RAAS at present Followup: With Dr. Fregoso in 3 months at location Objective Social History Tobacco Use Smoking status: Never Smokeless tobacco: Never Substance Use Topics Alcohol use: Not Currently family history includes heart problems in her father and mother. Physical Exam Physical Exam: BP 107/67 (BP Location: Right arm, Patient Position: Sitting) Pulse 60 Ht 1.499 m (4' 11 ) Wt 62.9 kg (138 lb 9.6 oz) BMI 27.99 kg/m??? Physical exam: General: Awake, alert. appropriate mood / affect, NAD Eyes: anicteric sclera. Non-injected conjunctiva. No xanthelasmas Neck: No elevated JVP. No carotid bruit Pulm: No increased work of breathing. Breath sounds clear to ascultation bilaterally with no wheeze, crackles or rhonchi (more content not included)... [facility] 04-27-2024 Note Would like to discus s dosage of trazadone [facility] 04-20-2024 Note Hospital Medicine Discharge Summary Final Discharge Diagnosis: Unstable angina Severe Stenosis of LAD Status post cardiac catheterization Status post placement of JUANJOSE to LAD Chornic HFrecEF. NYHA class I Essential hypertension GERD without esophagitis Anxiety Prediabetes Admission Diagnosis: NSTEMI (non-ST elevated myocardial infarction) ([facility]) [I21.4] Hospital course: Ms. Diana Jaeger is an 79 y.o. female admitted from [facility] as a direct transfer where she presented with anterior chest wall pain described as dull at times heaviness nonradiating associated with dyspnea fatigue and weakness. Patient stated that she started having progressive shortness of breath worse with activity 2 days back and felt fatigued and tired she denies any fever chills palpitation dizziness PND orthopnea no swelling in the legs denies any calf tenderness. Patient is a non-smoker independent in her ADLs takes care of her a ailing . Patient has a history of coronary artery disease had left heart cath done in 2018 results showing patent stent and LAD left circumflex a moderate vessel with diffuse luminal irregularities RCA with diffuse luminal irregularities and 60% ostial lesion of the PDA she had echocardiogram done 05-09 showing left-ventricular EF of 62% normal right ventricular systolic function normal diastolic function mild dilatation of the right atrium mild TR and moderate MR. Blood chemistry was within normal range lactate was normal BNP 49 mag 2.2 CBC was in normal range EKG showed normal sinus rhythm with poor R wave progression and transition zone in V2 troponin were less than 0.4 myoglobin 4.5 CPK 2.14 CK 83. Patient was admitted to hospitalist services for further evaluation and management. Patient was evaluated by cardiology team who recommended cardiac catheterization. Cardiac catheterization was performed on 04/19. The findings were: Severe stenosis of the left anterior descending coronary artery successfully treated by balloon angioplasty and Synergy drug-eluting stent placement Patent stents in the proximal and mid left anterior descending coronary artery Moderate disease of the left circumflex and right coronary arteries Normal global left ventricular systolic function by noninvasive imaging Patient did have some post-procedural chest pain was monitored closely overnight. ECGs obtained after cardiac catheterization showed normal sinus rhythm. Patient was seen and examined on 3/6 AM. She was doing well and denied any chest pain. She was doing better today. She felt ready to be discharged. Cardiology was agreeable to discharge. Patient is discharged in stable condition to home on 04/20/2024. Surgical, Invasive or Diagnostic Procedures Done During Admission: Cardiac Cath Consultations During Admission: Cardiology Dear Dr. Milady MD, Diana is advised to follow up with you within 1-2 weeks. Items to follow up in ambulatory setting: Follow-up serial CBCs and Follow-up serial BMPs Follow-up with: Cardiology Scheduled appointments: Future Appointments Date Time Provider Department Center 04/27/2024 11:30 AM Oralia Olsen PA-C [facility] Your medication list START taking these medications Instructions Last Dose Given Next Dose Due clopidogrel 75 mg tablet Commonly known as: Plavix Start taking on: April 21, 2024 Take 1 tablet (75 mg) by mouth in the morning. Do not start before April 21, 2024. CONTINUE taking these medications Instructions Last Dose Given Next Dose Due ALPRAZolam 0.5 mg tablet Commonly known as: Xanax aspirin 81 mg EC tablet Take 1 tablet (81 mg) by mouth in the morning. carvedilol 6.25 mg tablet Commonly known as: Coreg cholecalciferol 50 MCG (2000 UT) tablet Commonly known as: Vitamin D-3 nitroglycerin 0.4 mg SL tablet Commonly known as: Nitrostat traZODone 50 mg tablet Commonly known as: Desyrel Where to Get Your Medications These medications were sent to [facility] - [place], [place] - [address], [facility] [id number] aspirin 81 mg EC tablet clopidogrel 75 mg tablet Diana is allergic to gnzpakd-vwq-vrc reductase inhibitors. Disposition: Home or Self Care () Discharge Condition: Stable Code Status: Full Code Diagnostic Results Hematology: Results from last 7 days Lab Units 04/20/24 0630 04/19/24 2342 04/19/24 1750 04/18/24 0459 04/17/247 WBC AUTO 10*3/uL 11.02* -- -- 8.01 8.19 HEMOGLOBIN g/dL 12.7 12.3 < > 12.8 13.2 HEMATOCRIT % 38.5 37.2 < > 39.9 39.4 MCV fL 90.0 -- -- 89.7 86.8 PLATELETS AUTO 10*3/uL 242 -- -- 282 282 INR -- -- -- -- 1.01 < > = values in this interval not displayed. Chemistry: Results from last 7 days Lab Units 04/20/24 1124 04/17/247 SODIUM mmol/L 135* 138 POTASSIUM mmol/L 4.2 3.9 CHLORIDE mmol/L 104 106 CO2 mmol/L 20* (more content not included)... [facility] 04-20-2024 Note Cardiology Inpatient Progress Note Subjective HPI: Diana Jaeger is a 79 y.o. year old female patient with a PMH of A 79-year-old female with a medical history significant for primary hypertension, prediabetes, mixed hyperlipidemia, coronary artery disease with a prior LAD stent (2017), chronic heart failure with improved ejection fraction, and a history of stress-induced cardiomyopathy was transferred to [facility] from [facility]. She initially presented with retrosternal chest pain of moderate to severe intensity, accompanied by exertional shortness of breath and fatigue. Her symptoms had been ongoing for two days, with approximately three episodes prior to presentation. Initial laboratory workup revealed negative troponins and a BNP of 49. The cardiology team was consulted for further evaluation and management. Hospital course: 04/20/2024: The patient was evaluated at the bedside and remains in stable condition, sitting upright in bed. She denies chest pain, shortness of breath, palpitations, lightheadedness, or dizziness. She inquired about her discharge status. Examination of the left wrist access site from the [facility] shows an intact site with bruising but no signs of oozing, bleeding, pain, tenderness, or pseudoaneurysm. PAST MEDICAL HISTORY: Past Medical History: Diagnosis Date CHF (congestive heart failure) (CMS/HCC) Coronary artery disease GERD (gastroesophageal reflux disease) Hyperlipidemia Hypertension Myocardial infarction (CMS/HCC) Takotsubo cardiomyopathy PAST SURGICAL HISTORY: Past Surgical History: Procedure Laterality Date CARDIAC CATHETERIZATION CORONARY STENT PLACEMENT HERNIA REPAIR REPLACEMENT TOTAL HIP ONCOLOGIC SMALL INTESTINE SURGERY FAMILY HISTORY: family history includes heart problems in her father and mother. SOCIAL HISTORY: Social History Tobacco Use Smoking status: Never Smokeless tobacco: Never Substance Use Topics Alcohol use: Not Currently REVIEW OF SYSTEMS: General: Denies fever, chills, fatigue, weight loss, or malaise. HENT: Head: Denies headache or dizziness. Eyes: Denies vision changes. Nose: Denies nasal congestion, discharge, or epistaxis. Throat: Denies pain or difficulty swallowing. Pulmonary: Denies shortness of breath, cough, wheezing, or hemoptysis. Cardiovascular: Denies chest pain, palpitations, dizziness, or syncope. Peripheral Vascular: Denies leg swelling, cold extremities or claudication. Abdomen: Denies abdominal pain, nausea, vomiting, diarrhea, constipation, or bloating. No changes in appetite. Neurological: Denies headaches, weakness, numbness, tingling, or difficulty with coordination. Skin: Denies rashes, lesions, or itching. ALLERGIES: Allergies Allergen Reactions Eipeixu-Dlo-Lcf Reductase Inhibitors Other myalgias Objective 12-24 hour telemetry reviewed: 58-78 SR. CURRENT MEDS: aspirin, 81 mg, oral, Daily carvedilol, 6.25 mg, oral, BID with meals cholecalciferol, 2,000 Units, oral, Daily pantoprazole, 40 mg, oral, Daily before breakfast traZODone, 50 mg, oral, Nightly PRN medications: ALPRAZolam, GI Cocktail, nitroglycerin, ondansetron ODT, prochlorperazine, trimethobenzamide Patient Vitals for the past 24 hrs: BP Temp Temp src Pulse Resp SpO2 Weight 04/20/24 0835 133/67 -- -- 92 -- -- -- 04/20/24 0800 -- 37.2 ???C (99 ???F) Temporal -- -- -- -- 04/20/24 0500 140/74 37 ???C (98.6 ???F) Temporal 74 21 93 % 59 kg (130 lb) 04/19/24 2100 131/66 -- -- 80 18 97 % -- 04/19/241999 143/78 36.8 ???C (98.3 ???F) Temporal 72 21 93 % -- 04/19/24 1730 140/67 -- -- 62 13 98 % -- 04/19/24 1645 138/70 -- -- 62 15 99 % -- 04/19/24 1630 138/71 -- -- 62 18 98 % -- 04/19/24 1615 141/68 36.7 ???C (98.1 ???F) Temporal 59 16 98 % -- 04/19/24 1515 (!) 145/91 -- -- 64 16 100 % -- 04/19/24 1500 (!) 132/91 -- -- 55 10 100 % -- 04/19/24 1434 (!) 131/92 -- -- 51 17 100 % -- 04/19/24 1415 164/89 -- -- 73 17 100 % -- 04/19/24 1357 133/65 -- -- 65 17 95 % -- 04/19/24 1344 107/70 -- -- 58 16 100 % -- 04/19/24 1220 -- -- -- -- -- 100 % -- 04/19/24 1220 144/59 -- -- 58 14 100 % -- 04/19/24 1135 144/70 -- -- 78 18 100 % -- BP 133/67 Pulse 92 Temp 37.2 ???C (99 ???F) (Temporal) Resp 21 Ht 1.499 m (4' 11 ) Wt 59 kg (130 lb) Comment: PT UNSTEADY, FEELING NAUSEOUS. RN NOTIFIED, GOT BED WEIGHT SpO2 93% BMI 26.26 kg/m??? Wt Readings from Last 3 Encounters: 04/20/24 59 kg (130 lb) 12/01/23 62.1 kg (137 lb) PHYSICAL EXAM: General: Alert and oriented, Appears comfortable in no acute distress. HENT: Head: Normocephalic, atraumatic. Eyes: Conjunctiva clear, sclera anicteric. No periorbital edema. Nose: No nasal congestion or discharge. Throat: Mucous membranes moist and pink. Neck: Supple, no lymphadenopathy. No bruits. No jugular venous distension (JVD) at 45???. Pulmonary: Symmetrical chest rise, no accessory muscle use. Clear to auscultation bilaterally. No whe (more content not included)... [facility] 04-19-2024 Note Attestation signed by Marija Johnson MD at 05/07/2024 6:36 PM I personally saw and examined the patient on the same date of service as the fellow. I discussed the findings and therapeutic plan with the fellow. Plan of care was discussed with patient, and patient is agreeable with plan. I agree with the documentation, except for any edits/updates below. Teaching Physician's Revisions: none Marija Johnson MD ID Cardiology Cardiology Progress Note Subjective Subjective: Patient was seen and examined. Reported feeling well. No chest pain, or shortness of breath. No abdominal pain, nausea, or vomiting. No orthopnea or paroxysmal nocturnal dyspnea. No lower leg swelling. No acute events overnight. Objective Current Facility-Administered Medications: ALPRAZolam (Xanax) tablet 0.5 mg, 0.5 mg, oral, TID PRN, Chilo Gillette MD, 0.5 mg at 04/18/242046 aspirin EC tablet 81 mg, 81 mg, oral, Daily, Chilo Gillette MD, 81 mg at 04/19/24735 carvedilol (Coreg) tablet 6.25 mg, 6.25 mg, oral, BID with meals, Chilo Gillette MD, 6.25 mg at 04/19/24735 cholecalciferol (Vitamin D-3) tablet 2,000 Units, 2,000 Units, oral, Daily, Chilo Gillette MD, 2,000 Units at 04/19/24 0736 heparin infusion 100 units/mL in D5W, 0-28 Units/kg/hr, intravenous, Continuous, Chilo Gillette MD, Last Rate: 7.4 mL/hr at 04/19/24 0652, 15 Units/kg/hr at 04/19/24 0652 nitroglycerin (Nitrostat) SL tablet 0.4 mg, 0.4 mg, sublingual, q5 min PRN, Chilo Gillette MD traZODone (Desyrel) tablet 50 mg, 50 mg, oral, Nightly, Chilo Gillette MD, 50 mg at 04/18/24 2202 Objective: Patient Vitals for the past 24 hrs: BP Temp Temp src Pulse Resp SpO2 Weight 04/19/24 0730 -- 36.5 ???C (97.7 ???F) Temporal -- -- -- -- 04/19/24 0407 -- -- -- -- -- -- 61.4 kg (135 lb 6.4 oz) 04/19/24 0400 113/57 -- -- 68 20 (!) 88 % -- 04/19/24 0008 120/54 -- -- 71 -- -- -- 04/18/24 2210 93/68 -- -- 71 19 94 % -- 04/18/24 2036 100/62 -- -- 71 16 95 % -- 04/18/24 1710 108/66 -- -- 80 20 93 % -- 04/18/24 1625 100/57 -- -- 72 17 98 % -- 04/18/24 1210 123/74 -- -- 102 20 99 % -- Physical Examination: Physical Exam Constitutional: General: She is not in acute distress. Appearance: Normal appearance. She is not ill-appearing. HENT: Head: Normocephalic and atraumatic. Cardiovascular: Rate and Rhythm: Normal rate and regular rhythm. Heart sounds: Normal heart sounds. No murmur heard. Pulmonary: Breath sounds: Normal breath sounds. No wheezing or rales. Abdominal: Palpations: Abdomen is soft. Tenderness: There is no abdominal tenderness. Musculoskeletal: Right lower leg: No edema. Left lower leg: No edema. Skin: General: Skin is warm and dry. Findings: No erythema or rash. Neurological: Mental Status: She is alert and oriented to person, place, and time. Mental status is at baseline. Relevant Lab Results Encounter Date: 04/17/24 ECG 12 lead Result Value Ventricular Rate 62 Atrial Rate 62 FL Interval 162 QRS DURATION 98 QT Interval 426 QTC CALCULATION(BAZETT) 432 P [place] 15 R-[place] -20 T Wave [place] 19 Impression Normal sinus rhythm with sinus arrhythmia Minimal voltage criteria for LVH, may be normal variant ( R in aVL ) Borderline ECG No previous ECGs available Confirmed by Dio Gage ([id number]) on 04/18/2024 6:24:57 PM Lab Results Component Value Date TROPONINI 0.00 04/18/2024 No echocardiogram results found for the past 12 months No nuclear medicine results found for the past 12 months Relevant Imaging Results ECG 12 lead Normal sinus rhythm with sinus arrhythmia Minimal voltage criteria for LVH, may be normal variant ( R in aVL ) Borderline ECG No previous ECGs available Confirmed by Dio Gage ([id number]) on 04/18/2024 6:24:57 PM ASSESSMENT Unstable angina, initial troponin negative, EKG with no obvious signs of acute ischemia. Coronary artery disease status post PCI to LAD, most recent cardiac catheterization in 09/2018 with patent LAD stent, showed PDA 60% IFR negative. Chronic heart failure with improved EF 60-65% based on transthoracic echocardiogram on 04/17/2024 History of stress-induced cardiomyopathy Primary hypertension Prediabetes, A1c 5.8% Mixed hyperlipidemia, LDL 106 goal less than 70. PLAN We will plan to proceed with coronary angiography today. Continue on heparin infusion Continue aspirin 81 mg daily and Coreg 6.25 mg twice daily Previously did not tolerate statins or Zetia, consider PCSK9 inhibitor as outpatient Remainder of cares per primary team Cardiology will continue to follow This note was, at least in part, completed using a voice variety saw operator system. Every effort was made to ensure accuracy. However, inadvertent computerized variety saw operator error (more content not included)... [facility] 04-19-2024 Note - On Xanax and Trazo done at home - Xanax PRN and Trazodone have been ordered [facility] 04-19-2024 Note -Initial troponin no rmal and EKG negative with no ST elevation -Patient on IV heparin -Allergic to statin, consider starting Zetia -Awaiting results of left heart cath this the morning. [facility] 04-19-2024 Note -last TTE on 04/17/24 shows improved EF 60-65% -Continue GDMT as able [facility] 04-19-2024 Note - Not on any PPI or other medications at home - Will start PPI if requested [facility] 04-19-2024 Note -A1c: 5.8 -Follow-up with PCP for further recommendations [facility] 04-19-2024 Note -Continue ASA and Co reg 6.25 mg BID -Monitor BP and control with medication as needed -Patient was on Ramipril 2.5 mg nightly, caused bradycardia so was discontinued -Blood pressure is at goal at this time [facility] 04-19-2024 Note Hospital Medicine Daily Progress Note - 04/19/2024 10:41 AM; Room: [address] [place] [address] Admission: 04/17/2024 7:33 PM; Length of stay: 2 days THE HOSPITALIST TEAM PREFERS TO USE [employer] CHAT FOR NON-URGENT COMMUNICATION 7AM-7PM. IF I DO NOT RESPOND WITHIN 20 MINUTES OR URGENT MATTERS, PLEASE CALL THROUGH THE INFIRMARY ATTENDANT. FROM 7PM-7AM, PLEASE PAGE [phone](COVR). Code Status: Full Code Barriers to Discharge: Procedure (Cardiac Cath) Expected Discharge Date: Today/Tomorrow Discharge Destination: Home Overview Patient is seen for evaluation and management of chest pain and SOB. Subjective Patient was seen and evaluated at bedside this morning. She was sitting comfortably in bed, A&O x4. Patient denies any chest pain or SOB. She states she has gotten up to use the bathroom and wash up and did not experience any symptoms. Patient states she slept well last night, was given one dose Xanax 0.5 mg PRN which helped. Patient's cardiac cath is scheduled for today at 1 pm, stress test was cancelled yesterday. Patient was able to eat yesterday and is tolerating NPO today. She reports feeling better and denies any significant overnight events. Physical Exam Visit Vitals BP 113/57 Pulse 68 Temp 36.5 ???C (97.7 ???F) (Temporal) Resp 20 Intake/Output Summary (Last 24 hours) at 04/19/2024 1041 Last data filed at 04/19/2024 0924 Gross per 24 hour Intake 575.03 ml Output 750 ml Net -174.97 ml Physical Exam Constitutional: Appearance: Normal appearance. She is normal weight. Comments: Not in acute distress HENT: Head: Normocephalic and atraumatic. Mouth/Throat: Pharynx: Oropharynx is clear. Cardiovascular: Rate and Rhythm: Normal rate and regular rhythm. Pulses: Normal pulses. Heart sounds: Normal heart sounds. Pulmonary: Effort: Pulmonary effort is normal. Breath sounds: Normal breath sounds. Abdominal: General: Abdomen is flat. Bowel sounds are normal. Palpations: Abdomen is soft. Musculoskeletal: General: Normal range of motion. Cervical back: Normal range of motion and neck supple. Comments: No leg swelling bilaterally. Skin: General: Skin is warm and dry. Capillary Refill: Capillary refill takes less than 2 seconds. Neurological: General: No focal deficit present. Mental Status: She is alert and oriented to person, place, and time. Mental status is at baseline. Psychiatric: Mood and Affect: Mood normal. Behavior: Behavior normal. Estimated body mass index is 27.35 kg/m??? as calculated from the following: Height as of this encounter: 1.499 m (4' 11 ). Weight as of this encounter: 61.4 kg (135 lb 6.4 oz). Assessment and Plan Assessment & Plan Unstable angina (CMS/HCC) -Initial troponin normal and EKG negative with no ST elevation -Patient on IV heparin -Allergic to statin, consider starting Zetia -Awaiting results of left heart cath this the morning. Chronic heart failure (CMS/HCC) -last TTE on 04/17/24 shows improved EF 60-65% -Continue GDMT as able Essential hypertension, benign -Continue ASA and Coreg 6.25 mg BID -Monitor BP and control with medication as needed -Patient was on Ramipril 2.5 mg nightly, caused bradycardia so was discontinued -Blood pressure is at goal at this time Prediabetes -A1c: 5.8 -Follow-up with PCP for further recommendations GERD without esophagitis - Not on any PPI or other medications at home - Will start PPI if requested Anxiety - On Xanax and Trazodone at home - Xanax PRN and Trazodone have been ordered Full code per discussion with patient Diet: NPO for procedure VTE Prophylaxis: IV heparin ----- Focus of this inpatient stay will remain on problems that need acute care setting for care. We will review available studies and will order additional labs, imaging and other studies as appropriate. As needed medicines are ordered as appropriate. VTE Prophylaxis will be ordered as appropriate. Please see above for management plan for individual hospital problems. Home medications are reviewed and will be continued as appropriate. Patient will be continued to be followed during this hospital stay by a member of [facility]. Scheduled Meds aspirin, 81 mg, oral, Daily carvedilol, 6.25 mg, oral, BID with meals cholecalciferol, 2,000 Units, oral, Daily traZODone, 50 mg, oral, Nightly heparin, 0-28 Units/kg/hr, Last Rate: 15 Units/kg/hr (04/19/24 0652) Pertinent Investigations Hematology: Results from last 7 days Lab Units 04/18/24 0459 04/17/247 WBC AUTO 10*3/uL 8.01 8.19 HEMOGLOBIN g/dL 12.8 13.2 HEMATOCRIT % 39.9 39.4 MCV fL 89.7 86.8 PLATELETS AUTO 10*3/uL 282 282 INR -- 1.01 Chemistry: Results from last 7 days Lab Units 04/17/24 2037 SODIUM mmol/L 138 POTASSIUM mmol/L 3.9 CHLORIDE mmol/L 106 CO2 mmol/L 25 BUN mg/dL 12 CREATININE mg/dL 0.72 GLUCOSE mg/dL 103* MAGNESIUM mg/dL 2.2 CALCIUM mg/dL 9.3 PHOSPHORUS mg/dL 3.3 Results from las (more content not included)... [facility] 04-18-2024 Note - One xanax and traz odone at home - Xanax PRN and trazodone have been ordered [facility] 04-18-2024 Note - Not on any PPI or other medications at home - Will start PPI if requested [facility] 04-18-2024 Note -last TTE on 04/17/24 shows improved EF 60-65% - Continue GDMT as able [facility] 04-18-2024 Note -Continue ASA and Co reg 6.25 mg BID -Monitor BP and control with medication as needed -Patient was on Ramipril 2.5 mg nightly, caused bradycardia so was discontinued - Blood pressure is at goal at this time [facility] 04-18-2024 Note A1c checked this mor arturo - 5.8 Follow-up with PCP for further recommendations [facility] 04-18-2024 Note -Initial troponin no rmal and EKG negative with no ST elevation -Patient on IV heparin -Allergic to statin, consider starting Zetia -Awaiting results of left heart cath this the morning. [facility] 04-18-2024 Note 04/18/24 1033 Admission Assessment Questions Verify insurance with patient Yes Do you understand medical disease or what brought you into the hospital? Yes Who is your current PCP? Sunny Henning Can I schedule a follow up appointment for you at the time of discharge? Yes Do you understand why you are taking your current medications? Yes Are you taking your medications as prescribed? Yes Did patient provide teach back? No Pharmacy Bedside Delivery Status Interested Does the patient have a child support case officer assigned to them through their insurance? No Living Arrangement (Current/Prior to Hospitalization) Home self care (Lives at home with ) Does the patient have history of HHC or SNF? Yes (Hx of hhc when she had hip surgery but can't remember the company.) Assistive Device Not applicable Patient's goal for discharge Goal is to discharge home Was patient reminded that goal for discharge is 11am? No Does the patient have transportation at discharge? Yes Type of Residence Private residence Is PT/OT appropriate? No Is PT/OT ordered? No Is SW consult appropriate? No Is SW consult ordered? No Do you understand the benefits of MyChart? Yes Were you able to send link and activate MyChart? No [facility] 04-18-2024 Note Hospital Medicine Daily Progress Note - 04/18/2024 11:09 AM; Room: 3177/3177-01 Admission: 04/17/2024 7:33 PM; Length of stay: 1 days THE HOSPITALIST TEAM PREFERS TO USE [employer] FOR NON-URGENT COMMUNICATION 7AM-7PM. IF I DO NOT RESPOND WITHIN 20 MINUTES OR URGENT MATTERS, PLEASE CALL THROUGH THE INFIRMARY ATTENDANT. FROM 7PM-7AM, PLEASE PAGE [phone](COVR). Code Status: Full Code Barriers to Discharge: Procedure (cardiac cath) Expected Discharge Date: tomorrow? Discharge Destination: Home Overview Patient is seen for evaluation and management of chest pain and SOB. Subjective Patient was seen and evaluated at bedside this morning. She was sitting comfortably in the recliner, A&O x4. Patient explains she had chest pain and SOB on Wednesday afternoon while showering and laying down in bed. It felt heavy and radiated to her shoulder. She denies any back pain during the episode, which was a symptom she experienced in her previous episodes in 2017 & 2019. Today, she denies chest pain or SOB (haven't had since Wednesday night). Reports feeling better and denies any significant overnight events. She does not check her BP at home but states it's within normal range when it is checked. She denies ever being a smoker. Denies history of diabetes. She has a family history of heart problems in both her parents. Patient has anxiety and was previously taken Xanax, stopped taking it back in Sep 2023 because she takes care of her . Patient was previously taking Altace 2.5 nightly, stopped yesterday because HR in 40s. Physical Exam Visit Vitals BP 106/64 (BP Location: Left arm, Patient Position: Lying) Pulse 84 Temp 36.4 ???C (97.5 ???F) (Temporal) Resp 20 Intake/Output Summary (Last 24 hours) at 04/18/2024 1109 Last data filed at 04/18/2024 1020 Gross per 24 hour Intake 88.06 ml Output -- Net 88.06 ml Physical Exam Constitutional: Appearance: Normal appearance. She is normal weight. Comments: Not in acute distress. HENT: Head: Normocephalic and atraumatic. Nose: Nose normal. Mouth/Throat: Pharynx: Oropharynx is clear. Cardiovascular: Rate and Rhythm: Normal rate and regular rhythm. Pulses: Normal pulses. Pulmonary: Effort: Pulmonary effort is normal. Breath sounds: Normal breath sounds. Abdominal: General: Abdomen is flat. Bowel sounds are normal. Palpations: Abdomen is soft. Musculoskeletal: General: Normal range of motion. Cervical back: Normal range of motion and neck supple. Comments: No leg swelling bilaterally Skin: General: Skin is warm. Capillary Refill: Capillary refill takes less than 2 seconds. Neurological: General: No focal deficit present. Mental Status: She is alert and oriented to person, place, and time. Mental status is at baseline. Psychiatric: Mood and Affect: Mood normal. Behavior: Behavior normal. Estimated body mass index is 26.66 kg/m??? as calculated from the following: Height as of this encounter: 1.499 m (4' 11 ). Weight as of this encounter: 59.9 kg (132 lb). Assessment and Plan Assessment & Plan Unstable angina (CMS/HCC) -Initial troponin normal and EKG negative with no ST elevation -Patient on IV heparin -Allergic to statin, consider starting Zetia -Awaiting results of left heart cath this the morning. Chronic heart failure (CMS/HCC) -last TTE on 04/17/24 shows improved EF 60-65% - Continue GDMT as able Essential hypertension, benign -Continue ASA and Coreg 6.25 mg BID -Monitor BP and control with medication as needed -Patient was on Ramipril 2.5 mg nightly, caused bradycardia so was discontinued - Blood pressure is at goal at this time Prediabetes A1c checked this morning - 5.8 Follow-up with PCP for further recommendations GERD without esophagitis - Not on any PPI or other medications at home - Will start PPI if requested Anxiety - One xanax and trazodone at home - Xanax PRN and trazodone have been ordered Full code per discussion with patient Diet: NPO for procedure VTE Prophylaxis: IV heparin ----- Focus of this inpatient stay will remain on problems that need acute care setting for care. We will review available studies and will order additional labs, imaging and other studies as appropriate. As needed medicines are ordered as appropriate. VTE Prophylaxis will be ordered as appropriate. Please see above for management plan for individual hospital problems. Home medications are reviewed and will be continued as appropriate. Patient will be continued to be followed during this hospital stay by a member of [facility] Hospital Medicine. Scheduled Meds aspirin, 81 mg, oral, Daily carvedilol, 6.25 mg, oral, BID with meals cholecalciferol, 2,000 Units, oral, Daily traZODone, 50 mg, oral, Nightly heparin, 0-28 Units/kg/hr, Last Rate: 15 Units/kg/hr (04/18/24 1020) Pertinent Investigations Hematology: Results from last 7 days Lab Units 04/18/24 0459 04/17/242036 WBC AUTO 1 (more content not included)... [facility] 04-17-2024 Note [facility] Monitor and controll ed with medication as needed patient has been on ramipril but states that it caused bradycardia so she has not been taking it [facility] 04-17-2024 Note Patient on IV hepari n entry she has allergies to statin consider Zetia patient is scheduled for left heart cath in the morning [facility] 04-17-2024 Note Hospital Medicine History and Physical 04/17/2024 10:02 PM THE HOSPITALIST TEAM PREFERS TO USE [employer] FOR NON-URGENT COMMUNICATION 7AM-7PM. IF I DO NOT RESPOND WITHIN 20 MINUTES OR URGENT MATTERS, PLEASE CALL THROUGH THE INFIRMARY ATTENDANT. FROM 7PM-7AM, PLEASE PAGE [phone](COVR). Chief Complaint No chief complaint on file. History of Present Illness Diana Jaeger is an 79 y.o. female admitted from [facility] as a direct transfer where she presented with anterior chest wall pain described as dull at times heaviness nonradiating associated with dyspnea fatigue and weakness. Patient stated that she started having progressive shortness of breath worse with activity 2 days back and felt fatigued and tired she denies any fever chills palpitation dizziness PND orthopnea no swelling in the legs denies any calf tenderness. Patient is a non-smoker independent in her ADLs takes care of her a ailing . Patient has a history of coronary artery disease had left heart cath done in 2019 results showing patent stent and LAD left circumflex a moderate vessel with diffuse luminal irregularities RCA with diffuse luminal irregularities and 60% ostial lesion of the PDA she had echocardiogram done 05-09 showing left-ventricular EF of 62% normal right ventricular systolic function normal diastolic function mild dilatation of the right atrium mild TR and moderate MR. Blood chemistry was within normal range lactate was normal BNP 49 mag 2.2 CBC was in normal range EKG showed normal sinus rhythm with poor R wave progression and transition zone in V2 troponin were less than 0.4 myoglobin 4.5 CPK 2.14 CK 83 at the time of examination patient was completely chest pain-free Review of System and Physical Exam Temp: [36.3 ???C (97.3 ???F)] 36.3 ???C (97.3 ???F) Heart Rate: [64] 64 Resp: [12] 12 BP: (139)/(64) 139/64 Physical Exam Vitals reviewed. Constitutional: Appearance: Normal appearance. She is normal weight. HENT: Head: Normocephalic and atraumatic. Right Ear: Tympanic membrane, ear canal and external ear normal. Left Ear: Tympanic membrane, ear canal and external ear normal. Nose: Nose normal. Mouth/Throat: Mouth: Mucous membranes are moist. Pharynx: Oropharynx is clear. Eyes: Extraocular Movements: Extraocular movements intact. Conjunctiva/sclera: Conjunctivae normal. Pupils: Pupils are equal, round, and reactive to light. Cardiovascular: Rate and Rhythm: Normal rate and regular rhythm. Pulses: Normal pulses. Heart sounds: Murmur heard. Comments: Holosystolic murmur mitral area, early diastolic murmur mitral area no radiation Pulmonary: Effort: Pulmonary effort is normal. Breath sounds: Normal breath sounds. Abdominal: General: Abdomen is flat. Bowel sounds are normal. Palpations: Abdomen is soft. Musculoskeletal: General: Normal range of motion. Cervical back: Normal range of motion and neck supple. Skin: General: Skin is warm and dry. Capillary Refill: Capillary refill takes less than 2 seconds. Neurological: General: No focal deficit present. Mental Status: She is alert and oriented to person, place, and time. Mental status is at baseline. Psychiatric: Mood and Affect: Mood normal. Behavior: Behavior normal. Review of Systems Constitutional: Negative. HENT: Negative. Eyes: Negative. Respiratory: Negative. Cardiovascular: Negative. Gastrointestinal: Negative. Endocrine: Negative. Musculoskeletal: Negative. Allergic/Immunologic: Negative. Neurological: Negative. Hematological: Negative. Psychiatric/Behavioral: Negative. Assessment and Plan Assessment & Plan NSTEMI (non-ST elevated myocardial infarction) (CMS/HCC) Patient on IV heparin entry she has allergies to statin consider Zetia patient is scheduled for left heart cath in the morning Essential hypertension, benign Monitor and controlled with medication as needed patient has been on ramipril but states that it caused bradycardia so she has not been taking it Prediabetes Check A1c in the morning Osteoarthritis pain control Full code per discussion with patient VTE Prophylaxis: IV heparin ----- Focus of this inpatient stay will remain on problems that need acute care setting for care. We will review available studies and will order additional labs, imaging and other studies as appropriate. As needed medicines are ordered as appropriate. VTE Prophylaxis will be ordered as appropriate. Please see above for management plan for individual hospital problems. Home medications are reviewed and will be continued as appropriate. Patient will be continued to be followed during this hospital stay by a member of [facility] Medicine. Past Medical History Past Medical History: Diagnosis Date CHF (congestive heart failure) ([facility]) Coronary artery disease GERD (gastroesophageal reflux disease) Hyperlipidemia Hypertension Myocardial infarction ([facility]/ (more content not included)... [facility] 12-08-2023 History of Present illness Narrative Associated Problem(s): Primary osteoarthritis of left hip Minimal pain and use OTC PRN. Associated Problem(s): Primary insomnia Sleeping well with medication and continue. Associated Problem(s): Generalized anxiety disorder ([facility]/HCC) Symptoms controlled with xanax and use PRN. Associated Problem(s): Essential hypertension, benign (CMS/HCC) BP controlled and monitor PRN. Associated Problem(s): 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 ([facility]/HCC) No pain and follow with cardiology. Images from the original note were not included. Subjective Patient ID: Diana Jaeger is a 78 y.o. female who presents for Follow-up (6m). Follow up HTN, anxiety, GERD, insomnia, and OA hip. Patient feels well today. Checking BP PRN and typically controlled. BP normal today. Taking medication daily and tolerating without side effects. Anxiety stable. Not as stressed out or overwhelmed. Not as nervous or worry as much. Not as freeman or irritable. Using xanax PRN and helps when needed. Sleeping well with trazodone. Able to fall asleep and stays asleep. OA hip doing well. Still having minimal pain after IVAN. Able to increase activity and walk and do things around the house. Using OTC PRN and helps. Following with cardiology and no chest pain. Review of Systems Respiratory: Negative for cough, shortness of breath and wheezing. Cardiovascular: Negative for chest pain and palpitations. Gastrointestinal: Negative for abdominal pain, diarrhea, nausea and vomiting. Genitourinary: Negative for dysuria. Objective Physical Exam Constitutional: General: She is not in acute distress. Appearance: Normal appearance. HENT: Head: Normocephalic. Right Ear: Tympanic membrane normal. Left Ear: Tympanic membrane normal. Eyes: Extraocular Movements: Extraocular movements intact. Pupils: Pupils are equal, round, and reactive to light. Cardiovascular: Rate and Rhythm: Normal rate and regular rhythm. Heart sounds: No murmur heard. No friction rub. No gallop. Pulmonary: Effort: Pulmonary effort is normal. Breath sounds: Normal breath sounds. No wheezing, rhonchi or rales. Abdominal: General: Bowel sounds are normal. There is no distension. Palpations: Abdomen is soft. Tenderness: There is no abdominal tenderness. There is no guarding or rebound. Musculoskeletal: Cervical back: Neck supple. Right lower leg: No edema. Left lower leg: No edema. Neurological: Mental Status: She is alert. Assessment/Plan Problem List Items Addressed This Visit Essential hypertension, benign (CMS/HCC) - Primary BP controlled and monitor PRN. Relevant Medications carvedilol (Coreg) 6.25 MG tablet ramipril (Altace) 2.5 MG capsule 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 (CMS/HCC) No pain and follow with cardiology. Generalized anxiety disorder (CMS/HCC) Symptoms controlled with xanax and use PRN. Relevant Medications ALPRAZolam (Xanax) 0.5 MG tablet Primary insomnia Sleeping well with medication and continue. Primary osteoarthritis of left hip Minimal pain and use OTC PRN. documented in this encounter [facility] 12-01-2023 Note [facility] Cardiology Clinic Note Chief Complaint: New patient here to establish care. Self ref for CAD. Former [facility] cardiology patient. No recent labs or testing. Denies chest pain, SOB, palpitations, and lightheadedness/syncope. Doing very well. Still mows her yard with a push mower and can do so without issues. HPI: Diana Jaeger is a 78 y.o. female With a history of coronary artery disease, prior PCI, stress-induced cardiomyopathy, here to establish care She has a history of PCI and stent placement in 2017. At that time, she was having significant back pain related to exertion. She was found to have an LAD stenosis that was treated percutaneously. She had recurrent symptoms in 2019; a repeat cath at that time showed a patent stent without moderate, nonhemodynamically significant stenosis in the RCA. She has had no similar symptoms since. She is able to push mow her lawn more with no exertional chest pain or shortness of breath. She has no orthopnea, no paroxysmal external dyspnea, no lower extremity edema. Cardiology ROS: Review of Systems All other systems reviewed and are negative. Past Medical History She has no past medical history on file. Surgical History She has no past surgical history on file. Social History She has no history on file for tobacco use, alcohol use, and drug use. Family History No family history on file. Allergies Patient has no allergy information on record. Medications No current outpatient medications on file. Last Recorded Vitals BP 128/76 (BP Location: Left arm, Patient Position: Sitting) Pulse 53 Ht 1.499 m (4' 11 ) Wt 62.1 kg (137 lb) SpO2 98% BMI 27.67 kg/m??? Physical Examination: GENERAL: alert and oriented x3, well developed, in no acute distress. HEAD: atraumatic, normocephalic. EYES: JASMEET, EOMI. NECK: trachea midline, no JVD present, no carotid bruits present. CARDIAC: S1, S2 present. RRR. No murmur, rubs, or gallops. RESPIRATORY: CTAB, no increased effort of breathing, no rales, rhonchi, or wheezing. ABDOMEN: soft, nontender, nondistended. EXTREMITIES: no lower extremity edema, peripheral pulses are 2+ bilaterally. No rash/skin discoloration present. NEURO: strength/sensation equal and symmetric in bilateral upper and lower extremities. PSYCH: appropriate mood, affect, and judgement. Investigations: Narrative Left Ventricle: Systolic function is normal with an ejection fraction of 55-60%. Left Ventricle: Normal diastolic function is present. Medial E' is 6.09 cm/s. Left Ventricle Left ventricle appears normal in size. Wall thickness is normal. Systolic function is normal with an ejection fraction of 55-60%. See wall score diagram for wall motion abnormalities. Normal diastolic function is present. Medial E' is 6.09 cm/s. Right Ventricle Right ventricular size appears normal. Systolic function is normal. Left Atrium Left atrium is normal in size. The left atrial volume index is 20.9 mL/m2. Right Atrium Right atrium is normal in size. The right atrial area is 11.5 cm2. IVC/SVC IVC appears normal. Mitral Valve The leaflets are mildly thickened and exhibit normal excursion. There is [id number] regurgitation. There is no evidence of mitral valve stenosis. Tricuspid Valve Tricuspid valve appears to be normal. The leaflets exhibit normal excursion. The right ventricular systolic pressure normal. RVSP calculated at 30 mmHg. RVSP is based on RA pressure of 3 mmHg. Aortic Valve The leaflets exhibit normal excursion. There is mild sclerosis. There is trace to mild regurgitation. There is no evidence of aortic valve stenosis. Pulmonic Valve Pulmonic valve structure is grossly normal. The leaflets exhibit normal excursion. There is mild regurgitation. There is no evidence of pulmonic valve stenosis. Ascending Aorta The aortic root normal in size. Pericardium There is no pericardial effusion. Study Details A complete echo was performed using complete 2D. Overall the study quality was adequate. Wall Scoring Baseline Score Index: 1.06 The following segments are hypokinetic: basal inferior. All other segments are normal. All Measurements Exam End: 02/06/19 14:16 Narrative FINAL IMPRESSION 1. Moderate, non hemodynamically significant single-vessel coronary artery disease. 2. Severely reduced left ventricular systolic function. 3. Moderately elevated left ventricular end-diastolic pressure. RECOMMENDATIONS: 1. The patient be treated medical therapy. Coronary Findings Diagnostic Dominance: Right Left Main: No significant stenosis. Left Anterior Descending: This is a moderate-sized vessel. Previously placed stents were patent. Left Circumflex: This is a moderate-sized vessel with diffuse luminal irregularities. Right Coronary Artery: Baseline angiography was a moderate to large size, dominant vessel. Diffuse luminal regularities are seen throug (more content not included)... [facility] 07-06-2023 Miscellaneous Notes Last OV 05/08 documented in this encounter [facility] 07-06-2023 Telephone encounter Note Last OV 05/08 [facility] 06-11-2023 Miscellaneous Notes Appt 05/11/23 documented in this encounter [facility] 06-11-2023 Telephone encounter Note Appt 05/11/23 [facility] 05-11-2023 History of Present illness Narrative Diana Jaeger Date of visit: 05/11/2023 Date of : 1945 Age: 78 y.o. Patient Active Problem List Diagnosis Status post angioplasty with stent Pure hypercholesterolemia Partial bowel obstruction (CMS-HCC) Gastric volvulus Thickened endometrium Right ovarian cyst Coronary artery disease involving grayling coronary artery of grayling heart without angina pectoris Pain of left hip joint Primary osteoarthritis of left hip Takotsubo cardiomyopathy Encounter for preadmission testing Preoperative clearance Allergies Allergen Reactions Nggysoi-Owk-Xfn Reductase Inhibitors pain and Nausea Patient states that she gets achy all over and nauseated when she takes statins Current Outpatient Medications Medication Sig Dispense Refill ALPRAZolam (NIRAVAM) 0.25 mg disintegrating tablet Dissolve 1 tablet (0.25 mg total) on tongue nightly as needed for anxiety. ascorbic acid (VITAMIN C) 500 mg tablet Take 1 tablet (500 mg total) by mouth in the morning. aspirin 81 mg chewable tablet Chew 1 tablet (81 mg total) and swallow in the morning. 90 tablet 3 b complex vitamins capsule Take 1 capsule by mouth in the morning. carvediloL (COREG) 6.25 mg tablet Take 1 tablet (6.25 mg total) by mouth in the morning and 1 tablet (6.25 mg total) in the evening. Take with meals. 180 tablet 3 cholecalciferol, vitamin D3, (VITAMIN D3) 25 mcg (1,000 unit) capsule Take 1 capsule (1,000 Units total) by mouth in the morning. coenzyme Q10 10 mg capsule Take 10 capsules (100 mg total) by mouth in the morning. LACTOBAC NO.41/BIFIDOBACT NO.7 (PROBIOTIC-10 ORAL) Take 1 tablet by mouth daily. MAGNESIUM OXIDE,ASPARTATE,CITR ORAL Take 250 mg by mouth in the morning. NITROGLYCERIN SL Place 1 tablet under the tongue as needed. omeprazole (PriLOSEC OTC) 20 mg EC tablet Take 1 tablet (20 mg total) by mouth in the morning. ramipriL (ALTACE) 2.5 mg capsule Take 1 capsule (2.5 mg total) by mouth in the morning. 90 capsule 3 ezetimibe (ZETIA) 10 mg tablet TAKE 1 TABLET (10 MG TOTAL) BY MOUTH IN THE MORNING (Patient not taking: Reported on 05/11/2023) 90 tablet 1 No current facility-administered medications for this visit. Chief Complaint Patient presents with Follow-up 6 mo f/u-l/s RDG LABS DONE SCHED W/PT History of Present Illness Doing quite well no major issues no chest pain shortness breath lightheadedness no syncope near syncope can do her regular activity with no interference symptoms. Plans to get out more and work on her cholesterol also. She can not tolerate statins or and does not wish to go on the injectables Past Medical History: Diagnosis Date Angina pectoris ([facility] not since 2018 Anxiety Arthritis osteoarthritis left hip Bowel obstruction ([facility]) Chronic combined systolic and diastolic congestive heart failure ([facility]) 10/23/2018 Coronary artery disease H/O gastroesophageal reflux (GERD) Hiatal hernia Myocardial infarct ([facility]) 09/2016; 2018 2 stents placed in 2016 PONV (postoperative nausea and vomiting) Shortness of breath with strenuous activity Visual impairment wears glasses No data recorded No data recorded No data recorded Past Surgical History: Procedure Laterality Date Cardiac catheterization N/A 10/12/2016 Performed by Hamilton Gleason MD at [facility] CARDIAC CATH LABS COLONOSCOPY N/A 08/05/2017 Performed by Carlos Justice DO at [facility] Coronary angiogram and left ventricular gram/pressure N/A 09/30/2018 Performed by Henry Rivera MD at [facility] Coronary angiogram and left ventricular gram/pressure N/A 06/02/2017 Performed by Octavio Nieves MD at [facility] Coronary angiogram and left ventricular gram/pressure N/A 10/12/2016 Performed by Hamilton Gleason MD at [facility] CORONARY ANGIOPLASTY DAVINCI PERIESOPHAGEAL [place] FUNDOPLICATION/ HIATAL HERNIA REPAIR/ EGD/GASTROPEXY N/A 06/07/2017 Performed by Colin Morales MD at [facility] DIAGNOSTIC LAPAROSCOPY, LAPAROSCOPIC LYSIS OF ADHESIONS N/A 04/05/2017 Performed by Colin Morales MD at [facility] EGD N/A 06/03/2017 Performed by Johnathan Valenzuela MD at [facility] EXTRACTION CATARACT INTRAOCULAR LENS Right 05/01/2021 Performed by Adrienne Braga MD at [facility] EXTRACTION CATARACT INTRAOCULAR LENS Left 04/15/2021 Performed by Adrienne Braga MD at [facility] HERNIA REPAIR Intravascular pressure measurement first vessel(fractional flow reserve) N/A 09/30/2018 Performed by Henry Rivera MD at [facility] REPLACEMENT TOTAL JOINT ANTERIOR SUPINE INTERMUSCULAR HIP Left 09/04/2019 Performed by Juan Velasco MD at [facility] Revascularization occlusion with myocardial infarction drug eluting stent left anterior descending N/A 10/12/2016 Performed by Hamilton Gleason MD at [facility] Family History Problem Relation Age of Onset Heart disease Mother Diabetes Mother Heart disease Father Stroke Father Arthritis Sister Cancer Maternal Grandmother 70 [place] Breast cancer Neg Hx Colon cancer Neg Hx Ovarian cancer Neg Hx Lung cancer Neg Hx Cervical cancer Neg Hx Social History Socioeconomic History Marital status: Spouse name: Not on file Number of children: Not on file Years of education: Not on file Highest education level: Not on file Occupational History Not on file Tobacco Use Smoking status: Never Smokeless tobacco: Never Vaping Use Vaping Use: Never used Substance and Sexual Activity Alcohol use: Yes Comment: drinks wine occasionally Drug use: No Sexual activity: Defer Partners: Male Other Topics Concern Caffeine Use Yes Social History Narrative Not on file Social Determinants of Health Financial Resource Strain: Low Risk (09/04/2019) Overall Financial Resource Strain (CARDIA) Difficulty of Paying Living Expenses: Not hard at all Food Insecurity: No Food Insecurity (05/11/2023) Hunger Screening Food Insecurity - Worry: Never True Food Insecurity - Inability: Never True Transportation Needs: No Transportation Needs (09/04/2019) PRAPARE - Transportation Lack of Transportation (Medical): No Lack of Transportation (Non-Medical): No Physical Activity: Inactive (09/04/2019) Exercise Vital Sign Days of Exercise per Week: 0 days Minutes of Exercise per Session: 0 min Stress: No Stress Concern Present (09/04/2019) [place] of Occupational Health - Occupational Stress Questionnaire Feeling of Stress : Only a little Social Connections: Unknown (09/04/2019) Social Connection and Isolation Panel [NHANES] Frequency of Communication with Friends and Family: More than three times a week Frequency of Social Gatherings with Friends and Family: More than three times a week Attends Worship Services: Patient declined Active Member of Clubs or Organizations: Patient declined Attends Club or Organization Meetings: Patient declined Marital Status: Interpersonal Safety: Not At Risk (09/04/2019) Humiliation, Afraid, Rape, and Kick questionnaire Fear of Current or Ex-Partner: No Emotionally Abused: No Physically Abused: No Sexually Abused: No Housing Instability: Not on file Review of Systems Review of Systems Constitutional: Negative. HENT: Negative. Eyes: Negative. Cardiovascular: Negative. Respiratory: Negative. Endocrine: Negative. Hematologic/Lymphatic: Negative. Skin: Negative. Musculoskeletal: Negative. Gastrointestinal: Negative. Genitourinary: Negative. Neurological: Negative. Psychiatric/Behavioral: Positive for depression. The patient is nervous/anxious. Allergic/Immunologic: Negative. Vascular: Negative. CARDIOVASCULAR: Please review HPI. Physical Examination General appearance: Alert, oriented and cooperative. In no acute distress. Skin: Warm and dry to touch. Head: Normocephalic, without obvious abnormality, atraumatic. Ears, Nose, Mouth, Throat: Throat clear without erythema or exudate. Dentition intact. Eyes: Conjunctivae unremarkable, EOM intact. Neck: No JVD, No carotid bruit. Neck supple, trachea midline. Respiratory: Clear to auscultation bilaterally, no use of accessory muscles. Cardiovascular: RRR with normal S1 and S2 with no murmurs. Gastrointestinal: Soft, non-tender. Bowel sounds normal. Musculoskeletal: No peripheral edema. Neurologic: Oriented to time, person and place, affect appropriate. No focal/major motor defects noted. Psychiatric: Appropriate mood, memory and judgement. VITAL SIGNS: BP 130/74 (BP Site: Left Arm, BP Postition: Sitting) Pulse 69 Ht 149.9 cm (4' 11 ) Wt 62.6 kg (138 lb) SpO2 99% BMI 27.87 kg/m Orders Placed or Reconciled This Encounter Medications ascorbic acid (VITAMIN C) 500 mg tablet Sig: Take 1 tablet (500 mg total) by mouth in the morning. b complex vitamins capsule Sig: Take 1 capsule by mouth in the morning. ALPRAZolam (NIRAVAM) 0.25 mg disintegrating tablet Sig: Dissolve 1 tablet (0.25 mg total) on tongue nightly as needed for anxiety. There are no discontinued medications. IMPRESSIONS/PLAN There are no diagnoses linked to this encounter. CAD PCI LAD remote. Chest pain was anginal symptom. No further angina doing quite well Stress induced cardiomyopathy, mid-cavitary variant 2018. Widely patent stent at that time. Negative IFR RCA. Statin and Zetia intolerance, severe myalgias. Not interested in PCSK9 agent. Exercise. She is joining the health center here in [place] and will do this on a regular basis. Follow-up in a year TODAYS ORDERS No orders of the defined types were placed in this encounter. FOLLOW UP No follow-ups on file. PCP: SUNNY HENNING MD Referring Physician: Sunny Henning MD [facility] [place] [address] documented in this encounter [facility] 05-10-2023 Miscellaneous Notes Left message for patient to remind them to bring their most current medication list with them to their appointment. documented in this encounter [facility] 05-10-2023 Telephone encounter Note Left message for patient to remind them to bring their most current medication list with them to their appointment. [facility] Evaluation note Diagnosis Essential hypertension, benign (CMS/HCC)- Primary Essential hypertension, benign Generalized anxiety disorder (CMS/HCC) Generalized anxiety disorder Primary insomnia Persistent disorder of initiating or maintaining sleep Gastroesophageal reflux disease without esophagitis Esophageal reflux 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 (CMS/HCC) Essential hypertension, benign (CMS/HCC)- Primary Essential hypertension, benign Generalized anxiety disorder (CMS/HCC) Generalized anxiety disorder 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 (CMS/HCC) Primary insomnia Persistent disorder of initiating or maintaining sleep Primary osteoarthritis of left hip [facility] Diagnosis Coronary artery disease involving grayling coronary artery of grayling heart without angina pectoris Takotsubo cardiomyopathy Takotsubo syndrome Status post angioplasty with stent Postsurgical percutaneous transluminal coronary angioplasty status Pure hypercholesterolemia documented in this encounter [facility]* Diagnosis Coronary artery disease involving grayling coronary artery of grayling heart without angina pectoris- Primary documented in this encounter [facility]* Diagnosis Essential hypertension, benign (CMS/HCC)- Primary Essential hypertension, benign Generalized anxiety disorder (CMS/HCC) Generalized anxiety disorder Primary insomnia Persistent disorder of initiating or maintaining sleep Gastroesophageal reflux disease without esophagitis Esophageal reflux 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 (CMS/HCC) Essential hypertension, benign (CMS/HCC)- Primary Essential hypertension, benign Generalized anxiety disorder (CMS/HCC) Generalized anxiety disorder 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 (CMS/HCC) Primary insomnia Persistent disorder of initiating or maintaining sleep Primary osteoarthritis of left hip 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 (CMS/HCC)- Primary Essential hypertension, benign (CMS/HCC) Essential hypertension, benign Generalized anxiety disorder (CMS/HCC) Generalized anxiety disorder Primary insomnia Persistent disorder of initiating or maintaining sleep Generalized anxiety disorder (CMS/HCC) Generalized anxiety disorder documented [facility]* Diagnosis Essential hypertension, benign- Primary Essential hypertension, benign Generalized anxiety disorder Generalized anxiety disorder Primary insomnia Persistent disorder of initiating or maintaining sleep Gastroesophageal reflux disease without esophagitis Esophageal reflux 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 Essential hypertension, benign- Primary Essential hypertension, benign Generalized anxiety disorder Generalized anxiety disorder 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 Primary insomnia Persistent disorder of initiating or maintaining sleep Primary osteoarthritis of left hip 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- Primary Essential hypertension, benign Essential hypertension, benign Generalized anxiety disorder Generalized anxiety disorder Primary insomnia Persistent disorder of initiating or maintaining sleep Medicare annual wellness visit, subsequent- Primary Generalized anxiety disorder Generalized anxiety disorder documented [facility]* Diagnosis Essential hypertension, benign- Primary Essential hypertension, benign Generalized anxiety disorder Generalized anxiety disorder Primary insomnia Persistent disorder of initiating or maintaining sleep Gastroesophageal reflux disease without esophagitis Esophageal reflux 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 Essential hypertension, benign- Primary Essential hypertension, benign Generalized anxiety disorder Generalized anxiety disorder 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 Primary insomnia Persistent disorder of initiating or maintaining sleep Primary osteoarthritis of left hip 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- Primary Essential hypertension, benign Essential hypertension, benign Generalized anxiety disorder Generalized anxiety disorder Primary insomnia Persistent disorder of initiating or maintaining sleep Medicare annual wellness visit, subsequent- Primary Generalized anxiety disorder Generalized anxiety disorder Essential hypertension, benign- Primary Essential hypertension, benign Generalized anxiety disorder Generalized anxiety disorder Primary insomnia Persistent disorder of initiating or maintaining sleep Primary osteoarthritis of left hip 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 documented [facility] encounter [facility] Diagnosis Essential hypertension, benign- Primary Essential hypertension, benign Generalized anxiety disorder Generalized anxiety disorder Primary insomnia Persistent disorder of initiating or maintaining sleep Gastroesophageal reflux disease without esophagitis Esophageal reflux 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 Essential hypertension, benign- Primary Essential hypertension, benign Generalized anxiety disorder Generalized anxiety disorder 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 Primary insomnia Persistent disorder of initiating or maintaining sleep Primary osteoarthritis of left hip 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- Primary Essential hypertension, benign Essential hypertension, benign Generalized anxiety disorder Generalized anxiety disorder Primary insomnia Persistent disorder of initiating or maintaining sleep Medicare annual wellness visit, subsequent- Primary Generalized anxiety disorder Generalized anxiety disorder Essential hypertension, benign- Primary Essential hypertension, benign Generalized anxiety disorder Generalized anxiety disorder Primary insomnia Persistent disorder of initiating or maintaining sleep Primary osteoarthritis of left hip 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 Generalized anxiety disorder Generalized anxiety disorder documented in this encounter [facility] HealthcareInstructionsNot on filedocumented in this encounterPro[facility] SystemInstructionsNot on filedocumented in this encounterProEast [place] [facility] SystemInstructionsNot on filedocumented in this encounterPro[facility] [place] [facility] Summary Purpose Family History No Family History Records FoundNo Family History Records FoundNo Family History Records Found Advance Directives Date Activated Date Inactivated Comments 09/29/2018 10:11 PM 10/01/2018 8:10 PM Date Activated Date Inactivated Comments 2017 11:52 PM 04/09/2017 4:40 PM Latest Code Status on File Code Status Date Activated Date Inactivated Comments Full Code 09/29/2018 10:11 PM 10/01/2018 8:10 PM Code Status History Code Status Date Activated Date Inactivated Comments Full Code 2017 11:52 PM 04/09/2017 4:40 PM Additional Source Comments INFORMATION SOURCE (unrecogn ized section and content) DATE CREATED AUTHOR 05/12/2023 [facility] DATE CREATED AUTHOR AUTHOR'S ORGANIZ ATION 09/02/2024 [facility] DATE CREATED AUTHOR AUTHOR'S ORGANIZ ATION 10/08/2024 [facility] d[facility] Specialists EPIC Care Teams (unrecognized sec tion and content) [employer] Br[employer]her Relationship Specialty Start Date End Date Sunny Henning MD [address] [place] [address] PCP - General Family Medicine 03/23/23 [employer] Relationship Specialty Start Date End Date Sunny Henning MD [address] [place] [address] PCP - General Family Medicine 03/23/23 [employer] Relationship Specialty Start Date End Date Sunny Henning MD [address] [place] [address] PCP - General Family Medicine 11/04/20 [employer] Relationship Specialty Start Date End Date Sunny Henning MD [address] [facility] [place] [address] PCP - General Family Medicine 11/04/20 [employer] Relationship Specialty Start Date End Date Sunny Henning MD [address] [place] [address] PCP - General Family Medicine 11/04/20 [employer] Relationship Specialty Start Date End Date Sunny Henning MD [address] [place] [address] PCP - General Family Medicine 03/23/23 Sunny Henning MD [address] [place] [address] PCP - ACO Reach 03/24/24 [employer] Relationship Specialty Start Date End Date Sunny Henning MD [address] [place] [address] PCP - General Family Medicine 03/23/23 Sunny Henning MD [address] [place] [address] PCP - ACO Reach 03/24/24 [employer] Relationship Specialty Start Date End Date Sunny Henning MD [address] [place] [address] PCP - General Family Medicine 03/23/23 Sunny Henning MD [address] [place] [address] PCP - ACO Reach 03/24/24 [employer] Relationship Specialty Start Date End Date Sunny Henning MD [address] [place] [address] PCP - General Family Medicine 03/23/23 Sunny Henning MD [address] [place] [address] PCP - ACO Reach 03/24/24 [employer] Relationship Specialty Start Date End Date Sunny Henning MD [address] [place] [address] PCP - General Family Medicine 03/23/23 Sunny Henning MD [address] [place] [address] PCP - ACO Reach 03/24/24 [employer] Relationship Specialty Start Date End Date Sunny Henning MD [address] [place] [address] PCP - General Family Medicine 03/23/23 Sunny Henning MD [address] [place] [address] PCP - ACO Reach 03/24/24 [employer] Relationship Specialty Start Date End Date Sunny Henning MD [address] [place] [address] PCP - General Family Medicine 03/23/23 Sunny Henning MD [address] [place] [address] PCP - ACO Reach 03/24/24 [employer] Relationship Specialty Start Date End Date Sunny Henning MD [address] [place] [address] PCP - General Family Medicine 03/23/23 Sunny Henning MD [address] [place] [address] PCP - ACO Reach 03/24/24 [employer] Relationship Specialty Start Date End Date Sunny Henning MD [address] [place] [address] PCP - General Family Medicine 03/23/23 Sunny Henning MD [address] [place] [address] PCP - ACO Reach 03/24/24 Reason for Visit (unrecogniz ed section and content) Reason Comments Follow-up 6m Reason Comments Med Refill Reason Comments Follow-up 6 mo f/u-l/s RDG LAB S DONE SCHED W/PT Reason Comments Medicare Annual Wellness Visit Subsequen t wellness Reason Comments Follow-up 2m FOR RECORDS PERTAINING TO PATIENTS WHO ARE OR HAVE BEEN ENROLLED IN A CHEMICAL DEPENDENCY/SUBSTANCEABUSE PROGRAM, SOME INFORMATION MAY BE OMITTED. This clinical summary was aggregated from multiple sources. Caution should be exercised in using it in the provision of clinical care. This summary normalizes information from multiple sources, and as a consequence, information in this document may materially change the coding, format and clinical context of patient data. In addition, data may be omitted in some cases. CLINICAL DECISIONS SHOULD BE BASED ON THE PRIMARY CLINICAL RECORDS. [employer] provides no warranty or guarantee of the accuracy or completeness of information in this document.
== END 2024-11-01 17:44 | disposition home or self-care (01) ==
PROVIDERS: Physician Assistant; Emergency Provider Emergency Medicine; PCP Family Medicine
DX: M54.89 Other dorsalgia (principal); I25.2 Old myocardial infarction; R06.02 Shortness of breath
CPT/HCPCS: 36415; 71045; 80048; 80076; 84484; 85025; 85610; 85730; 93005; 99285

== ENCOUNTER 2024-11-06 07:30 | Outpatient (RCR) | payer MEDICARE, SELFPAY ==
--- NOTE | 2024-06-13 14:11 | CR1_ITS ---
The [facility] Test Date: 2024-06-13 Pat Name: ARACELI JAEGER Department: Room: - Gender: Female Streets And Buildings Decorator: : 1945 Requested By: Hector Ruelas Order Number: [id number] Reading MD: Hector Ruelas Interpretive Statements Okay to proceed with outlined treatment plan. Electronically Signed On 06-13-2024 17:53:39 EDT by Hector Ruelas
--- NOTE | 2024-07-04 15:03 | CR1_ITS ---
The [facility] Test Date: 2024-07-04 Pat Name: ARACELI JAEGER Department: Room: - Gender: Female Side Stitching Machine Operator: : 1945 Requested By: Hector Ruelas Order Number: [id number] Reading MD: Hector Ruelas Interpretive Statements Okay to proceed with outlined treatment plan. Electronically Signed On 07-05-2024 18:37:48 EDT by Hector Ruelas
--- NOTE | 2024-07-12 07:11 | CR1_ITS ---
The [facility] Test Date: 2024-07-12 Pat Name: ARACELI JAEGER Department: Room: - Gender: Female Composition Siding Worker: : 1945 Requested By: Hector Ruelas Order Number: [id number] Reading MD: Hector Ruelas Interpretive Statements Okay to continue with outlined treatment plan. Electronically Signed On 07-12-2024 9:17:27 EDT by Hector Ruelas
--- NOTE | 2024-08-10 08:12 | CR1_ITS ---
The [facility] Test Date: 2024-08-10 Pat Name: ARACELI JAEGER Department: Room: - Gender: Female Helpdesk Analyst: : 1945 Requested By: Hector Ruelas Order Number: [id number] Reading MD: Hector Ruelas Interpretive Statements Okay to continue with outlined treatment plan. Electronically Signed On 08-10-2024 15:36:48 EDT by Hector Rueals
--- NOTE | 2024-09-06 09:17 | CR1_ITS ---
The [facility] Test Date: 2024-09-06 Pat Name: ARACELI JAEGER Department: Room: - Gender: Female Teletypesetter Operator: : 1945 Requested By: VAISHALI FREGOSO Order Number: [id number] Juli MD: LISHA LOVETT M.D. Interpretive Statements Patient may continue cardiac rehab as outlined in the treatment plan. Electronically Signed On 09-22-2024 10:19:08 EDT by LISHA LOVETT M.D.
--- NOTE | 2024-10-05 08:41 | CR1_ITS ---
The [facility] Test Date: 2024-10-05 Pat Name: ARACELI JAEGER Department: Room: - Gender: Female Software Systems Analyst: : 1945 Requested By: LISHA LOVETT M.D. Order Number: [id number] Reading MD: Too Wharton Interpretive Statements Session Date: Electronically Signed On 10-13-2024 13:28:15 EDT by Too Wharton
--- NOTE | 2024-11-06 08:02 | CR1_ITS ---
[facility] Test Date: 2024-11-07 Pat Name: ARACELI JAEGER Department: Room: - Gender: Female Customer Loyalty Representative: : 1945 Requested By: VAISHALI FREGOSO Order Number: [id number] Juli MD: LISHA LOVETT M.D. Interpretive Statements Electronically Signed On 11-07-2024 18:08:07 EDT by LISHA LOVETT M.D.
== END 2024-11-06 15:22 | disposition home or self-care (01) ==
LOC: CR 07:30
PROVIDERS: PCP Family Medicine; Visit Provider Physician Assistant Medical
DX: I25.2 Old myocardial infarction (principal); Z95.5 Presence of coronary angioplasty implant and graft; I50.9 Heart failure, unspecified
CPT/HCPCS: 93798

== ENCOUNTER 2024-11-10 07:15 | Outpatient (OUT) | payer MEDICARE, SELFPAY ==
--- OUTSIDE RECORDS SUMMARY | 2024-11-10 07:18 | XMS_ITS | Encounter Summary ---
[id number] [address] [place] [address] Care Team Providers Care Assemblyman Or Woman Name Role Phone Sunny Manzo MD Primary Care Provider [phone] Reason for Visit * Reason Comments Med Refill Encounter Details Date Type Department Care Team (Late st Contact Info) Description 06/09/2023 Refill [facility] [address] [place] [phone] Joon Barron DO [address] [place] [address] Med Refill Social History Tobacco Use Types [...] often do you attend chur ch or tenriism services? Patient declined 09/04/2019 Do you belong to any clubs o r organizations such as islam groups, unions, fraternal or athletic groups, or [...] Answer Date Recorded Total Score 0 09/04/2019 [facility] [place] of Occupat ional Health - Occupational Stress [...] therapeutic drug monitoring Coronary artery disease involving [place] coronary artery of [place] heart without angina pectoris Takotsubo cardiomyopathy Takotsubo [...] documented as of this encounter Care Teams Assemblyman Or Woman Relationship Specialty Start Date End Date Sunny Manzo MD PCP - General Family Medicine 11/04/20 documented as of this encounter
--- OUTSIDE RECORDS SUMMARY | 2024-11-10 07:18 | XMS_ITS | Encounter Summary ---
Author Organization [facility] Address [address] [place] [address] Care Team Providers Care Science And Operations Officer Name Role Phone Sunny Manzo MD Primary Care Provider [phone] Encounter Details Date Type Department Care Team ([facility] st Contact Info) Description 11/02/2024 Orders Only [facility] Heart at [facility] [address] [place] [address] Yue Ladd MA Other chest pain (Primary Dx); Coronary artery disease with unstable angina pectoris, unspecified vessel or lesion type, unspecified whether [place] or transplanted heart (CMS/[facility]) Social History Tobacco Use Types Packs/Day Years Used Date Smoking Tobacco: Never Smokeless Tobacco: Never Alcohol Use Standard Drinks/Week Comments Not Currently 0 (1 standard drink = 0.6 oz pur e alcohol) [facility] Utilities Answer Date Recorded In the past 12 months has e electric, gas, oil, or water company threatened to shut off services in your home? No 04/17/2024 Humiliation, Afraid, Rape, and Kick questionnair e Answer Date Recorded Within the last year, have y ou been afraid of your partner or ex-partner? No 04/17/2024 Emotionally Abused Not on file 04/17/2024 Physically Abused Not on file 04/17/2024 Sexually Abused Not on file 04/17/2024 Overall Financial Resource Strain (CARDIA) Answe r Date Recorded How hard is it for you to pa y for the very basics like food, housing, medical care, and heating? Not hard at all 04/17/2024 PHQ-2 Answer Date Recorded Patient Health Questionnaire-2 Score 2 04/27/2024 Transportation Answer Date Recorded In the past 12 months, has l ack of transportation kept you from medical appointments or from getting medications? No 04/17/2024 Lack of Transportation (Non-Medical) Not on file 04/17/2024 Housing Stability Vital Sign Answer James e Recorded In the last 12 months, was t here a time when you were not able to pay the mortgage or rent on time? No 04/17/2024 Number of Times Moved in the Last Year Not on fi le 04/17/2024 At any time in the past 12 m [facility], were you homeless or living in a longterm (including now)? No 04/17/2024 Hunger Vital Sign Answer Date Recorded Within the past 12 months, y ou worried that your food would run out before you got the money to buy more. Never true 04/18/19 25 Ran Out of Food in the Last Year Not on file 04/17/2024 Comments Unknown Sex and Gender Information Value Date Recorded Sex Assigned at Female 04/27/2024 10:47 AM EDT Legal Sex Female 11:05 AM EDT Gender Identity Female 04/27/2024 10:47 AM EDT Sexual Orientation Don't know 04/27/2024 10 :47 AM EDT documented as of this encounter Plan of Treatment Scheduled Orders Name Type Priority Associated Diagnoses Orde r Schedule Treadmill Stress Myocardial Perfusion Imaging Cardiac Services Routine Other chest pain Coronary artery disease with unstable angina pectoris, unspecified vessel or lesion type, unspecified whether [place] or transplanted heart (CMS/HCC) Expected: 11/02/2024 (Approximate), Expires: 11/02/2026 documented as of this encounter Visit Diagnoses Diagnosis Other chest pain- Primary Coronary artery disease with unstable angina pectoris, unspecified vessel or lesion type, unspecified whether [place] or transplanted heart (CMS/HCC) documented in this encounter Care Teams Science And Operations Officer Relationship Specialty Start Date End Date Sunny Manzo MD [address] [place] [address] PCP - General Family Medicine 11/30/23 documented as of this encounter
--- OUTSIDE RECORDS SUMMARY | 2024-11-10 07:18 | XMS_ITS | Encounter Summary ---
Author Organization [facility] Address [address] [place] [address] Care Team Providers Care Artificial Insemination Technician Name Role Phone Sunny Manzo MD Primary Care Provider [phone] Sunny Manzo MD Unavailable Jensen Barnett MA Unavailable [phone] Encounter Details Date Type Department Care Team (Late st Contact Info) Description 04/20/2024 Abstract [facility] [address] [place] [address] Sunny Manzo MD [address] [place] [address] Social History Tobacco Use Types [...] often do you attend chur ch or yazdanism services? More than 4 times per year 05/06/2023 Do you belong to any clubs o r organizations such as temple groups, unions, fraternal or athletic groups, or [...] Recorded Patient Health Questionnaire-2 Score 0 08/10/2023 [facility] Occupat ional Health - Occupational [...] place to sleep or slept in a snf (including now)? No 05/06/2023 Comments Unknown Sex and Gender Information Value Date Recorded Sex Assigned at Female 11/19/2023 8:38 AM EDT Legal Sex Female 8:05 PM EDT Gender Identity Not on file Sexual Orientation Not on file documented as of this encounter Plan of Treatment Not on file documented as of this encounter Visit Diagnoses Not on filedocumented in this encounter Care Teams Artificial Insemination Technician Relationship Specialty Start Date End Date Sunny Manzo MD PCP - General Family Medicine 03/23/23 Sunny Manzo MD [address] [facility] [place] [address] PCP - ACO Reach 03/24/24 Jensen Barnett MA [address] [place] [address] Family Medicine 05/24/24 05/31/24 documented as of this encounter
--- OUTSIDE RECORDS SUMMARY | 2024-11-10 07:18 | XMS_ITS | Encounter Summary ---
Author Organization [facility] Address [id number] [address] [place] [address] Care Team Providers Care Civil Engineering Project Designer Name Role Phone Sunny Manzo MD Primary Care Provider [phone] Encounter Details Date Type Department Care Team (Late st Contact Info) Description 05/20/2020 Orders Only [facility] [address] [place] [address] External, Scanning Provider Social History Tobacco Use [...] often do you attend chur ch or latter day services? Patient declined 09/04/2019 Do you belong to any clubs o r organizations such as congregation groups, unions, fraternal or athletic groups, or [...] Answer Date Recorded Total Score 0 09/04/2019 [facility] of Occupat ional Health - Occupational [...] Recorded Do you need help finding a [facility] career center and/or a training program? [...] Multiple labs (04/23/2020) us Scanning Provider External [place] [facility] Final Result MANUALLY TRANSCRIBED RESULTS documented in this encounter Visit Diagnoses Not on filedocumented in this encounter Additional Health Concerns Assessment Noted Time PHQ-9 Depression Total Score: 0 09/04/19 20 1:34 PM EDT A Body Mass Index follow-up plan has been documented for the patient 12/08/2017 11:16 AM EDT documented as of this encounter Care Teams Civil Engineering Project Designer Relationship Specialty Start Date End Date Sunny Manzo MD PCP - General Family Medicine 11/04/20 documented as of this encounter
--- OUTSIDE RECORDS SUMMARY | 2024-11-10 07:18 | XMS_ITS | Encounter Summary ---
Author Organization [facility] tem Address [id number] [address] [place] [address] Care Team Providers Care Cath Lab Name Role Phone Sunny Manzo MD Primary Care Provider [phone] Reason for Visit * Reason Onset Date Comments Med Refill 12/20/2017 Encounter Details Date Type Department Care Team (Late st Contact Info) Description 12/20/2017 Refill [facility] [address] [place] [phone] Sara Lombardo RN Med Refill Social History [...] documented as of this encounter Care Teams Cath Lab Relationship Specialty Start Date End Date Sunny Manzo MD PCP - General Family Medicine 11/04/20 documented as of this encounter
--- OUTSIDE RECORDS SUMMARY | 2024-11-10 07:18 | XMS_ITS | Encounter Summary ---
Author Organization [facility] Address [address] [place] [address] Care Team Providers Care Staging Technician Name Role Phone Sunny Manzo MD Primary Care Provider [phone] Sunny Manzo MD Unavailable Jensen Barnett MA Unavailable [phone] Encounter Details Date Type Department Care Team (Late st Contact Info) Description 12/02/2023 Orders Only [facility] [address] [place] [address] Haylie Anna NP Social History Tobacco Use [...] often do you attend chur ch or lutheran services? More than 4 times per year 05/06/2023 Do you belong to any clubs o r organizations such as christian groups, unions, fraternal or athletic groups, or [...] Recorded Patient Health Questionnaire-2 Score 0 08/10/2023 [facility]at ional [facility] - Occupational Stress Questionnaire Answer Date Recorded [...] place to sleep or slept in a nursing home (including now)? No 05/06/2023 Comments Unknown Sex [...] Report (12/01/2023 7:58 AM EDT) Haylie Anna CATTERY OPERATOR IN CLINIC/BEDSIDE ORDERA BLES Final Result documented in this encounter Visit Diagnoses Not on filedocumented in this encounter Care Teams Staging Technician Relationship Specialty Start Date End Date Sunny Manzo MD PCP - General Family Medicine 03/23/23 Sunny Manzo MD [address] [place] [address] PCP - ACO Reach 03/24/24 Jensen Barnett MA [address] [place] [address] Family Medicine 05/24/24 05/31/24 documented as of this encounter
--- OUTSIDE RECORDS SUMMARY | 2024-11-10 07:18 | XMS_ITS | Encounter Summary ---
Author [facility] Address [id number] [address] [place] [address] Care Team Providers Care Battery Plate Assembler Name Role Phone Sunny Manzo MD Primary Care Provider Reason for Visit * Reason Onset Date Comments Med Refill 11/06/2016 Encounter Details Date Type Department Care Team (Late st Contact Info) Description 11/06/2016 Refill [facility] [address] [id number] Veronica Ayala, RN Med Refill Social History [...] on filedocumented in this encounter Care Teams Battery Plate Assembler Relationship Specialty Start Date End Date Sunny Manzo MD PCP - General Family Medicine 11/04/20 documented as of this encounter
--- OUTSIDE RECORDS SUMMARY | 2024-11-10 07:18 | XMS_ITS | Encounter Summary ---
Author Organization [facility] Address [facility] [id number] [address] [place] [address] Care Team Providers Care Social Worker Psychiatric Name Role Phone Sunny Manzo MD Primary Care Provider [phone] Encounter Details Date Type Department Care Team (Late st Contact Info) Description 05/20/2020 Orders Only [facility] [address] [place] [phone] External, Scanning Provider Social History Tobacco Use [...] often do you attend chur ch or confucianism services? Patient declined 09/04/2019 Do you belong to any clubs o r organizations such as spiritism groups, unions, fraternal or athletic groups, or [...] Answer Date Recorded Total Score 0 09/04/2019 [facility] of Occupat ional Health - [...] you need help finding a [facility] career center and/or a training program? No [...] documented as of this encounter Care Teams Social Worker Psychiatric Relationship Specialty Start Date End Date Sunny Manzo MD PCP - General Family Medicine 11/04/20 documented as of this encounter
--- OUTSIDE RECORDS SUMMARY | 2024-11-10 07:18 | XMS_ITS | Clinical Summary ---
Author Organization [employer] tem Address [facility] [id number] [address] [place] [address] Care Team Providers Care C Programmer Name Role Phone Sunny Manzo MD Primary Care Provider [phone] Allergies Active Allergy Reactions Criticality Noted Date Comments Edwswjn-Tnl-Aos Reductase Inhibitors pain,Nausea 09/29/2018 Patient states that [...] 2.5 mg capsuleIndications:Coron taniya artery disease involving sokaogon coronary artery of sokaogon heart without angina pectoris,Takotsubo cardiomyopathy,Status post angioplasty with stent,Pure hypercholesterolemia TAKE 1 CAPSULE (2.5 MG TOTAL) BY MOUTH IN THE MORNING. 90 capsule 06/09/19 24 Active aspirin 81 mg chewable tabletIndications:Brewer ry artery disease involving sokaogon coronary artery of sokaogon heart without angina pectoris,Takotsubo cardiomyopathy,Status post angioplasty with stent,Pure hypercholesterolemia CHEW 1 TABLET (81 MG TOTAL) AND SWALLOW IN THE MORNING. 90 tablet 3 06/11/19 24 Active carvediloL (COREG) 6.25 mg tabletIndications:Brewer ry artery disease involving sokaogon coronary artery of sokaogon heart without angina pectoris,Takotsubo cardiomyopathy,Status post angioplasty [...] hip 03/21/2018 Coronary artery disease invo lving sokaogon coronary artery of sokaogon heart without angina pectoris 01/27/2018 Thickened endometrium [...] often do you attend chur ch or sabianism services? Patient declined 09/04/2019 Do you belong [...] Answer Date Recorded Total Score 0 09/04/2019 [facility] of Occupat ional Health - Occupational Stress [...] Recorded Do you need help finding a [employer] career center and/or a training program? No [...] 1:56 PM Medical Devices Implanted Type Area Fish And Wildlife Warden Device Identifier Shelf Expiration Date Model / Serial / Lot Lens Iol Ultrasert 14.0d - [id number] - [id number] Implanted:Q ty: 1 on 04/15/2021 by Adrienne Braga MD at [facility] Lens Left: Eye [employer] 11/12/2022 AU00T0 14.0 / [id number] / NA Lens Iol Ultrasert 13.0d - [id number] - [id number] Implanted:Q ty: 1 on 05/01/2021 by Adrienne Braga MD at [facility] Lens Right: Eye [employer] 08/06/2023 AU00T0 13.0 / [id number] / NA Mesh Tiss 10x7cm [place] - [id number] - [id number] Implanted:Q ty: 1 on 06/07/2017 by Colin Morales MD at [facility] Mesh N/A: Abdomen [place] 02/15/2020 [id number] / [id number] / [id number] Shl Actb [employer] 52e - [id number] Implanted:Q ty: 1 on 09/04/2019 by Juan Velasco MD at [facility] Orthopedic Implant Left: Hip [employer] 03/07/2029 [id number] / / [id number] Linr Actb G7 Ntrl 36mm E - [id number] Implanted:Q ty: 1 on 09/04/2019 by Juan Velasco MD at [facility] Orthopedic Implant Left: Hip [employer] 08/03/2023 [id number] / / [id number] Stm Fem 115mm 133d 15 Std Os - [id number] Implanted:Q ty: 1 on 09/04/2019 by Juan Velasco MD at [facility] Orthopedic Implant Left: Hip [employer] 01/27/2029 [id number] / / [id number] Hd Fem 36mm Opt Shl Actb G7 Bl Rpl 650-1057 - [id number] Implanted:Q ty: 1 on 09/04/2019 by Juan Velasco MD at [facility] Orthopedic Implant Left: Hip [employer] 05/19/2028 [id number] / / [id number] Slv Fem Opt -3mm Tpr Hip Blx D Rpl 650-1065 - [id number] Implanted:Q ty: 1 on 09/04/2019 by Juan Velasco MD at [facility] Orthopedic Implant Left: Hip [employer] 08/29/2028 [id number] / / [id number] Jake Xience Alpine 3.0x15mm Repl [id number] - [id number] Implanted:Q ty: 1 on 10/12/2016 by Hamilton Gleason MD at [facility] Stent N/A: Heart [employer] [id number] 07/24/2019 [id number] / / [id number] Jake Xience Alpine 2.80f26so Repl [id number] - [id number] Implanted:Q ty: 1 on 10/12/2016 by Hamilton Gleason MD at [facility] Stent N/A: Heart MORALES [id number] / / [id number] Insurance MEDICARE [facility] Advance Directives * Full Code (Latest Code Status on File) Date Activated Date Inactivated Comments 09/29/2018 10:11 PM 10/01/2018 8:10 PM * Full Code Date Activated Date Inactivated Comments 2017 11:52 PM 04/09/2017 4:40 PM Care Teams C Programmer Relationship Specialty Start Date End Date Sunny Manzo MD PCP - General Family Medicine 11/04/20
--- OUTSIDE RECORDS SUMMARY | 2024-11-10 07:18 | XMS_ITS | Clinical Summary ---
Author Organization [facility] Address [address] [place] [address] Care Team Providers Care Technology Applications Engineer Name Role Phone Sunny Manzo MD Primary Care Provider [phone] Allergies Active Allergy Reactions Criticality Noted Date Comments Jeseftz-Ibl-Emp Reductase Inhibitors Other 12/01/2023 myalgias Medications cholecalciferol (Vitamin D-3) 50 MCG (1999 UT) tablet Take 2,000 Units by mouth in the morning. Active nitroglycerin (Nitrostat) 0.[address] 1 TABLET (0.4 MG) UNDER THE TONGUE EVERY 5 MINUTES NEEDED FOR CHEST PAIN 4 Active traZODone (Desyrel) 50 mg tablet Take 50 mg by mouth at bedtime. Active ALPRAZolam (Xanax) 0.5 mg tablet Take 0.5 mg by mouth if needed in the morning, at noon, and at bedtime. 4 Active aspirin 81 mg EC tabletIndicatio ns:NSTEMI (non-ST elevated myocardial infarction) (CMS/HCC) Take 1 tablet (81 mg) by mouth in the morning. 90 tablet 3 5 04/28/19 26 Active clopidogrel (Plavix) 75 mg tabletIndicatio ns:NSTEMI (non-ST elevated myocardial infarction) (CMS/HCC) Take 1 tablet (75 mg) by mouth once daily as directed. 90 tablet 3 5 06/14/19 26 Active carvedilol (Coreg) 3.125 mg tabletIndicatio ns:NSTEMI (non-ST elevated myocardial infarction) (CMS/HCC) Take 1 tablet (3.125 mg) by mouth with breakfast and with evening meal. 180 tablet 3 5 06/14/19 26 Active Active Problems Problem Noted Date Diagnosed Date Unstable angina 04/18/2024 Assessment & Plan (04/19/2024 2:08 PM EST): -Initial troponin normal and EKG negative with no ST elevation -Patient on IV heparin -Allergic to statin, consider starting Zetia -Awaiting results of left heart cath this the morning. Assessment & Plan (04/18/2024 12:59 PM EST): -Initial troponin normal and EKG negative with no ST elevation -Patient on IV heparin -Allergic to statin, consider starting Zetia -Awaiting results of left heart cath this the morning. Chronic heart failure 04/18/2024 Assessment & Plan (04/19/2024 2:08 PM EST): -last TTE on 04/17/24 shows improved EF 60-65% -Continue GDMT as able Assessment & Plan (04/18/2024 12:59 PM EST): -last TTE on 04/17/24 shows improved EF 60-65% - Continue GDMT as able Anxiety 04/18/2024 Assessment & Plan (04/19/2024 2:08 PM EST): - On Xanax and Trazodone at home - Xanax PRN and Trazodone have been ordered Assessment & Plan (04/18/2024 12:59 PM EST): - One xanax and trazodone at home - Xanax PRN and trazodone have been ordered Allergic to insect bites 08/10/2023 Cellulitis of neck 08/10/2023 Insect bite of neck 08/10/2023 Essential hypertension, benign 05/10/2023 Overview (12/01/2023): Last Assessment & Plan: BP controlled and monitor PRN. Assessment & Plan (04/19/2024 2:08 PM EST): -Continue ASA and Coreg 6.25 mg BID -Monitor BP and control with medication as needed -Patient was on Ramipril 2.5 mg nightly, caused bradycardia so was discontinued -Blood pressure is at goal at this time Assessment & Plan (04/18/2024 12:59 PM EST): -Continue ASA and Coreg 6.25 mg BID -Monitor BP and control with medication as needed -Patient was on Ramipril 2.5 mg nightly, caused bradycardia so was discontinued - Blood pressure is at goal at this time Assessment & Plan (04/17/2024 10:13 PM EST): Monitor and controlled with medication as needed patient has been on ramipril but states that it caused bradycardia so she has not been taking it GERD without esophagitis 05/10/2023 Overview (12/01/2023): Last Assessment & Plan: Symptoms controlled with omeprazole and continue. Assessment & Plan (04/19/2024 2:08 PM EST): - Not on any PPI or other medications at home - Will start PPI if requested Assessment & Plan (04/18/2024 12:59 PM EST): - Not on any PPI or other medications at home - Will start PPI if requested Generalized anxiety disorder 05/10/2023 Overview (12/01/2023): Last Assessment & Plan: Symptoms controlled with xanax and use PRN. Prediabetes 05/10/2023 Assessment & Plan (04/19/2024 2:08 PM EST): -A1c: 5.8 -Follow-up with PCP for further recommendations Assessment & Plan (04/18/2024 12:59 PM EST): A1c checked this morning - 5.8 Follow-up with PCP for further recommendations Assessment & Plan (04/17/2024 10:13 PM EST): Check A1c in the morning Primary insomnia 05/10/2023 Overview (12/01/2023): Last Assessment & Plan: Sleeping well with medication and continue. 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 01/27/2018 Right ovarian cyst 09/01/2017 Thickened endometrium 09/01/2017 Gastric volvulus 06/17/2017 Partial bowel obstruction 2017 Pure hypercholesterolemia 11/04/2016 Status post angioplasty with stent 11/04/2016 Encounters Date Type Department Care Team Description 11/02/2024 Orders Only [address] [place] [address] Yue Ladd MA Other chest pain (Primary Dx); Coronary artery disease with unstable angina pectoris, unspecified vessel or lesion type, unspecified whether rincon or transplanted heart ([facility]) 10/02/2024 Orders [place] [address] [place] [address] Yue Ladd MA Coronary artery disease, unspecified vessel or lesion type, unspecified whether angina present, unspecified whether rincon or transplanted heart (Primary Dx); Mixed hyperlipidemia 08/29/2024 10:30 AM EDT Office Visit [address] [place] [address] Jose Alfredo Leblanc MD Coronary artery disease, unspecified vessel or lesion type, unspecified whether angina present, unspecified whether rincon or transplanted heart (Primary Dx); Essential hypertension, benign 08/28/[address] [place] [address] Jose Alfredo Leblanc MD from Last 3 Months Family History Medical History Relation Name Comments heart problems Father heart problems Mother Relation Name Status Comments Father Mother Social History Tobacco Use Types Packs/Day Years Used Date Smoking Tobacco: Never Smokeless Tobacco: Never Tobacco Cessation:Counseling Given: Not Answered Alcohol Use Standard Drinks/Week Comments Not Currently 0 (1 standard drink = 0.6 oz pur e alcohol) [facility] Utilities Answer Date Recorded In the past 12 months has th e electric, gas, oil, or water company [...] any time in the past 12 [facility], were you homeless or living in a jail (including now)? No 04/17/2024 Hunger Vital Sign [...] Don't know 04/27/2024 10 :47 AM EDT Last Filed Vital Signs Vital Sign Reading Time Taken Comments Blood Pressure 112/73 08/29/2024 10:39 AM EDT Pulse 67 08/29/2024 10:39 AM EDT Temperature 37.2 C (99 F) 04/20/2024 8:00 AM EST Respiratory Rate 21 04/20/2024 5:00 AM EST Oxygen Saturation 97% 08/29/2024 10:39 AM EDT Inhaled Oxygen Concentration - - Weight 57.2 kg (126 lb) 08/29/2024 10:39 AM EDT Height 149.9 cm (4' 11 ) 08/29/2024 10:39 AM EDT Body Mass Index 25.45 08/29/2024 10:39 AM EDT Plan of Treatment Health Maintenance Due Date Last Done Comments Medicare Annual Wellness (AWV) 1945 Adult Tetanus 1969 Zoster Vaccines (1 of 2) 1997 COVID-19 Vaccine ( season) 2024 12/08/2023, 01/18/2023, 10/28/2021, Additional history exists Influenza Vaccine (#1) 2024 , 01/18/2023, 10/28/2021, Additional history exists Diabetes: Hemoglobin A1C 04/18/2025 04/18/2024 Depression Screening 04/27/2025 04/27/2024 Fall Risk Screening 04/27/2025 04/27/2024 Pneumococcal Vaccine: 50+ Years Completed 11/22/2019, 12/01/2018 HIB Vaccines Aged Out No longer eligi ble based on patient's age to complete this topic HPV Vaccines Aged Out No longer eligi ble based on patient's age to complete this topic IPV Vaccines Aged Out No longer eligi ble based on patient's age to complete this topic Meningococcal B Vaccine Aged Out No l onger eligible based on patient's age to complete this topic Meningococcal Vaccine Aged Out No [place] eligible based on patient's age to complete this topic Rotavirus Vaccines Aged Out No longer eligible based on patient's age to complete this topic Medical Devices Implanted Type Area Interior Horticulturist Device Identifier Shelf Expiration Date Model / Serial / Lot Stent,Synergy Mr 3.00 X 20 - [id number] Implanted:Qty : 1 on 04/19/2024 by Jose Alfredo Leblanc MD at [facility] Drug Eluting Stent Left: Heart [employer] [id number] 09/06/2025 [id number] Procedures Procedure Name Priority Date/Time Associated Diagnosis Comments HEMOGLOBIN A1C Routine 04/18/2024 4:59 AM EST from Last 3 Months or Most Recently Relevant to Health Maintenance Results * Hemoglobin A1c (04/18/2024 4:59 AM EST) Hemoglobin A1C 5.8 4.0 - 6.0 % 04/18/2024 8:05 AM EST [facility] ([facility]) Estimated Average Glucose 120 mg/dL 04/18/2024 8:05 AM EST [facility] ([facility]) Blood Venous blood specimen / Unknown Arterial Line / Unknown 04/18/2024 4:59 AM EST 04/18/2024 7:26 AM EST Chilo Gillette MD LAB BLOOD ORDERABLES Final Re sult [facility] ([facility]) [address] [place] [address] from Last 3 Months or Most Recently Relevant to Health Maintenance Insurance MEDICARE [employer] Advance Directives * Full Code (Latest Code Status on File) Date Activated Date Inactivated Comments 04/17/2024 10:01 PM 04/20/2024 5:55 PM Care Teams Technology Applications Engineer Relationship Specialty Start Date End Date Sunny Manzo MD [address] [place] [address] PCP - General Family Medicine 11/30/23
--- OUTSIDE RECORDS SUMMARY | 2024-11-10 07:18 | XMS_ITS | Encounter Summary ---
Author Organization [facility] Address [address] [place] [address] Care Team Providers Care Professor Of Astronomy Name Role Phone Sunny Manzo MD Primary Care Provider [phone] Sunny Manzo MD Unavailable Jensen Barnett MA Unavailable [phone] Encounter Details Date Type Department Care Team (Late st Contact Info) Description 04/17/2024 Orders Only [facility] [address] [place] [address] Braydon Sheridan MD [address] [facility] Social History Tobacco Use Types Packs/Day Years [...] often do you attend chur ch or buddhist services? More than 4 times per year 05/06/2023 Do you belong to any clubs o r organizations such as mormon groups, unions, fraternal or athletic groups, or [...] 0 08/10/2023 [facility] - Occupational Stress [...] on filedocumented in this encounter Care Teams Professor Of Astronomy Relationship Specialty Start Date End Date Sunny Manzo MD PCP - General Family Medicine 03/23/23 Sunny Manzo MD [address] [place] [address] PCP - ACO Reach 03/24/24 Jensen Barnett MA [address] [place] [address] Family Medicine 05/24/24 05/31/24 documented as of this encounter
--- OUTSIDE RECORDS SUMMARY | 2024-11-10 07:19 | XMS_ITS | CCD ---
Author Organization [facility] Care Team Providers Care Legislative Assistant Name Role Phone RAS GARZA Attending Unavailable SUNNY HENNING Referring Unavailable SUNNY HENNING Primary Care Unavailable Sunny Henning MD Primary Care Provider Sunny Henning MD Primary Care Provider Sunny Henning MD Unavailable SUNNY HENNING Attending Unavailable MILADY, SUNNY Attending Unavailable MILADY, SUNNY Attending Unavailable SUNNY HENNING Attending Unavailable CALIN YE Referring Unavailable HORRACHNA PEÑAAR Admitting Unavailable RUDD, RHETT CHUL Attending Unavailable RUDD, RHETT CHUL Referring Unavailable ELTAHAWY, EHAB Referring Unavailable ELTAHAWY, EHAB Referring Unavailable ELTAHAWY, EHAB Referring Unavailable ORALIA OLSEN Attending Unavailable ELTAHAWY, EHAB Attending Unavailable ELTAHAWY, EHAB Attending Unavailable ELTAHAWY, EHAB Attending Unavailable Allergies Allergy Classification Reported Allergen(s) Allergy Type Date of Onset Reaction(s) Facility (6 sources) Hmg-Coa Reductase Inhibitors (Statins); Translations: [VNWDSTG-AYK-NCA REDUCTASE INHIBITORS] Propensity to adverse reactions to [...] tablet by mouth in the mo rning ascorbic acid (VITAMIN C) 500 mg tablet Take 1 tablet (500 mg total) by mouth in the morning. Active aspirin 81 mg chewable tablet (20 sources) Platelet Aggregation Inhibitor, Nonsteroidal Anti-inflammatory Drug Start: 05-11-2022 End: 06-11-2023 aspirin 81 mg chewable tablet Indications: Coronary artery disease involving [place] coronary artery of [place] heart without angina pectoris , Takotsubo cardiomyopathy , Status post angioplasty with stent , Pure hypercholesterolemia CHEW 1 TABLET (81 MG TOTAL) AND SWALLOW IN THE MORNING. 90 tablet 3 06/11/2023 Active take 1 tablet [facility] 81 MG EC tablet Take 81 mg by mouth in the morning. Active b complex vitamins capsule (3 sources) take 1 capsule by mo ut in the morning b complex vitamins capsule Take 1 capsule by mouth in the morning. Active take 1 capsule [facility] b complex vitamins capsule Take 1 [...] mg tablet Indications: Coronary artery disease involving [place] coronary artery of [place] heart without angina pectoris , Takotsubo cardiomyopathy [...] mg tablet Indications: Coronary artery disease involving [place] coronary artery of [place] heart without angina pectoris , Takotsubo cardiomyopathy [...] (Plavix) 75 MG tablet Indications: CAD in [place] artery Take 1 tablet (75 mg) by [...] 0.4 MG SL tablet Indications: CAD in [place] artery PLACE 1 TABLET (0.4 MG) UNDER [...] MG capsule Indications: Atherosclerotic heart disease of [place]ki[place] coronary artery without angina pectoris (CMS/HCC) , Takotsubo syndrome TAKE 1 CAPSULE (2.5 MG TOTAL) BY MOUTH IN THE MORNING. 90 capsule 3 10/08/2023 12/08/2023 Discontinued (Reorder) Start: 06-09-2023 take 1 capsule by mo uth in the morning ramipriL (ALTACE) 2.5 mg capsule Indications: Coronary artery disease involving [place] coronary artery of [place] heart without angina pectoris , Takotsubo cardiomyopathy , Status post angioplasty with stent , Pure hypercholesterolemia TAKE 1 CAPSULE (2.5 MG TOTAL) BY MOUTH IN THE MORNING. 90 capsule 06/09/2023 Active Start: 05-11-2022 take 1 capsule by mo uth in the morning ramipriL (ALTACE) 2.5 mg capsule Indications: Coronary artery disease involving [place] coronary artery of [place] heart without angina pectoris , Takotsubo cardiomyopathy [...] Coronary arteriosclerosis; Translations: [Atherosclerotic heart disease of [place] coronary artery without angina pectoris] Onset: 10-10-2016 [...] Test Name Value Interpretation Reference Range Facility Orders Onlyon 11-02-2024 Orders Only [id number] Cherry Jaeger ma 1945 F Date Provider Department Center 11/02/2024 MYAH ROD [facility] Family History Problem Relation Age of Onset Other Mother Other Father Family Status - Relation Status Age at Mother Father Normal [facility] ITPon 09-22-2024 [place] [address] Cardiac Rehab Report Signed Patient: DIANA JAEGER MR#: [id number] : 1945 Acct:[id number] Age/Sex: 79 / F ADM Date: 09/21/24 Loc: CR Attending Dr: Oralia AGUILAR Ordering Physician: Jose Alfredo Fregoso M.D. 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 Interpretive Statements Patient may continue cardiac rehab as outlined in the treatment plan. Electronically Signed On 09-22-2024 10:19:08 EDT by LISHA LOVETT M.D. Dictated By: LISHA LOVETT Signed By: 09/22/24 1019 09/22/24 1019 DD/ 1118 TD/TT: Rice Drier: Angélica Tang MD - 09/22/2024 [facility] [place] [id number] Cardiac Rehab Report Signed Patient: DIANA JAEGER MR#: [id number] : 1945 Acct:[id number] Age/Sex: 79 / F ADM Date: 09/21/24 Loc: CR Attending Dr: Oralia AGUILAR Ordering Physician: Jose Alfredo Fregoso M.D. 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 Interpretive Statements Patient may continue cardiac rehab as outlined in the treatment plan. Electronically Signed On 09-22-2024 10:19:08 EDT by LISHA LOVETT M.D. Dictated By: LISHA LOVETT Signed By: 09/22/24 1019 09/22/24 1019 DD/ 1118 TD/TT: Rice Drier: [facility] ITPOrdered By: Radiologist R adiology on 09-22-2024 [facility] Work Phone: ITPon 09-06-2024 Radiology Study observation (narrative) [facility] Healthcare Office Visiton 08-29-2024 Follow-up visit [id number] Cherry Jaeger ma 1945 Date Provider Department Center 08/29/2024 JOSE ALFREDO LEWIS [facility] Family History Problem Relation Age of Onset Other Mother Other Father Family Status - Relation Status Age at Mother Father Level of Service:12115 [place] OFFICE/OUTPATIENT ESTABLISHED LOW MDM 20 MIN Normal [facility] Abstracton 08-28-2024 Abstract [id number] Cherry Jaeger ma 1945 Date Provider Department Center 08/28/2024 JOSE ALFREDO LEWIS Family History Problem Relation Age of Onset Other Mother Other Father Family Status - Relation Status Age at Mother Father Normal [facility] ITPon 08-10-2024 [place] [address] Cardiac Rehab Report Signed Patient: DIANA JAEGER MR#: [id number] : 1945 Acct:[id number] Age/Sex: 79 / F ADM Date: 08/09/24 Loc: CR Attending Dr: Oralia AGUILAR Ordering Physician: Hector Ruelas D.O. Date of Service: 08/10/24 Procedure(s): ITP Accession Number(s): [id number] cc: [facility] Test Date: 2024-08-10 Pat Name: DIANA JAEGER Department: Room: - Gender: Female Vehicle Body Sander: : 1945 Requested By: Hector Ruelas Order Number: [id number] Juli MD: Hector Ruelas Interpretive Statements Okay to continue with outlined treatment plan. Electronically Signed On 08-10-2024 15:36:48 EDT by Hector Ruelas Dictated By: Hector Ruelas D.O. Signed By: 08/10/24 1537 08/10/24 153 DD/ 0900 TD/TT: Rice Drier: [facility] Radiology, Radiologi MD ramona - 08/10/2024 [place] [address] Cardiac Rehab Report Signed Patient: DIANA JAEGER MR#: [id number] : 1945 Acct:[id number] Age/Sex: 79 / F ADM Date: 08/09/24 Loc: CR Attending Dr: Oralia AGUILAR Ordering Physician: Hector Ruelas D.O. Date of Service: 08/10/24 Procedure(s): ITP Accession Number(s): [id number] cc: [facility] Test Date: 2024-08-10 Pat Name: DIANA JAEGER Department: Room: - Gender: Female Vehicle Body Sander: : 1945 Requested By: Hector Ruelas Order Number: [id number] Juli MD: Hector Ruelas Interpretive Statements Okay to continue with outlined treatment plan. Electronically Signed On 08-10-2024 15:36:48 EDT by Hector Ruelas Dictated By: Hector Ruelas D.O. Signed By: 08/10/24 1537 08/10/24 1537 DD/ 0900 TD/TT: Rice Drier: JOSHUA [facility] Radiology Study observation (narrative) [facility] ITPOrdered By: Radiologist Flory adiology on 08-10-2024 [facility] Work Phone: ITPon 07-12-2024 [place] [address] Cardiac Rehab Report Signed Patient: DIANA JAEGER MR#: [id number] : 1945 Acct:[id number] Age/Sex: 79 / F ADM Date: 07/12/24 Loc: CR Attending Dr: Oralia AGUILAR Ordering Physician: Hector Ruelas D.O. Date of Service: 07/12/24 Procedure(s): ITP Accession Number(s): [id number] cc: [facility] Test Date: 2024-07-12 Pat Name: DIANA JAEGER Department: Room: - Gender: Female Vehicle Body Sander: : 1945 Requested By: Hector Ruelas Order Number: [id number] Juli MD: Hector Ruelas Interpretive Statements Okay to continue with outlined treatment plan. Electronically Signed On 07-12-2024 9:17:27 EDT by Hector Ruelas Dictated By: Hector Ruelas D.O. Signed By: 07/12/24 0917 07/12/24 0917 DD/ 0716 TD/TT: Rice Drier: [facility] Radiology Radiologtawana greene MD - 07/12/2024 [facility] [place] [id number] Cardiac Rehab Report Signed Patient: DIANA JAEGER MR#: [id number] : 1945 Acct:[id number] Age/Sex: 79 / F ADM Date: 07/12/24 Loc: CR Attending Dr: Oralia AGUILAR Ordering Physician: Samsa,Hector D.O. Date of Service: 07/12/24 Procedure(s): ITP Accession Number(s): [id number] cc: [facility] Test Date: 2024-07-12 Pat Name: DIANA JAEGER Department: Room: - Gender: Female Vehicle Body Sander: : 1945 Requested By: Hector Ruelas Order Number: [id number] Reading MD: Hector Ruelas Interpretive Statements Okay to continue with outlined treatment plan. Electronically Signed On 07-12-2024 9:17:27 EDT by Hector Ruelas Dictated By: Hector Ruelas D.O. Signed By: 07/12/24 0917 07/12/24 0917 DD/ 0716 TD/TT: Rice Drier: JOSHUA Lopez Radiology Study observation (narrative) [facility] ITPOrdered By: Radiologist Flory adiology on 07-12-2024 [facility] Work Phone: ITPon 07-05-2024 [place] [address] Cardiac Rehab Report Signed Patient: DIANA JAEGER MR#: [id number] : 1945 Acct:[id number] Age/Sex: 79 / F ADM Date: 07/04/24 Loc: CR Attending Dr: Oralia AGUILAR Ordering Physician: Hector Ruelas D.O. Date of Service: 07/04/24 Procedure(s): ITP Accession Number(s): [id number] cc: [facility] Test Date: 2024-07-04 Pat Name: DIANA JAEGER Department: Room: - Gender: Female Vehicle Body Sander: : 1945 Requested By: eHctor Ruelas Order Number: [id number] Juli MD: Hector Ruelas Interpretive Statements Okay to proceed with outlined treatment plan. Electronically Signed On 07-05-2024 18:37:48 EDT by Hector Ruelas Dictated By: Hector Ruelas D.O. Signed By: 07/05/247 07/05/24 1837 DD/ 1516 TD/TT: Rice Drier: [facility] Radiology, Radiologtawana greene MD - 07/05/2024 [place] [address] Cardiac Rehab Report Signed Patient: DIANA JAEGER MR#: [id number] : 1945 Acct:[id number] Age/Sex: 79 / F ADM Date: 07/04/24 Loc: CR Attending Dr: Oralia AGUILAR Ordering Physician: Hector Ruelas D.O. Date of Service: 07/04/24 Procedure(s): ITP Accession Number(s): [id number] cc: [facility] Test Date: 2024-07-04 Pat Name: DIANA JAEGER Department: Room: - Gender: Female Vehicle Body Sander: : 1945 Requested By: Hector Ruelas Order Number: [id number] Juli MD: Hector Ruelas Interpretive Statements Okay to proceed with outlined treatment plan. Electronically Signed On 07-05-2024 18:37:48 EDT by Hector Ruelas Dictated By: Hector Ruelas D.O. Signed By: 07/05/24183607/05/241836 DD/ 1516 TD/TT: Rice Drier: JOSHUA Lopez ITPOrdered By: Radiologist Flory adiology on 07-05-2024 [facility] Work Phone: ITPon 07-04-2024 Radiology Study observation (narrative) [facility] ITPon 06-13-2024 [place] [address] Cardiac Rehab Report Signed Patient: DIANA JAEGER MR#: [id number] : 1945 Acct:[id number] Age/Sex: 79 / F ADM Date: 06/13/24 Loc: CR Attending Dr: Oralia AGUILAR Ordering Physician: Hector Ruelas D.O. Date of Service: 06/13/24 Procedure(s): ITP Accession Number(s): [id number] cc: [facility] Test Date: 2024-06-13 Pat Name: DIANA JAEGER Department: Room: - Gender: Female Vehicle Body Sander: : 1945 Requested By: Hector Ruelas Order Number: [id number] Reading MD: Hector Ruelas Interpretive Statements Okay to proceed with outlined treatment plan. Electronically Signed On 06-13-2024 17:53:39 EDT by Hector Ruelas Dictated By: Hector Ruelas D.O. Signed By: 06/13/24175206/13/241752 DD/ 03 TD/TT: Rice Drier: [facility] Radiology, Radiologtawana greene MD - 06/13/2024 [place] [address] Cardiac Rehab Report Signed Patient: DIANA JAEGER MR#: [id number] : 1945 Acct:[id number] Age/Sex: 79 / F ADM Date: 06/13/24 Loc: CR Attending Dr: Oralia AGUILAR Ordering Physician: Hector Ruelas D.O. Date of Service: 06/13/24 Procedure(s): ITP Accession Number(s): [id number] cc: [facility] Test Date: 2024-06-13 Pat Name: DIANA JAEGER Department: Room: - Gender: Female Vehicle Body Sander: : 1945 Requested By: Hector Ruelas Order Number: [id number] Juli MD: Hector Ruelas Interpretive Statements Okay to proceed with outlined treatment plan. Electronically Signed On 06-13-2024 17:53:39 EDT by Hector Ruelas Dictated By: Hector Ruelas D.O. Signed By: 06/13/24175206/13/241752 DD/ 03 TD/TT: Rice Drier: JOSHUA Lopez Radiology Study observation (narrative) [facility] ITPOrdered By: Radiologist R adiology on 06-13-2024 [facility] Work Phone: Office Visiton 06-13-2024 Follow-up visit [id number] Cherry Jaeger ma 1945 F Date Provider Department Center 06/13/2024 271-[facility], EHAB CARD [facility] Family History Problem Relation Age of Onset Other Mother Other Father Family Status - Relation Status Age at Mother Father Level of Service:08903 [place] OFFICE/OUTPATIENT ESTABLISHED MOD MDM 30 MIN Normal [facility] ALL LIPID PROFILE (FASTING)o n 06-07-2024 CHOL HDL RATIO 3.2 [facility] Comment on above: 3.3 - 4.4 LOW RISK 4.4 - 7.1 AVERAGE RISK 7.1 - 11.0 MODERATE RISK >11.0 HIGH RISK Cholesterol [Mass/Vol] 165 mg/dL NINF - 200 mg/[facility] Cholesterol in HDL [Mass/Vol] 51 mg/dL 40 - 60 mg/dL [facility] Comment on above: > or =60 mg/dl - LOW CARDIOVASCULAR RISK <40 mg/dl - HIGH CARDIOVASCULAR RISK Magnesium [Mass/Vol] 97 mg/dL [facility] Comment on above: <100 mg/dl OPTIMAL 100-129 mg/dl NEAR OR ABOVE OPTIMAL 130-159 mg/dl BORDERLINE HIGH 160-189 mg/dl HIGH >190 mg/dl VERY HIGH Magnesium [Mass/Vol] 17 mg/dL [facility] Triglyceride [Mass/Vol] 85 mg/dL NINF - 150 mg/dL [facility] CCF CMP (CMP) (FOR REMOTE FH C USE)on 06-07-2024 Albumin [Mass/Vol] 3.6 g/dL 3.4 - 5.0 g/dL [facility] ALBUMIN GLOBULIN RATIO 1.1 [facility] ALP [Catalytic activity/Vol] 87 U/L 46 - 116 U/L [facility] ALT [Catalytic activity/Vol] 36 U/L 14 - 59 U/L [facility] Anion gap [Moles/Vol] 10.6 mmol/L [facility] AST [Catalytic activity/Vol] 28 U/L 15 - 37 U/L [facility] Bilirubin [Mass/Vol] 0.4 mg/dL 0.2 - 1.0 mg/dL [facility] Calcium [Mass/Vol] 8.8 mg/dL 8.5 - 10. 1 mg/dL [facility] Chloride [Moles/Vol] 105 mmol/L 98 - 107 mmol/L [facility] CO2 [Moles/Vol] 30.5 mmol/L 21.0 - 32.0 mmol/L [facility] Creatinine [Mass/Vol] 0.81 mg/dL 0.55 - 1.02 mg/dL [facility] GFR/1.73 sq M.predicted CKD-EPI (S/P/Bld) [Vol rate/Area] >60 >=60 mL/min/1.73m 2 [facility] Globulin (S) [Mass/Vol] 3.4 g/dL [facility] Glucose [Mass/Vol] 108 mg/dL High 74 - 106 mg/dL NO [facility] Interpretation and review of laboratory results Abnormal [facility] Potassium [Moles/Vol] 4.1 mmol/L 3.5 - 5.1 mmol/L [facility] Protein [Mass/Vol] 7 g/dL 6.4 - 8.2 g/dL NO [facility] Sodium [Moles/Vol] 142 mmol/L 136 - 145 mmol/L [facility] TBH EGFR-NON AF SPANISH >60 >=60 mL/min/1.73m 2 [facility] Urea nitrogen [Mass/Vol] 17 mg/dL 7.0 - 18.0 mg/dL [facility] Urea nitrogen/Creatinine [Mass ratio] 21 mg/mg [facility] No Panel Informationon 06-07 [facility] Healthcare 37on 04-27-2024 37 I renewed the [...] in 3 months. I sent referral to [facility] for cardiac rehab. Should call you in coming weeks. Kind regards, Oralia Olsen, [facility] Cardiovascular Medicine Contact me via [employer] [place] [phone] [facility] Follow-Upon 04-27-2024 Follow-Up [id number] Cherry Jaeger ma 1945 F Date Provider Department Center 04/27/2024 [id number] OLSEN [facility] CARD [facility] Family History Problem Relation Age of Onset Other Mother Other Father Family Status - Relation Status Age at Mother Father Level of Service:21048 [place] OFFICE/OUTPATIENT ESTABLISHED MOD MDM 30 MIN Reason for Visit and Comments: Follow-up [192660] - HF Normal [facility] ALL CBC WITH AUTO DIFFon BASOPHILS ABSOLUTE AUTO 0 [facility] Basophils/100 WBC (Bld) 0.7 % 0.2 - 2.0 % [facility] Eosinophils/100 WBC (Bld) 2 % 0.9 - 7.0 % [facility] Erythrocyte distribution width (RBC) [Ratio] 12.7 % 11.0 - 15.0 % [facility] Hematocrit (Bld) [Volume fraction] 32.7 % Low 36.0 - 48.0 % [facility] Hemoglobin (Bld) [Mass/Vol] 11.1 g/dL Low 12.0 - 16.0 g/dL [facility] IMMATURE GRANULOCYTES ABS AUTO 0.05 High [facility] Immature granulocytes/100 WBC (Bld) 0.8 % High 0.0 - 0.5 % [facility] Interpretation and review of laboratory results Abnormal [facility] LYMPHOCYTES ABSOLUTE AUTO 1.1 Low [facility] Lymphocytes/100 WBC (Bld) 18.3 % Low 20.5 - 60.0 % [facility] MCH (RBC) [Entitic mass] 29.5 pg 26.7 - 34.0 pg [facility] MCHC (RBC) [Mass/Vol] 33.9 g/dL 29.9 - 35.2 g/dL [facility] MCV (RBC) [Entitic vol] 87 fL 81.0 - 99.0 fL [facility] MONOCYTES ABSOLUTE AUTO 0.4 [facility] Monocytes/100 WBC (Bld) 7.2 % 1.7 - 12.0 % [facility] NEUTROPHILS ABSOLUTE AUTO 4.2 [facility] Neutrophils/100 WBC (Bld) 71 % 43.0 - 75.0 % [facility] Platelet mean volume (Bld) [Entitic vol] 10 fL 9.5 - 13.5 fL [facility] TBH EO # 0.1 [facility] PLT 283 [facility] RBC 3.76 Low [facility] WBC 6 [facility] 30on 04-20-2024 30 The patient is [...] facility with appropriate resources Outcome: Progressing Normal [facility] BASIC METABOLIC PANELon 03-0 Anion gap [Moles/Vol] 15 mmol/L Normal -20 [facility] Comment on above: Performed By: #### L AB15 #### [facility] ([facility]) [address] [place] [address] Calcium [Mass/Vol] 8.6 mg/dL Normal 8.6-10.3 [facility] Comment on above: Performed By: #### L AB15 #### [facility] ([facility]) [address] [place] [address] Chloride [Moles/Vol] 104 mmol/L Normal 98-107 [facility] Comment on above: Performed By: #### L [id number] #### [facility] ([facility]) [address] [place] [address] CO2 [Moles/Vol] 20 mmol/L Low 21-31 [facility] Comment on above: Performed By: #### L [id number] #### [facility] ([facility]) [address] [place] [address] Creatinine [Mass/Vol] 0.63 mg/dL Normal 0.60-1.20 [facility] Comment on above: Performed By: #### L AB15 #### [facility] ([facility]) [address] [place] [address] GLOMERULAR FILTRATION RATE ML/MIN/1.73 SQ M.PREDICTED 91.3 mL/min/1.73m*2 Normal >60.0 [facility] Comment on above: Result Comment: The [facility]???s estimated glomerular filtration rate (eGFR) [...] individuals. Performed By: #### L [id number] #### [facility] ([facility]) [address] [place] [address] Glucose [Mass/Vol] 119 mg/dL High 70-100 [facility] Comment on above: Performed By: #### L [id number] #### [facility] ([facility]) [address] [place] [address] Potassium [Moles/Vol] 4.2 mmol/L Normal 3.5-5.1 [facility] Comment on above: Performed By: #### L [id number] #### [facility] ([facility]) [address] [place] [address] Sodium [Moles/Vol] 135 mmol/L Low 136-145 [facility] Comment on above: Performed By: #### L [id number] #### [facility] ([facility]) [address] [place] [address] Urea nitrogen [Mass/Vol] 17 mg/dL Normal 7-25 [facility] Comment on above: Performed By: #### L [id number] #### [facility] ([facility]) [address] [place] [address] UREA NITROGEN/CREATININE (MASS RATIO) IN SER/PLAS 27.0 Normal [facility] Comment on above: Performed By: #### L [id number] #### [facility] ([facility]) [address] [place] [address] CBCon 04-20-2024 Erythrocyte distribution width (RBC) [Ratio] 12.8 % Normal 11.5-15.0 [facility] Comment on above: Performed By: #### L [id number] ####[facility] ([facility])[address] [address] ERYTHROCYTE MEAN CORPUSCULAR HEMOGLOBIN CONCENTRATION (G/DL) BY AUTOMATED 33.0 g/dL Normal 32.0-35.0 [facility] Comment on above: Performed By: #### L [id number] ####[facility] ([facility])[address] [address] Hematocrit (Bld) [Volume fraction] 38.5 % Normal 36.0-48.0 [facility] Comment on above: Performed By: #### L [id number] ####[facility] ([facility])[address] [address] Hemoglobin (Bld) [Mass/Vol] 12.7 g/dL Normal 12.0-15.0 [facility] Comment on above: Performed By: #### L [id number] ####[facility] ([facility])[address] [place] [address] MCH (RBC) [Entitic mass] 29.7 pg Normal 27.0-33.0 [facility] Comment on above: Performed By: #### L [id number] ####[facility] ([facility])[address] [address] MCV (RBC) [Entitic vol] 90.0 fL Normal 82.0-98.0 [facility] Comment on above: Performed By: #### L [id number] ####[facility] ([facility])[address] [place] [address] PLATELETS (10*3/UL) IN BLOOD AUTOMATED COUNT 242 10*3/uL Normal 150-400 [facility] Comment on above: Performed By: #### L [id number] ####[facility] ([facility])[address] [place] [address] RBC (Bld) [#/Vol] 4.28 10*6/uL Normal 3.80-5.00 [facility] Comment on above: Performed By: #### L [id number] ####[facility] ([facility])[address] [place] [address] WBC (Bld) [#/Vol] 11.02 10*3/uL High 4.00-10.60 [facility] Comment on above: Performed By: #### L [id number] ####[facility] ([facility])[address] [place] [address] HEMOGLOBIN AND HEMATOCRIT, B LOODon 04-20-2024 Hematocrit (Bld) [Volume fraction] 37.2 % Normal 36.0-48.0 [facility] Comment on above: Performed By: #### L [id number] #### [facility] ([facility]) [address] [place] [address] Hemoglobin (Bld) [Mass/Vol] 12.6 g/dL Normal 12.0-15.0 [facility] Comment on above: Performed By: #### L [id number] #### [facility] ([facility]) [address] [place] [address] VENOUS BLOOD GAS WITH IONIZE D CALCIUMon 04-20-2024 Base excess Calc (BldV) [Moles/Vol] -0.2000 mmol/L Normal [facility] Comment on above: Performed By: #### L [id number] ####[facility] [id number] [place] [address] [place] CALCIUM IONIZED (MMOL/L) IN BLOOD 1.18 mmol/L Normal 1.15-1.33 [facility] Comment on above: Performed By: #### L [id number] ####[facility] [id number] [place] [address] [place] CO2 (BldV) [Partial pressure] 31 mm[Hg] Low 40-50 [facility] Comment on above: Performed By: #### L [id number] ####[facility] [id number] [place] [address] [place] HCO3 (Bld) [Moles/Vol] 22.6 mmol/L Normal [facility] Comment on above: Performed By: #### L [id number] ####[facility] [id number] [place] [address] [facility] Oxygen (BldV) [Partial pressure] 62 mm[Hg] High 35-45 [facility] Comment on above: Performed By: #### L [id number] ####[facility] [id number] [place] [address] [facility] OXYGEN SATURATION (%) IN VENOUS BLOOD 91.5 % High 65.0-75.0 [facility] Comment on above: Performed By: #### L [id number] ####[facility] [id number] [place] [address] [facility] PH OF VENOUS BLOOD 7.47 High 7.31-7.41 [facility] Comment on above: Performed By: #### L [id number] ####[facility] [id number] [place] [address] [facility] 30on 04-19-2024 30 The patient is Moderately Stable - Low risk of patient condition declining or worsening The patient's goals for the shift include comfort and rest The clinical goals for the shift include stable VS Over the shift, the patient did make progress toward her goals. Normal [facility] 30 Daily Case Managemen t [...] Reason for NPO: Answer: Operation/Procedure 04/18/24 1648 04/18/241818 Special Kitchen Request Once Comments: Omlette with nicaraguan cheese anguillan cheese mushrooms green pepper 04/18/241818 Physician Expected Discharge Date: 04/20/2024 Discharge Delays: PT Six Click Score: 24 OT Six Click Score: PT Recommendations: OT Recommendations: New Consults: Normal [facility] 30 The patient is Moderately [...] and prevent overall improvement and discharge Normal [facility] Moshe 04-19-2024 ANES --- Attestation signed by Jose Alfredo Fregoso MD at 04/19/2024 11:52 AM Jose Alfredo Fregoso MD, MPH, [facility], [facility], [facility] Interventional Cardiology Pager Email: [email or web address] Patient: Diana Rosarios Procedure Information Date/Time: 04/19/24 1330 Procedure: Coronary angiography [facility] / [facility] (Cath) Providers: Jose Alfredo Fregoso [...] fellow and attending. Additional Equipment Requests Normal [facility] ANTI-XA (HEPARIN LEVEL)on HEPARIN UNFRACTIONATED (U/ML) IN PPP BY CHROMOGENIC METHOD 0.30 IU/mL Normal 0.3-0.7 [facility] Comment on above: Result Comment: [place] roxaban and Apixaban will interfere with the anti Xa assay used to monitor UFH and LMWH. Performed By: #### L [id number] #### [facility] (BEAKER) [address] [place] [address] HEMOGLOBIN AND HEMATOCRIT, B LOODon 04-19-2024 Hematocrit (Bld) [Volume fraction] 37.2 % Normal 36.0-48.0 [facility] Comment on above: Performed By: #### L [id number] ####[facility] (BEAKER)[address] [place] [address] Hemoglobin (Bld) [Mass/Vol] 12.3 g/dL Normal 12.0-15.0 [facility] Comment on above: Performed By: #### L [id number] ####[facility] (BEAKER)[address] [place] [address] Hematocrit (Bld) [Volume fraction] 39.4 % Normal 36.0-48.0 [facility] Comment on above: Performed By: #### L [id number] #### [facility] (BEAKER) [address] [place] [address] Hemoglobin (Bld) [Mass/Vol] 13.0 g/dL Normal 12.0-15.0 [facility] Comment on above: Performed By: #### L [id number] #### [facility] (BEAKER) [address] [address] HPon 04-19-2024 HP --- Attestation signed by Jose Alfredo Fregoso MD at 04/19/2024 11:52 AM Jose Alfredo Fregoso MD, MPH, [facility], [facility], [facility] Interventional Cardiology Pager Email: [email or web address] H&P reviewed. The patient was examined and there are no changes to the H&P. Will proceed with coronary angiogram for further assessment in the setting of unstable angina and significant CAD and prior PCI. Procedure's details, risks and benefits discussed with the patient and she's agreeable. [facility] NURSNOTEon 04-19-2024 NURSNOTE Updated report rizvi d to Pratima GARCIA on 3CD [facility] NURSNOTE Pt dry heaving, refu ses [...] artery. Pt agreed to try GI cocktail. [facility] 30on 04-18-2024 30 The patient is [...] or baseline comfort level Outcome: Progressing . Normal [facility] ANTI-XA (HEPARIN LEVEL)on HEPARIN UNFRACTIONATED (U/ML) IN PPP BY CHROMOGENIC METHOD 0.35 IU/mL Normal 0.3-0.7 [facility] Comment on above: Order Comment: Check anti-Xa level every 6 hours while on heparin infusion, or per protocol. Result Comment: [place] roxaban and Apixaban will interfere with the anti Xa assay used to monitor UFH and LMWH. Performed By: #### L [id number] ####[facility] ([facility])[address] [place] [address] HEPARIN UNFRACTIONATED (U/ML) IN PPP BY CHROMOGENIC METHOD 0.30 IU/mL Normal 0.3-0.7 [facility] Comment on above: Order Comment: Check anti-Xa level every 6 hours while on heparin infusion, or per protocol. Result Comment: [place] roxaban and Apixaban will interfere with the anti Xa assay used to monitor UFH and LMWH. Performed By: #### L [id number] #### [facility] ([facility]) [address] [place] [address] CBC WITH AUTO DIFFERENTIALon 04-18-2024 Basophils (Bld) [#/Vol] 0.08 10*3/uL Normal 0.00-0.20 [facility] Comment on above: Performed By: #### L [id number] #### [facility] ([facility]) [address] [place] [address] Basophils/100 WBC (Bld) 1.0 % Normal 0.0-1.0 [facility] Comment on above: Performed By: #### L [id number] #### [facility] (BE[facility]ER) [address] [place] [address] Eosinophils (Bld) [#/Vol] 0.19 10*3/uL Normal 0.00-0.50 [facility] Comment on above: Performed By: #### L [id number] #### [facility] ([facility]) [address] [place] [address] Eosinophils/100 WBC (Bld) 2.4 % Normal 0.0-6.0 [facility] Comment on above: Performed By: #### L [id number] #### [facility] ([facility]) [address] [place] [address] Erythrocyte distribution width (RBC) [Ratio] 13.0 % Normal 11.5-15.0 [facility] Comment on above: Performed By: #### L [id number] #### [facility] ([facility]) [address] [place] [address] ERYTHROCYTE MEAN CORPUSCULAR HEMOGLOBIN CONCENTRATION (G/DL) BY AUTOMATED 32.1 g/dL Normal 32.0-35.0 [facility] Comment on above: Performed By: #### L [id number] #### [facility] ([facility]) [address] [place] [address] Hematocrit (Bld) [Volume fraction] 39.9 % Normal 36.0-48.0 [facility] Comment on above: Performed By: #### L [id number] #### [facility] ([facility]) [address] [place] [address] Hemoglobin (Bld) [Mass/Vol] 12.8 g/dL Normal 12.0-15.0 [facility] Comment on above: Performed By: #### L [id number] #### [facility] ([facility]) [address] [place] [address] Immature granulocytes (Bld) [#/Vol] 0.05 10*3/uL Normal 0.00-0.20 [facility] Comment on above: Performed By: #### L [id number] #### [facility] ([facility]) [address] [place] [address] Immature granulocytes/100 WBC (Bld) 0.6 % Normal 0.0-1.0 [facility] Comment on above: Performed By: #### L [id number] #### [facility] ([facility]) [address] [place] [address] Lymphocytes (Bld) [#/Vol] 1.49 10*3/uL Normal 1.20-4.00 [facility] Comment on above: Performed By: #### L [id number] #### [facility] ([facility]) [address] [place] [address] Lymphocytes/100 WBC (Bld) 18.6 % Low 20.0-45.0 [facility] Comment on above: Performed By: #### L [id number] #### [facility] ([facility]) [address] [place] [address] MCH (RBC) [Entitic mass] 28.8 pg Normal 27.0-33.0 [facility] Comment on above: Performed By: #### L [id number] #### [facility] ([facility]) [address] [place] [address] MCV (RBC) [Entitic vol] 89.7 fL Normal 82.0-98.0 [facility] Comment on above: Performed By: #### L [id number] #### [facility] ([facility]) [address] [place] [address] Monocytes (Bld) [#/Vol] 0.64 10*3/uL Normal 0.10-1.00 [facility] Comment on above: Performed By: #### L [id number] #### [facility] ([facility]) [address] [place] [address] Monocytes/100 WBC (Bld) 8.0 % Normal 5.0-12.0 [facility] Comment on above: Performed By: #### L [id number] #### [facility] ([facility]) [address] [place] [address] Neutrophils (Bld) [#/Vol] 5.56 10*3/uL Normal 1.60-7.60 [facility] Comment on above: Performed By: #### L [id number] #### [facility] ([facility]) [address] [place] [address] Neutrophils/100 WBC (Bld) 69.4 % Normal 40.0-72.0 [facility] Comment on above: Performed By: #### L [id number] #### [facility] ([facility]) [address] [place] [address] NRBC (PER 100 WBCS) BY AUTOMATED COUNT 0.0 % Normal 0 [facility] Comment on above: Performed By: #### L [id number] #### [facility] ([facility]) [address] [place] [address] PLATELETS (10*3/UL) IN BLOOD AUTOMATED COUNT 282 10*3/uL Normal 150-400 [facility] Comment on above: Performed By: #### L [id number] #### [facility] ([facility]) [address] [place] [address] RBC (Bld) [#/Vol] 4.45 10*6/uL Normal 3.80-5.00 [facility] Comment on above: Performed By: #### L [id number] #### [facility] ([facility]) [address] [place] [address] WBC (Bld) [#/Vol] 8.01 10*3/uL Normal 4.00-10.60 [facility] Comment on above: Performed By: #### L [id number] #### [facility] ([facility]) [address] [place] [address] CONSULTon 04-18-2024 CONSULT --- Attestation signed by [...] Teaching Physician's Revisions: none Marija Johnson MD [place] [facility] Cardiology Consult Note Reason for Consult: Chest pain HPI: Diana Mendez is a 79 year old female patient with past history remarkable for primary hypertension, prediabetes, mixed hyperlipidemia, coronary artery disease with prior LAD stent in 2017, chronic heart failure with improved ejection fraction, history of stress induced cardiomyopathy who [facility] where she initially presented complaining of chest [...] Other ( heart problems ) Father Allergies Stmfagc-kva-djx reductase inhibitors Medications Current Outpatient Medications Medication [...] meal. 04/17/2024 cholecalciferol (Vitamin D-3) 50 MCG (2000 UT) [...] 04/18/24 0800 -- 36.4 ???C (97.5 ???F) Temporal -- -- -- -- -- 04/18/24 0613 -- -- -- -- -- -- -- 59.9 kg (132 lb) 04/18/24 0520 137/81 36.4 ???C (97.5 ???F) Temporal 95 20 98 % -- -- 04/18/24 0400 -- 36.4 ???C (97.5 ???F) Temporal 56 14 96 % -- -- 04/18/24 0000 119/54 -- -- 57 12 93 % -- -- 04/17/24 2100 -- -- -- -- -- -- -- 49.2 kg (108 lb 8 oz) 04/17/241999 139/64 36.3 ???C (97.3 ???F) Temporal 64 12 97 % 1.499 m (4' [...] Abdominal: Palpa (more content not included)... Normal [facility] HEMOGLOBIN A1Con 04-18-2024 Glucose [Mass/Vol] 120 mg/dL Normal [facility] Comment on above: Performed By: #### L [id number] #### [facility] (AKER) [address] [place] [address] HbA1c (Bld) [Mass fraction] 5.8 % Normal 4.0-6.0 [facility] Comment on above: Performed By: #### L [id number] #### [facility] ([facility]) [address] [place] [address] HPon 04-18-2024 HP --- Attestation signed by [...] Teaching Physician's Revisions: none Marija Johnson MD [place] [facility] Cardiology Consult Note Reason for Consult: Chest pain HPI: Diana Mendez is a 79 year old female patient with past history remarkable for primary hypertension, prediabetes, mixed hyperlipidemia, coronary artery disease with prior LAD stent in 2017, chronic heart failure with improved ejection fraction, history of stress induced cardiomyopathy who [facility] from [facility] where she initially presented complaining of chest [...] Other ( heart problems ) Father Allergies Hedvgoj-ndu-gqv reductase inhibitors Medications Current Outpatient Medications Medication [...] meal. 04/17/2024 cholecalciferol (Vitamin D-3) 50 MCG (2000 UT) [...] 04/18/24 0800 -- 36.4 ???C (97.5 ???F) Temporal -- -- -- -- -- 04/18/24 0613 -- -- -- -- -- -- -- 59.9 kg (132 lb) 04/18/24 0520 137/81 36.4 ???C (97.5 ???F) Temporal 95 20 98 % -- -- 04/18/24 0400 -- 36.4 ???C (97.5 ???F) Temporal 56 14 96 % -- -- 04/18/24 0000 119/54 -- -- 57 12 93 % -- -- 04/17/24 2100 -- -- -- -- -- -- -- 49.2 kg (108 lb 8 oz) 04/17/241999 139/64 36.3 ???C (97.3 ???F) Temporal 64 12 97 % 1.499 m (4' [...] Abdominal: Palpa (more content not included)... Normal [facility] LIPID PANELon 04-18-2024 CHOL/HDL 3.9 mg/dL Normal [facility] Comment on above: Performed By: #### L [id number] #### [facility] ([employer]) [address] [place] [address] Cholesterol [Mass/Vol] 181 mg/dL Normal 120-200 [facility] Comment on above: Performed By: #### L [id number] #### [facility] ([employer]) [address] [place] [address] Magnesium [Mass/Vol] 141 mg/dL Normal 40-149 [facility] Comment on above: Result Comment: TRIG LYCERIDE REFERENCE RANGE: 20 YEARS AND OLDER CARDIOVASCULAR RISK LESS THAN 150 mg/dL LOW RISK 150 TO 199 mg/dL BORDERLINE RISK 200 mg/dL AND GREATER HIGH RISK Performed By: #### L [id number] #### [facility] ([employer]) [address] [place] [address] Magnesium [Mass/Vol] 106 mg/dL Normal 0-160 [facility] Comment on above: Performed By: #### L [id number] #### [facility] ([facility]) [address] [facility] [address] Magnesium [Mass/Vol] 47 mg/dL Normal 23-92 [facility] Comment on above: Performed By: #### L [id number] #### [facility] ([facility]) [address] [address] NON HDL CHOL. (LDL+VLDL) 134 Normal [facility] Comment on above: Performed By: #### L [id number] #### [facility] ([facility]) [address] [place] [address] TOTAL VLDL-C 28 mg/dL Normal 0-40 [facility] Comment on above: Performed By: #### L [id number] #### [facility] ([facility]) [address] [place] [address] TROPONIN Ion 04-18-2024 Troponin I.cardiac [Mass/Vol] 0.00 ng/mL Normal 0.00-0.04 [facility] Comment on above: Performed By: #### L [id number] #### [facility] ([facility]) [address] [place] [address] Troponin I.cardiac [Mass/Vol] 0.00 ng/mL Normal 0.00-0.04 [facility] Comment on above: Performed By: #### L [id number] #### [facility] ([facility]) [address] [place] [address] Troponin I.cardiac [Mass/Vol] 0.00 ng/mL Normal 0.00-0.04 [facility] Comment on above: Performed By: #### L [id number] ####[facility] ([facility])[address] [place] [address] 30on 04-17-2024 30 The patient is Moderately Stable - Low risk of patient condition declining or worsening The patient's goals for the shift include VSS The clinical goals for the shift include VSS Problem: Pain - Adult Goal: Verbalizes/displays adequate comfort level or baseline comfort level 04/17/20242112 by Bear Jamison, RN Outcome: Progressing Problem: Safety - Adult Goal: Free from fall injury 04/17/20242112 by Bear Jamison RN Outcome: Progressing Flowsheets (Taken 04/17/20242112) Free from fall injury: Assess patient frequently for physical needs Identify cognitive and physical deficits and behaviors that affect risk of falls Educate patient/family on patient safety, including physical limitations Watson fall precautions as indicated by assessment Instruct [...] patient/family on patient safety, including physical limitations Watson fall precautions as indicated by assessment Instruct [...] and prevent overall improvement and discharge Normal [facility] 30 The patient is Moderately Stable - Low risk of patient condition declining or worsening The patient's goals for the shift include VSS The clinical goals for the shift include VSS Normal [facility] APTTon 04-17-2024 ACTIVATED PARTIAL THROMBOPLASTIN TIME IN PPP BY COAGULATION ASSAY 27.3 Seconds Normal 25.0-35.0 [facility] Comment on above: Order Comment: Basel ine aPTT before initiating heparin infusion. Result Comment: Clin ical significance of the APTT is questionable in the presence of heparin. Performed By: #### L [id number] ####[facility] ([facility])[address] [place] [address] B-TYPE NATRIURETIC PEPTIDEon 04-17-2024 Natriuretic peptide B (Bld) [Mass/Vol] 49 pg/mL Normal 0-100 [facility] Comment on above: Performed By: #### L [id number] #### [facility] ([facility]) [address] [place] [address] CBC WITH AUTO DIFFERENTIALon 04-17-2024 Basophils (Bld) [#/Vol] 0.05 10*3/uL Normal 0.00-0.20 [facility] Comment on above: Performed By: #### L [id number] #### [facility] ([facility]) [address] [place] [address] Basophils/100 WBC (Bld) 0.6 % Normal 0.0-1.0 [facility] Comment on above: Performed By: #### L [id number] #### [facility] ([facility]) [address] [place] [address] Eosinophils (Bld) [#/Vol] 0.15 10*3/uL Normal 0.00-0.50 [facility] Comment on above: Performed By: #### L [id number] #### [facility] ([facility]) [address] [place] [address] Eosinophils/100 WBC (Bld) 1.8 % Normal 0.0-6.0 [facility] Comment on above: Performed By: #### L [id number] #### [facility] ([facility]) [address] [place] [address] Erythrocyte distribution width (RBC) [Ratio] 13.0 % Normal 11.5-15.0 [facility] Comment on above: Performed By: #### L [id number] #### [facility] ([facility]) [address] [place] [address] ERYTHROCYTE MEAN CORPUSCULAR HEMOGLOBIN CONCENTRATION (G/DL) BY AUTOMATED 33.5 g/dL Normal 32.0-35.0 [facility] Comment on above: Performed By: #### L [id number] #### [facility] ([facility]) [address] [place] [address] Hematocrit (Bld) [Volume fraction] 39.4 % Normal 36.0-48.0 [facility] Comment on above: Performed By: #### L [id number] #### [facility] ([facility]) [address] [place] [address] Hemoglobin (Bld) [Mass/Vol] 13.2 g/dL Normal 12.0-15.0 [facility] Comment on above: Performed By: #### L [id number] #### [facility] ([facility]) [address] [place] [address] Immature granulocytes (Bld) [#/Vol] 0.03 10*3/uL Normal 0.00-0.20 [facility] Comment on above: Performed By: #### L [id number] #### [facility] ([facility]) [address] [place] [address] Immature granulocytes/100 WBC (Bld) 0.4 % Normal 0.0-1.0 [facility] Comment on above: Performed By: #### L [id number] #### [facility] ([facility]) [address] [place] [address] Lymphocytes (Bld) [#/Vol] 1.54 10*3/uL Normal 1.20-4.00 [facility] Comment on above: Performed By: #### L [id number] #### [facility] ([facility]) [address] [place] [address] Lymphocytes/100 WBC (Bld) 18.8 % Low 20.0-45.0 [facility] Comment on above: Performed By: #### L [id number] #### [facility] ([facility]) [address] [place] [address] MCH (RBC) [Entitic mass] 29.1 pg Normal 27.0-33.0 [facility] Comment on above: Performed By: #### L [id number] #### [facility] ([facility]) [address] [place] [address] MCV (RBC) [Entitic vol] 86.8 fL Normal 82.0-98.0 [facility] Comment on above: Performed By: #### L [id number] #### [facility] ([facility]) [address] [place] [address] Monocytes (Bld) [#/Vol] 0.54 10*3/uL Normal 0.10-1.00 [facility] Comment on above: Performed By: #### L [id number] #### [facility] ([facility]) [address] [place] [address] Monocytes/100 WBC (Bld) 6.6 % Normal 5.0-12.0 [facility] Comment on above: Performed By: #### L [id number] #### [facility] ([facility]) [address] [place] [address] Neutrophils (Bld) [#/Vol] 5.88 10*3/uL Normal 1.60-7.60 [facility] Comment on above: Performed By: #### L [id number] #### [facility] ([facility]) [address] [place] [address] Neutrophils/100 WBC (Bld) 71.8 % Normal 40.0-72.0 [facility] Comment on above: Performed By: #### L [id number] #### [facility] ([facility]) [address] [place] [address] NRBC (PER 100 WBCS) BY AUTOMATED COUNT 0.0 % Normal 0 [facility] Comment on above: Performed By: #### L [id number] #### [facility] ([facility]) [address] [place] [address] PLATELETS (10*3/UL) IN BLOOD AUTOMATED COUNT 282 10*3/uL Normal 150-400 [facility] Comment on above: Performed By: #### L [id number] #### [facility] ([facility]) [address] [place] [address] RBC (Bld) [#/Vol] 4.54 10*6/uL Normal 3.80-5.00 [facility] Comment on above: Performed By: #### L [id number] #### [facility] ([facility]) [address] [place] [address] WBC (Bld) [#/Vol] 8.19 10*3/uL Normal 4.00-10.60 [facility] Comment on above: Performed By: #### L [id number] #### [facility] ([facility]) [address] [place] [address] COMPREHENSIVE METABOLIC PANE James 04-17-2024 Albumin [Mass/Vol] 4.4 g/dL Normal 3.5-5.7 [facility] Comment on above: Performed By: #### L [id number] #### [facility] [address] [place] [address] ALP [Catalytic activity/Vol] 72 U/L Normal 34-104 [facility] Comment on above: Performed By: #### L [id number] #### [facility] ([facility]) [address] [place] [address] ALT [Catalytic activity/Vol] 13 U/L Normal 7-52 [facility] Comment on above: Performed By: #### L [id number] #### [facility] ([facility]) [address] [place] [address] Anion gap [Moles/Vol] 11 mmol/L Normal 7-20 [facility] Comment on above: Performed By: #### L [id number] #### [facility] ([facility]) [address] [place] [address] AST [Catalytic activity/Vol] 16 U/L Normal 13-39 [facility] Comment on above: Performed By: #### L [id number] #### [facility] ([facility]) [address] [place] [address] Bilirubin [Mass/Vol] 0.5 mg/dL Normal 0.3-1.0 [facility] Comment on above: Performed By: #### L [id number] #### [facility] ([facility]) [address] [place] [address] Calcium [Mass/Vol] 9.3 mg/dL Normal 8.6-10.3 [facility] Comment on above: Performed By: #### L [id number] #### [facility] [address] [place] [address] Chloride [Moles/Vol] 106 mmol/L Normal 98-107 [facility] Comment on above: Performed By: #### L [id number] #### [facility] [address] [place] [address] CO2 [Moles/Vol] 25 mmol/L Normal 21-31 [facility] Comment on above: Performed By: #### L [id number] #### [facility] ([facility]) [address] [place] [address] Creatinine [Mass/Vol] 0.72 mg/dL Normal 0.60-1.20 [facility] Comment on above: Performed By: #### L [id number] #### [facility] ([facility]) [address] [place] [address] GLOMERULAR FILTRATION RATE ML/MIN/1.73 SQ M.PREDICTED 86.1 mL/min/1.73m*2 Normal >60.0 [facility] Comment on above: Result Comment: The [facility]???s estimated glomerular filtration rate (eGFR) [...] group of individuals. Performed By: #### L [id number] #### [facility] ([facility]) [address] [place] [address] Glucose [Mass/Vol] 103 mg/dL High 70-100 [facility] Comment on above: Performed By: #### L [id number] #### [facility] ([facility]) [address] [place] [address] Potassium [Moles/Vol] 3.9 mmol/L Normal 3.5-5.1 [facility] Comment on above: Performed By: #### L [id number] #### [facility] ([facility]) [address] [place] [address] Protein [Mass/Vol] 7.4 g/dL Normal 6.0-8.3 [facility] Comment on above: Performed By: #### L [id number] #### [facility] ([facility]) [address] [place] [address] Sodium [Moles/Vol] 138 mmol/L Normal 136-145 [facility] Comment on above: Performed By: #### L [id number] #### [facility] ([facility]) [address] [place] [address] Urea nitrogen [Mass/Vol] 12 mg/dL Normal 7-25 [facility] Comment on above: Performed By: #### L [id number] #### [facility] ([facility]) [address] [place] [address] UREA NITROGEN/CREATININE (MASS RATIO) IN SER/PLAS 16.7 Normal [facility] Comment on above: Performed By: #### L [id number] #### [facility] ([facility]) [address] [place] [address] LACTIC ACID, PLASMAon 2024 LACTATE (MMOL/L) IN SER/PLAS 1.2 mmol/L Normal 0.5-2.2 [facility] Comment on above: Performed By: #### L [id number] #### [facility] ([facility]) [address] [place] [address] MAGNESIUMon 04-17-2024 Magnesium [Mass/Vol] 2.2 mg/dL Normal 1.9-2.7 [facility] Comment on above: Performed By: #### L [id number] ####[facility] ([facility])[address] [place] [address] PHOSPHORUSon 04-17-2024 Magnesium [Mass/Vol] 3.3 mg/dL Normal 2.5-5.0 [facility] Comment on above: Performed By: #### L [id number] #### [facility] ([facility]) [address] [place] [address] PROTIME-INRon 04-17-2024 INR IN PPP BY COAGULATION ASSAY 1.01 Normal 0.90-1.10 [facility] Comment on above: Result Comment: [...] CHEST 1995;[id number]. Performed By: #### L [id number] ####[facility] [place] [address] PROTHROMBIN TIME (PT) IN PPP BY COAGULATION ASSAY 13.3 Seconds Normal 12.3-14.8 [facility] Comment on above: Performed By: #### L [id number] ####[facility] [place] [address] TROPONIN Ion 04-17-2024 Troponin I.cardiac [Mass/Vol] 0.00 ng/mL Normal 0.00-0.04 [facility] Comment on above: Performed By: #### L [id number] #### [facility] ([facility]) [address] [place] [address] Office Visiton 12-01-2023 Follow-up visit [id number] Cherry Jaeger ma 1945 F Date Provider Department Center 12/01/2023 [facility] ALFR[facility]O [facility] Family History Problem Relation Age of Onset Other Mother Other Father Family Status - Relation Status Age at Mother Father Level of Service:[address] [place] OFFICE/OUTPATIENT NEW LOW MDM 30 MINUTES Normal [facility] Vital Signs Date Time Vital Sign Value Performing Clinician Facility 10-06-2024 10:41-0400 Body height 152.4 cm Sunny Henning MD Work Phone: [facility] 10-06-2024 10:41-0400 Body mass index (BMI) [Ratio] 24.61 kg/m2 Sunny Henning MD Work Phone: [facility] 10-06-2024 10:41-0400 Body temperature 97.11 [degF] Sunny Henning MD Work Phone: [facility] 10-06-2024 10:41-0400 Body weight 57.15 kg Sunny Henning MD Work Phone: [facility] 10-06-2024 10:41-0400 Diastolic blood pressure 70 mm[Hg] Sunny Henning MD Work Phone: [facility] 10-06-2024 10:41-0400 Heart rate 56 /min Snuny Henning MD Work Phone: [facility] 10-06-2024 10:41-0400 Respiratory rate 20 /min Sunny Henning MD Work Phone: [facility] 10-06-2024 10:41-0400 SaO2% (BldA) [Mass fraction] 99 % Sunny Henning MD Work Phone: [facility] 10-06-2024 10:41-0400 Systolic blood pressure 110 mm[Hg] Sunny Henning MD Work Phone: [facility] 08-04-2024 10:56-0400 Body height 152.4 cm Sunny Henning MD Work Phone: [facility] 08-04-2024 10:56-0400 Body mass index (BMI) [Ratio] 25.39 kg/m2 Sunny Henning MD Work Phone: [facility] 08-04-2024 10:56-0400 Body temperature 97.5 [degF] Sunny Henning MD Work Phone: [facility] 08-04-2024 10:56-0400 Body weight 58.97 kg Sunny Henning MD Work Phone: [facility] 08-04-2024 10:56-0400 Diastolic blood pressure 62 mm[Hg] Sunny Henning MD Work Phone: [facility] 08-04-2024 10:56-0400 Heart rate 70 /min Sunny Henning MD Work Phone: [facility] 08-04-2024 10:56-0400 Respiratory rate 20 /min Sunny Henning MD Work Phone: [facility] 08-04-2024 10:56-0400 SaO2% (BldA) [Mass fraction] 97 % Sunny Henning MD Work Phone: [facility] 08-04-2024 10:56-0400 Systolic blood pressure 118 mm[Hg] Sunny Henning MD Work Phone: [facility] 12-08-2023 09:29-0400 Body height 152.4 cm Sunny Henning MD Work Phone: [facility] 12-08-2023 09:29-0400 Body mass index (BMI) [Ratio] 26.95 kg/m2 Sunny Henning MD Work Phone: [facility] 12-08-2023 09:29-0400 Body temperature 97.3 [degF] Sunny Henning MD Work Phone: [facility] 12-08-2023 09:29-0400 Body weight 62.6 kg Sunny Henning MD Work Phone: [facility] 12-08-2023 09:29-0400 Diastolic blood pressure 50 mm[Hg] Sunny Henning MD Work Phone: [facility] 12-08-2023 09:29-0400 Heart rate 53 /min Sunny Henning MD Work Phone: [facility] 12-08-2023 09:29-0400 Respiratory rate 20 /min Sunny Henning MD Work Phone: [facility] 12-08-2023 09:29-0400 SaO2% (BldA) [Mass fraction] 97 % Sunny Henning MD Work Phone: [facility] 12-08-2023 09:29-0400 Systolic blood pressure 112 mm[Hg] Sunny Henning MD Work Phone: [facility] 05-11-2023 10:10-0400 Body height 149.9 cm Ras Garza MD Work Phone: [facility] 05-11-2023 10:10-0400 Body mass index (BMI) [Ratio] 27.87 kg/m2 Ras Garza MD Work Phone: [facility] 05-11-2023 10:10-0400 Body weight 62.6 kg Ras Garza MD Work Phone: [facility] 05-11-2023 10:10-0400 Diastolic blood pressure 74 mm[Hg] Ras Garza MD Work Phone: [facility] 05-11-2023 10:10-0400 Heart rate 69 /min Ras Garza MD Work Phone: [facility] 05-11-2023 10:10-0400 SaO2% (BldA) [Mass fraction] 99 % Ras Garza MD Work Phone: [facility] 05-11-2023 10:10-0400 Systolic blood pressure 130 mm[Hg] Ras Garza MD Work Phone: [facility] Encounters Encounter Date Encounter Type Care Provider Facility Start: 10-11-2024 End: 10-11-2024 Refill Sunny eHnning MD Work Phone: [facility] Comment on above: Generalized anxiety disorder Start: 10-06-2024 End: 10-06-2024 Bamboo flowsheet Sunny Henning MD Work Phone: [facility] Start: 10-06-2024 End: 10-06-2024 Bamboo flowsheet Sunny Henning MD Work Phone: [facility] Start: 10-06-2024 End: 10-06-2024 Office outpatient visit 25 minutes Sunny Henning MD Work Phone: [facility] Comment on above: Essential hypertensi on, benign (Primary Dx); Generalized anxiety disorder ; Primary insomnia; Primary osteoarthritis of left hip; CAD in [place] artery Start: 10-06-2024 End: 10-06-2024 ambulatory SUNNY HENNING Not Available Start: 09-06-2024 End: 09-22-2024 Clinisync Result Encounter Generic External Data Provider [facility] Unsolicited Start: 09-06-2024 End: 09-22-2024 Clinisync Result Encounter Generic External Data Provider [facility] External [facility] Unsolicited Start: 08-29-2024 End: 08-29-2024 ambulatory [facility] Start: 08-10-2024 End: 08-10-2024 Clinisync Result Encounter [...] External Department Unsolicited Start: 06-20-2024 End: 06-20-2024 Refvenancio Henning MD Work Phone: [facility] Comment on above: Generalized anxiety disorder (CMS/HCC) Start: 06-13-2024 End: 06-13-2024 Clinisync Result Encounter Generic External Data Provider [facility] Unsolicited Start: 06-13-2024 End: 06-13-2024 Clinisync Result Encounter Generic External Data Provider [facility] External [facility] Unsolicited Start: 06-13-2024 End: 06-13-2024 ambulatory [facility] Start: 06-07-2024 End: 06-07-2024 Clinisync Result Encounter Generic External Data Provider [facility] External Department Unsolicited Start: 06-07-2024 End: 06-07-2024 Clinisync Result Encounter Generic External Data Provider [facility] External [facility] Unsolicited Start: 05-03-2024 End: 05-03-2024 ambulatory SUNNY HENNING Not Available Start: 04-27-2024 ambulatory [facility] Start: 04-24-2024 End: 04-24-2024 Clinisync Result Encounter Generic External Data Provider [facility] External [facility] Unsolicited Start: 04-24-2024 End: 04-24-2024 Clinisync Result Encounter Generic External Data Provider [facility] External Department Unsolicited Start: 04-19-2024 Evaluation and manag ement of inpatient [facility] Start: 04-18-2024 Evaluation and manag ement of inpatient [facility] Start: 04-17-2024 End: 04-20-2024 Evaluation and management of inpatient CALIN YE [facility] Start: 12-08-2023 End: 12-08-2023 Patric Henning MD Work Phone: [facility] Start: 12-08-2023 End: 12-08-2023 [facility] vaughn Henning MD Work Phone: [facility] Start: 12-08-2023 End: 12-08-2023 Office outpatient visit 25 minutes Sunny Henning MD Work Phone: [facility] Comment on above: Essential hypertensi on, benign (CMS/HCC) (Primary Dx); Generalized anxiety disorder (CMS/HCC); CAD in [place] artery (CMS/HCC); Primary insomnia; Primary osteoarthritis of left hip Start: 12-08-2023 End: 12-08-2023 ambulatory SUNNY HENNING Not Available Start: 12-01-2023 End: 12-01-2023 ambulatory AB [facility] Start: 07-06-2023 End: 07-06-2023 Refill Hazem Malas DO Work Phone: [facility] Comment on above: Med Refill Start: 06-11-2023 End: 06-11-2023 Refill Hazem Malas DO Work Phone: [facility] Comment on above: Med Refill Start: 05-11-2023 End: 05-11-2023 ambulatory RAS GARZA [facility] Start: 05-11-2023 End: 05-11-2023 Office outpatient visit 15 minutes Ras Garza MD Work Phone: [facility] Comment on above: Coronary artery dise ase involving [place] coronary artery of [place] heart without angina pectoris (Primary Dx) Start: 05-10-2023 Telephone encounter Pratima snell [facility] Start: 08-31-2019 Preoperative state Pratima Jeffers [facility] Start: 08-21-2019 Admission to establishment Ilda Arias [facility] Work Phone: Procedures Date Procedure Procedure Detail [...] Start: 06-07-2024 [facility] CMP (CMP) (FOR R [facility] USE) Generic External Data Provider Start: 04-24-2024 ALL CBC WITH AUTO DIFF Generic External Data Provider Plan of Treatment Date Care Activity Detail Author Start: 08-04-2025 Medicare Annual Well ness (AWV) Medicare Annual Wellness (AWV) [facility] Start: 04-09-2025 End: 04-09-2025 Patient encounter procedure 04/09/2025 10:30 AM EST Office Visit [facility] [address] [place] [address] Sunny Henning MD [address] [place] [phone] [facility] Start: 12-07-2024 Medicare Annual [...] [facility] [address] [place] [address] Sunny Henning MD [address] [place] [phone] [facility] Start: 05-10-2024 Adult BMI Screening Adult BMI Screen ing [facility] Start: 05-10-2024 Tobacco Screening Tobacco Screening [facility] Start: 05-04-2024 End: 05-04-2024 Patient encounter procedure 05/04/2024 3:30 PM EDT Office Visit [facility] [address] [place] [phone] Sunny Henning MD [address] [place] [phone] [facility] Start: 12-08-2023 End: 12-08-2023 Patient encounter procedure 12/08/2023 9:30 AM EDT Office Visit [facility] [address] [place] [phone] Sunny Henning MD [address] [place] [phone] Arrived [facility] Comment on above: Arrived Start: 11-12-2023 Adult BMI Screening Adult BMI Screen ing [facility] Start: 11-12-2023 Tobacco Screening Tobacco Screening [facility] Start: 10-17-2023 Influenza vaccination N [facility] Start: 05-11-2023 End: 05-11-2023 Patient encounter procedure 05/11/2023 10:30 AM EDT Office Visit [facility] [address] [place] [address] Ras Garza MD [address] [facility] [place] [address] [facility] Start: 10-16-2022 COVID-19 Vaccine () COVID-19 Vaccine ( season) [facility] Start: 10-16-2022 Influenza vaccination Influenza Vacc ine [facility] Start: 2012 Fall Risk Screening Fall Risk Screen ing [facility] Start: 1997 Administration of varicella zoster vaccine Zoster (Shingles) Vaccine (1 of 2) [facility] Start: 1966 DTaP,Tdap and Td Vac cines (1 - Tdap) DTaP,Tdap and Td Vaccines (1 - Tdap) [facility] Start: 1965 Adult BMI Follow Up Plan Adult BMI Follow Up Plan [facility] Start: 1959 Depression Screening Depression Scre ening [facility] Start: 1945 Medicare Annual Well ness (AWV) Medicare Annual Wellness (AWV) [facility] Start: 1945 Medicare Annual Well ness Visit Medicare Annual Wellness Visit [facility] Immunizations Immunization Date Immunization Notes Care Provider Fa [facility] 12-08-2023 influenza virus vaccine, unspecified formulation Generic Provider [facility] 01-18-2023 influenza virus vaccine, unspecified formulation Joon Barron DO Work Phone: [facility] 10-28-2021 influenza virus vaccine, unspecified formulation Pratima Arias [facility] 04-25-2020 COVID-19, mRNA, LNP- S, PF, 100mcg/0.5mL Dose Pratima Arias [facility] 03-28-2020 COVID-19, mRNA, LNP- S, PF, 100mcg/0.5mL Dose Pratima Arias [facility] 11-13-2017 Seasonal trivalent influenza vaccine, adjuvanted, preservative free Pratima Arias [facility] Payers Date Payer Category Payer Private Health Insurance [id number] 2021 Unknown [id number] 2012 Medicare [id number] 2012 Medicare [id number] 1945 Unknown [id number] 1945 Unknown [id number] 1945 Unknown [id number] [id number] 1945 Unknown [id number] 1945 Unknown [id number] Social History Date Type Detail Facility Start: 05-23-2021 End: 08-10-2023 Tobacco smoking status TXIS Never smoked tobacco [facility] Start: 05-23-2021 End: 08-10-2023 Tobacco use and exposure Smokeless tobacco non-user [facility] Start: 08-10-2023 End: 10-06-2024 Alcoholic beverage intake Lifetime non-drinker (finding) [facility] Start: 05-06-2023 End: 09-30-2024 History of Social function [facility] Start: 05-06-2023 End: 09-30-2024 Social connection and isolation panel [facility] Do you belong to any clubs or organizations such as jewish groups, unions, fraternal or athletic groups, or school groups? Yes [facility] Are you now , , , , never or living with a partner? [facility] How often to you hav e a drink containing alcohol? Monthly or less [facility] How many standard drinks containing alcohol do you have on a typical day? Patient does not drink [facility] How often do you hav e 6 or more drinks on 1 occasion? Never [facility] Do you feel stress - tense, restless, nervous, or anxious, or unable to sleep at night because your mind is troubled all the time - these days [OSQ] Only a little [facility] (I/We) worried [facility] (my/our) food would run out before [...] beverage intake Current drinker of alcohol (finding) [facility] How often do you hav e 6 or more drinks on 1 occasion? Less than monthly [facility] [employer] [facility] Start: 10-10-2016 Alcohol Comment drinks wine occasionally [facility] Start: 1945 Sex assigned at Not on file P [facility] [employer] [facility] Do you feel stress - tense, [...] Dates Lens Iol Ultrase rt 14.0d - [id number] - [id number] Start: 04-15-2021 Lens Iol Ultrase rt 13.0d - [id number] - [id number] Start: 05-01-2021 Mesh Tiss 10x7cm Lima - [id number] - [id number] Start: 06-07-2017 Shl Actb G7 Pps Ltd 52e - [id number] Start: 09-04-2019 Linr Actb G7 Ntr l 36mm E - [id number] Start: 09-04-2019 Stm Fem 115mm 13 3d 15 Std Os - [id number] Start: 09-04-2019 Hd Fem 36mm Opt Shl Actb G7 Bl Rpl [id number] - [id number] Start: 09-04-2019 Slv Fem Opt -3mm Tpr Hip Blx D Rpl [id number] - [id number] Start: 09-04-2019 Juanjose Xience Alpin e 3.0x15mm Repl [id number] - [id number] FDA Start: 10-12-2016 Juanjose Michael 2.11l52lw Repl [id number] - [id number] Start: 10-12-2016 Goals Date Patient Goal [...] [facility] ionnaire 2 item (PHQ-2) [Reported] [facility] Clinical Notes 05-10-2023 to 10-06-2024 Sunny Henning [...] and monitor PRN. Associated Problem(s): CAD in [place] artery No pain and continue cardiac rehab. [...] BP controlled and monitor PRN. CAD in [place] artery No pain and continue cardiac rehab. Follow with cardiology. Generalized anxiety disorder Symptoms stable without SSRI and monitor. Use xanax PRN. Primary insomnia Sleeping well with medication and continue. Primary osteoarthritis of left hip Minimal pain and use OTC PRN. documented in this encounter [facility] 08-29-2024 Note [facility] Cardiology Clinic Note Chief Complaint: Patient here [...] Other ( heart problems ) Father Allergies Ndnqvve-lxq-krb reductase inhibitors Medications Current Outpatient Medications: ALPRAZolam [...] effort of breathing, (more content not included)... [facility] 08-04-2024 History of Present illness [...] note were not included. Subjective Patient ID: Daina Jaeger is a 79 y.o. female who [...] not to smoke. documented in this encounter [facility] 06-13-2024 Note [facility] Cardiology Clinic Note Chief Complaint: Patient here for 1 mo follow up CAD, unstable angina, and HFimpEF. Underwent PCI last month. She will start cardiac rehab after her trip to [place]. Had lipid panel last week. She's still [...] Other ( heart problems ) Father Allergies Ycuxlat-lph-tlt reductase inhibitors Medications Current Outpatient Medications: ALPRAZolam [...] thickened and exhibit normal excursion. There is poxhx-yv-opkb regurgitation. There is no evidence of mitral valve st (more content not included)... [facility] 04-27-2024 Note [facility] C[facility]Y PROGR ESS NOTE HVC Overview HPI: Diana Jaeger is a 79 y.o. female here for FU of recent hospitalization for [place] [facility] with Stenting of LAD She is followed by [facility] since 11/2023 HPI PMH: Recent unstable angina with additional stent to LAD, history of CAD with stenting of proximal and mid LAD (2017). Also heart failure with improved EF, history of stress-induced cardiomyopathy, hypertension, prediabetes, dyslipidemia, 04/17/2024 admitted as transfer from [facility] for unstable angina I with anterior wall [...] cholesterol labs in 3 months, referral to [facility] for cardiac rehab. After extended discussion, she declines alternative to statin, and we will recheck lipids in 3 months. Wt Readings from Last 3 Encounters: 04/27/24 62.9 kg (138 lb 9.6 oz) 04/20/24 59 kg (130 lb) 12/01/23 62.1 kg (137 lb) Assessment and Plan #CAD #Unstable angina. #Hyperlipidemia --Currently denies angina, chest pain --04/19/24 [facility]: Severe stenosis of the left anterior descending [...] not on statin --Will fax referral to [facility] for phase 2 cardiac rehab. --Given written [...] crackles or rhonchi (more content not included)... [facility] 04-27-2024 Note Would like to discus s dosage of trazadone [facility] 04-20-2024 Note Hospital Medicine Discharge Summary Final Discharge Diagnosis: Unstable angina Severe Stenosis of LAD Status post cardiac catheterization Status post placement of JUANJOSE to LAD Chornic HFrecEF. NYHA class I Essential hypertension GERD without esophagitis Anxiety Prediabetes Admission Diagnosis: NSTEMI (non-ST elevated myocardial infarction) ([facility]) [I21.4] Hospital course: Ms. Diana Jaeger is an 79 y.o. female admitted from [facility] as a direct transfer where she presented [...] rhythm. Patient was seen and examined on 04/20 AM. She was doing well and denied [...] Center 04/27/2024 11:30 AM Oralia Olsen PA-C [facility] CARD HI HeartVAS Your medication list START taking these [...] Commonly known as: Coreg cholecalciferol 50 MCG (1999 UT) tablet Commonly known as: Vitamin D-3 nitroglycerin 0.4 mg SL tablet Commonly known as: Nitrostat traZODone 50 mg tablet Commonly known as: Desyrel Where to Get Your Medications These medications were sent to [facility] - [place], [place] - [address], [facility] [address] aspirin 81 mg EC tablet clopidogrel 75 mg tablet Diana is allergic to kskucfp-fwj-ezj reductase inhibitors. Disposition: Home or Self Care [...] CO2 mmol/L 20* (more content not included)... [facility] 04-20-2024 Note Cardiology Inpatient Progress Note Subjective HPI: Diana Jaeger is a 79 y.o. year old female patient with a PMH of A 79-year-old female with a medical history significant for primary hypertension, prediabetes, mixed hyperlipidemia, coronary artery disease with a prior LAD stent (2017), chronic heart failure with improved ejection fraction, and a history of stress-induced cardiomyopathy was [facility] from [facility]. She initially presented with retrosternal chest pain [...] the left wrist access site from the [facility] shows an intact site with bruising but [...] lesions, or itching. ALLERGIES: Allergies Allergen Reactions Yxxxrit-Jeb-Aab Reductase Inhibitors Other myalgias Objective 12-24 hour [...] -- -- 80 18 97 % -- 04/19/24 2000 143/78 36.8 ???C (98.3 ???F) Temporal 72 [...] bilaterally. No whe (more content not included)... [facility] 04-19-2024 Note Attestation signed by [...] Teaching Physician's Revisions: none Marija Johnson MD [facility] Cardiology Progress Note Subjective Subjective: Patient [...] meals, Chilo Gillette MD, 6.25 mg at 04/19/24 07 cholecalciferol (Vitamin D-3) tablet 2,000 Units, 2,000 Units, oral, Daily, Chilo Gillette MD, 2,000 Units at 04/19/24735 heparin infusion 100 units/mL in D5W, 0-28 Units/kg/hr, intravenous, Continuous, Chilo Gillette MD, Last Rate: 7.4 mL/hr at 04/19/24651, 15 Units/kg/hr at 04/19/24651 nitroglycerin (Nitrostat) SL tablet 0.4 mg, 0.4 mg, sublingual, q5 min PRN, Chilo Gillette MD traZODone (Desyrel) tablet 50 mg, 50 mg, oral, Nightly, Chilo Gillette MD, 50 mg at 04/18/242201 Objective: Patient Vitals for the past 24 hrs: BP Temp Temp src Pulse Resp SpO2 Weight 04/19/24 0730 -- 36.5 ???C (97.7 ???F) Temporal -- -- -- -- 04/19/24406 -- -- -- -- -- -- 61.4 kg (135 lb 6.4 oz) 04/19/24399 113/57 -- -- 68 20 (!) 88 % -- 04/19/24 000 120/54 -- -- 71 -- -- -- 04/18/24 2210 93/68 -- -- 71 19 94 % -- 04/18/242035 100/62 -- -- 71 16 95 % [...] Value Ventricular Rate 62 Atrial Rate 62 KS Interval 162 QRS DURATION 98 QT Interval 426 QTC CALCULATION(BAZETT) 432 P [place] 15 R-[place] -20 T Wave [place] 19 Impression Normal sinus rhythm with sinus [...] least in part, completed using a voice examination grader system. Every effort was made to ensure accuracy. However, inadvertent computerized examination grader error (more content not included)... [facility] 04-19-2024 Note -A1c: 5.8 -Follow-up with PCP for further recommendations [facility] 04-19-2024 Note - On Xanax and Trazo done at home - Xanax PRN and Trazodone have been ordered [facility] 04-19-2024 Note -Continue ASA and Co reg 6.25 mg BID -Monitor BP and control with medication as needed -Patient was on Ramipril 2.5 mg nightly, caused bradycardia so was discontinued -Blood pressure is at goal at this time [facility] 04-19-2024 Note -Initial troponin no rmal and EKG negative with no ST elevation -Patient on IV heparin -Allergic to statin, consider starting Zetia -Awaiting results of left heart cath this the morning. [facility] 04-19-2024 Note -last TTE on 04/17/24 shows improved EF 60-65% -Continue GDMT as able [facility] 04-19-2024 Note - Not on any PPI or other medications at home - Will start PPI if requested [facility] 04-19-2024 Note Hospital Medicine Daily Progress Note - 04/19/2024 10:41 AM; Room: [address] [place] [address] Admission: 04/17/2024 7:33 PM; Length of stay: 2 days THE HOSPITALIST TEAM PREFERS TO USE [employer] CHAT FOR NON-URGENT COMMUNICATION 7AM-7PM. IF I DO NOT RESPOND WITHIN 20 MINUTES OR URGENT MATTERS, PLEASE CALL THROUGH THE FLAME CHANNELER. FROM 7PM-7AM, PLEASE PAGE [phone](COVR). Code Status: Full Code Barriers to Discharge: [...] this hospital stay by a member of [facility] Medicine. Scheduled Meds aspirin, 81 mg, oral, Daily carvedilol, 6.25 mg, oral, BID with meals cholecalciferol, 2,000 Units, oral, Daily traZODone, 50 mg, oral, Nightly heparin, 0-28 Units/kg/hr, Last Rate: 15 Units/kg/hr (04/19/24 0652) Pertinent Investigations Hematology: Results from last 7 days Lab Units 04/18/24 0459 04/17/24 2037 WBC AUTO 10*3/uL 8.01 8.19 HEMOGLOBIN g/dL [...] Results from las (more content not included)... [facility] 04-18-2024 Note - One xanax and traz odone at home - Xanax PRN and trazodone have been ordered [facility] 04-18-2024 Note - Not on any PPI or other medications at home - Will start PPI if requested [facility] 04-18-2024 Note -last TTE on 04/17/24 shows improved EF 60-65% - Continue GDMT as able [facility] 04-18-2024 Note -Continue ASA and Co reg 6.25 mg BID -Monitor BP and control with medication as needed -Patient was on Ramipril 2.5 mg nightly, caused bradycardia so was discontinued - Blood pressure is at goal at this time [facility] 04-18-2024 Note A1c checked this mor arturo - 5.8 Follow-up with PCP for further recommendations [facility] 04-18-2024 Note -Initial troponin no rmal and EKG negative with no ST elevation -Patient on IV heparin -Allergic to statin, consider starting Zetia -Awaiting results of left heart cath this the morning. [facility] 04-18-2024 Note 04/18/24 1033 Admission [...] Status Interested Does the patient have a residential case manager assigned to them through their insurance? No [...] to send link and activate MyChart? No [facility] 04-18-2024 Note Hospital Medicine Daily Progress Note - 04/18/2024 11:09 AM; Room: [address] [place] [address] Admission: 04/17/2024 7:33 PM; Length of stay: 1 days THE HOSPITALIST TEAM PREFERS TO USE [employer] FOR NON-URGENT COMMUNICATION 7AM-7PM. IF I DO NOT RESPOND WITHIN 20 MINUTES OR URGENT MATTERS, PLEASE CALL THROUGH THE FLAME CHANNELER. FROM 7PM-7AM, PLEASE PAGE [phone](COVR). Code Status: Full Code Barriers to Discharge: [...] this hospital stay by a member of [facility] Medicine. Scheduled Meds aspirin, 81 mg, oral, Daily carvedilol, 6.25 mg, oral, BID with meals cholecalciferol, 2,000 Units, oral, Daily traZODone, 50 mg, oral, Nightly heparin, 0-28 Units/kg/hr, Last Rate: 15 Units/kg/hr (04/18/24 1020) Pertinent Investigations Hematology: Results from last 7 days Lab Units 04/18/24 0459 04/17/242036 WBC AUTO 1 (more content not included)... [facility] 04-17-2024 Note Check A1c in the morning [facility] 04-17-2024 Note Monitor and controll ed with medication as needed patient has been on ramipril but states that it caused bradycardia so she has not been taking it [facility] 04-17-2024 Note Patient on IV hepari n entry she has allergies to statin consider Zetia patient is scheduled for left heart cath in the morning [facility] 04-17-2024 Note Hospital Medicine History and Physical 04/17/2024 10:02 PM THE HOSPITALIST TEAM PREFERS TO USE [employer] CHAT FOR NON-URGENT COMMUNICATION 7AM-7PM. IF I DO NOT RESPOND WITHIN 20 MINUTES OR URGENT MATTERS, PLEASE CALL THROUGH THE FLAME CHANNELER. FROM 7PM-7AM, PLEASE PAGE [phone](COVR). Chief Complaint No chief complaint on file. History of Present Illness Diana Jaeger is an 79 y.o. female admitted from [facility] as a direct transfer where she presented [...] & Plan NSTEMI (non-ST elevated myocardial infarction) ([facility]) Patient on IV heparin entry she has [...] this hospital stay by a member of [facility] Hospital Medicine. Past Medical History Past Medical History: Diagnosis Date CHF (congestive heart failure) ([facility]) Coronary artery disease GERD (gastroesophageal reflux disease) Hyperlipidemia Hypertension Myocardial infarction ([facility]/ (more content not included)... [facility] 12-08-2023 History of Present illness Narrative Associated Problem(s): Primary osteoarthritis of left hip Minimal pain and use OTC PRN. Associated Problem(s): Primary insomnia Sleeping well with medication and continue. Associated Problem(s): Generalized anxiety disorder ([facility]) Symptoms controlled with xanax and use PRN. Associated Problem(s): Essential hypertension, benign (CMS/HCC) BP controlled and monitor PRN. Associated Problem(s): CAD in [place]ki[place] artery (CMS/HCC) No pain and follow with cardiology. Images [...] doing well. Still having minimal pain after VIAN. Able to increase activity and walk and [...] ramipril (Altace) 2.5 MG capsule CAD in [place] artery (CMS/HCC) No pain and follow with cardiology. Generalized anxiety disorder (CMS/HCC) Symptoms controlled with xanax and use PRN. Relevant Medications ALPRAZolam (Xanax) 0.5 MG tablet Primary insomnia Sleeping well with medication and continue. Primary osteoarthritis of left hip Minimal pain and use OTC PRN. documented in this encounter [facility] 12-01-2023 Note [facility] Cardiology Clinic Note Chief Complaint: New patient [...] thickened and exhibit normal excursion. There is xymle-ip-hzlm regurgitation. There is no evidence of mitral [...] are seen throug (more content not included)... [facility] 07-06-2023 Miscellaneous Notes Last OV 05/08 documented in this encounter [facility] 07-06-2023 Telephone encounter Note Last OV 05/08 [facility] 06-11-2023 Miscellaneous Notes Appt 05/11/23 documented in this encounter [facility] 06-11-2023 Telephone encounter Note Appt 05/11/23 [facility] 03-26-2024 History of Present illness Narrative Diana Jaeger Date of visit: 05/11/2023 Date of : 1945 Age: 78 y.o. Patient Active Problem List Diagnosis Status post angioplasty with stent Pure hypercholesterolemia Partial bowel obstruction (CMS-HCC) Gastric volvulus Thickened endometrium Right ovarian cyst Coronary artery disease involving [place] coronary artery of [place]ki[place] heart without angina pectoris Pain of left hip joint Primary osteoarthritis of left hip Takotsubo cardiomyopathy Encounter for preadmission testing Preoperative clearance Allergies Allergen Reactions Bpzxoqo-Cal-Npz Reductase Inhibitors pain and Nausea Patient states [...] History: Diagnosis Date Angina pectoris [place] not since 2019 Anxiety Arthritis osteoarthritis left hip Bowel obstruction [place] Chronic combined systolic and diastolic congestive heart failure [place] 10/23/2018 Coronary artery disease H/O gastroesophageal reflux (GERD) Hiatal hernia Myocardial infarct ([facility] 09/2016; 2018 2 stents placed in 2017 PONV (postoperative nausea and vomiting) Shortness of breath with strenuous activity Visual impairment wears glasses No data recorded No data recorded No data recorded Past Surgical History: Procedure Laterality Date Cardiac catheterization N/A 10/12/2016 Performed by Hamilton Gleason MD at [facility] CARDIAC CATH LABS COLONOSCOPY N/A 08/05/2017 Performed by Carlos Justice DO at [facility] Coronary angiogram and left ventricular gram/pressure N/A 09/30/2018 Performed by Henry Rivera MD at [facility] CARDIAC CATH LABS Coronary angiogram and left ventricular gram/pressure N/A 06/02/2017 Performed by Octavio Nieves MD at [facility] CARDIAC CATH LABS Coronary angiogram and left ventricular gram/pressure N/A 10/12/2016 Performed by Hamilton Gleason MD at [facility] CARDIAC CATH LABS CORONARY ANGIOPLASTY DAVINCI PERIESOPHAGEAL [place] FUNDOPLICATION/ HIATAL HERNIA REPAIR/ EGD/GASTROPEXY N/A 06/07/2017 Performed by Colin Morales MD at [facility] DIAGNOSTIC LAPAROSCOPY, LAPAROSCOPIC LYSIS OF ADHESIONS N/A 04/05/2017 Performed by Colin Morales MD at [facility] EGD N/A 06/03/2017 Performed by Johnathan Valenzuela MD at [facility] EXTRACTION CATARACT INTRAOCULAR LENS Right 05/01/2021 Performed by Adrienne Braga MD at [facility] EXTRACTION CATARACT INTRAOCULAR LENS Left 04/15/2021 Performed by Adrienne Braga MD at [facility] HERNIA REPAIR Intravascular pressure measurement first vessel(fractional flow reserve) N/A 09/30/2018 Performed by Henry Rivera MD at [facility] CARDIAC CATH LABS REPLACEMENT TOTAL JOINT ANTERIOR SUPINE INTERMUSCULAR HIP Left 09/04/2019 Performed by Juan Velasco MD at [facility] Revascularization occlusion with myocardial infarction drug eluting stent left anterior descending N/A 10/12/2016 Performed by Hamilton Gleason MD at [facility] CARDIAC CATH LABS Family History Problem Relation [...] min Stress: No Stress Concern Present (09/04/2019) [employer] - Occupational Stress Questionnaire Feeling of Stress : Only a little Social Connections: Unknown (09/04/2019) Social Connection and Isolation Panel [NHANES] Frequency of Communication with Friends and Family: More than three times a week Frequency of Social Gatherings with Friends and Family: More than three times a week Attends Jain Services: Patient declined Active Member of Club[employer] [...] is joining the health center here in [place] and will do this on a regular basis. Follow-up in a year TODAYS ORDERS No orders of the defined types were placed in this encounter. FOLLOW UP No follow-ups on file. PCP: SUNNY HENNING MD Referring Physician: Sunny Henning MD [address] [place] [address] documented in this encounter [employer] 05-10-2023 Miscellaneous Notes Left message for patient to remind them to bring their most current medication list with them to their appointment. documented in this encounter [facility] 05-10-2023 Telephone encounter Note Left message for patient to remind them to bring their most current medication list with them to their appointment. [facility] Evaluation note Diagnosis Essential hypertension, benign (CMS/HCC)- Primary Essential hypertension, benign Generalized anxiety disorder (CMS/HCC) Generalized anxiety disorder Primary insomnia Persistent disorder of initiating or maintaining sleep Gastroesophageal reflux disease without esophagitis Esophageal reflux CAD in [place] artery (CMS/HCC) Essential hypertension, benign (CMS/HCC)- Primary Essential hypertension, benign Generalized anxiety disorder (CMS/HCC) Generalized anxiety disorder CAD in [place] artery (CMS/HCC) Primary insomnia Persistent disorder of initiating or maintaining sleep Primary osteoarthritis of left hip documented in this encounter [facility] HealthcareEvaluation note* Diagnosis Coronary artery disease involving [place] coronary artery of [place] heart without angina pectoris Takotsubo cardiomyopathy Takotsubo syndrome Status post angioplasty with stent Postsurgical percutaneous transluminal coronary angioplasty status Pure hypercholesterolemia documented in this encounter [facility]* Diagnosis Coronary artery disease involving [place] coronary artery of [place] heart without angina pectoris- Primary documented in this encounter [facility]* Diagnosis Essential hypertension, benign (CMS/HCC)- Primary Essential hypertension, benign Generalized anxiety disorder (CMS/HCC) Generalized anxiety disorder Primary insomnia Persistent disorder of initiating or maintaining sleep Gastroesophageal reflux disease without esophagitis Esophageal reflux CAD in [place] artery (CMS/HCC) Essential hypertension, benign (CMS/HCC)- Primary Essential hypertension, benign Generalized anxiety disorder (CMS/HCC) Generalized anxiety disorder CAD in [place] artery (CMS/HCC) Primary insomnia Persistent disorder of initiating or maintaining sleep Primary osteoarthritis of left hip CAD in [place] artery (CMS/HCC)- Primary Essential hypertension, benign (CMS/HCC) [...] disease without esophagitis Esophageal reflux CAD in [place] artery Essential hypertension, benign- Primary Essential hypertension, benign Generalized anxiety disorder Generalized anxiety disorder CAD in [place] artery Primary insomnia Persistent disorder of initiating or maintaining sleep Primary osteoarthritis of left hip CAD in [place] artery- Primary Essential hypertension, benign Essential hypertension, [...] disease without esophagitis Esophageal reflux CAD in [place] artery Essential hypertension, benign- Primary Essential hypertension, benign Generalized anxiety disorder Generalized anxiety disorder CAD in [place] artery Primary insomnia Persistent disorder of initiating or maintaining sleep Primary osteoarthritis of left hip CAD in [place] artery- Primary Essential hypertension, benign Essential hypertension, [...] Primary osteoarthritis of left hip CAD in [place] artery documented in this encounter [facility]* Diagnosis Essential hypertension, benign- Primary Essential hypertension, benign Generalized anxiety disorder Generalized anxiety disorder Primary insomnia Persistent disorder of initiating or maintaining sleep Gastroesophageal reflux disease without esophagitis Esophageal reflux CAD in [place] artery Essential hypertension, benign- Primary Essential hypertension, benign Generalized anxiety disorder Generalized anxiety disorder CAD in [place] artery Primary insomnia Persistent disorder of initiating or maintaining sleep Primary osteoarthritis of left hip CAD in [place] artery- Primary Essential hypertension, benign Essential hypertension, [...] Primary osteoarthritis of left hip CAD in [place] artery Generalized anxiety disorder Generalized anxiety disorder documented in this encounter [facility] HealthcareInstructionsNot on filedocumented in this encounterProMediia Health SystemInstructionsNot on filedocumented in this encounterProMedica [facility] SystemInstructionsNot on filedocumented in this encounterL[facility] Summary Purpose Family History No Family History Records FoundNo Family History Records FoundNo Family History Records Found Advance Directives No Advanced Directives Records Found Date Activated Date Inactivated Comments 09/29/2018 10:11 [...] section and content) DATE CREATED AUTHOR 05/12/2023 [facility] DATE CREATED AUTHOR AUTHOR'S ORGANIZ ATION 10/08/2024 [facility] EPIC DATE CREATED AUTHOR AUTHOR'S ORGANIZ ATION 11/06/2024 [facility] Care Teams (unrecognized sec tion and content) Legislative Assistant Relationship Specialty Start Date End Date Sunny Henning MD [address] [place] [phone] PCP - General Family Medicine 03/23/23 Legislative Assistant Relationship Specialty Start Date End Date Sunny Henning MD [address] [place] [address] PCP - General Family Medicine 03/23/23 Legislative Assistant Relationship Specialty Start Date End Date Sunny Henning MD [address], [place] [id number] PCP - General Family Medicine 11/04/20 Legislative Assistant Relationship Specialty Start Date End Date Sunny Henning MD [address], [place] [phone] PCP - General Family Medicine 11/04/20 Legislative Assistant Relationship Specialty Start Date End Date Sunny Henning MD [address] [place] [address] PCP - General Family Medicine 11/04/20 Legislative Assistant Relationship Specialty Start Date End Date Sunny Henning MD [address] [place] [phone] PCP - General Family Medicine 03/23/23 Sunny Henning MD [address] [place] [phone] PCP - ACO Reach 03/24/24 Legislative Assistant Relationship Specialty Start Date End Date Sunny Henning MD [address] [place] [phone] PCP - General Family Medicine 03/23/23 Sunny Henning MD [address] [place] [phone] PCP - ACO Reach 03/24/24 Legislative Assistant Relationship Specialty Start Date End Date Sunny Henning MD [address] [place] [phone] PCP - General Family Medicine 03/23/23 Sunny Henning MD [address] [place] [phone] PCP - ACO Reach 03/24/24 Legislative Assistant Relationship Specialty Start Date End Date Sunny Henning MD [address] [place] [phone] PCP - General Family Medicine 03/23/23 uSnny Henning MD [address] [place] [address] PCP - ACO Reach 03/24/24 Legislative Assistant Relationship Specialty Start Date End Date Sunny Henning MD [address] [place] [address] PCP - General Family Medicine 03/23/23 Sunny Henning MD [address] [place] [phone] PCP - ACO Reach 03/24/24 Legislative Assistant Relationship Specialty Start Date End Date Sunny Henning MD [address] [place] [phone] PCP - General Family Medicine 03/23/23 Sunny Henning MD [address] [place] [phone] PCP - ACO Reach 03/24/24 Legislative Assistant Relationship Specialty Start Date End Date Sunny Henning MD [address] [place] [address] PCP - General Family Medicine 03/23/23 Sunny Henning MD [address] [place] [address] PCP - ACO Reach 03/24/24 Legislative Assistant Relationship Specialty Start Date End Date Sunny Henning MD [address] [place] [address] PCP - General Family Medicine 03/23/23 Sunny Henning MD [address] [place] [address] PCP - O [facility] 03/24/24 Legislative Assistant Relationship Specialty Start Date End Date Sunny Henning MD [address] [place] [address] PCP - General [facility] 03/23/23 Sunny Henning MD [address] [place] [address] PCP - O [facility] 03/24/24 Reason for Visit (unrecogniz ed section [...] BE BASED ON THE PRIMARY CLINICAL RECORDS. [employer] provides no warranty or guarantee of the accuracy or completeness of information in this document.
--- NOTE | 2024-11-10 07:35 | NM_ITS ---
Patient Name: ARACELI JAEGER MR#: [id number] : 1945 Exam Date: 11/10/2024 Ordering Doctor: DR VAISHALI FREGOSO M.D. RADIOLOGY REPORT PROCEDURE: NM RIANNA PERF SPECT REST STR COMPARISON: None. INDICATIONS: CORONARY ARTERY DISEASE, CHEST PAIN, SHORTNESS OF BREATH TECHNIQUE: Exam Description: Stress/Rest one day protocol gated SPECT Rest Imagin.1 mCi Tc-99m Cardiolite IV on 11/10/2024 Stress Imaging 30.2 mCi Tc-99m Cardiolite IV on 11/10/2024 Exercise Protocol: Alexander Heart Rate (bpm): Rest: 50 Max: 126 PMHR: 88 Blood Pressure: Rest: 88/60 Max: 154/90 Exercise Time: Minutes: 5 Seconds: 37 Stage Reached: Stage: 2 Mets 7.0 Symptoms: Rest and peak stress ECG findings were pending and the EKG portion of the study was pending per attending physician [facility] . For more details please see separate cardiac stress test report. FINDINGS: QUALITY OF STUDY: Good PERFUSION DEFECT: LOCATION: Inferior SIZE: Medium SEVERITY: Mild TYPE: Fixed with adequate contractility and thickening consistent with soft tissue attenuation WALL MOTION: Normal LV SIZE:LVEDV 50 mL. TID / TCD: 0.7 LVEF: Calculated EF 74%. SUMMARY: Normal myocardial perfusion imaging study CONCLUSION: Normal nuclear myocardial perfusion stress test without evidence of ischemia or infarction Normal left ventricle systolic function, ejection fraction 74% No transient ischemic dilatation, TID score 0.7 EKG portion of the stress test is reported separately dictated by: Too Wharton MD on 11/13/2024 at 18:36 Approved by: Too Wharton MD on 11/13/2024 at 18:40
--- NOTE | 2024-11-10 09:27 | PC.NURSE ---
Nursing Note Cardiac Stress Test Reviewed: Medication, allergies and patient history reviewed. Stress Test: [x ] Patient tolerated stress test well. [ ] Patient unable to tolerate walking on treadmill. Switched to Lexiscan stress test. [ x] No chest pain noted per patient [ ] Chest pain that resolved prior to leaving stress lab. [ ] No dyspnea noted. [x ] Dyspnea that resolved prior to leaving stress lab. [ ] Patient left stress lab asymptomatic and hemodynamically stable. [ ] Patient taken to the Emergency Room due to non-resolving symptoms following stress test. [ x] Patient achieved target heart rate. [ ] Patient unable to achieve target heart rate. [ ] Aminophylline administered as reversal agent to Lexiscan (Regadenoson). [ ] Nitro administered. Nursing Comments:
--- NOTE | 2024-11-13 13:47 | PM.STRESS ---
Stress Test Stress Test Allergies Allergy/AdvReac Type Severity Reaction Status Date / Time No Known Drug Allergies Allergy Verified 04/16/24 09:09 Requesting physician: Jose Alfredo Leblanc Procedure: Treadmill Cardiolyte Stress Test General Information: Reason for Stress Test: [Chest pain] Cardiac History and Risk Factors: [CAD, [place], HTN, dyslipidemia] Resting 12 - Lead Electrocardiogram: Sinus rhythm Right bundle branch block Abnormal ECG Stress Test: Protocol: [Alexander protocol; the patient exercised for 5 minutes and 37 seconds, reaching stage 2 of the protocol and achieving 7 METs. Resting HR was 50 bpm; maximal HR 126 bpm which is 88% of PMHR%. Resting BP: 88/60 mmHg, peak BP: 154/90 mmHg] Exercise Capacity: [Good] Blood Pressure Response: [Low resting BP; appropriate BP response to exercise] Rhythm: [Sinus] ST - Response: [No significant ST T wave changes] Patient Response: [No chest pain] Interpretation: 1. No ischemic EKG changes seen on treadmill exercise stress test 2. Normal HR and BP response to exercise 3. Hamilton score was not calculated given known history of coronary artery disease 4. Nuclear images are to be read, interpreted, and reported seperately
== END 2024-11-10 07:16 | disposition home or self-care (01) ==
LOC: NM 07:16
PROVIDERS: PCP Family Medicine; Visit Provider Internal Medicine Interventional Cardiology
DX: R07.89 Other chest pain (principal); I25.110 Atherosclerotic heart disease of native coronary artery with unstable angina pectoris
CPT/HCPCS: 78452; 93017; A9500

== ENCOUNTER 2024-11-29 13:02 | Emergency (ER) | payer MEDICARE, SELFPAY ==
--- OUTSIDE RECORDS SUMMARY | 2024-11-29 13:09 | XMS_ITS | Encounter Summary ---
Author Organization [facility] [employer] [facility] tem Address [id number] [address] [place] [address] Care Team Providers Care Center Sales And Service Associate Name Role Phone Sunny Manzo MD Primary Care Provider [phone] Reason for Visit * Reason Onset Date Comments Med Refill 12/20/2017 Encounter Details Date Type Department Care Team (Late st Contact Info) Description 12/20/2017 Refill [facility] [address] [place] [id number] Sara Lombardo RN Med Refill Social History [...] documented as of this encounter Care Teams Center Sales And Service Associate Relationship Specialty Start Date End Date Sunny Manzo MD PCP - General Family Medicine 11/04/20 documented as of this encounter
--- OUTSIDE RECORDS SUMMARY | 2024-11-29 13:09 | XMS_ITS | Encounter Summary ---
[facility] Address [id number] [address] [place] [address] Care Team Providers Care Sausage Maker Name Role Phone Sunny Manzo MD Primary Care Provider [phone] Reason for Visit * Reason Comments Med Refill Encounter Details Date Type Department Care Team (Late st Contact Info) Description 06/09/2023 Refill [facility] [address] [place] [phone] Joon Barron DO [address] [place] [address] Med Refill Social History Tobacco Use Types Packs/Day Years Used Date Smoking Tobacco: Never Smokeless Tobacco: Never Alcohol Use Standard Drinks/Week Comments Yes 0 (1 standard drink = 0.6 oz pur e alcohol) drinks wine occasionally Social Connection and Isolation Panel Answer Date Recorded In a typical week, how many times do you talk on the phone with family, friends, or neighbors? More than three times a week 09/04/2019 How often do you get togethe r with friends or relatives? More than three times a week 09/04/2019 How often do you attend chur ch or gnosticism services? Patient declined 09/04/2019 Do you belong to any clubs o r organizations such as methodist groups, unions, fraternal or athletic groups, or [...] Answer Date Recorded Total Score 0 09/04/2019 [facility] Occupat ionaz Health - Occupational Stress Questionnaire Answer Date [...] therapeutic drug monitoring Coronary artery disease involving knik coronary artery of knik heart without angina pectoris Takotsubo cardiomyopathy Takotsubo syndrome Status post angioplasty with stent Postsurgical percutaneous transluminal coronary angioplasty status Pure hypercholesterolemia documented in this encounter Additional Health Concerns Assessment Noted Time PHQ-9 Depression Total Score: 0 09/04/19 1:34 PM EDT A Body Mass Index follow-up plan has been documented for the patient 12/08/2017 11:16 AM EDT documented as of this encounter Care Teams Sausage Maker Relationship Specialty Start Date End Date Sunny Manzo MD PCP - General Family Medicine 11/04/20 documented as of this encounter
--- OUTSIDE RECORDS SUMMARY | 2024-11-29 13:10 | XMS_ITS | Clinical Summary ---
Author Organization [employer] tem Address [id number] [address] [place] [address] Care Team Providers Care Barrel Rifler Broach Name Role Phone Sunny Manzo MD Primary Care Provider [phone] Allergies Active Allergy Reactions Criticality Noted Date Comments Rkbbqjc-Giu-Stb Reductase Inhibitors pain,Nausea 09/29/2018 Patient states that [...] 2.5 mg capsuleIndications:Coron taniya artery disease involving [place]amp[place]ag coronary artery of [place]amp[place] heart without angina pectoris,Takotsubo cardiomyopathy,Status post angioplasty with stent,Pure hypercholesterolemia TAKE 1 CAPSULE (2.5 MG TOTAL) BY MOUTH IN THE MORNING. 90 capsule 06/09/19 24 Active aspirin 81 mg chewable tabletIndications:Brewer ry artery disease involving [place]amp[place]ag coronary artery of wamp[place]ag heart without angina pectoris,Takotsubo cardiomyopathy,Status post angioplasty with stent,Pure hypercholesterolemia CHEW 1 TABLET (81 MG TOTAL) AND SWALLOW IN THE MORNING. 90 tablet 3 06/11/19 24 Active carvediloL (COREG) 6.25 mg tabletIndications:Brewer ry artery disease involving [place] coronary artery of [place]ag heart without angina pectoris,Takotsubo cardiomyopathy,Status post angioplasty [...] hip 03/21/2018 Coronary artery disease invo lving wampanoag coronary artery of wampanoag heart without angina pectoris 01/27/2018 Thickened endometrium [...] often do you attend chur ch or sabianist services? Patient declined 09/04/2019 Do you belong to any clubs o r organizations such as alevism groups, unions, fraternal or athletic groups, or [...] Answer Date Recorded Total Score 0 09/04/2019 [facility] of Occupat ional Health - Occupational Stress [...] Recorded Do you need help finding a [employer] career center and/or a training program? No [...] 2012 Tobacco Screening 05/10/2024 05/11/2023 COVID-19 Vaccine (6 - 2024-2 6 season) 2024 01/18/2023, 10/28/2021, 12/12/2020, Additional [...] 1:56 PM Medical Devices Implanted Type Area Library Technical Assistant Device Identifier Shelf Expiration Date Model / Serial / Lot Lens Iol Ultrasert 14.0d - [id number] - [id number] Implanted:Q ty: 1 on 04/15/2021 by Adrienne Braga MD at [facility] Lens Left: Eye [employer] 11/12/2022 AU00T0 14.0 / [id number] / NA Lens Iol Ultrasert 13.0d - [id number] - [id number] Implanted:Q ty: 1 on 05/01/2021 by Adrienne Braga MD at [facility] Lens Right: Eye [employer] 08/06/2023 AU00T0 13.0 / [id number] / NA Mesh Tiss 10x7cm Edwards - [id number] - [id number] Implanted:Q ty: 1 on 06/07/2017 by Colin Morales MD at [facility] Mesh N/A: Abdomen Edwards 02/15/2020 [id number] / [id number] / [id number] Shl Actb [employer] 52e - [id number] Implanted:Q ty: 1 on 09/04/2019 by Juan Velasco MD at [facility] Orthopedic Implant Left: Hip [employer] 03/07/2029 [id number] / / [id number] Linr Actb G7 Ntrl 36mm E - [id number] Implanted:Q ty: 1 on 09/04/2019 by Juan Velasco MD at [facility] Orthopedic Implant Left: Hip [employer] 08/03/2023 [id number] / / [id number] Stm Fem 115mm 133d 15 Std Os - [id number] Implanted:Q ty: 1 on 09/04/2019 by Juan Velasco MD at [facility] Orthopedic Implant Left: Hip [employer] 01/27/2029 [id number] / / [id number] Hd Fem 36mm Opt Shl Actb G7 Bl Rpl 650-1057 - [id number] Implanted:Q ty: 1 on 09/04/2019 by Juan Velasco MD at [facility] Orthopedic Implant Left: Hip [employer] 05/19/2028 [id number] / / [id number] Slv Fem Opt -3mm Tpr Hip Blx D Rpl 650-1065 - [id number] Implanted:Q ty: 1 on 09/04/2019 by Juan Velasco MD at [facility] Orthopedic Implant Left: Hip [employer] 08/29/2028 [id number] / / [id number] Jake Xience Alpine 3.0x15mm Repl [id number] - [id number] Implanted:Q ty: 1 on 10/12/2016 by Hamilton Gleason MD at [facility] Stent N/A: Heart [employer]ALES [id number] 07/24/2019 [id number] / / [id number] 13 Jake Xience Alpine 2.70o43eb Repl [id number] - [id number] Implanted:Q ty: 1 on 10/12/2016 by Hamilton Gleason MD at [facility] Stent N/A: Heart MORALES [id number] / / [id number] Insurance MEDICARE [facility] Advance Directives * Full Code (Latest Code Status on File) Date Activated Date Inactivated Comments 09/29/2018 10:11 PM 10/01/2018 8:10 PM * Full Code Date Activated Date Inactivated Comments 2017 11:52 PM 04/09/2017 4:40 PM Care Teams Barrel Rifler Broach Relationship Specialty Start Date End Date Sunny Manzo MD PCP - General Family Medicine 11/04/20
--- OUTSIDE RECORDS SUMMARY | 2024-11-29 13:10 | XMS_ITS | Encounter Summary ---
Author Organization [facility] Address [facility] [id number] [address] [place] [address] Care Team Providers Care Medical Billing And Coding Instructor Name Role Phone Sunny Mnazo MD Primary Care Provider [phone] Reason for Visit * Reason Onset Date Comments Med Refill 11/06/2016 Encounter Details Date Type Department Care Team (Late st Contact Info) Description 11/06/2016 Refill [facility] [address] [id number] Veronica Ayala, RN Med Refill Social History [...] on filedocumented in this encounter Care Teams Medical Billing And Coding Instructor Relationship Specialty Start Date End Date Sunny Manzo MD PCP - General Family Medicine 11/04/20 documented as of this encounter
--- OUTSIDE RECORDS SUMMARY | 2024-11-29 13:10 | XMS_ITS | Encounter Summary ---
Author Organization [facility] tem Address [facility] [place][id number] [address] [place] [address] Care Team Providers Care Manager Continuous Improvement Name Role Phone Sunny Manzo MD Primary Care Provider [phone] Encounter Details Date Type Department Care Team (Late st Contact Info) Description 05/20/2020 Orders Only [facility] [address] [place] [phone] External, Scanning Provider Social History Tobacco Use [...] often do you attend chur ch or restoration services? Patient declined 09/04/2019 Do you belong to any clubs o r organizations such as mosque groups, unions, fraternal or athletic groups, or [...] Answer Date Recorded Total Score 0 09/04/2019 [facility] of Occupat ional Health - Occupational [...] Recorded Do you need help finding a [facility] career center and/or a training [...] Multiple labs (04/23/2020) us Scanning Provider External MT IMAGING Final Result MANUALLY TRANSCRIBED RESULTS documented in this encounter Visit Diagnoses Not on filedocumented in this encounter Additional Health Concerns Assessment Noted Time PHQ-9 Depression Total Score: 0 09/04/19 20 1:34 PM EDT A Body Mass Index follow-up plan has been documented for the patient 12/08/2017 11:16 AM EDT documented as of this encounter Care Teams Manager Continuous Improvement Relationship Specialty Start Date End Date Sunny Manzo MD PCP - General Family Medicine 11/04/20 documented as of this encounter
--- OUTSIDE RECORDS SUMMARY | 2024-11-29 13:10 | XMS_ITS | Encounter Summary ---
Author Organization [facility] tem Address [id number] [address] [place] [address] Care Team Providers Care Clinical Nurse Specialist Name Role Phone Sunny Manzo MD Primary Care Provider [phone] Encounter Details Date Type Department Care Team (Late st Contact Info) Description 05/20/2020 Orders Only [facility] [address] [place] [phone] External, Scanning Provider Social History Tobacco Use [...] often do you attend chur ch or latter-day services? Patient declined 09/04/2019 Do you belong to any clubs o r organizations such as faith groups, unions, fraternal or athletic groups, or [...] Answer Date Recorded Total Score 0 09/04/2019 [facility] of Occupat ional Health - [...] Recorded Do you need help finding a [facility] career center and/or a training program? No [...] documented as of this encounter Care Teams Clinical Nurse Specialist Relationship Specialty Start Date End Date Sunny Manzo MD PCP - General Family Medicine 11/04/20 documented as of this encounter
--- OUTSIDE RECORDS SUMMARY | 2024-11-29 13:10 | XMS_ITS | Encounter Summary ---
Author Organization [facility] Address [address] [place] [address] Care Team Providers Care Windsurfing Instructor Name Role Phone Sunny Manzo MD Primary Care Provider [phone] Sunny Manzo MD Unavailable Jensen Barnett MA Unavailable [phone] Encounter Details Date Type Department Care Team (Late st Contact Info) Description 12/02/2023 Orders Only [facility] [address] [place] [id number] Haylie Anna NP Social History Tobacco Use Types Packs/Day Years Used Date Smoking Tobacco: Never Passive Smoke Exposure: Never Smokeless Tobacco: Never Alcohol Use Standard Drinks/Week Comments Never 0 (1 standard drink = 0.6 oz pur e alcohol) Social Connection and Isolation Panel Answer Date [...] any clubs o r organizations such as moravian groups, unions, fraternal or athletic groups, or [...] Recorded Patient Health Questionnaire-2 Score 0 08/10/2023 [facility] of Occupat ional Health - [...] place to sleep or slept in a longterm (including now)? No 05/06/2023 Comments Unknown Sex [...] Date/Time Associated Diagnosis Comments ELECTROCARDIOGRAM REPORT Routine 024 7:58 AM EDT documented in this encounter Results * Electrocardiogram Report (12/01/2023 7:58 AM EDT) Haylie Anna RADIATOR TESTER IN CLINIC/BEDSIDE ORDERA BLES Final Result documented in this encounter Visit Diagnoses Not on filedocumented in this encounter Care Teams Windsurfing Instructor Relationship Specialty Start Date End Date Sunny Manzo MD PCP - General Family Medicine 03/23/23 Sunny Manzo MD [address] [place] [address] PCP - ACO Reach 03/24/24 Jensen Barnett MA [address] [place] [address] Family Medicine 05/24/24 05/31/24 documented as of this encounter
--- OUTSIDE RECORDS SUMMARY | 2024-11-29 13:10 | XMS_ITS | Encounter Summary ---
Author Organization [facility] Address [address] [place] [address] Care Team Providers Care Inbound Sales Manager Name Role Phone Sunny Manzo MD Primary Care Provider [phone] Sunny Manzo MD Unavailable Jensen Barnett MA Unavailable [phone] Encounter Details Date Type Department Care Team (Late st Contact Info) Description 04/17/2024 Orders Only [facility] [address] [place] [address] Braydon Sheridan MD [address] [...] often do you attend chur ch or buddhism services? More than 4 times per year 05/06/2023 Do you belong to any clubs o r organizations such as jewish groups, unions, fraternal [...] Recorded Patient Health Questionnaire-2 Score 0 08/10/2023 [facility] of Occupat ional Health - Occupational Stress [...] place to sleep or slept in a retirement (including now)? No 05/06/2023 Comments Unknown Sex [...] Region Laterality Modality Chest Radiographic Graciela ging us Braydon Sheridan MD IMG XR PROCEDURES Final Result documented in this encounter Visit Diagnoses Not on filedocumented in this encounter Care Teams Inbound Sales Manager Relationship Specialty Start Date End Date Sunny Manzo MD PCP - General Family Medicine 03/23/23 Sunny Manzo MD [address] [place] [address] PCP - ACO Reach 03/24/24 Jensen Barnett MA [address] [place] [address] Family Medicine 05/24/24 05/31/24 documented as of this encounter
--- OUTSIDE RECORDS SUMMARY | 2024-11-29 13:10 | XMS_ITS | Encounter Summary ---
Author Organization [facility] Address [address] [place] [address] Care Team Providers Care Drywall Taper Helper Name Role Phone Sunny Manzo MD Primary Care Provider [phone] Sunny Manzo MD Unavailable Jensen Barnett MA Unavailable [phone] Encounter Details Date Type Department Care Team (Late st Contact Info) Description 04/20/2024 Abstract [facility] [facility] [address] [place] [address] Sunny Manzo MD [address] [place] [address] Social History Tobacco Use Types [...] any clubs o r organizations such as sabianist groups, unions, fraternal or athletic groups, or [...] 08/10/2023 [facility] of Occupat ional [facility] - Occupational Stress Questionnaire Answer Date [...] place to sleep or slept in a senior living (including now)? No 05/06/2023 Comments Unknown Sex and Gender Information Value Date Recorded Sex Assigned at Female 11/19/2023 8:38 AM EDT Legal Sex Female 8:05 PM EDT Gender Identity Not on file Sexual Orientation Not on file documented as of this encounter Plan of Treatment Not on file documented as of this encounter Visit Diagnoses Not on filedocumented in this encounter Care Teams Drywall Taper Helper Relationship Specialty Start Date End Date Sunny Manzo MD PCP - General Family Medicine 03/23/23 Sunny Manzo MD [address] [place] [address] PCP - ACO Reach 03/24/24 Jensen Barnett MA [address] [place] [address] Family Medicine 05/24/24 05/31/24 documented as of this encounter
--- OUTSIDE RECORDS SUMMARY | 2024-11-29 13:12 | XMS_ITS | CCD ---
Author Organization [facility] Care Team Providers Care Chain Sales Representative Name Role Phone RAS GARZA Attending Unavailable SUNNY HENNING Referring Unavailable SUNNY HENNING Primary Care Unavailable Sunny Henning MD Primary Care Provider Sunny Henning MD Primary Care Provider Sunny Henning MD Unavailable SUNNY HENNING Attending Unavailable SUNNY HENNING Attending Unavailable SUNNY HENNING Attending Unavailable SUNNY HENNING Attending Unavailable ELTAHAWY, EHAB Attending Unavailable ELTAHAWY, EHAB Attending Unavailable ORALIA OLSEN Attending Unavailable ELTAHAWY, EHAB Referring Unavailable ELTAHAWY, EHAB Referring Unavailable RUDD, RHETT CHUL Referring Unavailable ELTAHAWY, EHAB Referring Unavailable CALIN YE Referring Unavailable RUDD, RHETT CHUL Attending Unavailable SIERRA REYES Admitting Unavailable ELTAHAWY, EHAB Attending Unavailable Allergies Allergy Classification Reported Allergen(s) Allergy Type Date of Onset Reaction(s) Facility (6 sources) Hmg-Coa Reductase Inhibitors (Statins); Translations: [VXFFCLR-BSI-MWL REDUCTASE INHIBITORS] Propensity to adverse reactions to [...] chewable tablet Indications: 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 90 tablet 3 06/11/2023 Active take 1 tablet [facility] 81 MG EC tablet Take 81 mg by mouth in the morning. Active b complex vitamins capsule (3 sources) take 1 capsule by mo ut in the morning b complex vitamins capsule Take 1 capsule by mouth in the morning. 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 Normal [facility] Orders Onlyon 11-02-2024 Orders Only [id number] Cherry Jaeger nellie Gomez 1945 F Date Provider Department [facility] Family History Problem Relation Age of Onset Other Mother Other Father Family Status - Relation Status Age at Mother Father [facility] [place] ITPon 09-22-2024 [place] [address] Cardiac Rehab Report Signed Patient: DIANA JAEGER MR#: [id number] : 1945 Acct:[id number] Age/Sex: 79 / F ADM Date: 09/21/24 Loc: CR Attending Dr: Oralia AGUILAR Ordering Physician: Jose Alfredo Fregoso M.D. 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 Interpretive Statements Patient may continue cardiac rehab as outlined in the treatment plan. Electronically Signed On 09-22-2024 10:19:08 EDT by LISHA LOVETT M.D. Dictated By: LISHA LOVETT Signed By: 09/22/24 1019 09/22/24 1019 DD/ 1118 TD/TT: Customer Liaison: [facility] Radiology, Radiologi MD ramona - 09/22/2024 [place] [address] Cardiac Rehab Report Signed Patient: DIANA JAEGER MR#: [id number] : 1945 Acct:[id number] Age/Sex: 79 / F ADM Date: 09/21/24 Loc: CR Attending Dr: Oralia AGUILAR Ordering Physician: Jose Alfredo Fregoso M.D. 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 Interpretive Statements Patient may continue cardiac rehab as outlined in the treatment plan. Electronically Signed On 09-22-2024 10:19:08 EDT by LISHA LOVETT M.D. Dictated By: LISHA LOVETT Signed By: 09/22/24 1019 09/22/24 1019 DD/ 1118 TD/TT: Customer Liaison: [facility]OS[facility] ITPOrdered By: Radiologist R adiology on 09-22-2024 [facility] Work Phone: ITPon 09-06-2024 Radiology Study observation (narrative) [facility] Office Visiton 08-29-2024 Follow-up visit [id number] Cherry Jaeger ma 1945 F Date Provider Department Center 08/29/2024 271[facility] Family History Problem Relation Age of Onset Other Mother Other Father Family Status - Relation Status Age at Mother Father Level of Service:78416 [place] OFFICE/OUTPATIENT ESTABLISHED LOW MDM [address] [facility] Abstracton 08-28-2024 Abstract [id number] Cherry Jaeger ma 1945 Date Provider Department Center 08/28/2024 [facility] Family History Problem Relation Age of Onset Other Mother Other Father Family Status - Relation Status Age at Mother Father Normal [facility] ITPon 08-10-2024 [place] [address] Cardiac Rehab Report Signed Patient: DIANA JAEGER MR#: [id number] : 1945 Acct:[id number] Age/Sex: 79 / F ADM Date: 08/09/24 Loc: CR Attending Dr: Oralia AGUILAR Ordering Physician: Hector Ruelas D.O. 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 Electronically Signed On 08-10-2024 15:36:48 EDT by Hector Ruelas Dictated By: Hector Ruelas D.O. Signed By: 08/10/24 1537 08/10/24 1537 DD/ 0900 TD/TT: Customer Liaison: [facility] Radiologtawana greene MD - 08/10/2024 [facility] [place] [id number] Cardiac Rehab Report Signed Patient: DIANA JAEGER MR#: [id number] : 1945 Acct:[id number] Age/Sex: 79 / F ADM Date: 08/09/24 Loc: CR Attending Dr: Oralia AGUILAR Ordering Physician: Hector Ruelas D.O. 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 Electronically Signed On 08-10-2024 15:36:48 EDT by Hector Ruelas Dictated By: Hector Ruelas D.O. Signed By: 08/10/24 1537 08/10/24 1537 DD/ 0900 TD/TT: Customer Liaison: [facility] Radiology Study observation (narrative) [facility] ITPOrdered By: Radiologist R adiology on 08-10-2024 [facility] Work Phone: ITPon 07-12-2024 [place] [address] Cardiac Rehab Report Signed Patient: DIANA JAEGER MR#: [id number] : 1945 Acct:[id number] Age/Sex: 79 / F ADM Date: 07/12/24 Loc: CR Attending Dr: Oralia AGUILAR Ordering Physician: Hector Ruelas D.O. 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 Electronically Signed On 07-12-2024 9:17:27 EDT by Hector Ruelas Dictated By: Hector Ruelas D.O. Signed By: 07/12/24 0917 07/12/24 0917 DD/ 0716 TD/TT: Customer Liaison: [facility] Radiology Radiologtawana greene MD - 07/12/2024 [place] [address] Cardiac Rehab Report Signed Patient: DIANA JAEGER MR#: [id number] : 1945 Acct:[id number] Age/Sex: 79 / F ADM Date: 07/12/24 Loc: CR Attending Dr: Oralia AGUILAR Ordering Physician: Hector Ruelas D.O. 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 Electronically Signed On 07-12-2024 9:17:27 EDT by Hector Ruelas Dictated By: Hector Ruelas D.O. Signed By: 07/12/2491607/12/24916 DD/ TD/TT: Customer Liaison: [facility] Radiology Study observation (narrative) [facility] ITPOrdered By: Radiologist R adiology on 07-12-2024 [facility] Work Phone: ITPon 07-05-2024 [place] [address] Cardiac Rehab Report Signed Patient: DIANA JAEGER MR#: [id number] : 1945 Acct:[id number] Age/Sex: 79 / F ADM Date: 07/04/24 Loc: CR Attending Dr: Oralia AGUILAR Ordering Physician: Hector Ruelas D.O. 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 Electronically Signed On 07-05-2024 18:37:48 EDT by Hector Ruelas Dictated By: Hector Ruelas D.O. Signed By: 07/05/24183607/05/241836 DD/ 15 TD/TT: Customer Liaison: [facility] Angélica Cox MD - 07/05/2024 [place] [address] Cardiac Rehab Report Signed Patient: DIANA JAEGER MR#: [id number] : 1945 Acct:[id number] Age/Sex: 79 / F ADM Date: 07/04/24 Loc: CR Attending Dr: rOalia AGUILAR Ordering Physician: Hector Ruelas D.O. 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 Electronically Signed On 07-05-2024 18:37:48 EDT by Hector Ruelas Dictated By: Hector Ruelas D.O. Signed By: 07/05/24183607/05/241836 DD/ 15 TD/TT: Customer Liaison: [facility] ITPOrdered By: Radiologist R adiology on 07-05-2024 [facility] Work Phone: ITPon 07-04-2024 Radiology Study observation (narrative) [facility] ITPon 06-13-2024 [facility] [place] [id number] Cardiac Rehab Report Signed Patient: DIANA JAEGER MR#: [id number] : 1945 Acct:[id number] Age/Sex: 79 / F ADM Date: 06/13/24 Loc: CR Attending Dr: Oralia AGUILAR Ordering Physician: Hector Ruelas D.O. 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 Electronically Signed On 06-13-2024 17:53:39 EDT by Hector Ruelas Dictated By: Hector Ruelas D.O. Signed By: 06/13/24 17506/13/24 175 DD/ 140 TD/TT: Customer Liaison: [facility] Radiology, Radiologtawana greeen MD - 06/13/2024 [place] [address] Cardiac Rehab Report Signed Patient: DIANA JAEGER MR#: [id number] : 1945 Acct:[id number] Age/Sex: 79 / F ADM Date: 06/13/24 Loc: CR Attending Dr: Oralia AGUILAR Ordering Physician: Hector Ruelas D.O. 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 Electronically Signed On 06-13-2024 17:53:39 EDT by Hector Ruelas Dictated By: Hector Ruelas D.O. Signed By: 06/13/24 17506/13/24 175 DD/ 140 TD/TT: Customer Liaison: [facility] Radiology Study observation (narrative) [facility] ITPOrdered By: Radiologist Flory adiology on 06-13-2024 [facility] Work Phone: Office Visiton 06-13-2024 Follow-up visit [id number] Cherry Jaeger ma 1945 F Date Provider Department Center 06/13/2024 271-SKIPT[facility]ONNY, E[facility]AB BH CARD [facility] Family History Problem Relation Age of Onset Other Mother Other Father Family Status - Relation Status Age at Mother Father Level of Service:18576 [place] OFFICE/OUTPATIENT ESTABLISHED MOD MDM [address] [facility] ALL LIPID PROFILE (FASTING)o n 06-07-2024 CHOL HDL RATIO 3.2 [facility] Comment on above: 3.3 - 4.4 LOW RISK 4.4 - 7.1 AVERAGE RISK 7.1 - 11.0 MODERATE RISK >11.0 HIGH RISK Cholesterol [Mass/Vol] 165 mg/dL NINF - 200 mg/dL [facility] Cholesterol in HDL [Mass/Vol] 51 mg/dL 40 - 60 mg/dL [facility] Comment on above: > or =60 mg/dl - LOW CARDIOVASCULAR RISK <40 mg/dl - HIGH CARDIOVASCULAR RISK Magnesium [Mass/Vol] 97 mg/dL [facility] Comment on above: <100 mg/dl OPTIMAL 100-129 mg/dl NEAR OR ABOVE OPTIMAL 130-159 mg/dl BORDERLINE HIGH 160-189 mg/dl HIGH >190 mg/dl VERY HIGH Magnesium [Mass/Vol] 17 mg/dL [facility] Triglyceride [Mass/Vol] 85 mg/dL NINF - 150 mg/dL [facility] CCF CMP (CMP) (FOR REMOTE FH C USE)on 06-07-2024 Albumin [Mass/Vol] 3.6 g/dL 3.4 - 5.0 g/dL [facility] ALBUMIN GLOBULIN RATIO 1.1 [facility] ALP [Catalytic activity/Vol] 87 U/L 46 - 116 U/L [facility] ALT [Catalytic activity/Vol] 36 U/L 14 - 59 U/L [facility] Anion gap [Moles/Vol] 10.6 mmol/L [facility] AST [Catalytic activity/Vol] 28 U/L 15 - 37 U/L [facility] Bilirubin [Mass/Vol] 0.4 mg/dL 0.2 - 1.0 mg/dL [facility] Calcium [Mass/Vol] 8.8 mg/dL 8.5 - 10. 1 mg/dL [facility] Chloride [Moles/Vol] 105 mmol/L 98 - 107 mmol/L [facility] CO2 [Moles/Vol] 30.5 mmol/L 21.0 - 32.0 mmol/L [facility] Creatinine [Mass/Vol] 0.81 mg/dL 0.55 - 1.02 mg/dL [facility] GFR/1.73 sq M.predicted CKD-EPI (S/P/Bld) [Vol rate/Area] >60 >=60 mL/min/1.73m 2 [facility] Globulin (S) [Mass/Vol] 3.4 g/dL [facility] Glucose [Mass/Vol] 108 mg/dL High 74 - 106 mg/dL NO [facility] Interpretation and review of laboratory results Abnormal [facility] Potassium [Moles/Vol] 4.1 mmol/L 3.5 - 5.1 mmol/L [facility] Protein [Mass/Vol] 7 g/dL 6.4 - 8.2 g/dL NO [facility] Sodium [Moles/Vol] 142 mmol/L 136 - 145 mmol/L [facility] TBH EGFR-NON AF AFGHAN >60 >=60 mL/min/1.73m 2 [facility] Urea nitrogen [Mass/Vol] 17 mg/dL 7.0 - 18.0 mg/dL [facility] Urea nitrogen/Creatinine [Mass ratio] 21 mg/mg [facility] No Panel Informationon 06-07 [facility] 37on 04-27-2024 37 I renewed [...] in 3 months. I sent referral to [facility] for cardiac rehab. Should call you in coming weeks. Kind regards, Oralia Olsen, [facility] Cardiovascular Medicine Contact me via Manufacturing Maintenance Manager Catalina Villa [phone] [facility] [place] Follow-Upon 04-27-2024 Follow-Up [id number] Cherry Jaeger ma 1945 F Date Provider Department Center 04/27/2024 [id number] OLSEN [facility] CARD [facility] Family History Problem Relation Age of Onset Other Mother Other Father Family Status - Relation Status Age at Mother Father Level of Service:60198 [place] OFFICE/OUTPATIENT ESTABLISHED MOD MDM 30 MIN Reason for Visit and Comments: Follow-up [734022] - HF Normal [facility] ALL CBC WITH AUTO DIFFon BASOPHILS ABSOLUTE AUTO 0 [facility] Basophils/100 WBC (Bld) 0.7 % 0.2 - 2.0 % [facility] Eosinophils/100 WBC (Bld) 2 % 0.9 - 7.0 % [facility] Erythrocyte distribution width (RBC) [Ratio] 12.7 % 11.0 - 15.0 % [facility] Hematocrit (Bld) [Volume fraction] 32.7 % Low 36.0 - 48.0 % [facility] Hemoglobin (Bld) [Mass/Vol] 11.1 g/dL Low 12.0 - 16.0 g/dL [facility] IMMATURE GRANULOCYTES ABS AUTO 0.05 High [facility] Immature granulocytes/100 WBC (Bld) 0.8 % High 0.0 - 0.5 % [facility] Interpretation and review of laboratory results Abnormal [facility] LYMPHOCYTES ABSOLUTE AUTO 1.1 Low [facility] Lymphocytes/100 WBC (Bld) 18.3 % Low 20.5 - 60.0 % [facility] MCH (RBC) [Entitic mass] 29.5 pg 26.7 - 34.0 pg [facility] MCHC (RBC) [Mass/Vol] 33.9 g/dL 29.9 - 35.2 g/dL [facility] MCV (RBC) [Entitic vol] 87 fL 81.0 - 99.0 fL [facility] MONOCYTES ABSOLUTE AUTO 0.4 [facility] Monocytes/100 WBC (Bld) 7.2 % 1.7 - 12.0 % [facility] NEUTROPHILS ABSOLUTE AUTO 4.2 [facility] Neutrophils/100 WBC (Bld) 71 % 43.0 - 75.0 % [facility] Platelet mean volume (Bld) [Entitic vol] 10 fL 9.5 - 13.5 fL [facility] TBH EO # 0.1 [facility] TBH PLT 283 [facility] TB RBC 3.76 Low [facility] TBH WBC 6 [facility] 30on 04-20-2024 30 The patient is Moderately [...] facility with appropriate resources Outcome: Progressing Normal [facility] BASIC METABOLIC PANELon Anion gap [Moles/Vol] 15 mmol/L Normal 7-[address] [facility] Comment on above: Performed By: #### L AB15 #### [facility] ([facility]) [address] [place] [address] Calcium [Mass/Vol] 8.6 mg/dL Normal 8.6-10.3 [facility] Comment on above: Performed By: #### L AB15 #### [facility] ([facility]) [address] [place] [address] Chloride [Moles/Vol] 104 mmol/L Normal 98-[address] [facility] Comment on above: Performed By: #### L AB15 #### [facility] ([facility]) [address] [place] [address] CO2 [Moles/Vol] 20 mmol/L Low 21-31 [facility] Comment on above: Performed By: #### L AB15 #### [facility] ([facility]) [address] [place] [address] Creatinine [Mass/Vol] 0.63 mg/dL Normal 0.60-1.[address] [facility] Comment on above: Performed By: #### L AB15 #### [facility] ([facility]) [address] [place] [address] GLOMERULAR FILTRATION RATE ML/MIN/1.73 SQ M.PREDICTED 91.3 mL/min/1.73m*2 Normal >60.0 [facility] Comment on above: Result Comment: The [facility]???s estimated glomerular filtration rate (eGFR) will no [...] Performed By: #### L AB15 #### [facility] ([facility]) [address] [place] [address] Glucose [Mass/Vol] 119 mg/dL High 70-100 [facility] Comment on above: Performed By: #### L AB15 #### [facility] ([facility]) [address] [place] [address] Potassium [Moles/Vol] 4.2 mmol/L Normal 3.5-5.[address] [facility] Comment on above: Performed By: #### L [id number] #### [facility] ([facility]) [address] [place] [address] Sodium [Moles/Vol] 135 mmol/L Low 136-145 [facility] Comment on above: Performed By: #### L AB15 #### [facility] ([facility]) [address] [place] [address] Urea nitrogen [Mass/Vol] 17 mg/dL Normal 7-[address] [facility] Comment on above: Performed By: #### L AB15 #### [facility] ([facility]) [address] [place] [address] UREA NITROGEN/CREATININE (MASS RATIO) IN SER/PLAS 27.[address] [facility] Comment on above: Performed By: #### L AB15 #### [facility] ([facility]) [address] [place] [address] CBCon 04-20-2024 Erythrocyte distribution width (RBC) [Ratio] 12.8 % Normal 11.5-15.[address] [facility] Comment on above: Performed By: #### L [id number] #### [facility] ([facility]) [address] [place] [address] ERYTHROCYTE MEAN CORPUSCULAR HEMOGLOBIN CONCENTRATION (G/DL) BY AUTOMATED 33.0 g/dL Normal 32.0-35.0 [facility] Comment on above: Performed By: #### L [id number] #### [facility] ([facility]) [address] [place] [address] Hematocrit (Bld) [Volume fraction] 38.5 % Normal 36.0-48.[address] [facility] Comment on above: Performed By: #### L [id number] #### [facility] ([facility]) [address] [place] [address] Hemoglobin (Bld) [Mass/Vol] 12.7 g/dL Normal 12.0-15.[address] [facility] Comment on above: Performed By: #### L [id number] #### [facility] ([facility]) [address] [place] [address] MCH (RBC) [Entitic mass] 29.7 pg Normal 27.0-33.[address] [facility] Comment on above: Performed By: #### L [id number] #### [facility] ([facility]) [address] [place] [address] MCV (RBC) [Entitic vol] 90.0 fL Normal 82.0-98.[address] [facility] Comment on above: Performed By: #### L [id number] #### [facility] ([facility]) [address] [place] [address] PLATELETS (10*3/UL) IN BLOOD AUTOMATED COUNT 242 10*3/uL Normal 150-[address] [facility] Comment on above: Performed By: #### L [id number] #### [facility] ([facility]) [address] [place] [address] RBC (Bld) [#/Vol] 4.28 10*6/uL Normal 3.80-5.00 [facility] Comment on above: Performed By: #### L [id number] #### [facility] ([facility]) [address] [place] [address] WBC (Bld) [#/Vol] 11.02 10*3/uL High 4.00-10.60 [facility] Comment on above: Performed By: #### L [id number] #### [facility] ([facility]) [address] [place] [address] HEMOGLOBIN AND HEMATOCRIT, B LOODon 04-20-2024 Hematocrit (Bld) [Volume fraction] 37.2 % Normal 36.0-48.[address] [facility] Comment on above: Performed By: #### L [id number] #### [facility] ([facility]) [address] [place] [address] Hemoglobin (Bld) [Mass/Vol] 12.6 g/dL Normal 12.0-15.[address] [facility] Comment on above: Performed By: #### L [id number] #### [facility] ([facility]) [address] [place] [address] VENOUS BLOOD GAS WITH IONIZE D CALCIUMon 04-20-2024 Base excess Calc (BldV) [Moles/Vol] -0.2000 mmol/L Normal [facility] Comment on above: Performed By: #### L [id number] ####[facility] RESPIRATORY [id number] [place] [address] [place] CALCIUM IONIZED (MMOL/L) IN BLOOD 1.18 mmol/L Normal 1.15-1.[address] [facility] Comment on above: Performed By: #### L [id number] ####[facility] RESPIR[facility]ORY [id number] [place] [address] [place] CO2 (BldV) [Partial pressure] 31 mm[Hg] Low 40-[address] [facility] Comment on above: Performed By: #### L [id number] ####[facility] RESPIRATORY [id number] [place] [address] [facility] HCO3 (Bld) [Moles/Vol] 22.6 mmol/L Normal [facility] Comment on above: Performed By: #### L [id number] ####[facility] RESPIRATORY [id number] [place] [address] [facility] Oxygen (BldV) [Partial pressure] 62 mm[Hg] High 35-[address] [facility] Comment on above: Performed By: #### L [id number] ####[facility] RESPIRATORY [id number] [place] [address] [facility] OXYGEN SATURATION (%) IN VENOUS BLOOD 91.5 % High 65.0-75.0 [facility] Comment on above: Performed By: #### L [id number] ####[facility] RESPIRATORY [id number] [place] [address] [facility] PH OF VENOUS BLOOD 7.47 High 7.31-7.41 [facility] Comment on above: Performed By: #### L [id number] ####[facility] RESPIRATORY [id number] [place] [address] [facility] 30on 04-19-2024 30 The patient is Moderately Stable - Low risk of patient condition declining or worsening The patient's goals for the shift include comfort and rest The clinical goals for the shift include stable VS Over the shift, the patient did make progress toward her goals. Normal [facility] 30 Daily Case Managemen t Update Multidisciplinary [...] Special Kitchen Request Once Comments: Omlette with russian cheese cape verdean cheese mushrooms green pepper 04/18/241818 Physician Expected Discharge Date: 04/20/2024 Discharge Delays: PT Six Click Score: 24 OT Six Click Score: PT Recommendations: OT Recommendations: New Consults: Normal [facility] 30 The patient is Moderately Stable - [...] and prevent overall improvement and discharge Normal [facility] Moshe 04-19-2024 ANES --- Attestation signed by Jose Alfredo Fregoso MD at 04/19/2024 11:52 AM Jose Alfredo Fregoso MD, MPH, [facility], [facility], [facility] Interventional Cardiology Pager Email: [email or web address] Patient: Diana Jaeger Procedure Information Date/Time: 04/19/24 1330 Procedure: Coronary angiography Location: [facility] LINE ANALYST 3 / [facility] (Cath) Providers: Jose Alfredo [...] fellow and attending. Additional Equipment Requests Normal [facility] ANTI-XA (HEPARIN LEVEL)on HEPARIN UNFRACTIONATED (U/ML) IN PPP BY CHROMOGENIC METHOD 0.30 IU/mL Normal 0.3-0.[address] [facility] Comment on above: Result Comment: Gower roxaban and Apixaban will interfere with the anti Xa assay used to monitor UFH and LMWH. Performed By: #### L [id number] #### [facility] ([facility]) [address] [place] [address] HEMOGLOBIN AND HEMATOCRIT, B LOODon 04-19-2024 Hematocrit (Bld) [Volume fraction] 37.2 % Normal 36.0-48.[address] [facility] Comment on above: Performed By: #### L [id number] ####[facility] ([facility])[address] [place] [address] Hemoglobin (Bld) [Mass/Vol] 12.3 g/dL Normal 12.0-15.[address] [facility] Comment on above: Performed By: #### L [id number] ####[facility] ([facility])[address] [place] [address] Hematocrit (Bld) [Volume fraction] 39.4 % Normal 36.0-48.[address] [facility] Comment on above: Performed By: #### L [id number] #### [facility] ([facility]) [address] [place] [address] Hemoglobin (Bld) [Mass/Vol] 13.0 g/dL Normal 12.0-15.[address] [facility] Comment on above: Performed By: #### L [id number] #### [facility] ([facility]) [address] [address] HPon 04-19-2024 HP --- Attestation signed by Jose Alfredo Fregoso MD at 04/19/2024 11:52 AM Jose Alfredo Fregoso MD, MPH, [facility], [facility], [facility] Interventional Cardiology Pager Email: [email or web address] H&P reviewed. The patient was examined and there are no changes to the H&P. Will proceed with coronary angiogram for further assessment in the setting of unstable angina and significant CAD and prior PCI. Procedure's details, risks and benefits discussed with the patient and she's agreeable. Normal [facility] NURSNOTEon 04-19-2024 NURSNOTE Updated report rizvi d to Pratima GARCIA on 3CD [facility] [place] NURSNOTE Pt dry heaving, refu ses to [...] artery. Pt agreed to try GI cocktail. Normal [facility] 30on 04-18-2024 30 The patient is [...] baseline comfort level Outcome: Progressing . Normal [facility] ANTI-XA (HEPARIN LEVEL)on HEPARIN UNFRACTIONATED (U/ML) IN PPP BY CHROMOGENIC METHOD 0.35 IU/mL Normal 0.3-0.[address] [facility] Comment on above: Order Comment: Check anti-Xa level every 6 hours while on heparin infusion, or per protocol. Result Comment: Gower roxaban and Apixaban will interfere with the anti Xa assay used to monitor UFH and LMWH. Performed By: #### L [id number] ####[facility] ([facility])[address] [place] [address] HEPARIN UNFRACTIONATED (U/ML) IN PPP BY CHROMOGENIC METHOD 0.30 IU/mL Normal 0.3-0.[address] [facility] Comment on above: Order Comment: Check anti-Xa level every 6 hours while on heparin infusion, or per protocol. Result Comment: Gower roxaban and Apixaban will interfere with the anti Xa assay used to monitor UFH and LMWH. Performed By: #### L [id number] #### [facility] ([facility]) [address] [place] [address] CBC WITH AUTO DIFFERENTIALon 04-18-2024 Basophils (Bld) [#/Vol] 0.08 10*3/uL Normal 0.00-0.[address] [facility] Comment on above: Performed By: #### L [id number] #### [facility] ([facility]) [address] [place] [address] Basophils/100 WBC (Bld) 1.0 % Normal 0.0-1.[address] [facility] Comment on above: Performed By: #### L [id number] #### [facility] ([facility]) [address] [place] [address] Eosinophils (Bld) [#/Vol] 0.19 10*3/uL Normal 0.00-0.[address] [facility] Comment on above: Performed By: #### L [id number] #### [facility] ([facility]) [address] [address] Eosinophils/100 WBC (Bld) 2.4 % Normal 0.0-6.[address] [facility] Comment on above: Performed By: #### L [id number] #### [facility] ([facility]) [address] [place] [address] Erythrocyte distribution width (RBC) [Ratio] 13.0 % Normal 11.5-15.[address] [facility] Comment on above: Performed By: #### L [id number] #### [facility] ([facility]) [address] [place] [address] ERYTHROCYTE MEAN CORPUSCULAR HEMOGLOBIN CONCENTRATION (G/DL) BY AUTOMATED 32.1 g/dL Normal 32.0-35.0 [facility] Comment on above: Performed By: #### L [id number] #### [facility] ([facility]) [address] [place] [address] Hematocrit (Bld) [Volume fraction] 39.9 % Normal 36.0-48.[address] [facility] Comment on above: Performed By: #### L [id number] #### [facility] ([facility]) [address] [place] [address] Hemoglobin (Bld) [Mass/Vol] 12.8 g/dL Normal 12.0-15.[address] [facility] Comment on above: Performed By: #### L [id number] #### [facility] ([facility]) [address] [place] [address] Immature granulocytes (Bld) [#/Vol] 0.05 10*3/uL Normal 0.00-0.[address] [facility] Comment on above: Performed By: #### L [id number] #### [facility] ([facility]) [address] [place] [address] Immature granulocytes/100 WBC (Bld) 0.6 % Normal 0.0-1.[address] [facility] Comment on above: Performed By: #### L [id number] #### [facility] ([facility]) [address] [address] Lymphocytes (Bld) [#/Vol] 1.49 10*3/uL Normal 1.20-4.[address] [facility] Comment on above: Performed By: #### L [id number] #### [facility] ([facility]) [address] [place] [address] Lymphocytes/100 WBC (Bld) 18.6 % Low 20.0-45.[address] [facility] Comment on above: Performed By: #### L [id number] #### [facility] ([facility]) [address] [place] [address] MCH (RBC) [Entitic mass] 28.8 pg Normal 27.0-33.[address] [facility] Comment on above: Performed By: #### L [id number] #### [facility] ([facility]) [address] [place] [address] MCV (RBC) [Entitic vol] 89.7 fL Normal 82.0-98.[address] [facility] Comment on above: Performed By: #### L [id number] #### [facility] ([facility]) [address] [address] Monocytes (Bld) [#/Vol] 0.64 10*3/uL Normal 0.10-1.[address] [facility] Comment on above: Performed By: #### L [id number] #### [facility] ([facility]) [address] [place] [address] Monocytes/100 WBC (Bld) 8.0 % Normal 5.0-12.[address] [facility] Comment on above: Performed By: #### L [id number] #### [facility] ([facility]) [address] [place] [address] Neutrophils (Bld) [#/Vol] 5.56 10*3/uL Normal 1.60-7.[address] [facility] Comment on above: Performed By: #### L [id number] #### [facility] ([facility]) [address] [place] [address] Neutrophils/100 WBC (Bld) 69.4 % Normal 40.0-72.[address] [facility] Comment on above: Performed By: #### L [id number] #### [facility] ([facility]) [address] [place] [address] NRBC (PER 100 WBCS) BY AUTOMATED COUNT 0.0 % Normal [address] [facility] Comment on above: Performed By: #### L [id number] #### [facility] ([facility]) [address] [place] [address] PLATELETS (10*3/UL) IN BLOOD AUTOMATED COUNT 282 10*3/uL Normal 150-[address] [facility] Comment on above: Performed By: #### L [id number] #### [facility] ([facility]) [address] [place] [address] RBC (Bld) [#/Vol] 4.45 10*6/uL Normal 3.80-5.00 [facility] Comment on above: Performed By: #### L [id number] #### [facility] ([facility]) [address] [place] [address] WBC (Bld) [#/Vol] 8.01 10*3/uL Normal 4.00-10.60 [facility] Comment on above: Performed By: #### L [id number] #### [facility] ([facility]) [address] [place] [address] CONSULTon 04-18-2024 CONSULT --- Attestation signed by [...] Teaching Physician's Revisions: none Marija Johnson MD [place] [facility] Card[facility] Consult Note Reason for Consult: Chest pain HPI: Diana Mendez is a 79 year old female patient with past history remarkable for primary hypertension, prediabetes, mixed hyperlipidemia, coronary artery disease with prior LAD stent in 2017, chronic heart failure with improved ejection fraction, history of stress induced cardiomyopathy who presented to [facility] as a transfer from [facility] where she initially presented complaining of chest [...] medical history of CHF (congestive heart failure) ([facility]), Coronary artery disease, GERD (gastroesophageal reflux disease), [...] Other ( heart problems ) Father Allergies Hkttnyp-rxh-hlc reductase inhibitors Medications Current Outpatient Medications Medication [...] Abdominal: Palpa (more content not included)... Normal [facility] HEMOGLOBIN A1Con 04-18-2024 Glucose [Mass/Vol] 120 mg/dL Normal [facility] Comment on above: Performed By: #### L [id number] #### [facility] ([facility]) [address] [place] [address] HbA1c (Bld) [Mass fraction] 5.8 % Normal 4.0-6.[address] [facility] Comment on above: Performed By: #### L [id number] #### [facility] ([facility]) [address] [place] [address] HPon 04-18-2024 HP --- Attestation signed by [...] Teaching Physician's Revisions: none Marija Johnson MD [place] [facility] Cardiology Consult Note Reason for Consult: Chest pain HPI: Diana Mendez is a 79 year old female patient with past history remarkable for primary hypertension, prediabetes, mixed hyperlipidemia, coronary artery disease with prior LAD stent in 2017, chronic heart failure with improved ejection fraction, history of stress induced cardiomyopathy who presented to [facility] as a transfer from [facility] where she initially presented complaining of chest [...] Other ( heart problems ) Father Allergies Hxoykqj-lid-zta reductase inhibitors Medications Current Outpatient Medications Medication [...] -- 49.2 kg (108 lb 8 oz) 04/17/24 2000 139/64 36.3 ???C (97.3 ???F) Temporal 64 [...] Abdominal: Palpa (more content not included)... Normal [facility] LIPID PANELon 04-18-2024 CHOL/HDL 3.9 mg/dL Normal [facility] Comment on above: Performed By: #### L [id number] #### [facility] ([employer]) [address] [place] [address] Cholesterol [Mass/Vol] 181 mg/dL Normal 120-[address] [facility] Comment on above: Performed By: #### L [id number] #### [facility] ([employer]) [address] [place] [address] Magnesium [Mass/Vol] 141 mg/dL Normal 40-[address] [facility] Comment on above: Result Comment: TRIG LYCERIDE REFERENCE RANGE: 20 YEARS AND OLDER CARDIOVASCULAR RISK LESS THAN 150 mg/dL LOW RISK 150 TO 199 mg/dL BORDERLINE RISK 200 mg/dL AND GREATER HIGH RISK Performed By: #### L [id number] #### [facility] ([facility]) [address] [place] [address] Magnesium [Mass/Vol] 106 mg/dL Normal 0-[address] [facility] Comment on above: Performed By: #### L [id number] #### [facility] ([facility]) [address] [place] [address] Magnesium [Mass/Vol] 47 mg/dL Normal 23-[address] [facility] Comment on above: Performed By: #### L [id number] #### [facility] ([facility]) [address] [place] [address] NON HDL CHOL. (LDL+VLDL) [address] [facility] Comment on above: Performed By: #### L [id number] #### [facility] ([facility]) [address] [place] [address] TOTAL VLDL-C 28 mg/dL Normal 0-40 [facility] Comment on above: Performed By: #### L [id number] #### [facility] ([facility]) [address] [place] [address] TROPONIN Ion 04-18-2024 Troponin I.cardiac [Mass/Vol] 0.00 ng/mL Normal 0.00-0.[address] [facility] Comment on above: Performed By: #### L [id number] #### [facility] ([facility]) [address] [place] [address] Troponin I.cardiac [Mass/Vol] 0.00 ng/mL Normal 0.00-0.[address] [facility] Comment on above: Performed By: #### L [id number] ####[facility] ([facility])[address] [facility] [place] [address] Troponin I.cardiac [Mass/Vol] 0.00 ng/mL Normal 0.00-0.[address] [facility] Comment on above: Performed By: #### L [id number] ####[facility] ([facility])[address] [place] [address] 30on 04-17-2024 30 The patient is Moderately [...] patient/family on patient safety, including physical limitations Soldier fall precautions as indicated by assessment Instruct [...] patient/family on patient safety, including physical limitations Soldier fall precautions as indicated by assessment Instruct [...] and prevent overall improvement and discharge Normal [facility] 30 The patient is Moderately Stable - Low risk of patient condition declining or worsening The patient's goals for the shift include VSS The clinical goals for the shift include VSS Normal [facility] APTTon 04-17-2024 ACTIVATED PARTIAL THROMBOPLASTIN TIME IN PPP BY COAGULATION ASSAY 27.3 Seconds Normal 25.0-35.[address] [facility] Comment on above: Order Comment: Basel ine aPTT before initiating heparin infusion. Result Comment: Clin ical significance of the APTT is questionable in the presence of heparin. Performed By: #### L [id number] ####[facility] ([facility])[address] [place] [address] B-TYPE NATRIURETIC PEPTIDEon 04-17-2024 Natriuretic peptide B (Bld) [Mass/Vol] 49 pg/mL Normal 0-[address] [facility] Comment on above: Performed By: #### L [id number] #### [facility] ([facility]) [address] [place] [address] CBC WITH AUTO DIFFERENTIALon 04-17-2024 Basophils (Bld) [#/Vol] 0.05 10*3/uL Normal 0.00-0.[address] [facility] Comment on above: Performed By: #### L [id number] #### [facility] ([facility]) [address] [place] [address] Basophils/100 WBC (Bld) 0.6 % Normal 0.0-1.[address] [facility] Comment on above: Performed By: #### L [id number] #### [facility] ([facility]) [address] [place] [address] Eosinophils (Bld) [#/Vol] 0.15 10*3/uL Normal 0.00-0.[address] [facility] Comment on above: Performed By: #### L [id number] #### [facility] ([facility]) [address] [place] [address] Eosinophils/100 WBC (Bld) 1.8 % Normal 0.0-6.[address] [facility] Comment on above: Performed By: #### L [id number] #### [facility] ([facility]) [address] [place] [address] Erythrocyte distribution width (RBC) [Ratio] 13.0 % Normal 11.5-15.[address] [facility] Comment on above: Performed By: #### L [id number] #### [facility] ([facility]) [address] [place] [address] ERYTHROCYTE MEAN CORPUSCULAR HEMOGLOBIN CONCENTRATION (G/DL) BY AUTOMATED 33.5 g/dL Normal 32.0-35.0 [facility] Comment on above: Performed By: #### L [id number] #### [facility] ([facility]) [address] [place] [address] Hematocrit (Bld) [Volume fraction] 39.4 % Normal 36.0-48.[address] [facility] Comment on above: Performed By: #### L [id number] #### [facility] ([facility]) [address] [place] [address] Hemoglobin (Bld) [Mass/Vol] 13.2 g/dL Normal 12.0-15.[address] [facility] Comment on above: Performed By: #### L [id number] #### [facility] ([facility]) [address] [place] [address] Immature granulocytes (Bld) [#/Vol] 0.03 10*3/uL Normal 0.00-0.[address] [facility] Comment on above: Performed By: #### L [id number] #### [facility] ([facility]) [address] [place] [address] Immature granulocytes/100 WBC (Bld) 0.4 % Normal 0.0-1.[address] [facility] Comment on above: Performed By: #### L [id number] #### [facility] ([facility]) [address] [place] [address] Lymphocytes (Bld) [#/Vol] 1.54 10*3/uL Normal 1.20-4.[address] [facility] Comment on above: Performed By: #### L [id number] #### [facility] ([facility]) [address] [place] [address] Lymphocytes/100 WBC (Bld) 18.8 % Low 20.0-45.[address] [facility] Comment on above: Performed By: #### L [id number] #### [facility] ([facility]) [address] [place] [address] MCH (RBC) [Entitic mass] 29.1 pg Normal 27.0-33.[address] [facility] Comment on above: Performed By: #### L [id number] #### [facility] ([facility]) [address] [place] [address] MCV (RBC) [Entitic vol] 86.8 fL Normal 82.0-98.[address] [facility] Comment on above: Performed By: #### L [id number] #### [facility] ([facility]) [address] [place] [address] Monocytes (Bld) [#/Vol] 0.54 10*3/uL Normal 0.10-1.[address] [facility] Comment on above: Performed By: #### L [id number] #### [facility] ([facility]) [address] [place] [address] Monocytes/100 WBC (Bld) 6.6 % Normal 5.0-12.[address] [facility] Comment on above: Performed By: #### L [id number] #### [facility] ([facility]) [address] [place] [address] Neutrophils (Bld) [#/Vol] 5.88 10*3/uL Normal 1.60-7.[address] [facility] Comment on above: Performed By: #### L [id number] #### [facility] ([facility]) [address] [place] [address] Neutrophils/100 WBC (Bld) 71.8 % Normal 40.0-72.[address] [facility] Comment on above: Performed By: #### L [id number] #### [facility] ([facility]) [address] [place] [address] NRBC (PER 100 WBCS) BY AUTOMATED COUNT 0.0 % Normal [address] [facility] Comment on above: Performed By: #### L [id number] #### [facility] ([facility]) [address] [place] [address] PLATELETS (10*3/UL) IN BLOOD AUTOMATED COUNT 282 10*3/uL Normal 150-[address] [facility] Comment on above: Performed By: #### L [id number] #### [facility] ([facility]) [address] [place] [address] RBC (Bld) [#/Vol] 4.54 10*6/uL Normal 3.80-5.00 [facility] Comment on above: Performed By: #### L [id number] #### [facility] ([facility]) [address] [place] [address] WBC (Bld) [#/Vol] 8.19 10*3/uL Normal 4.00-10.60 [facility] Comment on above: Performed By: #### L [id number] #### [facility] ([facility]) [address] [place] [address] COMPREHENSIVE METABOLIC PANE James 04-17-2024 Albumin [Mass/Vol] 4.4 g/dL Normal 3.5-5.7 [facility] Comment on above: Performed By: #### L [id number] #### [facility] ([facility]) [address] [place] [address] ALP [Catalytic activity/Vol] 72 U/L Normal 34-[address] [facility] Comment on above: Performed By: #### L [id number] #### [facility] ([facility]) [address] [place] [address] ALT [Catalytic activity/Vol] 13 U/L Normal 7-[address] [facility] Comment on above: Performed By: #### L [id number] #### [facility] ([facility]) [address] [place] [address] Anion gap [Moles/Vol] 11 mmol/L Normal 7-[address] [facility] Comment on above: Performed By: #### L [id number] #### [facility] ([facility]) [address] [place] [address] AST [Catalytic activity/Vol] 16 U/L Normal 13-[address] [facility] Comment on above: Performed By: #### L [id number] #### [facility] ([facility]) [address] [place] [address] Bilirubin [Mass/Vol] 0.5 mg/dL Normal 0.3-1.[address] [facility] Comment on above: Performed By: #### L [id number] #### [facility] ([facility]) [address] [place] [address] Calcium [Mass/Vol] 9.3 mg/dL Normal 8.6-10.3 [facility] Comment on above: Performed By: #### L [id number] #### [facility] ([facility]) [address] [place] [address] Chloride [Moles/Vol] 106 mmol/L Normal 98-[address] [facility] Comment on above: Performed By: #### L [id number] #### [facility] ([facility]) [address] [place] [address] CO2 [Moles/Vol] 25 mmol/L Normal 21-31 [facility] Comment on above: Performed By: #### L [id number] #### [facility] ([facility]) [address] [place] [address] Creatinine [Mass/Vol] 0.72 mg/dL Normal 0.60-1.[address] [facility] Comment on above: Performed By: #### L [id number] #### [facility] ([facility]) [address] [place] [address] GLOMERULAR FILTRATION RATE ML/MIN/1.73 SQ M.PREDICTED 86.1 mL/min/1.73m*2 Normal >60.0 [facility] Comment on above: Result Comment: [facility]???s estimated glomerular filtration rate (eGFR) will no [...] group of individuals. Performed By: #### L [id number] #### [facility] ([facility]) [address] [place] [address] Glucose [Mass/Vol] 103 mg/dL High 70-100 [facility] Comment on above: Performed By: #### L [id number] #### [facility] ([facility]) [address] [place] [address] Potassium [Moles/Vol] 3.9 mmol/L Normal 3.5-5.[address] [facility] Comment on above: Performed By: #### L [id number] #### [facility] ([facility]) [address] [place] [address] Protein [Mass/Vol] 7.4 g/dL Normal 6.0-8.3 [facility] Comment on above: Performed By: #### L [id number] #### [facility] ([facility]) [address] [place] [address] Sodium [Moles/Vol] 138 mmol/L Normal 136-145 [facility] Comment on above: Performed By: #### L [id number] #### [facility] ([facility]) [address] [place] [address] Urea nitrogen [Mass/Vol] 12 mg/dL Normal 7-[address] [facility] Comment on above: Performed By: #### L [id number] #### [facility] ([facility]) [address] [place] [address] UREA NITROGEN/CREATININE (MASS RATIO) IN SER/PLAS 16.[address] [facility] Comment on above: Performed By: #### L [id number] #### [facility] ([facility]) [address] [place] [address] LACTIC ACID, PLASMAon 2024 LACTATE (MMOL/L) IN SER/PLAS 1.2 mmol/L Normal 0.5-2.[address] [facility] Comment on above: Performed By: #### L [id number] #### [facility] ([facility]) [address] [place] [address] MAGNESIUMon 04-17-2024 Magnesium [Mass/Vol] 2.2 mg/dL Normal 1.9-2.[address] [facility] Comment on above: Performed By: #### L [id number] ####[facility] ([facility])[address] [facility] [address] PHOSPHORUSon 04-17-2024 Magnesium [Mass/Vol] 3.3 mg/dL Normal 2.5-5.[address] [facility] Comment on above: Performed By: #### L [id number] #### [facility] ([facility]) [address] [place] [address] PROTIME-INRon 04-17-2024 INR IN PPP BY COAGULATION ASSAY 1.01 Normal 0.90-1.[address] [facility] Comment on above: Result Comment: ACCC P [...] 1995;[id number]. Performed By: #### L [id number] ####[facility] [employer])[address] [place] [address] PROTHROMBIN TIME (PT) IN PPP BY COAGULATION ASSAY 13.3 Seconds Normal 12.3-14.[address] [facility] Comment on above: Performed By: #### L [id number] ####[facility] [employer])[address] [place] [address] TROPONIN Ion 04-17-2024 Troponin I.cardiac [Mass/Vol] 0.00 ng/mL Normal 0.00-0.[address] [facility] Comment on above: Performed By: #### L [id number] #### [facility] ([facility]) [address] [place] [address] Office Visiton 12-01-2023 Follow-up visit [id number] Cherry Jaeger ma 1945 Date Provider Department [place] 12/01/2023 [facility]-JOSE ALFREDO [facility]REGOSO [facility] Family History Problem Relation Age of Onset Other Mother Other Father Family Status - Relation Status Age at Mother Father Level of Service:12747 [place] OFFICE/OUTPATIENT NEW LOW MDM [address] [facility] Vital Signs Date Time Vital Sign Value Performing Clinician Facility 10-06-2024 10:41-0400 Body height 152.4 cm Sunny Henning MD Work Phone: [facility] 10-06-2024 10:41-0400 Body mass index (BMI) [Ratio] 24.61 kg/m2 Sunny Henning MD Work Phone: [facility] 10-06-2024 10:41-0400 Body temperature 97.11 [degF] Sunny Henning MD Work Phone: [facility] 10-06-2024 10:41-0400 Body weight 57.15 kg Sunny Henning MD Work Phone: [facility] 10-06-2024 10:41-0400 Diastolic blood pressure 70 mm[Hg] Sunny Henning MD Work Phone: [facility] 10-06-2024 10:41-0400 Heart rate 56 /min Sunny Henning MD Work Phone: [facility] 10-06-2024 10:41-0400 Respiratory rate 20 /min Sunny Henning MD Work Phone: [facility] 10-06-2024 10:41-0400 SaO2% (BldA) [Mass fraction] 99 % Sunny Henning MD Work Phone: [facility] 10-06-2024 10:41-0400 Systolic blood pressure 110 mm[Hg] Sunny Henning MD Work Phone: [facility] 08-04-2024 10:56-0400 Body height 152.4 cm Sunny Henning MD Work Phone: [facility] 08-04-2024 10:56-0400 Body mass index (BMI) [Ratio] 25.39 kg/m2 Sunny Henning MD Work Phone: [facility] 08-04-2024 10:56-0400 Body temperature 97.5 [degF] Sunny Henning MD Work Phone: [facility] 08-04-2024 10:56-0400 Body weight 58.97 kg uSnny Henning MD Work Phone: [facility] 08-04-2024 10:56-0400 Diastolic blood pressure 62 mm[Hg] Sunny Henning MD Work Phone: [facility] 08-04-2024 10:56-0400 Heart rate 70 /min Sunny Henning MD Work Phone: [facility] 08-04-2024 10:56-0400 Respiratory rate 20 /min Sunny Henning MD Work Phone: [facility] 08-04-2024 10:56-0400 SaO2% (BldA) [Mass fraction] 97 % Sunny Henning MD Work Phone: [facility] 08-04-2024 10:56-0400 Systolic blood pressure 118 mm[Hg] Sunny Henning MD Work Phone: [facility] 12-08-2023 09:29-0400 Body height 152.4 cm Sunny Henning MD Work Phone: [facility] 12-08-2023 09:29-0400 Body mass index (BMI) [Ratio] 26.95 kg/m2 Sunny Henning MD Work Phone: [facility] 12-08-2023 09:29-0400 Body temperature 97.3 [degF] Sunny Henning MD Work Phone: [facility] 12-08-2023 09:29-0400 Body weight 62.6 kg Sunny Henning MD Work Phone: [facility] 12-08-2023 09:29-0400 Diastolic blood pressure 50 mm[Hg] Sunny Henning MD Work Phone: [facility] 12-08-2023 09:29-0400 Heart rate 53 /min Sunny Henning MD Work Phone: [facility] 12-08-2023 09:29-0400 Respiratory rate 20 /min Sunny Henning MD Work Phone: [facility] 12-08-2023 09:29-0400 SaO2% (BldA) [Mass fraction] 97 % Sunny Henning MD Work Phone: [facility] 12-08-2023 09:29-0400 Systolic blood pressure 112 mm[Hg] Sunny Henning MD Work Phone: [facility] 05-11-2023 10:10-0400 Body height 149.9 cm Ras Garza MD Work Phone: [facility] 05-11-2023 10:10-0400 Body mass index (BMI) [Ratio] 27.87 kg/m2 Ras Garza MD Work Phone: [facility] 05-11-2023 10:10-0400 Body weight 62.6 kg Ras Garza MD Work Phone: [facility] 05-11-2023 10:10-0400 Diastolic blood pressure 74 mm[Hg] Ras Garza MD Work Phone: [facility] 05-11-2023 10:10-0400 Heart rate 69 /min Ras Garza MD Work Phone: [facility] 05-11-2023 10:10-0400 SaO2% (BldA) [Mass fraction] 99 % Ras Garza MD Work Phone: [facility] 05-11-2023 10:10-0400 Systolic blood pressure 130 mm[Hg] Ras Garza MD Work Phone: [facility] Encounters Encounter Date Encounter Type Care Provider Facility Start: 10-11-2024 End: 10-11-2024 Refill Sunny Henning MD Work Phone: [facility] Comment on above: Generalized anxiety disorder Start: [...] Primary osteoarthritis of left hip; 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 Start: 10-06-2024 End: 10-06-2024 ambulatory SUNNY HENNING Not Available Start: 09-06-2024 End: 09-22-2024 Clinisync Result Encounter Generic External Data Provider [facility] Unsolicited Start: 09-06-2024 End: 09-22-2024 Clinisync Result Encounter Generic External Data Provider [facility] External Department Unsolicited Start: 08-29-2024 End: 08-29-2024 ambulatory AB [facility] Start: 08-10-2024 End: 08-10-2024 Clinisync Result Encounter [...] [facility] Work Phone: Start: 08-04-2024 End: 06-20-2025 Postop follow up visit related to original [...] Department Unsolicited Start: 06-13-2024 End: 06-13-2024 ambulatory [facility] Start: 06-07-2024 End: 06-07-2024 Clinisync Result Encounter Generic External Data Provider [facility] External Department Unsolicited Start: 06-07-2024 End: 06-07-2024 Clinisync Result Encounter Generic External Data Provider [facility] External [facility] Unsolicited Start: 05-03-2024 End: 05-03-2024 ambulatory SUNNY HENNING Not Available Start: 04-27-2024 ambulatory ORALIA OLSEN [facility] Start: 04-24-2024 End: 04-24-2024 Clinisync Result Encounter Generic External Data Provider [facility] External Department Unsolicited Start: 04-24-2024 End: 04-24-2024 Clinisync Result Encounter Generic External Data Provider [facility] External Department Unsolicited Start: 04-19-2024 Evaluation and manag ement of inpatient [facility] Start: 04-18-2024 Evaluation and manag ement of inpatient RHETT RUDD [facility] Start: 04-17-2024 End: 04-20-2024 Evaluation and management of inpatient CALIN YE 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); Primary insomnia; Primary osteoarthritis of left hip Start: 12-08-2023 End: 12-08-2023 ambulatory SUNNY HENNING Not Available Start: 12-01-2023 End: 12-01-2023 ambulatory [facility] Start: 07-06-2023 End: 07-06-2023 Refill Hazem Malas DO Work Phone: [facility] Comment on above: Med Refill Start: 06-11-2023 End: 06-11-2023 Refill Hazem Malas DO Work Phone: [facility] Comment on above: Med Refill Start: 05-11-2023 End: 05-11-2023 ambulatory RAS GARZA [facility] Start: 05-11-2023 End: 05-11-2023 Office outpatient visit 15 minutes Ras Garza MD Work Phone: [facility] Comment on above: Coronary artery dise ase involving shawnee coronary artery of shawnee heart without angina pectoris (Primary Dx) Start: 05-10-2023 Telephone encounter Pratima snell [facility] Start: 08-31-2019 Preoperative state Pratima Jeffers [facility] Start: 08-21-2019 Admission to establishment Ilda Arias [facility] Work Phone: Procedures Date Procedure [...] Start: 06-07-2024 [facility] CMP (CMP) (FOR R EMOTE [facility] USE) Generic External Data Provider Start: 04-24-2024 ALL CBC WITH AUTO DIFF Generic External Data Provider Plan of Treatment Date Care Activity Detail Author Start: 08-04-2025 Medicare Annual Well ness (AWV) Medicare Annual Wellness (AWV) [facility] Start: 04-09-2025 End: 04-09-2025 Patient encounter procedure 04/09/2025 10:30 AM EST Office Visit [facility] [address] [place] [address] Sunny Henning MD [address] [place] [id number] [facility] Start: 12-07-2024 Medicare Annual [...] [facility] [address] [place] [address] Sunny Henning MD [address] [place] [phone] [facility] Start: 05-10-2024 Adult BMI Screening Adult BMI Screen ing [facility] Start: 05-10-2024 Tobacco Screening Tobacco Screening [facility] Start: 05-04-2024 End: 05-04-2024 Patient encounter procedure 05/04/2024 3:30 PM EDT Office Visit [facility] [address] [place] [address] Sunny Henning MD [address] [place] [phone] [facility] Start: 12-08-2023 End: 12-08-2023 Patient encounter procedure 12/08/2023 9:30 AM EDT Office Visit [facility] [address] [place] [phone] Sunny Henning MD [address] [place] [phone] Arrived [facility] Comment on above: Arrived Start: 11-12-2023 Adult BMI Screening Adult BMI Screen ing [facility] Start: 11-12-2023 Tobacco Screening Tobacco Screening [facility] Start: 10-17-2023 Influenza vaccination [facility] Start: 05-11-2023 End: 05-11-2023 Patient encounter procedure 05/11/2023 10:30 AM EDT Office Visit [facility] [address] [place] [address] Ras Garza MD [address] [place] [phone] [facility] Start: 10-16-2022 COVID-19 Vaccine ( season) COVID-19 Vaccine ( season) [facility] Start: 10-16-2022 Influenza vaccination Influenza Vacc ine [facility] Start: 2012 Fall Risk Screening Fall Risk Screen ing [facility] Start: 1997 Administration of varicella zoster vaccine Zoster (Shingles) Vaccine (1 of 2) [facility] Start: 1966 DTaP,Tdap and Td Vac cines (1 - Tdap) DTaP,Tdap and Td Vaccines (1 - Tdap) [facility] Start: 1965 Adult BMI Follow Up Plan Adult BMI Follow Up Plan [facility] Start: 1959 Depression Screening Depression Scre ening [facility] Start: 1945 Medicare Annual Well ness (AWV) Medicare Annual Wellness (AWV) [facility] Start: 1945 Medicare Annual Well ness Visit Medicare Annual Wellness Visit [facility] Immunizations Immunization Date Immunization Notes Care Provider Fa cili 12-08-2023 influenza virus vaccine, unspecified formulation Generic Provider [facility] 01-18-2023 influenza virus vaccine, unspecified formulation Joon Barron DO Work Phone: [facility] 10-28-2021 influenza virus vaccine, unspecified formulation Pratima Arias [facility] 04-25-2020 COVID-19, mRNA, LNP- S, PF, 100mcg/0.5mL Dose Pratima Arias [facility] 03-28-2020 COVID-19, mRNA, LNP- S, PF, 100mcg/0.5mL Dose Pratima Arias [facility] 11-13-2017 Seasonal trivalent influenza vaccine, adjuvanted, preservative free Pratima Arias [facility] Payers Date Payer Category Payer Private Health Insurance [id number] 2021 Unknown [id number] 2012 Medicare [id number] 2012 Medicare [id number] 1945 Unknown [id number] 1945 Unknown [id number] [id number] 1945 Unknown [id number] [id number] 1945 Unknown [id number] 1945 Unknown [id number] Social History Date Type Detail Facility Start: 05-23-2021 End: 08-10-2023 Tobacco smoking status WAIS Never smoked tobacco [facility] Start: 05-23-2021 End: 08-10-2023 Tobacco use and exposure Smokeless tobacco non-user [facility] Start: 08-10-2023 End: 10-06-2024 Alcoholic beverage intake Lifetime non-drinker (finding) [facility] Start: 05-06-2023 End: 09-30-2024 History of Social function [facility] Start: 05-06-2023 End: 09-30-2024 Social connection and isolation panel [facility] Do you belong to any clubs or organizations such as buddhist groups, unions, fraternal or athletic groups, or school groups? Yes [facility] Are you now , , , , never or living with a partner? [facility] How often to you hav e a drink containing alcohol? Monthly or less [facility] How many standard drinks containing alcohol do you have on a typical day? Patient does not drink [facility] How often do you hav e 6 or more drinks on 1 occasion? Never [facility] Do you feel stress - tense, restless, nervous, or anxious, or unable to sleep at night because your mind is troubled all the time - these days [OSQ] Only a [facility] (I/We) worried wheth er (my/our) [...] beverage intake Current drinker of alcohol (finding) [facility] How often do you hav e 6 or more drinks on 1 occasion? Less than monthly [facility] Start: 10-10-2016 Alcohol Comment drinks wine occasionally [facility] Start: 1945 Sex assigned at Not on file P [facility] Do you feel stress - tense, restless, nervous, or anxious, or unable to sleep at night because your mind is troubled all the time - these days [OSQ] To some extent [facility] NEGATED: Highlighted rowStart: ANIVAL History of tobacco use Passive smoker [facility] Medical Equipment Procedure Code Equipment Code Equipment Origin al Text Equipment Identifier Dates Lens Iol Ultrase rt 14.0d - [id number] - [id number] Start: 04-15-2021 Lens Iol Ultrase rt 13.0d - [id number] - [id number] Start: 05-01-2021 Mesh Tiss 10x7cm [place] - [id number] - [id number] Start: 06-07-2017 Shl Actb G7 Pps Ltd 52e - [id number] Start: 09-04-2019 Linr Actb G7 Ntr l 36mm E - [id number] Start: 09-04-2019 Stm Fem 115mm 13 3d 15 Std Os - [id number] Start: 09-04-2019 Hd Fem 36mm Opt Shl Actb G7 Bl Rpl 650-1057 - [id number] Start: 09-04-2019 Slv Fem Opt -3mm Tpr Hip Blx D Rpl 650-6075 - [id number] Start: 09-04-2019 Juanjose Xience Alpin e 3.0x15mm Repl [id number] - [id number] [id number] FDA Start: 10-12-2016 Juanjose Xience Alpin e 2.32g53uc Repl [id number] - [id number] Start: 10-12-2016 Goals Date Patient Goal [...] [facility] ionnaire 2 item (PHQ-2) [Reported] [facility] Clinical Notes 05-10-2023 to 10-06-2024 Sunny Henning MD - 10/06/2024 11:13 AM EDEladio Henning MD - 10/06/2024 11:12 AM Irena Henning MD - 10/06/2024 11:12 AM EDEladio Henning MD - 10/06/2024 11:12 AM EDT [...] and monitor PRN. 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 [...] BP controlled and monitor PRN. 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 Follow with cardiology. Generalized anxiety disorder Symptoms stable without SSRI and monitor. Use xanax PRN. Primary insomnia Sleeping well with medication and continue. Primary osteoarthritis of left hip Minimal pain and use OTC PRN. documented in this encounter [facility] 08-29-2024 Note [facility] Cardiology Clinic Note Chief Complaint: Patient [...] Other ( heart problems ) Father Allergies Uessxvl-egz-gem reductase inhibitors Medications Current Outpatient Medications: ALPRAZolam [...] effort of breathing, (more content not included)... [facility] 08-04-2024 History of Present illness Narrative Associated [...] not to smoke. documented in this encounter [facility] 06-13-2024 Note [facility] Cardiology Clinic Note Chief Complaint: Patient here for 1 mo follow up CAD, unstable angina, and HFimpEF. Underwent PCI last month. She will start cardiac rehab after her trip to [place]. Had lipid panel last week. She's still [...] Other ( heart problems ) Father Allergies Awkxzhh-bmf-zog reductase inhibitors Medications Current Outpatient Medications: ALPRAZolam [...] thickened and exhibit normal excursion. There is afbvc-qh-rsyg regurgitation. There is no evidence of mitral valve st (more content not included)... [facility] 04-27-2024 Note [facility] NOTE HVC Overview HPI: Diana Jaeger is a 79 y.o. female here for FU of recent hospitalization for [facility] with Stenting of LAD She is followed by [facility]reg[facility] since 11/2023 HPI PMH: Recent unstable angina with additional stent to LAD, history of CAD with stenting of proximal and mid LAD (2017). Also heart failure with improved EF, history of stress-induced cardiomyopathy, hypertension, prediabetes, dyslipidemia, 04/17/2024 admitted as transfer from [facility] for unstable angina I with [...] in 3 months, referral to [facility] for cardiac rehab. After extended discussion, she declines alternative to statin, and we will recheck lipids in 3 months. Wt Readings from Last 3 Encounters: 04/27/24 62.9 kg (138 lb 9.6 oz) 04/20/24 59 kg (130 lb) 12/01/23 62.1 kg (137 lb) Assessment and Plan #CAD #Unstable angina. #Hyperlipidemia --Currently denies angina, chest pain --04/19/24 [facility]: Severe stenosis of the left anterior descending [...] statin --Will fax referral to [facility] for phase 2 cardiac rehab. [...] crackles or rhonchi (more content not included)... [facility] 04-27-2024 Note Would like to discus s dosage of trazadone [facility] 04-20-2024 Note Hospital Medicine Discharge Summary Final Discharge Diagnosis: Unstable angina Severe Stenosis of LAD Status post cardiac catheterization Status post placement of JUANJOSE to LAD Chornic HFrecEF. NYHA class I Essential hypertension GERD without esophagitis Anxiety Prediabetes Admission Diagnosis: NSTEMI (non-ST elevated myocardial infarction) (CMS/[facility]) [I21.4] Hospital course: Ms. Diana Jaeger is an 79 y.o. female admitted from [facility] as a direct transfer where [...] Cath Consultations During Admission: Cardiology Dear Dr. Anais MD, Diana is advised to follow up with you within 1-2 weeks. Items to follow up in ambulatory setting: Follow-up serial CBCs and Follow-up serial BMPs Follow-up with: Cardiology Scheduled appointments: Future Appointments Date Time Provider Department Center 04/27/2024 11:30 AM Oralia Olsen PA-C [facility] Your medication list START [...] Commonly known as: Coreg cholecalciferol 50 MCG (1999) tablet Commonly known as: Vitamin D-3 nitroglycerin 0.4 mg SL tablet Commonly known as: Nitrostat traZODone 50 mg tablet Commonly known as: Desyrel Where to Get Your Medications These medications were sent to [facility] - [place], [place] - [address] [place] [address] [facility] [place] [address], [facility] [address] aspirin 81 mg EC tablet clopidogrel 75 mg tablet Diana is allergic to kmdkwvn-nbk-ndf reductase inhibitors. Disposition: Home or Self Care () Discharge Condition: Stable Code Status: Full Code Diagnostic Results Hematology: Results from last 7 days Lab Units 04/20/24 0630 04/19/24 2342 04/19/24 1750 04/18/24 0459 04/17/242036 WBC AUTO 10*3/uL 11.02* -- -- 8.01 [...] CO2 mmol/L 20* (more content not included)... [facility] 04-20-2024 Note Cardiology Inpatient Progress Note Subjective HPI: Diana Jaeger is a 79 y.o. year old female patient with a PMH of A 79-year-old female with a medical history significant for primary hypertension, prediabetes, mixed hyperlipidemia, coronary artery disease with a prior LAD stent (2017), chronic heart failure with improved ejection fraction, and a history of stress-induced cardiomyopathy was transferred to [facility] from [facility]. She initially presented with retrosternal [...] the left wrist access site from the [facility] shows an intact site with bruising but [...] lesions, or itching. ALLERGIES: Allergies Allergen Reactions Ypvwaba-Xsv-Ptd Reductase Inhibitors Other myalgias Objective 12-24 hour [...] bilaterally. No whe (more content not included)... [facility] 04-19-2024 Note Attestation signed by Marija Johnson [...] Teaching Physician's Revisions: none Marija Johnson MD [place] [facility] Cardiology Progress Note Subjective Subjective: Patient [...] Value Ventricular Rate 62 Atrial Rate 62 [place] Interval 162 QRS DURATION 98 QT Interval 426 QTC CALCULATION(BAZETT) 432 P Lenox 15 R-Lenox -20 T Wave Lenox 19 Impression Normal sinus rhythm with sinus [...] least in part, completed using a voice fretted string instrument repairer system. Every effort was made to ensure accuracy. However, inadvertent computerized fretted string instrument repairer error (more content not included)... [facility] 04-19-2024 Note - Not on any PPI or other medications at home - Will start PPI if requested [facility] 04-19-2024 Note -Initial troponin no rmal and EKG negative with no ST elevation -Patient on IV heparin -Allergic to statin, consider starting Zetia -Awaiting results of left heart cath this the morning. [facility] 04-19-2024 Note - On Xanax and Trazo done at home - Xanax PRN and Trazodone have been ordered [facility] 04-19-2024 Note -A1c: 5.8 -Follow-up with PCP for further recommendations [facility] 04-19-2024 Note -Continue ASA and Co reg 6.25 mg BID -Monitor BP and control with medication as needed -Patient was on Ramipril 2.5 mg nightly, caused bradycardia so was discontinued -Blood pressure is at goal at this time [facility] 04-19-2024 Note -last TTE on 04/17/24 shows improved EF 60-65% -Continue GDMT as able [facility] 04-19-2024 Note Hospital Medicine Daily Progress Note - 04/19/2024 10:41 AM; Room: [address] [place] [address] Admission: 04/17/2024 7:33 PM; Length of stay: 2 days THE HOSPITALIST TEAM PREFERS TO USE [employer] FOR NON-URGENT COMMUNICATION 7AM-7PM. IF I DO NOT RESPOND WITHIN 20 MINUTES OR URGENT MATTERS, PLEASE CALL THROUGH THE SAP MANAGER. FROM 7PM-7AM, PLEASE PAGE [phone](COVR). Code Status: Full Code Barriers to Discharge: [...] and Plan Assessment & Plan Unstable angina ([facility]) -Initial troponin normal and EKG negative with no ST elevation -Patient on IV heparin -Allergic to statin, consider starting Zetia -Awaiting results of left heart cath this the morning. Chronic heart failure ([facility]) -last TTE on 04/17/24 shows improved EF [...] this hospital stay by a member of [facility]. Scheduled Meds aspirin, 81 mg, [...] Results from las (more content not included)... [facility] 04-18-2024 Note - One xanax and traz odone at home - Xanax PRN and trazodone have been ordered [facility] 04-18-2024 Note - Not on any PPI or other medications at home - Will start PPI if requested [facility] 04-18-2024 Note -last TTE on 04/17/24 shows improved EF 60-65% - Continue GDMT as able [facility] 04-18-2024 Note -Continue ASA and Co reg 6.25 mg BID -Monitor BP and control with medication as needed -Patient was on Ramipril 2.5 mg nightly, caused bradycardia so was discontinued - Blood pressure is at goal at this time [facility] 04-18-2024 Note A1c checked this mor arturo - 5.8 Follow-up with PCP for further recommendations [facility] 04-18-2024 Note -Initial troponin no rmal and EKG negative with no ST elevation -Patient on IV heparin -Allergic to statin, consider starting Zetia -Awaiting results of left heart cath this the morning. [facility] 04-18-2024 Note 04/18/24 1033 Admission Assessment Questions [...] Status Interested Does the patient have a patient case coordinator assigned to them through their insurance? No [...] to send link and activate MyChart? No [facility] 04-18-2024 Note Hospital Medicine Daily Progress Note - 04/18/2024 11:09 AM; Room: [address] [place] [address] Admission: 04/17/2024 7:33 PM; Length of stay: 1 days THE HOSPITALIST TEAM PREFERS TO USE [employer] FOR NON-URGENT COMMUNICATION 7AM-7PM. IF I DO NOT RESPOND WITHIN 20 MINUTES OR URGENT MATTERS, PLEASE CALL THROUGH THE SAP MANAGER. FROM 7PM-7AM, PLEASE PAGE [phone](COVR). Code Status: Full Code Barriers to Discharge: [...] this hospital stay by a member of [facility] Medicine. Scheduled Meds aspirin, 81 mg, oral, Daily carvedilol, 6.25 mg, oral, BID with meals cholecalciferol, 2,000 Units, oral, Daily traZODone, 50 mg, oral, Nightly heparin, 0-28 Units/kg/hr, Last Rate: 15 Units/kg/hr (04/18/24 1020) Pertinent Investigations Hematology: Results from last 7 days Lab Units 04/18/24 0459 04/17/242036 WBC AUTO 1 (more content not included)... [facility] 04-17-2024 Note Check A1c in the morning [facility] 04-17-2024 Note Monitor and controll ed with medication as needed patient has been on ramipril but states that it caused bradycardia so she has not been taking it [facility] 04-17-2024 Note Patient on IV hepari n entry she has allergies to statin consider Zetia patient is scheduled for left heart cath in the morning [facility] 04-17-2024 Note Hospital Medicine History and Physical 04/17/2024 10:02 PM THE HOSPITALIST TEAM PREFERS TO USE [employer] CHAT FOR NON-URGENT COMMUNICATION 7AM-7PM. IF I DO NOT RESPOND WITHIN 20 MINUTES OR URGENT MATTERS, PLEASE CALL THROUGH THE SAP MANAGER. FROM 7PM-7AM, PLEASE PAGE [phone](COVR). Chief Complaint No chief complaint on file. History of Present Illness Diana Jaeger is an 79 y.o. female admitted from [facility] as a direct transfer where [...] (non-ST elevated myocardial infarction) ([facility]) Patient on IV heparin entry she has [...] this hospital stay by a member of [facility] Medicine. Past Medical History Past Medical History: Diagnosis Date CHF (congestive heart failure) ([facility]) Coronary artery disease GERD (gastroesophageal reflux disease) Hyperlipidemia Hypertension Myocardial infarction ([facility]/ (more content not included)... [facility] 12-08-2023 History of Present illness Narrative Associated Problem(s): Primary osteoarthritis of left hip Minimal pain and use OTC PRN. Associated Problem(s): Primary insomnia Sleeping well with medication and continue. Associated Problem(s): Generalized anxiety disorder (CMS/HCC) Symptoms controlled with xanax and use PRN. Associated Problem(s): Essential hypertension, benign (CMS/HCC) BP controlled and monitor PRN. 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 Generalized anxiety disorder (CMS/HCC) Symptoms controlled with xanax and use PRN. Relevant Medications ALPRAZolam (Xanax) 0.5 MG tablet Primary insomnia Sleeping well with medication and continue. Primary osteoarthritis of left hip Minimal pain and use OTC PRN. documented in this encounter [facility] 12-01-2023 Note [facility] Cardiology Clinic Note Chief Complaint: New [...] thickened and exhibit normal excursion. There is ufynl-cu-vvls regurgitation. There is no evidence of mitral [...] are seen throug (more content not included)... [facility] 07-06-2023 Miscellaneous Notes Last OV 05/08 documented in this encounter [facility] 07-06-2023 Telephone encounter Note Last OV 05/08 [facility] 06-11-2023 Miscellaneous Notes Appt 05/11/23 [facility]23 Telephone encounter Note Appt 05/11/23 [facility] 05-11-2023 History of Present illness Narrative Diana Jaeger Date of visit: 05/11/2023 Date of : 1945 Age: 78 y.o. Patient Active Problem List Diagnosis Status post angioplasty with stent Pure hypercholesterolemia Partial bowel obstruction (CMS-HCC) Gastric volvulus Thickened endometrium Right ovarian cyst Coronary artery disease involving shawnee coronary artery of shawnee heart without angina pectoris Pain of left hip joint Primary osteoarthritis of left hip Takotsubo cardiomyopathy Encounter for preadmission testing Preoperative clearance Allergies Allergen Reactions Yzxdzir-Zvg-Kaf Reductase Inhibitors pain and Nausea Patient states [...] Past Medical History: Diagnosis Date Angina pectoris ([facility]) not since 2018 Anxiety Arthritis osteoarthritis left hip Bowel obstruction ([facility]) Chronic combined systolic and diastolic congestive heart failure ([facility]) 10/23/2018 Coronary artery disease H/O gastroesophageal reflux (GERD) Hiatal hernia Myocardial infarct ([facility]) 09/2016; 2018 2 stents placed in 2017 PONV (postoperative nausea and vomiting) Shortness of breath with strenuous activity Visual impairment wears glasses No data recorded No data recorded No data recorded Past Surgical History: Procedure Laterality Date Cardiac catheterization N/A 10/12/2016 Performed by Hamilton Gleason MD at [facility] CARDIAC CATH LABS COLONOSCOPY N/A 08/05/2017 Performed by Carlos Justice DO at [facility] Coronary angiogram and left ventricular gram/pressure N/A 09/30/2018 Performed by Henry Rivera MD at [facility] CARDIAC CATH LABS Coronary angiogram and left ventricular gram/pressure N/A 06/02/2017 Performed by Octavio Nieves MD at [facility] CARDIAC CATH LABS Coronary angiogram and left ventricular gram/pressure N/A 10/12/2016 Performed by Hamilton Gleason MD at [facility] CARDIAC CATH LABS CORONARY ANGIOPLASTY DAVINCI PERIESOPHAGEAL [place] FUNDOPLICATION/ HIATAL HERNIA REPAIR/ EGD/GASTROPEXY N/A 06/07/2017 Performed by Colin Morales MD at [facility] DIAGNOSTIC LAPAROSCOPY, LAPAROSCOPIC LYSIS OF ADHESIONS N/A 04/05/2017 Performed by Colin Morales MD at [facility] EGD N/A 06/03/2017 Performed by Johnathan Valenzuela MD at [facility] EXTRACTION CATARACT INTRAOCULAR LENS Right 05/01/2021 Performed by Adrienne Braga MD at [facility] EXTRACTION CATARACT INTRAOCULAR LENS Left 04/15/2021 Performed by Adrienne Braga MD at [facility] HERNIA REPAIR Intravascular pressure measurement first vessel(fractional flow reserve) N/A 09/30/2018 Performed by Henry Rivera MD at [facility] CARDIAC CATH LABS REPLACEMENT TOTAL JOINT ANTERIOR SUPINE INTERMUSCULAR HIP Left 09/04/2019 Performed by Juan Velasco MD at [facility] Revascularization occlusion with myocardial infarction drug eluting stent left anterior descending N/A 10/12/2016 Performed by Hamilton Gleason MD at [facility] CARDIAC CATH LABS Family [...] min Stress: No Stress Concern Present (09/04/2019) [employer] - Occupational Stress Questionnaire Feeling of Stress : Only a little Social Connections: Unknown (09/04/2019) Social Connection and Isolation Panel [NHANES] Frequency of Communication with Friends and Family: More than three times a week Frequency of Social Gatherings with Friends and Family: More than three times a week Attends Taoist Services: Patient declined Active Member of Clubs [...] is joining the health center here in [place] and will do this on a regular basis. Follow-up in a year TODAYS ORDERS No orders of the defined types were placed in this encounter. FOLLOW UP No follow-ups on file. PCP: SUNNY HENNING MD Referring Physician: Sunny Henning MD [address] [place] [address] documented in this encounter [facility] 05-10-2023 Miscellaneous Notes Left message for patient to remind them to bring their most current medication list with them to their appointment. documented in this encounter [facility] 05-10-2023 Telephone encounter Note Left message for patient to remind them to bring their most current medication list with them to their appointment. 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) Primary insomnia Persistent disorder of initiating or maintaining sleep Primary osteoarthritis of left hip 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)- Primary Essential hypertension, benign (CMS/HCC) [...] disease without esophagitis Esophageal reflux 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 Essential hypertension, benign- Primary Essential hypertension, benign Generalized anxiety disorder Generalized anxiety disorder 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 Primary insomnia Persistent disorder of initiating or maintaining sleep Primary osteoarthritis of left hip 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- Primary Essential hypertension, benign Essential hypertension, [...] disease without esophagitis Esophageal reflux 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 Essential hypertension, benign- Primary Essential hypertension, benign Generalized anxiety disorder Generalized anxiety disorder 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 Primary insomnia Persistent disorder of initiating or maintaining sleep Primary osteoarthritis of left hip 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- Primary Essential hypertension, benign Essential hypertension, [...] Primary osteoarthritis of left hip 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 documented in this encounter [facility]* Diagnosis Essential hypertension, benign- Primary Essential hypertension, benign Generalized anxiety disorder Generalized anxiety disorder Primary insomnia Persistent disorder of initiating or maintaining sleep Gastroesophageal reflux disease without esophagitis Esophageal reflux 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 Essential hypertension, benign- Primary Essential hypertension, benign Generalized anxiety disorder Generalized anxiety disorder 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 Primary insomnia Persistent disorder of initiating or maintaining sleep Primary osteoarthritis of left hip 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- Primary Essential hypertension, benign Essential hypertension, [...] Primary osteoarthritis of left hip 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 Generalized anxiety disorder Generalized anxiety disorder documented in this encounter [facility] HealthcareInstructionsNot on filedocumented in this encounterPro[facility]ica [facility] SystemInstructionsNot on filedocumented in this encounterProMedica Health SystemInstructionsNot on filedocumented in this encounterProMedica Health System Summary Purpose Family History No Family [...] section and content) DATE CREATED AUTHOR 05/12/2023 [facility] DATE CREATED AUTHOR AUTHOR'S ORGANIZ ATION 10/08/2024 [facility] EPIC DATE CREATED AUTHOR AUTHOR'S ORGANIZ ATION 11/19/2024 [facility] Care Teams (unrecognized sec tion and content) Chain Sales Representative Relationship Specialty Start Date End Date Sunny Henning MD [address] [place] [address] PCP - General Family Medicine 03/23/23 Chain Sales Representative Relationship Specialty Start Date End Date Sunny Henning MD [address] [place] [address] PCP - General Family Medicine 03/23/23 Chain Sales Representative Relationship Specialty Start Date End Date Sunny Henning MD [address] [place], [place] [phone] PCP - General Family Medicine 11/04/20 Chain Sales Representative Relationship Specialty Start Date End Date Sunny Henning MD [address] [place] [address] PCP - General Family Medicine 11/04/20 Chain Sales Representative Relationship Specialty Start Date End Date Sunny Henning MD [address] [place] [address] PCP - General Family Medicine 11/04/20 Chain Sales Representative Relationship Specialty Start Date End Date Sunny Henning MD [address] [place] [phone] PCP - General Family Medicine 03/23/23 Sunny Henning MD [address] [place] [phone] PCP - ACO Reach 03/24/24 Chain Sales Representative Relationship Specialty Start Date End Date Sunny Henning MD [address] [place] [phone] PCP - General Family Medicine 03/23/23 Sunny Henning MD [address] [place] [phone] PCP - ACO Reach 03/24/24 Chain Sales Representative Relationship Specialty Start Date End Date Sunny Henning MD [address] [place] [phone] PCP - General Family Medicine 03/23/23 Sunny Henning MD [address] [place] [address] PCP - ACO Reach 03/24/24 Chain Sales Representative Relationship Specialty Start Date End Date Sunny Henning MD [address] [place] [address] PCP - General Family Medicine 03/23/23 Sunny Henning MD [address] [place] [address] PCP - ACO Reach 03/24/24 Chain Sales Representative Relationship Specialty Start Date End Date Sunny Henning MD [address] [place] [address] PCP - General Family Medicine 03/23/23 Sunny Henning MD [address] [place] [address] PCP - ACO Reach 03/24/24 Chain Sales Representative Relationship Specialty Start Date End Date Sunny Henning MD [address] [place] [address] PCP - General Family Medicine 03/23/23 Sunny Henning MD [address] [place] [address] PCP - ACO Reach 03/24/24 Chain Sales Representative Relationship Specialty Start Date End Date Sunny Henning MD [address] [place] [address] PCP - General Family Medicine 03/23/23 Sunny Henning MD [address] [place] [phone] [facility] 03/24/24 Chain Sales Representative Relationship Specialty Start Date End Date Sunny Henning MD [address] [place] [phone] PCP [facility] 03/23/23 Sunny Henning MD [address] [place] [phone] [facility] 03/24/24 Chain Sales Representative Relationship Specialty Start Date End Date Sunny Henning MD [address] [place] [phone] [facility] 03/23/23 Sunny Henning MD [address] [place] [address] [facility] 03/24/24 Reason for Visit (unrecogniz ed section [...] BE BASED ON THE PRIMARY CLINICAL RECORDS. [employer] [facility] provides no warranty or guarantee of the accuracy or completeness of information in this document.
[2024-11-29 13:15] VITALS: BP 105/72; PULSE 61; TEMP 36.6; O2SAT 98; BMI 25.2
--- NOTE | 2024-11-29 13:48 | ED_ITS ---
HPI HPI - General Adult General Chief complaint: Skin/Abscess/Foreign Body Stated complaint: RASH ON L LEG Time Seen by Provider: 11/29/24 13:31 History of Present Illness HPI narrative: Patient is a 79-year-old female with a past medical history of 3 myocardial infarction's with cardiac stents on Plavix/aspirin that presents with complaint of rash, erythema, and increasing swelling of her right lower leg after she bumped it on a lawnmower 2 weeks ago. She states that 6 days ago, on she started to develop a rash around the very small wound and bruising that she had on her mid malcolm. She had some amoxicillin leftover from a dental procedure and started to take this. She also notes that she had been using Neosporin and Band-Aids and had never used those before. There is no improvement in her symptoms and the redness started to increase down towards her ankle and up towards her knee and she ended up going to urgent care on Wednesday and was prescribed Keflex and try and a steroid cream. She states there is been no improvement since she started taking those 2 medications. Urgent care had mentioned that she may have been allergic to the Neosporin Band-Aid. She started using paper tape over the small wound. She denies any fever, night s weats, or chills. She does have some tenderness to the medial ankle. Today she started to notice bumps on the left side of her face and a red rash in her left inguinal area. She is not diabetic. Related Data Home Medications ?Medication ?Instructions ?Recorded ?Confirmed carvedilol 6.25 mg tablet 6.25 mg PO Q12H 04/16/24 nitroglycerin 0.4 mg sublingual 0.4 mg sublingual Q5M PRN chest 04/16/24 11/01/24 tablet pain alprazolam 0.5 mg tablet 0.5 mg PO TID PRN anxiety 11/01/24 aspirin 81 mg tablet,delayed 81 mg PO DAILY 11/01/24 0 11/01/24 release clopidogrel 75 mg tablet 75 mg PO DAILY 11/01/2410/16 trazodone 50 mg tablet 50 mg PO QPM 11/01/24 Previous Rx's ?Medication ?Instructions ?Recorded doxycycline monohydrate 100 mg 100 mg PO BID 7 days #1 4 caps 10/15/25 capsule methylprednisolone 4 mg tablets in 4 mg PO DAILY #21 e a 11/29/24 a dose pack (Medrol (Darrel)) Allergies Allergy/AdvReac Type Severity Reaction Status Date / Time No Known Drug Allergies Allergy Verified 04/16/24 09:09 Opioid HPI Opioid Management Most Recent Opioid Data: Last Pain Scale 0 Today, 15:34 Last ORT Total Score 0 04/16/24, 13:10 Last ORT Risk Category Low Risk 04/16/24, 13:10 Review of Systems ROS Status of ROS 10 or more systems reviewed and unremark able except as noted in history and below [facility] Medical History (Updated 11/29/24 @ 15:15 by JEFF Mcintyre) Dyspnea ?R06.00 - Dyspnea, unspecified (ICD-10) CAD (coronary artery disease) ?I25.10 - Atherosclerotic heart disease of [place] coronary artery without angina pectoris (ICD-10) Chest pain ?R07.9 - Chest pain, unspecified (ICD-10) Cataract (lens) fragments in eye following cataract surgery, bilateral ?H59.023 - Cataract (lens) fragments in eye following cataract surgery, bilateral (ICD-10) Abdominal hernia with obstruction ?K46.0 - Unspecified abdominal hernia with obstruction, without gangrene (ICD-10) Hip replacement planned Myocardial infarct, old ?I25.2 - Old myocardial infarction (ICD-10) Chest pain ?R07.9 - Chest pain, unspecified (ICD-10) Social History Highest level of school completed/degree received: high school graduate Little interest or pleasure in doing things: not at all Feeling down, depressed, or hopeless: not at all Exam Narrative Exam Narrative: General: No distress, age-appropriate Skin: Warm, dry, no pallor. Papular rash and erythema and swelling mid left malcolm that extends to ankle and up towards the knee. Swelling is extending into the foot. 2+ DP pulse palpated. There is a small abrasion at the mid malcolm that has a scab over it. Head: Normocephalic, atraumatic. Neck: Supple, non-tender. Eye: Pupils are equal, round and EOMI. No scleral icterus. Ears, Nose, Mouth, and Throat: No nasal mucosal hypertrophy. Oral mucosa is moist, no posterior oropharynx erythema, uvula is mid-line Cardiovascular: Regular Rate and Rhythm without murmur, gallop or rub. Respiratory: No accessory muscle use or respiratory distress. Lungs are clear to auscultation, no wheezing, rales or rhonchi Chest Wall: no tenderness Musculoskeletal: Full ROM of all extremities, no calf or popliteal tenderness. Negative Homans' sign. L Lateral ankle tenderness and swelling with palpation, more on lateral ligaments. GI: Abdomen is soft, non-distended, non tender to palpation. No masses appreciated. No rebound, guarding, or rigidity noted. Neurological: A&O x4. No cranial nerve dysfunction observed. No truncal ataxia. Moves all extremities. Sensation intact. Psychiatric: Cooperative and interactive. Normal mood and affect. Constitutional Vital Signs, click to edit/add: Last Vital Signs Temp 97.8 F 11/29/24 13:15 Pulse 61 11/29/24 13:15 Resp 18 11/29/24 13:15 BP 105/72 11/29/24 13:15 Pulse Ox 98 11/29/24 13:15 O2 Del Method Room Air 11/29/24 13:15 Course Vital Signs Vital signs: Vital Signs Temperature 97.8 F 11/29/24 13:15 Pulse Rate 61 11/29/24 13:15 Respiratory Rate 18 11/29/24 13:15 Blood Pressure 105/72 11/29/24 13:15 Pulse Oximetry 98 11/29/24 13:15 Oxygen Delivery Method Room Air 11/29/24 13:15 Temperature 97.8 F 11/29/24 13:15 Pulse Rate 61 11/29/24 13:15 Respiratory Rate 18 11/29/24 13:15 Blood Pressure 105/72 11/29/24 13:15 Pulse Oximetry 98 11/29/24 13:15 Oxygen Delivery Method Room Air 11/29/24 13:15 Medical Decision Making [facility] Narrative Medical decision making narrative: 79F with PMH of CAD s/p stents on DAPT, presenting with subacute LLE erythema, swelling, and rash after minor trauma 2 weeks ago. Failed outpatient antibiotics (amoxicillin and cephalexin), no systemic symptoms. Possible superinfection of allergic contact dermatitis vs. cellulitis. On arrival patient is in no distress, vitals are hemodynamically stable. Patient is afebrile at 97.8 ?F. Lateral ankle has started to develop some pain as swelling has moved into her foot and toes. Erythema is equal to just inferior to knee. Does not extend into the foot and does not extend past the knee. Edema is mid malcolm down into toes. 2+ DP pulse palpated. CBC, BMP, lactate, left lower extremity ultrasound Doppler, x-ray left tib-fib and ankle ordered. Labs CBC: No leukocytosis, WBC 7.2 BMP: WNL Lactate: WNL Ultrasound left lower extremity Doppler: Negative for deep vein thrombosis. XR L Tib/Fib, Ankle reviewed and interpreted by myself as negative for fracture or dislocation. Diffuse swelling lower leg to foot. No subcutaneous gas noted. Will contact patient if there is a discrepancy in the radiological read. Will give patient a dose of prednisone 40 mg here. Patient instructed to stop current steroid cream and Keflex/amoxicillin. She is in cardiac rehab and we recommended lower extremity rest. She can still do upper body rehab. Her clinical presentation today seems most consistent with contact dermatitis with possible overlying infection. Will change antibiotic to Doxy 100 mg twice daily x 7 days for MRSA coverage. We did outline her erythema so she can monitor for change. I also gave her a Medrol Dose pack to help with the spreading rash. Patient was discharged in stable condition and she will follow up with her PCP in a few days. Strict return precautions were discussed for any new or worsening symptoms. Differential Diagnosis Differential Diagnosis: Cellulitis, contact dermatitis, DVT, superimposed infection on dermatitis Lab Data Lab results reviewed: Yes I reviewed the patient's lab results Labs: Lab Results 11/29/24 Range/Units 14:06 WBC 7.2 (4.0-11.0) 10^3/uL RBC 4.31 (4.20-5.40) 10^6/uL Hgb 12.9 (12.0-16.0) g/dL Hct 37.8 (36.0-48.0) % MCV 87.7 (81.0-99.0) fL MCH 29.9 (26.7-34.0) pg MCHC 34.1 (29.9-35.2) g/dL RDW 13.1 (11.0-15.0) % Plt Count 276 (150-450) 10^3/uL MPV 9.6 (9.5-13.5) fL Neut % (Auto) 70.6 (43.0-75.0) % Lymph % (Auto) 18.6 L (20.5-60.0) % Wilkinson % (Auto) 5.6 (1.7-12.0) % Eos % (Auto) 3.9 (0.9-7.0) % Baso % (Auto) 0.7 (0.2-2.0) % Neut # (Auto) 5.1 (1.4-6.5) 10^3/uL Lymph # (Auto) 1.3 (1.2-3.8) 10^3/uL Wilkinson # (Auto) 0.4 (0.3-0.8) 10^3/uL Eos # (Auto) 0.3 (0.0-0.7) 10^3/uL Baso # (Auto) 0.1 (0.0-0.1) 10^3/uL Abs Immat Gran (auto) 0.04 H (0.00-0.03) 10^3/uL Imm/Tot Granulo (auto) 0.6 H (0.0-0.5) % Sodium 141 (136-145) mmol/L Potassium 4.0 (3.5-5.1) mmol/L Chloride 105 (98-107) mmol/L Carbon Dioxide 26.5 (21.0-32.0) mmol/L Anion Gap 13.5 BUN 26.0 H (7.0-18.0) mg/dL Creatinine 0.70 (0.55-1.02) mg/dL Est GFR ( Amer) >60 (>=60 mL/min/1.73m^2) Est GFR (Non-Af Amer) >60 (>=60 mL/min/1.73m^2) BUN/Creatinine Ratio 37.1 Glucose 108 H (74-106) mg/dL Lactate 0.8 (0.4-2.0) mmol/L Calcium 8.9 (8.5-10.1) mg/dL Total Bilirubin 0.5 (0.2-1.0) mg/dL AST 22 (15-37) U/L ALT 34 (14-59) U/L Alkaline Phosphatase 84 (46-116) U/L Total Protein 7.8 (6.4-8.2) g/dL Albumin 3.9 (3.4-5.0) g/dL Globulin 3.9 g/dL Albumin/Globulin Ratio 1.0 Discharge Plan Discharge Chief Complaint: Skin/Abscess/Foreign Body Clinical Impression: Contact dermatitis, Cellulitis Patient Disposition: Home, Self-Care Time of Disposition Decision: 15:15 Condition: Good Mode of Transportation: Private Vehicle Prescriptions / Home Meds: New methylprednisolone [Medrol (Darrel)] 4 mg tablets,dose pack 4 mg PO DAILY Qty: 21 0RF doxycycline monohydrate 100 mg capsule 100 mg PO BID 7 Days Qty: 14 0RF No Action carvedilol 6.25 mg tablet 6.25 mg PO Q12H nitroglycerin 0.4 mg tablet, sublingual 0.4 mg sublingual Q5M PRN (Reason: chest pain) alprazolam 0.5 mg tablet 0.5 mg PO TID PRN (Reason: anxiety) aspirin 81 mg tablet,delayed release (DR/EC) 81 mg PO DAILY clopidogrel 75 mg tablet 75 mg PO DAILY trazodone 50 mg tablet 50 mg PO QPM Print Language: Icelandic Instructions: Contact Dermatitis (ED), Cellulitis (ED) Referrals: Sunny Manzo MD [Primary Care Provider, Family Practice] - 1 week Discharge Date/Time: 11/29/24 15:40
--- NOTE | 2024-11-29 13:55 | XR_ITS ---
[facility] [place] [id number] Patient Name: ARACELI JAEGER MRN: [id number] date: 1945 Sex: F Assigned Patient Location: ER Current Patient Location: Accession/Order Number: [id number] Exam Date: 11/29/2024 14:15 Report Date: 11/29/2024 16:23 At the request of: ARTURO AGUILAR Procedure: XR tibia fibula LT 2V XR tibia fibula LT 2V 11/29/2024 2:23 PM SIGNS AND SYMPTOMS: ^Trauma, erythema PROTOCOL: 4 views of the left tibia and fibula COMPARISON: None FINDINGS: The tibia and fibula are grossly intact. There is no fracture or dislocation. There is plantar surface calcaneal spurring. Mild nonspecific soft tissue edema is noted. XR/XR tibia fibula LT 2V IMPRESSION: No acute bony injury. Nonspecific diffuse soft tissue edema. Impression dictated by: Roge Vora M.D. 11/29/2024 4:23 PM Dictation Location: [facility] Electronically authenticated by: [id number] Y Date: 11/29/2024 16:23
--- NOTE | 2024-11-29 13:55 | XR_ITS ---
[place] [id number] Patient Name: ARACELI JAEGER MRN: [id number] date: 1945 Sex: F Assigned Patient Location: ER Current Patient Location: Accession/Order Number: [id number] Exam Date: 11/29/2024 14:15 Report Date: 11/29/2024 16:16 At the request of: ARTURO AGUILAR Procedure: XR ankle LT min 3V XR ankle LT min 3V 11/29/2024 2:23 PM SIGNS AND SYMPTOMS: ^Ankle pain, swelling, trauma PROTOCOL: 3 views of the left ankle COMPARISON: None FINDINGS: The ankle mortise is preserved. There is no fracture or dislocation. There is diffuse soft tissue swelling. There is plantar surface calcaneal spurring. XR/XR ankle LT min 3V IMPRESSION: No fracture. Diffuse soft tissue swelling. Impression dictated by: Roge Vora M.D. 11/29/2024 4:16 PM Dictation Location: [place] [address] Electronically authenticated by: [id number] Y Date: 11/29/2024 16:16
[2024-11-29 14:17] LABS: Hematocrit 37.8 % (36.0-48.0); Hemoglobin 12.9 g/dL (12.0-16.0); Immature Granulocytes Abs Auto 0.04 10^3/uL (0.00-0.03); Immature Granulocytes Pct Auto 0.6 % (0.0-0.5); Lymphocytes Absolute Auto 1.3 10^3/uL (1.2-3.8); Mean Corpuscular HGB Conc 34.1 g/dL (29.9-35.2); Mean Corpuscular Hemoglobin 29.9 pg (26.7-34.0); Mean Corpuscular Volume 87.7 fL (81.0-99.0); Platelet Count 276 10^3/uL (150-450); Red Blood Count 4.31 10^6/uL (4.20-5.40); White Blood Count 7.2 10^3/uL (4.0-11.0)
[2024-11-29 14:35] LABS: Lactate/Lactic Acid 0.8 mmol/L (0.4-2.0)
[2024-11-29 14:42] LABS: Alanine Aminotransferase 34 U/L (14-59); Albumin Globulin Ratio 1.0; Albumin Level 3.9 g/dL (3.4-5.0); Alkaline Phosphatase 84 U/L (46-116); Anion Gap 13.5; Aspartate Amino Transferase 22 U/L (15-37); Blood Urea Nitrogen 26.0 mg/dL (7.0-18.0); Calcium 8.9 mg/dL (8.5-10.1); Carbon Dioxide 26.5 mmol/L (21.0-32.0); Chloride 105 mmol/L (98-107); Estimated GFR (African America >60 (>=60 mL/min/1.73m^2); Estimated GFR (Non-African Ame >60 (>=60 mL/min/1.73m^2); Globulin 3.9 g/dL; Glucose 108 mg/dL (74-106); Potassium 4.0 mmol/L (3.5-5.1); Sodium 141 mmol/L (136-145); Total Protein 7.8 g/dL (6.4-8.2)
[2024-11-29] MEDS: PREDNISONE 20 MG TABLET 40 MG PO (15:30)
== END 2024-11-29 15:40 | disposition home or self-care (01) ==
PROVIDERS: Physician Assistant; Emergency Provider Emergency Medicine; PCP Family Medicine
DX: L03.116 Cellulitis of left lower limb (principal); L25.9 Unspecified contact dermatitis, unspecified cause; I25.2 Old myocardial infarction; Z95.5 Presence of coronary angioplasty implant and graft; Z79.02 Long term (current) use of antithrombotics/antiplatelets; Z79.82 Long term (current) use of aspirin
CPT/HCPCS: 36415; 73590; 73610; 80053; 83605; 85025; 93971; 99285; J7512

== ENCOUNTER 2024-12-27 09:41 | Outpatient (OUT) | payer MEDICARE, SELFPAY ==
--- OUTSIDE RECORDS SUMMARY | 2024-12-27 09:45 | XMS_ITS | Clinical Summary ---
Author Organization [facility] Address [address] [place] [address] Care Team Providers Care Sr Vice President Name Role Phone Sunny Manzo MD Primary Care Provider [phone] Allergies Active AllergyReactionsCriticalityNoted ApecHukgwdovLcriflz-Rra-Zrw Reductase JtjimhjunkUegjf74/16/2024 myalgias Medications MedicationSigDispense QuantityRefillsLast FilledStart DateEnd DateStatus cholecalciferol (Vitamin D-3) 50 MCG (1999) tablet Take 2,000 Units by mouth in the morning.Active nitroglycerin (Nitrostat) 0.[address] 1 TABLET (0.4 MG) UNDER THE TONGUE EVERY 5 MINUTES NEEDED FOR CHEST PAIN08/04/2023ctive traZODone (Desyrel) 50 mg tablet Take 50 mg by mouth at bedtime.Active ALPRAZolam (Xanax) 0.5 mg tablet Take 0.5 mg by mouth if needed in the morning, at noon, and at bedtime. 05/10/2023ctive aspirin 81 mg EC tablet Indications:NSTEMI (non-ST elevated myocardial infarction) (CMS/HCC)Take 1 tablet (81 mg) by mouth in the morning. 90 tablet 303/848908/6Active carvedilol (Coreg) 3.125 mg tablet Indications:NSTEMI (non-ST elevated myocardial infarction) (CMS/HCC)Take 1 tablet (3.125 mg) by mouth with breakfast and with evening meal. 180 tablet 304//604081/6Active clopidogrel (Plavix) 75 mg tablet Indications:NSTEMI (non-ST elevated myocardial infarction) (CMS/HCC)Take 1 tablet (75 mg) by mouth once daily as directed. 90 tablet 310/510/6Active Active Problems ProblemNoted DateDiagnosed DateUnstable oqcget6804/18/2024 Assessment & Plan (04/19/2024 2:08 PM EST): [...] heart cath this the morning. Chronic heart nyqcdru8704/18/2024 Assessment & Plan (04/19/2024 2:08 PM EST): -last TTE on 04/17/24 shows improved EF 60-65% -Continue GDMT as able Assessment & Plan (04/18/2024 12:59 PM EST): -last TTE on 04/17/24 shows improved EF 60-65% - Continue GDMT as able Ezfrsad2704/18/2024 Assessment & Plan (04/19/2024 2:08 PM EST): - On Xanax and Trazodone at home - Xanax PRN and Trazodone have been ordered Assessment & Plan (04/18/2024 12:59 PM EST): - One xanax and trazodone at home - Xanax PRN and trazodone have been ordered Allergic to insect bites08/10/2023ellulitis of neck08/10/2023Insect bite of neck08/10/2023Essential hypertension, uzbbml4505/10/2023 Overview (12/01/2023): Last Assessment & Plan: BP [...] has not been taking it GERD without nwniuzdihil76/25/2024 Overview (12/01/2023): Last Assessment & Plan: Symptoms controlled with omeprazole and continue. Assessment & Plan (04/19/2024 2:08 PM EST): - Not on any PPI or other medications at home - Will start PPI if requested Assessment & Plan (04/18/2024 12:59 PM EST): - Not on any PPI or other medications at home - Will start PPI if requested Generalized anxiety jovheelc24/25/2024 Overview (12/01/2023): Last Assessment & Plan: Symptoms controlled with xanax and use PRN. Eayngdlbnaq39/25/2024 Assessment & Plan (04/19/2024 2:08 PM EST): -A1c: 5.8 -Follow-up with PCP for further recommendations Assessment & Plan (04/18/2024 12:59 PM EST): A1c checked this morning - 5.8 Follow-up with PCP for further recommendations Assessment & Plan (04/17/2024 10:13 PM EST): Check A1c in the morning Primary njxykhaj43/25/2024 Overview (12/01/2023): Last Assessment & Plan: Sleeping well with medication and continue. Preoperative gbfvcvams24/16/2020Encounter for preadmission jhuvuvr5308/21/2019 Takotsubo pobtbberctdeum12/09/2019Pain of left hip joint03/21/2018Primary osteoarthritis of left hip03/21/2018Atherosclerotic heart disease of [place] coronary artery without angina hrrtdelr58/13/2018Right ovarian cyst09/01/2017 Thickened xbpbrvgpilw73/18/2018Gastric qcmvyusc67/03/2018Partial bowel aplgxdgyuuo52/18/2018Pure nnlghkrmvsffvvjkvkmy97/20/2017Status post angioplasty with stent11/04/2016 Encounters DateTypeDepartmentCare OhhtZjyafrfbyrg10/01/2025Refill [address] [address] Tasha Desir MA NSTEMI (non-ST elevated myocardial infarction) (CMS/HCC)11/14/2024Telephone [address] [address] Yue Ladd MA 11/02/2024Orders Only [address] [address] Yue Ladd MA Other chest pain (Primary Dx); Coronary artery disease with unstable angina pectoris, unspecified vessel or lesion type, unspecified whether [place] or transplanted heart (CMS/HCC) 10/02/2024Orders Only [address] [address] Yue Ladd MA Coronary artery disease, unspecified vessel or lesion type, unspecified whether angina present, unspecified whether [place] or transplanted heart (Primary Dx); Mixed hyperlipidemiafrom Last 3 Months Family History Medical HistoryRelationNameComments heart problems Father heart problems Mother RelationNameStatusCommentsFatherDeceasedMotherDeceased Social History Tobacco UseTypesPacks/DayYears UsedDateSmoking Tobacco: NeverSmokeless Tobacco: Never Tobacco Cessation:Counseling Given: Not Answered Alcohol UseStandard Drinks/WeekCommentsNot Currently0 (1 standard drink = 0.6 oz pure alcohol)[facility] UtilitiesAnswerDate RecordedIn the past 12 months has the [employer], [employer], oil, or water [employer] threatened to shut off services in your home?No04/17/2024Humiliation, Afraid, Rape, and Kick questionnaireAnswerDate RecordedWithin the last year, have you been afraid of your partner or ex-partner?No04/17/2024Emotionally AbusedNot on file04/17/2024Physically Abused Not on 04/17/2024Sexually AbusedNot on file04/17/2024Overall Financial Resource Strain (CARDIA)AnswerDate RecordedHow hard is it for you to pay for the very basics like food, housing, medical care, and heating?Not hard at all 04/17/2024PHQ-2AnswerDate RecordedPatient Health Questionnaire-2 Score2 04/27/2024TransportationAnswerDate RecordedIn the past 12 months, has lack of transportation kept you from medical appointments or from getting medications?No 04/17/2024Lack of Transportation (Non-Medical)Not on file04/17/2024Housing Stability Vital SignAnswerDate RecordedIn the last 12 months, was there a time when you were not able to pay the mortgage or rent on time?No04/17/2024Number of Times Moved in the Last YearNot on file04/17/2024t any time in the past 12 months, were you homeless or living in a intermediate (including now)?No04/17/2024 Hunger Vital SignAnswerDate RecordedWithin the past 12 months, you worried that your food would run out before you got the money to buymore.Never true04/17/2024 Ran Out of Food in the Last YearNot on file04/17/2024CommentsUnknownSex and Gender InformationValueDate RecordedSex Assigned at PtcdmSfklmn34/13/2025 10:47 AM EDTLegal OteVmfmdc45/23/2024 11:05 AM EDTGender IdentityFemale 04/27/2024 10:47 AM EDTSexual OrientationDon't know04/27/2024 10:47 AM EDT Last Filed Vital Signs Vital SignReadingTime TakenCommentsBlood Bexmheqn780/7308/29/2024 10:39 AM EDT Wjxpv437508/29/2024 10:39 AM BEUTsjrcglnywx90.2 ??C (99 ??F)04/20/2024 8:00 AM EST Respiratory Hylg171604/20/2024 5:00 AM ESTOxygen Bnddbgzgrv40%08/29/2024 10:39 AM EDTInhaled Oxygen Concentration--Bkjkyq64.2 kg (126 lb)08/29/2024 10:39 AM EDT Gjwtoc930.9 cm (4' 11 )08/29/2024 10:39 AM EDTBody Mass Index25.45008/29/2024 10:39 AM EDT Plan of Treatment Health MaintenanceDue DateLast DoneCommentsMedicare Annual Wellness (AWV) 8Adult Xrlqgjr0904/04/1969Zoster Vaccines (1 of 2)1997COVID-19 Vaccine ( season), 01/18/2023, 10/28/2021, Additional history existsInfluenza Vaccine (#1), 01/18/2023, 10/28/2021, Additional history existsDiabetes: Hemoglobin A1C04/18/2025 04/18/2024Depression Ssnjhhjow33Fall Risk Aosnuigwe21/13/2026 04/27/2024Pneumococcal Vaccine: 50+ UcgfqFrgufrwlj20/07/2020, 12/01/2018HIB VaccinesAged OutNo longer eligible based on patient's age to complete this topic HPV VaccinesAged OutNo longer eligible based on patient's age to complete this topicIPV VaccinesAged OutNo longer eligible based on patient's age to complete this topicMeningococcal B VaccineAged OutNo longer eligible based on patient's age to complete this topicMeningococcal VaccineAged OutNo longer eligible based on patient's age to complete this topicRotavirus VaccinesAged OutNo longer eligible based on patient's age to complete this topic Medical Devices ImplantedTypeAreaManufacturerDevice IdentifierShelf Expiration DateModel / Serial / Gustavo Augustine 3.00 X 20 - [id number] Implanted:Qty: 1 on 04/19/2024 by Jose Alfredo Leblanc MD at [facility] Eluting StentLeft: HeartHenrik [id number] 09/06/[id number] / / [id number] Procedures Procedure NamePriorityDate/TimeAssociated DiagnosisCommentsHEMOGLOBIN Q8BJpaujww 04/18/2024 4:59 AM EST from Last 3 Months or Most Recently Relevant to Health Maintenance Results * Hemoglobin A1c (04/18/2024 4:59 AM EST)ComponentValueRef RangeTest Method Analysis TimePerformed AtPathologist SignatureHemoglobin A1C5.84.0 - 6.0 % 04/18/2024 8:05 AM [facility] ([facility])Estimated Average Eqdkegh386 mg/dL04/18/2024 8:05 AM [facility] ([facility])Specimen (Source) Anatomical Location / LateralityCollection Method / VolumeCollection Time Received TimeBloodVenous blood specimen / UnknownArterial Line / Unknown 04/18/2024 4:59 AM EST04/18/2024 7:26 AM EST Narrative Authorizing ProviderResult TypeResult StatusChilo LEIGH BLOOD ORDERABLESFinal ResultPerforming OrganizationAddressCity/State/ZIP CodePhone Number [facility] ([facility]) [address] [place] [address] from Last 3 Months or Most Recently Relevant to Health Maintenance Insurance Advance Directives * Full Code (Latest Code Status on File) Date ActivatedDate InactivatedComments04/17/2024 10:01 PM04/20/2024 5:55 PM Care Teams Team MemberRelationshipSpecialtyStart DateEnd Date Sunny Manzo MD [address] [place] [address] PCP - GeneralFaprly Fcxjezqd88/15/24
--- OUTSIDE RECORDS SUMMARY | 2024-12-27 09:45 | XMS_ITS | Clinical Summary ---
Author Organization [facility] Address [id number] [address] [place] [address] Care Team Providers Care Chopped Strand Operator Name Role Phone Sunny Manzo MD Primary Care Provider [phone] Allergies Active AllergyReactionsCriticalityNoted FaekBmtqwwfdOqxekqh-Ksn-Fbw Reductase Inhibitorspain,Mcypky2809/29/2018 Patient states that she gets achy all over and nauseated when she takes statins Medications MedicationSigDispense QuantityRefillsLast FilledStart DateEnd DateStatus LACTOBAC NO.41/BIFIDOBACT NO.7 (PROBIOTIC-10 ORAL) Take 1 tablet by mouth daily.Active NITROGLYCERIN SL Place 1 tablet under the tongue as needed.Active coenzyme Q10 10 mg capsule Take 10 capsules (100 mg total) by mouth in the morning.Active MAGNESIUM OXIDE,ASPARTATE,CITR ORAL Take 250 mg by mouth in the morning.Active cholecalciferol, vitamin D3, (VITAMIN D3) 25 mcg (1,000 unit) capsule Take 1 capsule (1,000 Units total) by mouth in the morning.Active omeprazole (PriLOSEC OTC) 20 mg EC tablet Take 1 tablet (20 mg total) by mouth in the morning.Active ascorbic acid (VITAMIN C) 500 mg tablet Take 1 tablet (500 mg total) by mouth in the morning.Active b complex vitamins capsule Take 1 capsule by mouth in the morning.Active ALPRAZolam (NIRAVAM) 0.25 mg disintegrating tablet Dissolve 1 tablet (0.25 mg total) on tongue nightly as needed for anxiety.Active ramipriL (ALTACE) 2.5 mg capsule Indications:Coronary artery disease involving viejas coronary artery of viejas heart without angina pectoris,Takotsubo cardiomyopathy,Status post angioplasty with stent,Pure hypercholesterolemiaTAKE 1 CAPSULE (2.5 MG TOTAL) BY MOUTH IN THE MORNING. 90 capsule 06/09/2023ctive aspirin 81 mg chewable tablet Indications:Coronary artery disease involving viejas coronary artery of viejas heart without angina pectoris,Takotsubo cardiomyopathy,Status post angioplasty with stent,Pure hypercholesterolemiaCHEW 1 TABLET (81 MG TOTAL) AND SWALLOW IN THE MORNING. 90 tablet ctive carvediloL (COREG) 6.25 mg tablet Indications:Coronary artery disease involving viejas coronary artery of viejas heart without angina pectoris,Takotsubo cardiomyopathy,Status post angioplasty with stent,Pure hypercholesterolemiaTAKE 1 TABLET (6.25 MG TOTAL) BY MOUTH IN THE MORNING AND IN THE EVENING WITH MEALS 180 tablet ctive Active Problems ProblemNoted DateDiagnosed DatePreoperative bhuwjxhvl04/16/2020Encounter for preadmission qynhfns7708/21/2019Takotsubo lwouejoxoqonlr37/09/2019Pain of left hip joint03/21/2018Primary osteoarthritis of left hip03/21/2018Coronary artery disease involving viejas coronary artery of viejas heart without angina pectoris 01/27/2018Thickened ayvzppxwtmm50/18/2018Right ovarian cyst09/01/2017Gastric axkzivwr62/03/2018Partial bowel penyfgazqja03/18/2018Status post angioplasty with stent11/04/2016Pure wcdvxvafyvxtsaqoihxg83/20/2017 Resolved Problems ProblemNoted DateDiagnosed DateResolved DateChronic combined systolic and diastolic congestive heart gthychu43Non-STEMI (non-ST elevated myocardial infarction)NSTEMI (non-ST elevated myocardial infarction)Partial small bowel dqfxmuzjvwq75/18/2018 08/31/2019Mitral stenosis with pbtfdqzcjghmn01ACS (acute coronary syndrome) Immunizations ImmunizationAdministration DatesNext DueCOVID-19, mRNA, LNP-S, PF, 100mcg/0.5mL Dose04/25/2020,03/28/2020Influenza, Trivalent, Bolxulghgr38/29/2018 Family History Medical HistoryRelationNameCommentsHeart diseaseFatherStrokeFatherCancerMaternal GrandmotherSTOMACHDiabetesMotherHeart diseaseMotherArthritisSisterBreast cancer Neg HxCervical cancerNeg HxColon cancerNeg HxLung cancerNeg HxOvarian cancerNeg HxRelationNameStatusCommentsFatherDeceasedMaternal GrandmotherMotherDeceased Sister Social History Tobacco UseTypesPacks/DayYears UsedDateSmoking Tobacco: NeverSmokeless Tobacco: Never Tobacco Cessation:Counseling Given: Not Answered Alcohol UseStandard Drinks/WeekCommentsYes0 (1 standard drink = 0.6 oz pure alcohol)drinks wine occasionallySocial Connection and Isolation PanelAnswerDate RecordedIn a typical week, how many times do you talk on the phone with family, friends, or neighbors?More than three times a week09/04/2019How often do you get together with friends or relatives?More than three times a week09/04/2019How often do you attend buddhism or mosque services?Patient lufscyur98/20/2020Do you belong to any clubs or organizations such as buddhism groups, unions, fraternal or athletic groups, or school groups?Patient bwwnedxb22/20/2020How often do you attend meetings of the clubs or organizations you belong to?Patient /20/2020Are you , , , , never , or living with a partner?Cqvfvai7209/04/2019AUDIT-CAnswerDate RecordedFrequency of Alcohol ConsumptionNot on file09/04/2019Average Number of DrinksNot on file 09/04/2019Q3: How often do you have six or more drinks on one occasion?Less than vmfxlwn1409/04/2019Overall Financial Resource Strain (CARDIA)AnswerDate Recorded How hard is it for you to pay for the very basics like food, housing, medical care, and heating?Not hard at all09/04/2019PHQ-2AnswerDate RecordedTotal Score0 09/04/2019[facility] Occupational Health - Occupational Stress QuestionnaireAnswerDate RecordedDo you feel stress - tense, restless, nervous, or anxious, or unable to sleep at night because yourmind is troubled all the time - these days?Only a mciyhu4209/04/2019Exercise Vital SignAnswerDate Recorded On average, how many days per week do you engage in moderate to strenuous exercise (like a brisk walk)?0 days09/04/2019On average, how many minutes do you engage in exercise at this level?0 min09/04/2019PRAPARE - TransportationAnswer Date RecordedIn the past 12 months, has lack of transportation kept you from medical appointments or from getting medications?No09/04/2019In the past 12 months, has lack of transportation kept you from meetings, work, or from getting things needed for daily living?No09/04/2019ChildcareAnswerDate RecordedDo problems getting children's book author make it difficult for you to work or study?No 09/04/2019EmploymentAnswerDate RecordedDo you need help finding a local career center and/or a training program?No09/04/2019Hunger ScreeningAnswerDate Recorded Within the past 12 months we worried whether our food would run out before we got money to buy more.Never True05/11/2023Within the past 12 months the food we bought just didn't last and we didn't have money to get more.Never True 4Purpose - LifeAnswerDate RecordedPurpose and direction in lifeUnknown 1CommentsNoSex and Gender InformationValueDate RecordedSex Assigned at BirthNot on fileLegal LuoNjadgk99/06/2015 11:28 AM EDTGender IdentityNot on fileSexual OrientationNot on file Last Filed Vital Signs Vital SignReadingTime TakenCommentsBlood Bcedcdcf282/7403 10:10 AM EDT Obvil484605/11/2023 10:10 AM ZJTNktqntmcjrg99.5 ??C (97.7 ??F)08/28/2021 2:53 PM EDTRespiratory Eqdo012708/28/2021 7:40 PM EDTOxygen Fkpmxpkpom97%05/11/2023 10:10 AM EDTInhaled Oxygen Concentration--Dqzwxq35.6 kg (138 lb)05/11/2023 10:10 AM QEYIvlnyg981.9 cm (4' 11 )05/11/2023 10:10 AM EDTBody Mass Index27.8705/11/2023 10:10 AM EDT Plan of Treatment Health MaintenanceDue DateLast DoneCommentsDepression Intbgdcib64/18/1960 DTaP,Tdap and Td Vaccines (1 - Tdap)1966Zoster (Shingles) Vaccine (1 of 2) 1997Fall Risk Hjthjgpru11/18/2013RSV ( or age 60+ yrs) (1 - 1-dose 75+ series)2022Tobacco Ejckbwvbf15/26/52636205/11/2023OVID-19 Vaccine ( - season)/05/2022, 10/28/2021, 12/12/2020, Additional history existsInfluenza Cxsvzpc63/05/2022, 10/28/2021, 11/22/2019, Additional history exists Goals GoalPatient Goal TypeAssociated ProblemsRecent ProgressPatient-Stated?Author Home with [place] Lay RN Note: Evaluation of progress towards goal: Patient plans to discharge home with home care and support of spouse. - [place] Cardona RN 09/04/19 1:56 PM Medical Devices ImplantedTypeAreaManufacturerDevice IdentifierShelf Expiration DateModel / Serial / LotLens Iol Ultrasert 14.0d - [id number] - [id number] Implanted:Qty: 1 on 04/15/2021 by Adrienne Braga MD at [facility]: [employer]11/12/2022AU00T0 14.0 / [id number] / NALens Iol Ultrasert 13.0d - [id number] - [id number] Implanted:Qty: 1 on 05/01/2021 by Adrienne Braga MD at [facility]: [employer]08/06/2023AU00T0 13.0 / [id number] / NAMes Tiss 10x7cm [place] - [id number] - [id number] Implanted:Qty: 1 on 06/07/2017 by Colin Morales MD at [facility]/A: AjyydkyAien16/31/5618SQ9404 / [id number] / [id number] Actb [employer] 52e - [id number] Implanted:Qty: 1 on 09/04/2019 by Juan Velasco MD at [facility] ImplantLeft: HipZimmer Ddvjuy44/21/[id number] / / [id number] Actb G7 Ntrl 36mm E - [id number] Implanted:Qty: 1 on 09/04/2019 by Juan Velasco MD at [facility] ImplantLeft: HipZimmer Dcacyv63/18/[id number] / / [id number] Fem 115mm 133d 15 Std Os - [id number] Implanted:Qty: 1 on 09/04/2019 by Juan Velasco MD at [facility] ImplantLeft: HipZimmer Zrdean73/13/[id number] / / [id number] Fem 36mm Opt Shl Actb G7 Bl Rpl 650-1057 - [id number] Implanted:Qty: 1 on 09/04/2019 by Juan Velasco MD at [facility] ImplantLeft: HipZimmer Zjiqig35/04/[id number] / / [id number] Fem Opt -3mm Tpr Hip Blx D Rpl 650-1065 - [id number] Implanted:Qty: 1 on 09/04/2019 by Juan Velasco MD at [facility] ImplantLeft: HipZimmer Rsbrqy94/15/[id number] / / [id number] Xience Alpine 3.0x15mm Repl [id number] - [id number] Implanted:Qty: 1 on 10/12/2016 by Hamilton Gleason MD at [facility]/A: [id number] / / [id number] Cosme 2.03a72tu Repl 126733 - [id number] Implanted:Qty: 1 on 10/12/2016 [facility]: [id number] / / [id number] Insurance Advance Directives * Full Code (Latest Code Status on File) Date ActivatedDate InactivatedComments09/29/2018 10:11 PM10/01/2018 8:10 PM * Full Code Date ActivatedDate InactivatedComments2017 11:52 PM2 4:40 PM Care Teams Team MemberRelationshipSpecialtyStart DateEnd Date Sunny Manzo MD PCP - GeneralFamily Medicine11/04/20
--- OUTSIDE RECORDS SUMMARY | 2024-12-27 09:45 | XMS_ITS | Clinical Summary ---
Author Organization [facility] Healthcare Address [address] [place] [address] Care Team Providers Care Electronic Parts Designer Name Role Phone Sunny Manzo MD Primary Care Provider [phone] Sunny Manzo MD Unavailable Allergies Active AllergyReactionsCriticalityNoted GnswJqsiqxbnSurkwqm19/12/2024 Headache and pain in muscles. Medications MedicationSigDispense QuantityRefillsLast FilledStart DateEnd DateStatus aspirin 81 MG EC tablet Take 81 mg by mouth in the morning.Active coenzyme Q-10 100 MG capsule Take 100 mg by mouth in the morning.Active cholecalciferol (Vitamin D-3) 50 MCG (1999) tablet Take 2,000 Units by mouth in the morning.Active nitroglycerin (Nitrostat) 0.4 MG SL tablet Indications:CAD in [place] arteryPLACE 1 TABLET (0.4 MG) UNDER THE TONGUE EVERY 5 MINUTES NEEDED FOR CHEST PAIN 225 tablet 4Active clopidogrel (Plavix) 75 MG tablet Indications:CAD in [place] arteryTake 1 tablet (75 mg) by mouth Daily 30 tablet 5Active traZODone (Desyrel) 50 MG tablet Indications:Primary insomniaTAKE 1 TABLET BY MOUTH AT BEDTIME 90 tablet 5Active carvedilol (Coreg) 3.125 MG tablet Take 3.125 mg by mouth in the morning and 3.125 mg in the evening. Take with meals.5Active ALPRAZolam (Xanax) 0.5 MG tablet Indications:Generalized anxiety disorderTAKE 1 TABLET BY MOUTH THREE TIMES A DAY NEEDED FOR ANXIETY 90 tablet 5Active Active Problems ProblemNoted DateDiagnosed DateMedicare annual wellness visit, subsequent 08/04/2024 Assessment & Plan (08/04/2024 11:20 AM EDT): Reviewed labs. Discussed proper diet and regular aerobic exercise. Need aerobic exercise 5-6 days aweek for 30 minutes at a time. Smaller portions and limit total calories. Tetanus every 10 years. Advised not to smoke. Insect bite of neck08/10/2023Essential hypertension, cjfweu3605/10/2023 Assessment & Plan (10/06/2024 11:12 AM EDT): BP controlled and monitor PRN. Assessment & Plan (05/03/2024 2:50 PM EDT): BP controlled and monitor PRN. Assessment & Plan (12/08/2023 10:40 AM EDT): BP controlled and monitor PRN. Assessment & Plan (05/10/2023 11:37 AM EDT): BP controlled and monitor PRN. CAD in [place] yznqdd0605/10/2023 Assessment & Plan (10/06/2024 11:12 AM EDT): No pain and continue cardiac rehab. Follow with cardiology. Assessment & Plan (05/03/2024 2:50 PM EDT): Recent NSTEMI and stent placed. No symptoms and continue medication. Follow up with cardiology. Assessment & Plan (12/08/2023 10:40 AM EDT): No pain and follow with cardiology. Generalized anxiety jaqwtdji91/25/2024 Assessment & Plan (10/06/2024 11:12 AM EDT): Symptoms stable without SSRI and monitor. Use xanax PRN. Assessment & Plan (08/04/2024 11:21 AM EDT): Severe symptoms and did not tolerate prozac. Try zoloft and warned will take 2-3 weeks to notice improvement in mood. Use xanax PRN. Assessment & Plan (12/08/2023 10:40 AM EDT): Symptoms controlled with xanax and use PRN. Assessment & Plan (05/10/2023 11:38 AM EDT): Symptoms controlled with xanax and use PRN. Gastroesophageal reflux disease without xtgedepcbeg76/25/2024 Assessment & Plan (05/10/2023 11:37 AM EDT): Symptoms controlled with omeprazole and continue. Primary jnfupwfk79/25/2024 Assessment & Plan (10/06/2024 11:12 AM EDT): Sleeping well with medication and continue. Assessment & Plan (12/08/2023 10:40 AM EDT): Sleeping well with medication and continue. Assessment & Plan (05/10/2023 11:38 AM EDT): Sleeping well with medication and continue. Tmshmeualdk32/25/2024rimary osteoarthritis of left hip05/10/2023 Assessment & Plan (10/06/2024 11:13 AM EDT): Minimal pain and use OTC PRN. Assessment & Plan (12/08/2023 10:40 AM EDT): Minimal pain and use OTC PRN. Resolved Problems ProblemNoted DateDiagnosed DateResolved DateAllergic to insect bites08/10/2023 10/06/2024ellulitis of neck Encounters DateTypeDepartmentCare WjceBakntadokzk15/27/2025Refill [facility] [address] [place] [address] Sunny Manzo MD Generalized anxiety fwavgmwc79/ 10:30 AM EDTOffice Visit [facility] [address] [place] [id number] Sunny Manzo MD Essential hypertension, benign (Primary Dx); Generalized anxiety disorder ; Primary insomnia; Primary osteoarthritis of left hip; CAD in [place] vcxhyk4010/06/2024amboo flowsheet [facility] [address] [place] [id number] Sunny Manzo MD 09/30/2024Travelfrom Last 3 Months Family History Medical HistoryRelationNameCommentsHeart diseaseFatherDiabetesMotherHeart diseaseMotherRelationNameStatusCommentsFatherMother Social History Tobacco UseTypesPacks/DayYears UsedDateSmoking Tobacco: NeverPassive Smoke Exposure: NeverSmokeless Tobacco: Never Tobacco Cessation:Counseling Given: No Alcohol UseStandard Drinks/WeekCommentsNever0 (1 standard drink = 0.6 oz pure alcohol)B1300 Health LiteracyAnswerDate RecordedHow often do you need to have someone help you when you read instructions, pamphlets, or other written material from your doctor or pharmacy?Never09/30/2024Humiliation, Afraid, Rape, and Kick questionnaireAnswerDate RecordedWithin the last year, have you been afraid of your partner or ex-partner?No09/30/2024Within the last year, have you been humiliated or emotionally abused in other ways by your partner or ex-partner?No09/30/2024Within the last year, have you been kicked, hit, slapped, or otherwise physically hurt by your partner or ex-partner?No09/30/2024Within the last year, have you been raped or forced to have any kind of sexual activity by your partner or ex-partner?09/30/2024Social Connection and Isolation Panel AnswerDate RecordedIn a typical week, how many times do you talk on the phone with family, friends, or neighbors?Three times a week09/30/2024How often do you get together with friends or relatives?Three times a week09/30/2024How often do you attend holiness or adventism services?More than 4 times per year09/30/2024Do you belong to any clubs or organizations such as holiness groups, unions, fraternal or athletic groups, or school groups?Yes09/30/2024How often do you attend meetings of the clubs or organizations you belong to?More than 4 times per year09/30/2024re you , , , , never , or living with a partner?Nrbphzz5709/30/2024UDIT-CAnswerDate RecordedQ1: How often do you have a drink containing alcohol?Never09/30/2024Q2: How many drinks containing alcohol do you have on a typical day when you are drinking?Patient does not drink09/30/2024Q3: How often do you have six or more drinks on one occasion?Never09/30/2024Overall Financial Resource Strain (CARDIA)AnswerDate RecordedHow hard is it for you to pay for the very basics like food, housing, medical care, and heating?Not hard at all09/30/2024PHQ-2AnswerDate Recorded Patient Health Questionnaire-2 Gtgeb112[facility] of Occupational Health - Occupational Stress QuestionnaireAnswerDate RecordedDo you feel stress - tense, restless, nervous, or anxious, or unable to sleep at night because your mind is troubled all the time - these days?To some xhkbkm6509/30/2024Exercise Vital SignAnswerDate RecordedOn average, how many days per week do you engage in moderate to strenuous exercise (like a brisk walk)?3 days09/30/2024On average, how many minutes do you engage in exercise at this level?50 min09/30/2024Hunger Vital SignAnswerDate RecordedWithin the past 12 months, you worried that your food would run out before you got the money to buymore.Never true09/30/2024 Within the past 12 months, the food you bought just didn't last and you didn't have money to get more.Never true09/30/2024PRAPARE - TransportationAnswerDate RecordedIn the past 12 months, has lack of transportation kept you from medical appointments or from getting medications?No09/30/2024In the past 12 months, has lack of transportation kept you from meetings, work, or from getting things needed for daily living?No09/30/2024Housing Stability Vital SignAnswerDate RecordedIn the last 12 months, was there a time when you were not able to pay the mortgage or rent on time?No05/06/2023In the last 12 months, how many places have you lived?In the last 12 months, was there a time when you did not have a steady place to sleep or slept in alfred stationelter (including now)?No 05/06/2023Housing Stability Vital SignAnswerDate RecordedIn the last 12 months, was there a time when you were not able to pay the mortgage or rent on time?No 09/30/2024In the past 12 months, how many times have you moved where you were living?t any time in the past 12 months, were you homeless or living in a snf (including now)?No09/30/2024CommentsUnknownSex and Gender InformationValueDate RecordedSex Assigned at MbsizTvrrox64/04/2024 8:38 AM EDT Legal OnjNtjuav17/15/2023 8:05 PM EDTGender IdentityNot on fileSexual OrientationNot on file Last Filed Vital Signs Vital SignReadingTime TakenCommentsBlood Ivebncqp356/70010/06/2024 10:41 AM EDT Tceuk152310/06/2024 10:41 AM BRBIhmvyovupmf37.2 ??C (97.1 ??F)10/06/2024 10:41 AM EDTRespiratory Ogup664010/06/2024 10:41 AM EDTOxygen Ttwykjnlzp47%10/06/2024 10:41 AM EDTInhaled Oxygen Concentration--Rixdzm23.2 kg (126 lb)10/06/2024 10:41 AM WKIQabfnf864.4 cm (5')10/06/2024 10:41 AM EDTBody Mass Index24.61010/06/2024 10:41 AM EDT Plan of Treatment Health MaintenanceDue DateLast DoneCommentsCOVID-19 Vaccine ( season) /, 12/12/2020, 04/25/2020, Additional history existsInfluenza Vaccine (#1)510/, 01/18/2023, 10/28/2021, Additional history existsMedicare Annual Wellness (AWV)606/, 12/08/2023 (Patient Refused)FrsgxtgakwkImjrmxcvucob03/21/2018Colorectal Cancer ScreeningDiscontinued Pneumococcal Vaccine: 65+ VvydjUdtvqamix41/07/2020, 12/01/2018CT Colonography DiscontinuedFIT-DNADiscontinuedFITDiscontinuedFOBTDiscontinuedSigmoidoscopy Discontinued Procedures Procedure NamePriorityDate/TimeAssociated DiagnosisCommentsCOLONOSCOPYRoutine 08/05/2017 12:00 PM EDT from Last 3 Months or Most Recently Relevant to Health Maintenance Results * Colonoscopy (08/05/2017 12:00 PM EDT)Anatomical RegionLateralityModality EndoscopySpecimen (Source)Anatomical Location / LateralityCollection Method / VolumeCollection TimeReceived Time08/05/2017 12:00 PM EDT Narrative 08/05/2017 12:00 PM EDT PERFORMED AT [facility] LOCATION:[id number] Procedure Note CONVERSION, GENERIC - 07/01/2022 PERFORMED AT [facility] LOCATION:[id number] Authorizing ProviderResult TypeResult StatusJonathan F DillerENDOSCOPY PROCEDURE ORDERABLESFinal Result from Last 3 Months or Most Recently Relevant to Health Maintenance Insurance Care Teams Team MemberRelationshipSpecialtyStart DateEnd Date Sunny Manzo MD [facility] - [facility]/23 Sunny Manzo MD [address] [place] [address] PCP - [facility]03/24/24
--- OUTSIDE RECORDS SUMMARY | 2024-12-27 10:02 | XMS_ITS | CCD ---
Author Organization [facility] Care Team Providers Care Team Foreman Name Role Phone RAS GARZA Attending Unavailable SUNNY HENNING Referring Unavailable SUNNY HENNING Primary Care Unavailable Sunny Henning MD Primary Care Provider Sunny Henning MD Primary Care Provider [phone] Sunny Henning MD Unavailable SUNNY HENNING Attending Unavailable SUNNY HENNING Attending Unavailable MILADY, SUNNY Attending Unavailable SUNNY HENNING Attending Unavailable ELTAHAWY, EHAB Attending Unavailable [place]HAWY, EHAB Attending Unavailable ORALIA OLSEN Attending Unavailable ELTAHAWY, EHAB Referring Unavailable ELTAHAWY, EHAB Referring Unavailable RUDD, RHETT CHUL Referring Unavailable ELTAHAWY, EHAB Referring Unavailable HOY, CALIN Referring Unavailable RUDD, RHETT CHUL Attending Unavailable HORRACHNA PEÑAAR Admitting Unavailable ELTAHAWY, EHAB Attending Unavailable Sunny Henning MD Attending Provider Sunny Henning MD Primary Care Provider Faustina Feliciano PA-C Attending Provider [phone] Rin Perez Emergency Provider Rin Roberts Attending Unavailable Rin Roberts Admitting Unavailable Sunny Henning Primary Care Unavailable Allergies Allergy ClassificationReported Allergen(s)Allergy TypeDate of OnsetReaction(s) Facility (6 sources)Hmg-Coa Reductase Inhibitors (Statins); Translations: [ICSTCZU-KRC-PBZ REDUCTASE INHIBITORS]Propensity to adverse reactions to drug (disorder)30-55-7634oscm, [facility]auseaPro[facility] Repository (18 sources)HMG-CoA reductase inhibitorPropensity to adverse cfpiszdlf34-27-4329 [facility] (1 source)Lxkvpil-RWE-DzX Reductase InhibitorDrug allergy (disorder)12-07-[address] [facility] Repository Medications Current Medications MedicationDrug Class(es)DatesSig (Normalized)Sig (Original)ALPRAZolam 0.5 mg oral tablet (20 sources)BenzodiazepineStart: 14-49-9786qgsn 1 tablet by mouth three times daily as needed for anxietyAlprazolam (Xanax) 0.5 mg tablet Active 0.5 MG PO Three times daily as needed for anxiety 90 30 0 November 22, 2024 12:00am Generalized anxiety disorder Generalized anxiety disorder Complies with drug therapyStart: 05-03-2024 End: 07-33-2057hgge 1 tablet by mouth three times daily as needed for anxiety ALPRAZolam (Xanax) 0.5 MG tablet Indications: Generalized anxiety disorder TAKE 1 TABLET BY MOUTH THREE TIMES A DAY NEEDED FOR ANXIETY 90 tablet 10/11/2024 ActiveStart: 05-10-2023 End: 12-61-4617qijf 1 tablet by mouth three times daily as needed for anxiety ALPRAZolam (Xanax) 0.5 MG tablet Indications: Generalized anxiety disorder (CMS/HCC) Take 1 tablet (0.5 mg) by mouth 3 (three) times a day as needed for anxiety for up to 20 days 60 tablet 12/08/2023ctiveALPRAZolam (NIRAVAM) 0.25 mg disintegrating tablet Dissolve 1 tablet (0.25 mg total) on tongue nightly as needed for anxiety. Activeascorbic acid 500 mg oral capsule (6 sources)Vitamin Ctake 1 capsule by mouth once dailyAscorbic Acid (Vitamin C) 500 MG capsule Take 500 mg by mouth 1 (one) time each day Activetake 1 tablet by mouth in the morningascorbic acid (VITAMIN C) 500 mg tablet Take 1 tablet (500 mg total) by mouth in the morning. Activeaspirin 81 mg chewable tablet (20 sources)Platelet Aggregation Inhibitor, Nonsteroidal Anti-inflammatory Drug Start: 05-11-2022 End: 99-69-4283qhosujc 81 mg chewable tablet Indications: Coronary artery disease involving mi'kmaq coronary arteryof mi'kmaq heart without angina pectoris , Takotsubo cardiomyopathy , Status post angioplasty with stent , Pure hypercholesterolemia CHEW 1 TABLET (81 MG TOTAL) AND SWALLOW IN THE MORNING. 90 tablet Activetake 1 tablet by mouth in the morningaspirin 81 MG EC tablet Take 81 mg by mouth in the morning. Activeb complex vitamins capsule (3 sources)take 1 capsule by mouth in the morningb complex vitamins capsule Take 1 capsule by mouth in the morning. Activetake 1 capsule by mouth in the morningb complex vitamins capsule Take 1 capsule by mouth in the morning. 0 Active carvedilol 3.125 mg oral tablet (20 sources)alpha-Adrenergic Daija, beta-Adrenergic BlockerStart: 06-13-2024 take 1 tablet by mouth in the morningcarvedilol (Coreg) 3.125 MG tablet Take 3.125 mg by mouth in the morning and 3.125 mg in the evening. Take with meals. 06/13/2024 ActiveStart: 12-08-2023 End: 17-16-7933gowq 1 tablet by mouth in the morningcarvedilol (Coreg) 6.25 MG tablet Indications: Essential hypertension, benign Take 1 tablet (6.25 mg) by mouth in the morning and 1 tablet (6.25 mg) in the evening. Take with meals. 180 tablet 3 12/08/2023 08/04/2024 DiscontinuedStart: 79-24-7352yupw 1 tablet by mouth at mealtimecarvediloL (COREG) 6.25 mg tablet Indications: Coronary artery disease involving mi'kmaq coronary artery of mi'kmaq heart without angina pectoris , Takotsubo cardiomyopathy , Status post angioplasty with stent , Pure hypercholesterolemia TAKE 1 TABLET (6.25 MG TOTAL) BY MOUTH IN THE MORNING AND IN THE EVENING WITH MEALS 180 tablet 2 07/06/2023 ActiveStart: 05-11-2022 End: 07-15-5047angs 1 tablet by mouth in the morning, then take 1 tablet by mouth at mealtimecarvediloL (COREG) 6.25 mg tablet Indications: Coronary artery disease involving mi'kmaq coronary artery of mi'kmaq heart without angina pectoris , Takotsubo cardiomyopathy , Status post angioplasty with stent , Pure hypercholesterolemia Take 1 tablet (6.25 mg total) by mouth in the morning and 1 tablet (6.25 mg total) in the evening. Take with meals. 180 tablet 3 05/11/2022 Activecholecalciferol 0.05 mg oral tablet (20 sources)Vitamin Dtake 1 tablet by mouth in the morningcholecalciferol (Vitamin D-3) 50 MCG (2000 UT) tablet Take 2,000 Units by mouth in the morning. Activetake 1 capsule by mouth in the morningcholecalciferol, vitamin D3, (VITAMIN D3) 25 mcg (1,000 unit) capsule Take 1 capsule (1,000 Units total) by mouth in the morning. Activeclopidogrel 75 mg oral tablet (15 sources)P2Y12 Platelet InhibitorStart: 04-21-2024 End: 04-29-5732izwz 1 tablet by mouth once dailyclopidogrel (Plavix) 75 MG tablet Indications: CAD in mi'kmaq artery Take 1 tablet (75 mg) by mouth Daily 30 tablet 5 05/03/2024 ActiveFLUoxetine 10 mg oral capsule (3 sources)Serotonin Reuptake InhibitorStart: 07-12-2024 End: 04-46-7065hqdk 1 capsule by mouth once dailyFLUoxetine (PROzac) 10 MG capsule Indications: Generalized anxiety disorder Take 1 capsule (10 mg) by mouth Daily 30 capsule 2 07/12/2024 08/04/2024 DiscontinuedLACTOBAC NO.41/BIFIDOBACT NO.7 (PROBIOTIC-10 ORAL) (4 sources)take 1 tablet by mouth once dailyLACTOBAC NO.41/BIFIDOBACT NO.7 (PROBIOTIC-10 ORAL) Take 1 tablet by mouth daily. Activetake 1 tablet by mouth once dailyLACTOBAC NO.41/BIFIDOBACT NO.7 (PROBIOTIC-10 ORAL) Take 1 tablet by mouth daily. 0 Activemagnesium oxide,aspartate,citr 400 mg magnesium capsule (1 source)take 1 capsule by mouth once dailymagnesium oxide,aspartate,citr 400 mg magnesium capsule Take 400 mg by mouth daily. 0 ActiveMAGNESIUM OXIDE,ASPARTATE,CITR ORAL (3 sources)take 250 mg by mouth in the morningMAGNESIUM OXIDE,ASPARTATE,CITR ORAL Take 250 mg by mouth in the morning. Activetake 250 mg by mouth in the morningMAGNESIUM OXIDE,ASPARTATE,CITR ORAL Take 250 mg by mouth in the morning. 0 Activenitroglycerin 0.4 mg sublingual tablet (20 sources)Nitrate VasodilatorStart: 62-88-6214lgkgqfnydffpp (Nitrostat) 0.4 MG SL tablet Indications: CAD in mi'kmaq artery PLACE 1 TABLET (0.4 MG) UNDER THE TONGUE EVERY 5 MINUTES NEEDED FOR CHEST PAIN 225 tablet 2 08/04/[address] 1 tablet under the tongue as needed. ActiveNITROGLYCERIN SL Place 1 tablet under the tongue as needed. 0 Activeomeprazole 20 mg delayed release oral capsule (7 sources)Proton Pump InhibitorStart: 06-28-2023 End: 50-80-0607ydzy 1 capsule by mouth before mealtimeomeprazole (PriLOSEC) [address] capsule Indications: Gastroesophageal reflux disease without esophagitis Take 1 capsule (20 mg) by mouth in the morning. Take before meals. Do not crush or chew.. 30 capsule 3 06/28/2023 12/08/2023 Discontinuedtake 1 tablet by mouth in the morningomeprazole (PriLOSEC OTC) 20 mg EC tablet Take 1 tablet (20 mg total) by mouth in the morning. Activeondansetron 4 mg oral tablet (17 sources)Serotonin-3 Receptor AntagonistStart: 07-13-2023 End: 58-53-8257ovib 1 tablet by mouth every six hours for nauseaondansetron (Zofran) 4 MG tablet Indications: Gastroesophageal reflux disease without esophagitis Take 1 tablet (4 mg) by mouth every 6 (six) hours if needed for nausea or vomiting 20 tablet 2 07/13/2023 10/06/2024 Discontinuedramipril 2.5 mg oral capsule (17 sources)Angiotensin Converting Enzyme InhibitorStart: 05-03-2024 End: 34-40-1062uevcxtrm (Altace) 2.5 MG capsule 05/03/2024 08/04/2024 DiscontinuedStart: 63-10-9929wfuz 1 capsule by mouth once dailyramipril (Altace) 2.5 MG capsule Indications: Essential hypertension, benign (CMS/HCC) Take 1 capsule (2.5 mg) by mouth Daily 90 capsule 3 12/08/2023 ActiveStart: 12-08-2023 take 1 capsule by mouth once dailyramipril (Altace) 2.5 MG capsule Indications: Essential hypertension, benign (CMS/HCC) Take 1 capsule (2.5 mg) by mouth Daily 90 capsule 3 12/08/2023 ActiveStart: 10-08-2023 End: 44-74-4320srrs 1 capsule by mouth in the morningramipril (Altace) 2.5 MG capsule Indications: Atherosclerotic heart disease of mi'kmaq coronary artery without angina pectoris (CMS/HCC) , Takotsubo syndrome TAKE 1 CAPSULE (2.5 MG TOTAL) BY MOUTH IN THE MORNING. 90 capsule 3 10/08/2023 12/08/2023 Discontinued (Reorder)Start: 98-97-1665vqgu 1 capsule by mouth in the morningramipriL (ALTACE) 2.5 mg capsule Indications: Coronary artery disease involving mi'kmaq coronary artery of mi'kmaq heart without angina pectoris , Takotsubo cardiomyopathy , Status post angioplasty with stent , Pure hypercholesterolemia TAKE 1 CAPSULE (2.5 MG TOTAL) BY MOUTH IN THE MORNING. 90 capsule 06/09/2023 ActiveStart: 84-72-2991szon 1 capsule by mouth in the morningramipriL (ALTACE) 2.5 mg capsule Indications: Coronary artery disease involving mi'kmaq coronary artery of mi'kmaq heart without angina pectoris , Takotsubo cardiomyopathy , Status post angioplasty with stent , Pure hypercholesterolemia Take 1 capsule (2.5 mg total) by mouth in the morning. 90 capsule 3 05/11/2022 Activesertraline 25 mg oral tablet (7 sources)Serotonin Reuptake InhibitorStart: 08-28-2024 End: 25-31-8419aoon 1 tablet by mouth once dailysertraline (Zoloft) 25 MG tablet Indications: Generalized anxiety disorder TAKE 1 TABLET BY MOUTH EVERY DAY 90 tablet 1 08/28/2024 10/06/2024 DiscontinuedStart: 73-16-0537vzmi 1 tablet by mouth once dailysertraline (Zoloft) 25 MG tablet Indications: Generalized anxiety disorder Take 1 tablet (25 mg) bymouth Daily 30 tablet 2 08/04/2024 ActivetraZODone hydrochloride 50 mg oral tablet (18 sources)Serotonin Reuptake InhibitorStart: 10-85-6910ttgo 1 tablet by mouth at bedtimetraZODone (Desyrel) 50 MG tablet Indications: Primary insomnia TAKE 1 TABLET BY MOUTH AT BEDTIME 90tablet 1 05/31/2024 Activetake 1 tablet by mouth at bedtimetraZODone (Desyrel) 50 MG tablet Take 50 mg by mouth at bedtime Active ubidecarenone 10 mg oral capsule (4 sources)coenzyme Q10 10 mg capsule Take 10 capsules (100 mg total) by mouth in the morning. Activeubidecarenone 100 mg / vitamin e 5 unt oral capsule (18 sources)take 1 capsule by mouth in the morningcoenzyme Q-10 100 MG capsule Take 100 mg by mouth in the morning. Active Completed/Discontinued Medications MedicationDrug Class(es)DatesSig (Normalized)Sig (Original)ezetimibe 10 mg oral tablet (2 sources)Dietary Cholesterol Absorption InhibitorStart: 12-07-2022 End: 31-25-2265zxrx 1 tablet by mouth in the morningezetimibe (ZETIA) 10 mg tablet TAKE 1 TABLET (10 MG TOTAL) BY MOUTH IN THE MORNING 90 tablet 1 12/0705/11/2023 Discontinued Problems Active Problems Problem ClassificationProblemDateDocumented DateEpisodic/ChronicAcute myocardial infarction (10 sources)Myocardial infarction; Translations: [Non-ST elevation (NSTEMI) myocardial infarction]Onset: 06-03-2017 Resolved: 402853-88-2267QvillhkJjtjdjr disorders (20 sources)Generalized anxiety disorder; Translations: [Generalized anxiety disorder]Onset: 262167-92-2919UbhwrhcNswtzdc dysrhythmias (2 sources)Ventricular premature depolarization; Translations: [Ventricular premature depolarization]Onset: 37-35-8284TupaajmAkcnpsfpcf heart failure; nonhypertensive (4 sources)Chronic combined systolic and diastolic heart failure; Translations: [Chronic combined systolic (congestive) and diastolic (congestive) heart failure]Onset: 10-23-2018 Resolved: 039775-43-8961NwnlcymMatmtquy atherosclerosis and other heart disease (20 sources)Coronary arteriosclerosis; Translations: [Atherosclerotic heart disease of mi'kmaq coronary artery without angina pectoris]Onset: 10-10-2016 Resolved: 800027-24-3497KrkeugvJigcgrtn mellitus without complication (19 sources)Prediabetes; Translations: [Prediabetes]Onset: EpisodicDisorders of lipid metabolism (8 sources)Pure hypercholesterolemia; Translations: [Pure hypercholesterolemia, unspecified]Onset: 276616-82-2678PbrgfkhMztmdwpbuk disorders (19 sources)Gastroesophageal reflux disease without esophagitis; Translations: [Gastro-esophageal reflux disease without esophagitis]Onset: 05-10-2023 92-05-9062LpxfjxkTiprmyhfn hypertension (20 sources)Benign essential hypertension; Translations: [Essential (primary) hypertension]Onset: 115333-18-6720RbvygcvCyrbqhuwdrhuq mental health disorders (20 sources)Primary insomnia; Translations: [Primary insomnia]Onset: 05-10-2023 37-17-9119ZcmypsvEjbi wounds of extremities (1 source)Laceration without foreign body, left lower leg, initial encounter; Translations: [Laceration without foreign body, left lower leg, initial encounter]Onset: 77-33-4146UbcyymgvBvkl wounds of head; neck; and trunk (2 sources)Tear of skin; Translations: [Open wound(s) (multiple) of unspecified site(s), without mention of complication]11-41-3857JydvvfivAgklibjqwcbrnl (20 sources)Osteoarthritis of left hip joint; Translations: [Unilateral primary osteoarthritis, left hip]Onset: 100270-89-6980UvrxlntKguon aftercare (1 source)Long-term current use of drug therapy; Translations: [Other residential (current) drug therapy]43-49-3129CoztwxrdWyuhu and ill-defined heart disease (6 sources)Takotsubo cardiomyopathy; Translations: [Takotsubo syndrome]Onset: 308191-96-2151BrbjeipIiolg circulatory disease (6 sources)History of angioplasty; Translations: [Peripheral vascular angioplasty status with implants and grafts]Onset: 188886-49-5935Nunopnj Other screening for suspected conditions (not mental disorders or infectious disease) (4 sources)Endometrium thickened; Translations: [Abnormal findings on diagnostic imaging of other specified body structures]Onset: 381022-76-5244Wahqyfa Past or Other Problems Problem ClassificationProblemDateDocumented DateEpisodic/ChronicAllergic reactions (18 sources)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; Translations: [Other insect allergy status]Onset: 08-10-2023 Resolved: 705305-96-8549IwmyydygCnszeyk dysrhythmias (2 sources)Palpitations; Translations: [Palpitations]Onset: 46-29-0270Xrkvicdo Coronary atherosclerosis and other heart disease (2 sources)Presence of coronary angioplasty implant and graft; Translations: [Presence of coronary angioplastyimplant and graft]Onset: 70-40-8169Yxtdpkez Heart valve disorders (4 sources)Mitral stenosis with insufficiency; 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]Onset: 11-04-2016 Resolved: 351385-04-5193CrcxmoaLzjglcudep obstruction without hernia (8 sources)Partial obstruction of intestine; Translations: [Partial intestinal obstruction, unspecified as to cause]Onset: 2017 Resolved: 519189-43-5304NbbqbxwlKvof disorders (12 sources)Mood disordersOnset: 09-04-2019 Resolved: Other circulatory disease (2 sources)Elevated blood-pressure reading, without diagnosis of hypertension; Translations: [Elevated blood-pressure reading, without diagnosis of hypertension]Onset: 49-58-0217JbbijetrVoixu disorders of stomach and duodenum (4 sources)Gastric volvulus; Translations: [Other diseases of stomach and duodenum]Onset: 950660-04-9938MfecwbgjQgyey lower respiratory disease (2 sources)Shortness of breath; Translations: [Shortness of breath]Onset: 29-60-7280SnqdncgzWvvyl non-traumatic joint disorders (4 sources)Pain of left hip joint; Translations: [Pain in left hip]Onset: 315855-98-5155DhqpdykmFqsjisf cyst (4 sources)Cyst of right ovary; Translations: [Unspecified ovarian cyst, right side]Onset: 218795-11-6135VnomqrjrOwja and subcutaneous tissue infections (18 sources)Cellulitis of neck; Translations: [Cellulitis of neck]Onset: 08-10-2023 Resolved: 920728-86-8099QtfrqmggJjhdexxrwpt injury; contusion (18 sources)Insect bite of head and neck; Translations: [Insect bite of unspecified part of neck, initial encounter]Onset: 289930-92-8134Ldzaoucf Unclassified (4 sources)Onset: Results Test NameValueInterpretationReference RangeFacilityBasophils Auto (Bld) [#/Vol] Ordered By: Faustina Feliciano on 07-65-6561Qrnhasvnk (Bld) [#/Vol]0.1 10 3/uL 0.0-0.1FMagruder HospitalBasophils/100 WBC Auto (Bld)Ordered By: Faustina Cornucopia on 77-26-3583Iqwlaxrxy/100 WBC (Bld)0.7 %0.2-2.0[facility] HospitalEosinophils/100 WBC Auto (Bld)Ordered By: Faustina Cornucopia on 88-05-9040Vtqfofyyral/100 WBC (Bld)3.9 %0.9-7.0[facility] HospitalErythrocyte distribution width Auto (RBC) [Ratio]Ordered By: [facility] on 57-08-3483Onnfmlcftts distribution width (RBC) [Ratio]13.1 %11.0-15.0[facility] HospitalGlobulin Calc (S) [Mass/Vol]Ordered By: Faustina Cornucopia on 27-96-6069Akuzhuav (S) [Mass/Vol]3.9 g/dLMount St. Mary HospitalGlomerular filtration rate (GFR) estimation in non- AmericanOrdered By: Faustina Cornucopia on 69-25-4443HBW/1.73 sq M.predicted among non-blacks MDRD (S/P/Bld) [Vol rate/Area]mL/min/{1.73_m2}>=60 mL/min/1.73m 2FMagruder HospitalHematocrit Auto (Bld) [Volume fraction]Ordered By: Faustina Cornucopia on 32-51-0486Hsjeegbwhe (Bld) [Volume fraction]37.8 %36.0-48.0[facility] HospitalHemoglobin [Mass/volume] in BloodOrdered By: Faustina Cornucopia on 75-26-7461Ecuojssdgs (Bld) [Mass/Vol]12.9 g/dL12.0-16.0[facility] HospitalLaboratory - Chemistry and Chemistry - challengeOrdered By: Faustina Cornucopia on 11-29-2024 Albumin [Mass/Vol]3.9 g/dL3.4-5.0[facility] HospitalALP [Catalytic activity/Vol]84 U/J83-401FegzcfcieMount St. Mary HospitalALT [Catalytic activity/Vol]34 U/U50-79GgxzextneMount St. Mary HospitalAST [Catalytic activity/Vol]22 U/F05-08AwjwgdcycMount St. Mary HospitalBilirubin [Mass/Vol]0.5 mg/dL0.2-1.0[facility] HospitalCalcium [Mass/Vol]8.9 mg/dL 8.5-10.1FMagruder HospitalChloride [Moles/Vol]105 mmol/L98-[address] [facility] HospitalCO2 [Moles/Vol]26.5 mmol/L21.0-32.0[facility] HospitalCreatinine [Mass/Vol]0.70 mg/dL0.55-1.02[facility] HospitalGFR/1.73 sq M.predicted MDRD (S/P/Bld) [Vol rate/Area] mL/min/{1.73_m2}>=60 mL/min/1.73m 2FMagruder HospitalGlucose [Mass/Vol]108 mg/cHFsze59-070ZiyfxfqskMount St. Mary HospitalLactate [Moles/Vol]0.8 mmol/L0.4-2.0[facility] HospitalPotassium [Moles/Vol]4.0 mmol/L3.5-5.1FMagruder HospitalProtein [Mass/Vol] 7.8 g/dL6.4-8.2FUniversity Hospitals Geneva Medical Centerodium [Moles/Vol]141 mmol/L 136-145[facility] HospitalUrea nitrogen [Mass/Vol]26.0 mg/dLHigh 7.0-18.0[facility] HospitalUrea nitrogen/Creatinine [Mass ratio] 37.1 mg/mgMount St. Mary HospitalLaboratory - Hematology and Cell countsOrdered By: Faustina Feliciano on 04-27-3817Bmtzbfwy granulocytes/100 WBC (Bld)0.6 %High0.0-0.5FMagruder HospitalLeukocytes [#/volume] corrected for nucleated erythrocytes in Blood by Automated counOrdered By: Faustina Feliciano on 05-24-3672ZTO corrected for nucl RBC Auto (Bld) [#/Vol]7.2 10 3/uL4.0-11.0[facility] HospitalLymphocytes Auto (Bld) [#/Vol] Ordered By: Faustina Feliciano on 46-72-4081Kqbkdufwjqe (Bld) [#/Vol]1.3 10 3/uL 1.2-3.8[facility] HospitalLymphocytes/100 WBC Auto (Bld)Ordered By: Faustina Feliciano on 78-70-1147Kityslowlqp/100 WBC (Bld)18.6 %Low20.5-60.[address] [facility] HospitalMCH Auto (RBC) [Entitic mass]Ordered By: Faustina Feliciano on 09-95-5783XPR (RBC) [Entitic mass]29.9 pg26.7-34.[address] [facility] HospitalMCHC Auto (RBC) [Mass/Vol]Ordered By: Faustina Feliciano on 18-76-9100ZXZJ (RBC) [Mass/Vol]34.1 g/dL29.9-35.2FMagruder HospitalMCV Auto (RBC) [Entitic vol]Ordered By: Faustina Feliciano on 80-90-2025JRL (RBC) [Entitic vol]87.7 fL81.0-99.0[facility] HospitalMonocytes Auto (Bld) [#/Vol]Ordered By: Faustina Feliciano on 11-29-2024 Monocytes (Bld) [#/Vol]0.4 10 3/uL0.3-0.8[facility] Monocytes/100 WBC Auto (Bld)Ordered By: Faustina Feliciano on 11-29-2024 Monocytes/100 WBC (Bld)5.6 %1.7-12.0[facility] HospitalNeutrophils Auto (Bld) [#/Vol]Ordered By: Faustina Feliciano on 08-63-2090Bztmoxjwrnp (Bld) [#/Vol]5.1 10 3/uL1.4-6.5FMagruder HospitalNeutrophils/100 WBC Auto (Bld)Ordered By: Faustina Feliciano on 72-94-3420Nnodrqxlfgp/100 WBC (Bld) 70.6 %43.0-75.0[facility] HospitalNo Panel InformationOrdered By: Faustina Cornucopia on 14-50-1174Fpjmrtpkdod # (Auto)0.3 10 3/uL0.0-0.7FMagruder HospitalImmature Granulocyte # (Auto)0.04 10 3/uLHigh0.00-0.[address] [facility] HospitalPlatelet mean volume Auto (Bld) [Entitic vol] Ordered By: Faustina Cornucopia on 99-35-2788Njbrlqex mean volume (Bld) [Entitic vol]9.6 fL9.5-13.5FMagruder HospitalPlatelets Auto (Bld) [#/Vol] Ordered By: Faustina Cornucopia on 56-39-6821Dnocrfsos (Bld) [#/Vol]276 10 3/uL 150-450[facility] HospitalRBC Auto (Bld) [#/Vol]Ordered By: Faustina Cornucopia on 14-40-6214KXW (Bld) [#/Vol]4.31 10 6/uL4.20-5.40[facility] Hospitalerum or plasma albumin/globulin mass ratioOrdered By: FaustinaAvita [facility] on 36-46-8047Jmrywdr/Globulin [Mass ratio]1.0 {ratio} [facility] Hospitalerum or plasma anion gap determinationOrdered By: FaustinaAvita Health System [facility] on 66-79-8662Ainvl gap [Moles/Vol]13.5 mmol/LFMagruder Hospital36on 24-97-570734Scqbzqctp stress test result from 11/10/2024: MD Yue Byrne MA Please let her know that her stress test is normal Thank you Patient informed.NormalUnBrecksville VA / Crille HospitalOrders Onlyon 62-18-5761Kcnvru [id number] Diana Jaeger 1945 F Date Provider Department Center 11/02/2024 YUE WORRELL JOSE[facility] Family History Problem Relation Age of Onset Other Mother Other Father Family Status - Relation Status Age at Mother Father DeceasedNormalUniversUniversity Hospitals Elyria Medical CenterBasophils Auto (Bld) [#/Vol]Ordered By: [facility] on 97-52-2753Zcfkcnnjm (Bld) [#/Vol]0.1 10 3/uL0.0-0.1FMagruder HospitalBasophils/100 WBC Auto (Bld)Ordered By: [facility] on 47-55-1664Ylsskpifk/100 WBC (Bld)0.8 %0.2-2.[address] [facility] HospitalEosinophils/100 WBC Auto (Bld)Ordered By: [facility] on 22-74-0436Nwnhdddwhjg/100 WBC (Bld)1.6 %0.9-7.0[facility] HospitalErythrocyte distribution width Auto (RBC) [Ratio]Ordered By: [facility] on 85-97-8889Ukvpuyjxtle distribution width (RBC) [Ratio] 13.2 %11.0-15.0[facility] HospitalGlomerular filtration rate (GFR) estimation in non- AmericanOrdered By: [facility] on 11-01-2024 GFR/1.73 sq M.predicted among non-blacks MDRD (S/P/Bld) [Vol rate/Area] mL/min/{1.73_m2}>=60 mL/min/1.73m 2FMagruder HospitalHematocrit Auto (Bld) [Volume fraction]Ordered By: [facility] on 11-01-2024 Hematocrit (Bld) [Volume fraction]36.1 %36.0-48.0[facility] HospitalHemoglobin [Mass/volume] in BloodOrdered By: [facility] on 85-75-4880Caechhyvjt (Bld) [Mass/Vol]12.4 g/dL12.0-16.0[facility] HospitalLaboratory - Chemistry and Chemistry - challengeOrdered By: [facility] on 15-36-0082Scjgxwg [Mass/Vol]9.3 mg/dL8.5-10.1FMagruder HospitalChloride [Moles/Vol]105 mmol/T60-843RjetpqvrkMount St. Mary HospitalCO2 [Moles/Vol]27.3 mmol/L21.0-32.0[facility] HospitalCreatinine [Mass/Vol]0.66 mg/dL0.55-1.02[facility] GFR/1.73 sq M.predicted MDRD (S/P/Bld) [Vol rate/Area]mL/min/{1.73_m2}>=60 mL/min/1.73m 2FMagruder HospitalGlucose [Mass/Vol]91 mg/tM03-[address] [facility] HospitalPotassium [Moles/Vol]4.0 mmol/L3.5-5.1FUniversity Hospitals Geneva Medical Centerodium [Moles/Vol]141 mmol/D235-310NwjulryyfMount St. Mary HospitalUrea nitrogen [Mass/Vol]21.0 mg/dLHigh7.0-18.0[facility] Mary HospitalUrea nitrogen/Creatinine [Mass ratio]31.8 mg/mgMount St. Mary HospitalLaboratory - Hematology and Cell countsOrdered By: Faustina Feliciano on 83-96-8643Efrfjivu granulocytes/100 WBC (Bld)0.5 %0.0-0.5FMagruder HospitalLeukocytes [#/volume] corrected for nucleated erythrocytes in Blood by Automated counOrdered By: Faustina Feliciano on 19-61-1892ECR corrected for nucl RBC Auto (Bld) [#/Vol]6.3 10 3/uL4.0-11.[address] [facility] HospitalLymphocytes Auto (Bld) [#/Vol]Ordered By: Faustina Feliciano on 26-98-6888Lalnqvnaksv (Bld) [#/Vol]1.6 10 3/uL1.2-3.[address] [facility] HospitalLymphocytes/100 WBC Auto (Bld)Ordered By: Faustina Feliciano on 06-09-1715Qpirkjnufgn/100 WBC (Bld)25.2 %20.5-60.0 [facility] Auto (RBC) [Entitic mass]Ordered By: Faustina Feliciano on 08-07-7605BSS (RBC) [Entitic mass]30.0 pg26.7-34.[address] [facility] HospitalMC Auto (RBC) [Mass/Vol]Ordered By: Faustina Feliciano on 95-17-0636BGMZ (RBC) [Mass/Vol]34.3 g/dL29.9-35.2FMagruder HospitalMCV Auto (RBC) [Entitic vol]Ordered By: Faustina Cornucopia on 14-97-7766AKN (RBC) [Entitic vol]87.4 fL81.0-99.0[facility] HospitalMonocytes Auto (Bld) [#/Vol]Ordered By: Faustina Cornucopia on 11-01-2024 Monocytes (Bld) [#/Vol]0.4 10 3/uL0.3-0.8[facility] Monocytes/100 WBC Auto (Bld)Ordered By: [facility] on 11-01-2024 Monocytes/100 WBC (Bld)6.4 %1.7-12.0[facility] HospitalNeutrophils Auto (Bld) [#/Vol]Ordered By: [facility] on 50-89-3155Vokygnyohse (Bld) [#/Vol]4.1 10 3/uL1.4-6.5FMagruder HospitalNeutrophils/100 WBC Auto (Bld)Ordered By: [facility] on 31-85-5198Eqpnacsuopl/100 WBC (Bld) 65.5 %43.0-75.0[facility] HospitalNo Panel InformationOrdered By: Pelon Cano on 01-44-9966Grmeopbu I High Sensitivity5.6 pg/mL4.0-51.3FMagruder HospitalComment on above:CUT-OFF POINTS HAVE BEEN ESTABLISHED BASED ON THE FOURTHUNIVERSAL DEFINITION OF MYOCARDIAL INFARCTION. THE UPPERREFERENCE LIMIT (URL) OF TROPONIN, DEFINED THE 99THPERCENTILE OF cTnI DISTRIBUTION IN A REFERENCE POPULATION,HAS BEEN CONFIRMED THE DECISION THRESHOLD FOR MIDIAGNOSIS.99TH PERCENTILE = 51.4 PG/MLNOTE: HIGH-SENSITIVITY TROPONIN ASSAY IS NOT INTENDED TO BEUSED IN ISOLATION BUT SHOULD BE INTERPRETED IN CONJUNCTIONWITH OTHER DIAGNOSTIC AND CLINICAL INFORMATION.No Panel InformationOrdered By: FaustinaAvita [facility] Hospital on 03-75-3648Agodulegdrl # (Auto)0.1 10 3/uL0.0-0.7FMagruder HospitalImmature Granulocyte # (Auto)0.03 10 3/uL0.00-0.03[facility] Mary HospitalPlatelet mean volume Auto (Bld) [Entitic vol]Ordered By: Faustina Feliciano on 83-47-6523Pnaizkkn mean volume (Bld) [Entitic vol]9.6 fL9.5-13.5FMagruder Hospital Platelets Auto (Bld) [#/Vol]Ordered By: Faustina Feliciano on 11-01-2024 Platelets (Bld) [#/Vol]309 10 3/cB036-555MyvwhhajpMount St. Mary HospitalRBC Auto (Bld) [#/Vol]Ordered By: Faustina Feliciano on 20-62-1671WPF (Bld) [#/Vol] 4.13 10 6/uLLow4.20-5.40[facility] Hospitalerum or plasma anion gap determinationOrdered By: Faustina Feliciano on 09-59-0653Sihwm gap [Moles/Vol]12.7 mmol/LFMagruder HospitalITPon 88-48-8131Uhq[place], [place] [address] Cardiac Rehab Report Signed Patient: DIANA JAEGER MR#: [id number] : 1945 Acct:[id number] Age/Sex: 79 / F ADM Date: 09/21/24 Loc: CR Attending Dr: Oralia AGUILAR Ordering Physician: Jose Alfredo Fregoso M.D. Date of Service: 09/06/24 Procedure(s): ITP Accession Number(s): [id number] cc: [facility] Test Date: 2024-09-06 Pat Name: DIANA JAEGER Department: Room: - Gender: Female Malted Milk Supervisor: : 1945 Requested By: JOSE ALFREDO FREGOSO Order Number: [id number] Juli MD: LISHA LOVETT M.D. Interpretive Statements Patient may continue cardiac rehab as outlined in the treatment plan. Electronically Signed On 09-22-2024 10:19:08 EDT by LISHA LOVETT M.D. Dictated By: LISHA LOVETT Signed By: 09/22/24 1019 09/22/24 1019 DD/ 1118 TD/TT: Tapper Helper:Chely Chew MD - 09/22/2024 [place] [address] Cardiac Rehab Report Signed Patient: DIANA JAEGER MR#: [id number] : 1945 Acct:[id number] Age/Sex: 79 / F ADM Date: 09/21/24 Loc: CR Attending Dr: Oralia AGUILAR Ordering Physician: Jose Alfredo Fregoso M.D. Date of Service: 09/06/24 Procedure(s): ITP Accession Number(s): [id number] cc: [facility] Test Date: 2024-09-06 Pat Name: DIANA JAEGER Department: Room: - Gender: Female Malted Milk Supervisor: : 1945 Requested By: JOSE ALFREDO FREGOSO Order Number: [id number] Reading MD: LISHA LOVETT M.D. Interpretive Statements Patient may continue cardiac rehab as outlined in the treatment plan. Electronically Signed On 09-22-2024 10:19:08 EDT by LISHA LOVETT M.D. Dictated By: LISHA LOVETT Signed By: 09/22/24 1019 09/22/24 1019 DD/ 1118 TD/TT: Tapper Helper: JOSHUA HealthcareITPOrdered By: Radiologist Radiology on 11-72-7669IP[facility] Work Phone: ITPon [phone] Study observation (narrative)JOSHUA HealthcareOffice Visiton 38-32-2848Uywftx-up [id number] Diana Jaeger 1945 F Date Provider Department Center 08/29/2024 Slick-JOSE ALFREDO FREGOSO [facility] Hos Family History Problem Relation Age of Onset Other Mother Other Father Family Status - Relation Status Age at Mother Father Level of Service:[address]32 [place] OFFICE/OUTPATIENT ESTABLISHED LOW MDM 20 MINNormal [facility] CenterAbstracton [id number] Diana Jaeger 1945 F Date Provider Department Center 08/28/2024 Slick-JOSE ALFREDO FREGOSO [facility] Hos Family History Problem Relation Age of Onset Other Mother Other Father Family Status - Relation Status Age at Mother Father DeceasedNormalUniProtestant Deaconess HospitalITPon 95-31-2099Glx [place] [id number] Cardiac Rehab Report Signed Patient: DIANA JAEGER MR#: [id number] : 1945 Acct:[id number] Age/Sex: 79 / F ADM Date: 08/09/24 Loc: CR Attending Dr: Oralia AGUILAR Ordering Physician: Hector Ruelas D.O. Date of Service: 08/10/24 Procedure(s): ITP Accession Number(s): [id number] cc: [facility] Test Date: 2024-08-10 Pat Name: DIANA JAEGER Department: Room: - Gender: Female Malted Milk Supervisor: : 1945 Requested By: Hector Ruelas Order Number: [id number] Juli MD: Hector Ruelas Interpretive Statements Okay to continue with outlined treatment plan. Electronically Signed On 08-10-2024 15:36:48 EDT by Hector Ruelas Dictated By: Hector Ruelas D.O. Signed By: 08/10/24 1537 08/10/24 1537 DD/ 0900 TD/TT: Tapper Helper:JOHNadiologhuy, Radiologist, - 08/10/2024 The [place] [id number] Cardiac Rehab Report Signed Patient: DIANA JAEGER MR#: [id number] : 1945 Acct:[id number] Age/Sex: 79 / F ADM Date: 08/09/24 Loc: CR Attending Dr: Oralia AGUILAR Ordering Physician: Hector Ruelas D.O. Date of Service: 08/10/24 Procedure(s): ITP Accession Number(s): [id number] cc: [facility] Test Date: 2024-08-10 Pat Name: DIANA JAEGER Department: Room: - Gender: Female Malted Milk Supervisor: : 1945 Requested By: Hector Ruelas Order Number: [id number] Juli MD: Hector Ruelas Interpretive Statements Okay to continue with outlined treatment plan. Electronically Signed On 08-10-2024 15:36:48 EDT by Hcetor Ruelas Dictated By: Hector Ruelas D.O. Signed By: 08/10/24 1537 08/10/24 1537 DD/ 09 TD/TT: Tapper Helper: JOSHUA HealthcareRadiology Study observation (narrative)JOSHUA HealthcareITPOrdered By: Radiologist Radiology on 78-85-9539KPDA [employer] Work Phone: ITPon [phone], [place] [address] Cardiac Rehab Report Signed Patient: DIANA JAEGER MR#: [id number] : 1945 Acct:[id number] Age/Sex: 79 / F ADM Date: 07/12/24 Loc: CR Attending Dr: Oralia AGUILAR Ordering Physician: Hector Ruelas D.O. Date of Service: 07/12/24 Procedure(s): ITP Accession Number(s): [id number] cc: [facility] Test Date: 2024-07-12 Pat Name: DIANA JAEGER Department: Room: - Gender: Female Malted Milk Supervisor: : 1945 Requested By: Hector Ruelas Order Number: [id number] Juli MD: Hector Ruelas Interpretive Statements Okay to continue with outlined treatment plan. Electronically Signed On 07-12-2024 9:17:27 EDT by Hector Ruelas Dictated By: Hector Ruelas D.O. Signed By: 07/12/2417 07/12/2417 DD/ 0716 TD/TT: Tapper Helper:JOHNadiologChely son, - 07/12/2024 The [place] [id number] Cardiac Rehab Report Signed Patient: DIANA JAEGER MR#: [id number] : 1945 Acct:[id number] Age/Sex: 79 / F ADM Date: 07/12/24 Loc: CR Attending Dr: Oralia AGUILAR Ordering Physician: Hector Ruelas D.O. Date of Service: 07/12/24 Procedure(s): ITP Accession Number(s): [id number] cc: [facility] Test Date: 2024-07-12 Pat Name: DIANA JAEGER Department: Room: - Gender: Female Malted Milk Supervisor: : 1945 Requested By: Hector Ruelas Order Number: [id number] Reading MD: Hector Ruelas Interpretive Statements Okay to continue with outlined treatment plan. Electronically Signed On 07-12-2024 9:17:27 EDT by Hector Ruelas Dictated By: Hector Ruelas D.O. Signed By: 07/12/2491607/12/24916 DD/ 0716 TD/TT: Tapper Helper: JOSHUA HealthcareRadiology Study observation (narrative)JOSHUA HealthcareITPOrdered By: Radiologist Radiology on 77-31-7596FDHU [facility] Work Phone: ITPon [phone] [place] [address] Cardiac Rehab Report Signed Patient: DIANA JAEGER MR#: [id number] : 1945 Acct:[id number] Age/Sex: 79 / F ADM Date: 07/04/24 Loc: CR Attending Dr: Oralia AGUILAR Ordering Physician: Hector Ruelas D.O. Date of Service: 07/04/24 Procedure(s): ITP Accession Number(s): [id number] cc: [facility] Test Date: 2024-07-04 Pat Name: DIANA JAEGER Department: Room: - Gender: Female Malted Milk Supervisor: : 1945 Requested By: Hector Ruelas Order Number: [id number] Reading MD: Hector Ruelas Interpretive Statements Okay to proceed with outlined treatment plan. Electronically Signed On 07-05-2024 18:37:48 EDT by Hector Ruelas Dictated By: Hector Ruelas D.O. Signed By: 07/05/24183607/05/241836 DD/ 15 TD/TT: Tapper Helper:WANDYHRadiology, Radiologist, MD - 07/05/2024 [place] [address] Cardiac Rehab Report Signed Patient: DIANA JAEGER MR#: [id number] : 1945 Acct:[id number] Age/Sex: 79 / F ADM Date: 07/04/24 Loc: CR Attending Dr: Oralia AGUILAR Ordering Physician: Hector Ruelas D.O. Date of Service: 07/04/24 Procedure(s): ITP Accession Number(s): [id number] cc: [facility] Test Date: 2024-07-04 Pat Name: DIANA JAEGER Department: Room: - Gender: Female Malted Milk Supervisor: : 1945 Requested By: Hector Ruelas Order Number: [id number] Juli MD: Hector Ruelas Interpretive Statements Okay to proceed with outlined treatment plan. Electronically Signed On 07-05-2024 18:37:48 EDT by Hector Ruelas Dictated By: Hector Ruelas D.O. Signed By: 07/05/24183607/05/241836 DD/ 15 TD/TT: Tapper Helper: JOSHUA FreirePOrdered By: Radiologist Radiology on 45-29-7456RRRJ Healthcare Work Phone: ITPon [phone] Study observation (narrative)JOSHUA LopezITAll 11-72-2884[place] [address] Cardiac Rehab Report Signed Patient: DIANA JAEGER MR#: [id number] : 1945 Acct:[id number] Age/Sex: 79 / F ADM Date: 06/13/24 Loc: CR Attending Dr: Oralia AGUILAR Ordering Physician: Hector Ruelas D.O. Date of Service: 06/13/24 Procedure(s): ITP Accession Number(s): [id number] cc: [facility] Test Date: 2024-06-13 Pat Name: DIANA JAEGER Department: Room: - Gender: Female Malted Milk Supervisor: : 1945 Requested By: Hector Ruelas Order Number: [id number] Reading MD: Hector Ruelas Interpretive Statements Okay to proceed with outlined treatment plan. Electronically Signed On 06-13-2024 17:53:39 EDT by Hector Ruelas Dictated By: Hector Ruelas D.O. Signed By: 06/13/24 1753 06/13/24 175 DD/ 1404 TD/TT: Tapper Helper:TBHRadiology, Radiologist, MD - 06/13/2024 [place] [address] Cardiac Rehab Report Signed Patient: DIANA JAEGER MR#: [id number] : 1945 Acct:[id number] Age/Sex: 79 / F ADM Date: 06/13/24 Loc: CR Attending Dr: Oralia AGUILAR Ordering Physician: Hector Ruelas D.O. Date of Service: 06/13/24 Procedure(s): ITP Accession Number(s): [id number] cc: [facility] Test Date: 2024-06-13 Pat Name: DIANA JAEGER Department: Room: - Gender: Female Malted Milk Supervisor: : 1945 Requested By: Hector Ruelas Order Number: [id number] Juli MD: Hector Ruelas Interpretive Statements Okay to proceed with outlined treatment plan. Electronically Signed On 06-13-2024 17:53:39 EDT by Hector Ruelas Dictated By: Hector Ruelas D.O. Signed By: 06/13/24 1753 06/13/24 175 DD/ 1404 TD/TT: Tapper Helper: JOSHUA HealthcareRadiology Study observation (narrative)JOSHUA HealthcareITPOrdered By: Radiologist Radiology on 22-55-9108BOJT [facility] Work Phone: Office Visiton [phone]-up [id number] Diana Jaeger 1945 F Date Provider Department Center 06/13/2024 271-JOSE ALFREDO FREGOSO [facility] Family History Problem Relation Age of Onset Other Mother Other Father Family Status - Relation Status Age at Mother Father Level of Service:67763 [place] OFFICE/OUTPATIENT ESTABLISHED MOD MDM 30 [facility] CenterALL LIPID PROFILE (FASTING)on 79-98-1789JUUT HDL RATIO3.2NOMS HealthcareComment on above:3.3 - 4.4 LOW RISK 4.4 - 7.1 AVERAGE RISK 7.1 - 11.0 MODERATE RISK >11.0 HIGH RISK Cholesterol [Mass/Vol]165 mg/dLNINF - 200 mg/dLNOMT HealthcareCholesterol in HDL [Mass/Vol]51 mg/dL40 - 60 mg/dLNOMS HealthcareComment on above:> or =60 mg/dl - LOW CARDIOVASCULAR RISK <40 mg/dl - HIGH CARDIOVASCULAR RISK Magnesium [Mass/Vol]97 mg/dLNOMT HealthcareComment on above:<100 mg/dl OPTIMAL 100-129 mg/dl NEAR OR ABOVE OPTIMAL 130-159 mg/dl BORDERLINE HIGH 160-189 mg/dl HIGH >190 mg/dl VERY HIGH Magnesium [Mass/Vol]17 mg/dLNOMT HealthcareTriglyceride [Mass/Vol]85 mg/dLNINF - 150 mg/dLNOMS HealthcareCCF CMP (CMP) (FOR REMOTE [facility] USE)on 78-56-4515Sogsybw [Mass/Vol]3.6 g/dL3.4 - 5.0 g/dLNOMT HealthcareALBUMIN GLOBULIN RATIO1.1NOMS HealthcareALP [Catalytic activity/Vol]87 U/L46 - 116 U/LNOMS HealthcareALT [Catalytic activity/Vol]36 U/L14 - 59 U/LNOMS HealthcareAnion gap [Moles/Vol] 10.6 mmol/LNOMS HealthcareAST [Catalytic activity/Vol]28 U/L15 - 37 U/LNOMS HealthcareBilirubin [Mass/Vol]0.4 mg/dL0.2 - 1.0 mg/dLNOMS HealthcareCalcium [Mass/Vol]8.8 mg/dL8.5 - 10.1 mg/dLNOMT HealthcareChloride [Moles/Vol]105 mmol/L 98 - 107 mmol/LNOMS HealthcareCO2 [Moles/Vol]30.5 mmol/L21.0 - 32.0 mmol/LNOMS HealthcareCreatinine [Mass/Vol]0.81 mg/dL0.55 - 1.02 mg/dLNOI-[facility]/1.73 sq M.predicted CKD-EPI (S/P/Bld) [Vol rate/Area]>60>=60 mL/min/1.73m 2 NOMS HealthcareGlobulin (S) [Mass/Vol]3.4 g/dLNOMT HealthcareGlucose [Mass/Vol] 108 mg/kYSijm74 - 106 mg/dLNOMT HealthcareInterpretation and review of laboratory resultsAbnormalNOMT HealthcarePotassium [Moles/Vol]4.1 mmol/L3.5 - 5.1 mmol/LNOMS HealthcareProtein [Mass/Vol]7 g/dL6.4 - 8.2 g/dLNOMT Healthcare Sodium [Moles/Vol]142 mmol/L136 - 145 mmol/LNOMS HealthcareTBH EGFR-NON AF AZERBAIJANI>60>=60 mL/min/1.73m 2NOMS HealthcareUrea nitrogen [Mass/Vol]17 mg/dL7.0 - 18.0 mg/dLNOMT HealthcareUrea nitrogen/Creatinine [Mass ratio]21 mg/mgNOMS HealthcareNo Panel Informationon 99-66-1368KCUIPFJXVTBGV Fbfrqiimfh12fn 94-83-093428C renewed the Plavix for [address] Fregoso may want you to continue for longer though. I renewd the aspirin. Please start checking your BP at home, after lunch, after sitting quietly for at least 5 minutes. Goal for BP average below 130/80 Read over low cholesterol and heart healthy eating. Repeat cholesterol labs in 3 months. I sent referral to [facility] for cardiac rehab. Should call you in coming weeks. Kind regards, Oralia Olsen, [facility] Cardiovascular Medicine Contact me via Logistics Loss Prevention Manager Catalina Villa [phone]nt Deaconess HospitalFollow-Upon 04-27-2024 Follow-[id number] Dinaa Jaeger Jason 1945 F Date Provider Department Center 04/27/2024 97287-TLXYQTORALIA OLSEN [facility] CARD MS HeartVAS Family History Problem Relation Age of Onset Other Mother Other Father Family Status - Relation Status Age at Mother Father Level of Service:82788 [place] OFFICE/OUTPATIENT ESTABLISHED MOD MDM 30 MIN Reason for Visit and Comments: Follow-up [126821] - HFNormalUniProtestant Deaconess HospitalALL CBC WITH AUTO DIFFon 98-55-8059DDVERHTTF ABSOLUTE TXFI9KWGA HealthcareBasophils/100 WBC (Bld)0.7 %0.2 - 2.0 %NOMS HealthcareEosinophils/100 WBC (Bld)2 %0.9 - 7.0 %NOMS HealthcareErythrocyte distribution width (RBC) [Ratio]12.7 %11.0 - 15.0 %NOMS HealthcareHematocrit (Bld) [Volume fraction]32.7 %Low36.0 - 48.0 %NOMS HealthcareHemoglobin (Bld) [Mass/Vol]11.1 g/dLLow12.0 - 16.0 g/dLNOMT Healthcare IMMATURE GRANULOCYTES ABS AUTO0.05HighNOMS HealthcareImmature granulocytes/100 WBC (Bld)0.8 %High0.0 - 0.5 %NOMS HealthcareInterpretation and review of laboratory resultsAbnormalNOMT HealthcareLYMPHOCYTES ABSOLUTE AUTO1.1LowNOMS HealthcareLymphocytes/100 WBC (Bld)18.3 %Low20.5 - 60.0 %NOMS HealthcareMCH (RBC) [Entitic mass]29.5 pg26.7 - 34.0 pgNOMS HealthcareMCHC (RBC) [Mass/Vol] 33.9 g/dL29.9 - 35.2 g/dLNOMT HealthcareMCV (RBC) [Entitic vol]87 fL81.0 - 99.0 fLNOMS HealthcareMONOCYTES ABSOLUTE AUTO0.4NOMS HealthcareMonocytes/100 WBC (Bld)7.2 %1.7 - 12.0 %NOMS HealthcareNEUTROPHILS ABSOLUTE AUTO4.2N[facility] Healthcare Neutrophils/100 WBC (Bld)71 %43.0 - 75.0 %NOMS HealthcarePlatelet mean volume (Bld) [Entitic vol]10 fL9.5 - 13.5 fLNOMS HealthcareTBH EO #0.1N[facility] Healthcare TBH [id number] HealthcareTBH RBC3.76LowNOMS HealthcareTBH JGY7RSUE Healthcare CLINISYNCNOMS Dllivktinq11rk 55-13-455795Sfe patient is Moderately Stable - Low risk [...] or other facility with appropriate resources Outcome: ProgressingNormalUniversity Mercy Memorial HospitalBASIC METABOLIC PANELon 21-73-6010Bznyw gap [Moles/Vol]15 mmol/LNormal7-20UnBrecksville VA / Crille HospitalComment on above:Performed By: #### [id number] #### [facility] (BEAKER) [address], [place] [address]Ipiusyh [Mass/Vol]8.6 mg/dLNormal8.6-10.3UnBrecksville VA / Crille HospitalComment on above:Performed By: #### [id number] #### [facility] (BE[facility]ER) [address], [place] [address]Wtzvhqjr [Moles/Vol]104 mmol/MCqpsjc78-708UjjoloewymBrecksville VA / Crille HospitalComment on above:Performed By: #### [id number] #### [facility] (BEAKER) [address], [place] [address]YN2 [Moles/Vol]20 mmol/DHuu15-17BnioqdzsibBrecksville VA / Crille HospitalComment on above:Performed By: #### [id number] #### [facility] ([facility]) [address] [place] [address]Lamburjnfl [Mass/Vol]0.63 mg/dLNormal0.60-1.20UnBrecksville VA / Crille HospitalComment on above:Performed By: #### [id number] #### [facility] ([facility]) [address] [place] [address]LGEDHOBFNL FILTRATION RATE ML/MIN/1.73 SQ M.CRYCNCAJE79.3 mL/min/1.73m*2Normal>60.0UnBrecksville VA / Crille HospitalComment on above: Result Comment: The [facility]???s estimated glomerular filtration rate (eGFR) will [...] potential consequences that do not disproportionately affect anyone group of individuals.Performed By: #### [id number] #### [facility] ([facility]) [address] [place], [place] [address]Gxoynvd [Mass/Vol]119 mg/mSDbkg23-371PljyigtkvbBrecksville VA / Crille HospitalComment on above:Performed By: #### [id number] #### [facility] ([facility]) [address] [place], [place] [address]Fupotgasq [Moles/Vol]4.2 mmol/LNormal3.5-5.1UnBrecksville VA / Crille HospitalComment on above:Performed By: #### [id number] #### [facility] ([facility]) [address] [place] [address]Fbwaue [Moles/Vol]135 mmol/QSws065-083XgausoqoztBrecksville VA / Crille HospitalComment on above:Performed By: #### [id number] #### [facility] ([facility]) [address] [place], [place] [address]Hylw nitrogen [Mass/Vol]17 mg/dLNormal7-25UnBrecksville VA / Crille HospitalComment on above:Performed By: #### [id number] #### [facility] ([facility]) [address] [place], [place] [address]EYTM NITROGEN/CREATININE (MASS RATIO) IN SER/PLAS27.0Normal [facility] HospitalComment on above:Performed By: #### [id number] #### [facility] ([facility]) [address] [place], [place] [address]NHEgm 63-89-5031Ddudaireziy distribution width (RBC) [Ratio]12.8 %Psdoav52.5-15.0UnBrecksville VA / Crille HospitalComment on above:Performed By: #### [id number] #### [facility] ([facility]) [address] [facility], [place] [address]JKYBJKSASFL MEAN CORPUSCULAR HEMOGLOBIN CONCENTRATION (G/DL) BY EPNJIXMBS85.0 g/xFGrusby63.0-35.0UnBrecksville VA / Crille HospitalComment on above:Performed By: #### [id number] #### [facility] ([facility]) [address] [place], [place] [address]Qmkqdzxklj (Bld) [Volume fraction]38.5 %Beqvgx36.0-48.0 [facility] HospitalComment on above:Performed By: #### [id number] #### [facility] ([facility]) [address] [facility] [place], [place] [address]Jnwsformdo (Bld) [Mass/Vol]12.7 g/fRYltjao81.0-15.0UnBrecksville VA / Crille HospitalComment on above:Performed By: #### [id number] #### [facility] ([facility]) [address] [facility] [place], [place] [address]BNX (RBC) [Entitic mass]29.7 avQeybdt70.0-33.0UnBrecksville VA / Crille HospitalComment on above:Performed By: #### [id number] #### [facility] ([facility]) [address] [place] [address]WPG (RBC) [Entitic vol]90.0 uTBiphnf82.0-98.0UnBrecksville VA / Crille HospitalComment on above:Performed By: #### [id number] #### [facility] ([facility]) [address] [place] [address]WZJZLDMKR (10*3/UL) IN BLOOD AUTOMATED [id number] 10*3/uLNormal 150-400UnBrecksville VA / Crille HospitalComment on above:Performed By: #### [id number] #### [facility] ([facility]) [address] [place] [address]KDA (Bld) [#/Vol]4.28 10*6/uLNormal3.80-5.00UnBrecksville VA / Crille HospitalComment on above:Performed By: #### [id number] #### [facility] ([facility]) [address] [place] [address]NXB (Bld) [#/Vol]11.02 10*3/uLHigh4.00-10.60UnBrecksville VA / Crille HospitalComment on above:Performed By: #### [id number] #### [facility] ([facility]) [address] [place] [address]LEKWRZIEEC AND HEMATOCRIT, BLOODon 85-87-5704Jeercaecyv (Bld) [Volume fraction]37.2 %Fffnzn02.0-48.0UnBrecksville VA / Crille HospitalComment on above:Performed By: #### [id number] #### [facility] ([facility]) [address] [place] [address]Mqunqgxvty (Bld) [Mass/Vol]12.6 g/tKWfplqf25.0-15.0UnBrecksville [facility] / Crille HospitalComment on above:Performed By: #### [id number] #### [facility] ([facility]) [address] [place] [address]WLTYAY BLOOD GAS WITH IONIZED CALCIUMon 95-74-6631Ftyk excess Calc (BldV) [Moles/Vol]-0.2000 mmol/LNormalUnBrecksville VA / Crille Hospital Comment on above:Performed By: #### [id number] ####[facility] RESPIRATORY [id number] [facility] [place] [address] USACALCIUM IONIZED (MMOL/L) IN BLOOD1.18 mmol/L Normal1.15-1.33UnBrecksville VA / Crille HospitalComment on above:Performed By: #### [id number] ####[facility] RESPIRATORY [id number] [place] [address] [place] CO2 (BldV) [Partial pressure]31 mm[Hg]Pgg42-53DnnynoktuiBrecksville VA / Crille HospitalComment on above:Performed By: #### [id number] ####[facility] RESPIRATORY [id number] [place] [address] USAHCO3 (Bld) [Moles/Vol]22.6 mmol/L NormalUnBrecksville VA / Crille HospitalComment on above:Performed By: #### [id number] ####[facility] RESPIRATORY [id number] [place] [address] USAOxygen (BldV) [Partial pressure]62 mm[Hg]Bjzy39-80PudoiyeapwBrecksville VA / Crille Hospital Comment on above:Performed By: #### [id number] ####[facility] RESPIRATORY [id number] [facility] [facility] [place] [address] USAOXYGEN SATURATION (%) IN VENOUS BLOOD91.5 %High 65.0-75.0UnBrecksville VA / Crille HospitalComment on above:Performed By: #### [id number] ####[facility] RESPIRATORY [id number] [place] [address] USAPH OF VENOUS BLOOD7.60Rflb0.31-7.41UnBrecksville VA / Crille HospitalComment on above:Performed By: #### [id number] ####[facility] RESPIRATORY [id number] [place] [address] NDF77dw [id number] patient is Moderately Stable - Low risk of patient condition declining or worsening The patient's goals for the shift include comfort and rest The clinical goals for the shift include stable VS Over the shift, the patient did make progress toward her goals.[facility]30Daily Case Management Update Multidisciplinary rounds have been completed. Barriers [...] for NPO: Answer: Operation/Procedure 04/18/24 1648 04/18/24 181 Special Kitchen Request Once Comments: Omlette with solomon islander cheese jamaican cheese mushrooms green pepper 04/18/24 181 Physician Expected Discharge Date: 04/20/2024 Discharge Delays: PT Six Click Score: 24 OT Six Click Score: PT Recommendations: OT Recommendations: New Consults:[facility]30The patient is Moderately Stable - Low risk [...] are exacerbated and prevent overall improvement and dischargeNormalUniProtestant Deaconess HospitalANESon [id number] Attestation signed by Jose Alfredo Fregoso MD at 04/19/2024 11:52 AM Jose Alfredo Fregoso MD, MPH, [facility], [facility], [facility] Interventional Cardiology Pager Email: [email or web address] Patient: Diana Jaeger Procedure Information Date/Time: 04/19/24 1330 Procedure: Coronary angiography Location: [facility] / [facility] VASCULAR LAB (Cath) Providers: Jose Alfredo Fregoso [...] discussed with fellow and attending. Additional Equipment RequestsNormalUniversUniversity Hospitals Elyria Medical CenterANTI-XA (HEPARIN LEVEL)on 54-52-5300LBNPAKG UNFRACTIONATED (U/ML) IN PPP BY CHROMOGENIC METHOD0.30 IU/mLNormal0.3-0.7UnBrecksville VA / Crille HospitalComment on above:Result Comment: Rivaroxaban and Apixaban will interfere with the anti Xa assay used to monitor UFH and LMWH.Performed By: #### [id number] #### [facility] HOSPITAL LAB (BEAKER) [address] [place], [place] [address]QBZOGMALKJ AND HEMATOCRIT, BLOODon 28-14-8393Uarurgqfla (Bld) [Volume fraction]37.2 %Kjxjjv53.0-48.0[facility] HospitalComment on above:Performed By: #### [id number] ####[facility] ([facility])[address] [place] [address]Ntkrkfyurk (Bld) [Mass/Vol]12.3 g/wAQjyaem06.0-15.0UnBrecksville VA / Crille HospitalComment on above:Performed By: #### [id number] ####[facility] ([facility])[address] [place] [address]Hyhetzeozm (Bld) [Volume fraction]39.4 %Tdrzkn82.0-48.0UnBrecksville VA / Crille HospitalComment on above:Performed By: #### [id number] #### [facility] ([facility]) [address] [place] [address]Sllnlwrdmq (Bld) [Mass/Vol]13.0 g/oKTquuhl58.0-15.0UnBrecksville VA / Crille HospitalComment on above:Performed By: #### [id number] #### [facility] ([facility]) [address] [place] [address]SOzu [id number] Attestation signed by Jose Alfredo Fregoso MD at 04/19/2024 11:52 AM Jose Alfredo Fregoso MD, MPH, [facility], [facility], [facility] Interventional Cardiology Pager Email: [email or web address] H&P reviewed. The patient was examined and there are no changes to the H&P. Will proceed with coronary angiogram for further assessment in the setting of unstable angina and significant CAD and prior PCI. Procedure's details, risks and benefits discussed with the patient and she's agreeable.NormalUnBrecksville VA / Crille HospitalNURSNOTEon 89-11-8905IVDKCUOD Updated report called to Pratima GARCIA on 3CDNormalUnBrecksville VA / Crille HospitalNURSNOTEPt dry heaving, refuses to take GI cocktail. Explained to patient importance of drinking GI cocktail; GI cocktail could help settle stomach. Stomach needs to be settled so Plavix can be given. Plavix needs to be given so stent doesn't clot off. If stent clots off or occludes, pt may need heart cath again to reopen coranary artery. Pt agreed to try GI cocktail.NormalUnBrecksville VA / Crille Hospital30on [id number] patient is Moderately Stable - Low risk [...] level or baseline comfort level Outcome: Progressing .NormalUnBrecksville VA / Crille HospitalANTI-XA (HEPARIN LEVEL)on 04-18-2024 HEPARIN UNFRACTIONATED (U/ML) IN PPP BY CHROMOGENIC METHOD0.35 IU/mLNormal 0.3-0.7UnBrecksville VA / Crille HospitalComment on above:Order Comment: Check anti-Xa level every 6 hours while on heparin infusion, or per protocol.Result Comment: Rivaroxaban and Apixaban will interfere with the anti Xa assay used to monitor UFH and LMWH.Performed By: #### [id number] ####[facility] (BEAKER)[address] [place], [place] [address]JEURJCT UNFRACTIONATED (U/ML) IN PPP BY CHROMOGENIC METHOD0.30 IU/mLNormal0.3-0.7UnBrecksville VA / Crille Hospital Comment on above:Order Comment: Check anti-Xa level every 6 hours while on heparin infusion, or per protocol.Result Comment: Rivaroxaban and Apixaban will interfere with the anti Xa assay used to monitor UFH and LMWH.Performed By: #### [id number] #### [facility] ([facility]) [address] [place], [place] [address]PYM WITH AUTO DIFFERENTIALon 79-24-5777Ekcvdbest (Bld) [#/Vol] 0.08 10*3/uLNormal0.00-0.20UnBrecksville VA / Crille HospitalComment on above: Performed By: #### [id number] #### [facility] ([facility]) [address], [place] [address]Sacuhjkwq/100 WBC (Bld)1.0 %Normal0.0-1.0UnBrecksville VA / Crille HospitalComment on above:Performed By: #### [id number] #### [facility] ([facility]) [address], [place] [address]Glkkpvlhdmf (Bld) [#/Vol]0.19 10*3/uLNormal0.00-0.50UnBrecksville VA / Crille HospitalComment on above:Performed By: #### [id number] #### [facility] ([facility]) [address] [facility] [place], [place] [address]Uzhnjinchmp/100 WBC (Bld)2.4 %Normal0.0-6.0UnBrecksville VA / Crille HospitalComment on above:Performed By: #### [id number] #### [facility] ([facility]) [address] [place], [place] [address]Voyqibdpdag distribution width (RBC) [Ratio]13.0 %Normal 11.5-15.0UnBrecksville VA / Crille HospitalComment on above:Performed By: #### [id number] #### [facility] ([facility]) [address] [place], [place] [address]NYVRVGNMOSY MEAN CORPUSCULAR HEMOGLOBIN CONCENTRATION (G/DL) BY PTZCYKGMB59.1 g/aIEzrjox38.0-35.0UnBrecksville VA / Crille HospitalComment on above:Performed By: #### [id number] #### [facility] ([facility]) [address], [place] [address]Bgmmthpcox (Bld) [Volume fraction]39.9 %Wvxtzv17.0-48.0 [facility] HospitalComment on above:Performed By: #### [id number] #### [facility] ([facility]) [address] [place], [place] [address]Jonyoagwfz (Bld) [Mass/Vol]12.8 g/cPNqgcck00.0-15.0UnBrecksville VA / Crille HospitalComment on above:Performed By: #### [id number] #### [facility] ([facility]) [address], [place] [address]Vikyscpi granulocytes (Bld) [#/Vol]0.05 10*3/uLNormal0.00-0.20 [facility] HospitalComment on above:Performed By: #### [id number] #### [facility] ([facility]) [address], [place] [address]Aocfdkxq granulocytes/100 WBC (Bld)0.6 %Normal0.0-1.0UnBrecksville VA / Crille HospitalComment on above:Performed By: #### [id number] #### [facility] ([facility]) [address], [place] [address]Hpcdggflltf (Bld) [#/Vol]1.49 10*3/uLNormal1.20-4.00UnBrecksville VA / Crille HospitalComment on above:Performed By: #### [id number] #### [facility] ([facility]) [address], [place] [address]Wenwfwqgakc/100 WBC (Bld)18.6 %Low20.0-45.0UnBrecksville VA / Crille HospitalComment on above:Performed By: #### [id number] #### [facility] ([facility]) [address] [place], [place] [address]GMA (RBC) [Entitic mass]28.8 idFybthm66.0-33.0UnBrecksville VA / Crille HospitalComment on above:Performed By: #### [id number] #### [facility] ([facility]) [address], [place] [address]XUC (RBC) [Entitic vol]89.7 rDOsjokm67.0-98.0UnBrecksville VA / Crille HospitalComment on above:Performed By: #### [id number] #### [facility] ([facility]) [address], [place] [address]Aipzyzoua (Bld) [#/Vol]0.64 10*3/uLNormal0.10-1.00UnBrecksville VA / Crille HospitalComment on above:Performed By: #### [id number] #### [facility] ([facility]) [address], [place] [address]Hotlgmbzp/100 WBC (Bld)8.0 %Normal5.0-12.0UnBrecksville VA / Crille HospitalComment on above:Performed By: #### [id number] #### [facility] ([facility]) [address], [place] [address]Dtnifteohua (Bld) [#/Vol]5.56 10*3/uLNormal1.60-7.60UnBrecksville VA / Crille HospitalComment on above:Performed By: #### [id number] #### [facility] ([facility]) [address], [place] [address]Zmkjjliuxcz/100 WBC (Bld)69.4 %Upjiso06.0-72.0UnBrecksville VA / Crille HospitalComment on above:Performed By: #### [id number] #### [facility] ([facility]) [address], [place] [address]YOLX (PER 100 WBCS) BY AUTOMATED COUNT0.0 %Ywhdqh4MfmgozosdzBrecksville VA / Crille HospitalComment on above:Performed By: #### [id number] #### [facility] ([facility]) [address] [place] [address]SVKTLMQEV (10*3/UL) IN BLOOD AUTOMATED [id number] 10*3/uLNormal 150-400UnBrecksville VA / Crille HospitalComment on above:Performed By: #### [id number] #### [facility] ([facility]) [address] [place] [address]UUP (Bld) [#/Vol]4.45 10*6/uLNormal3.80-5.00UnBrecksville VA / Crille HospitalComment on above:Performed By: #### [id number] #### [facility] ([facility]) [address] [place] [address]PAQ (Bld) [#/Vol]8.01 10*3/uLNormal4.00-10.60UnBrecksville VA / Crille HospitalComment on above:Performed By: #### [id number] #### [facility] ([facility]) [address] [place] [address]IHIMRNUik [id number] Attestation signed by Marija Johnson MD at [...] Teaching Physician's Revisions: none Marija Johnson MD MS Cardiology Cardiology Consult Note Reason for Consult: Chest pain HPI: Diana Mendez is a 79 year old female patient with past history remarkable for primary hypertension, prediabetes, mixed hyperlipidemia, coronary artery disease with prior LAD stent in 2017, chronic heart failure with improved ejection fraction, history of stress induced cardiomyopathy who presented to [facility] [place] a [place] [facility] [...] Other ( heart problems ) Father Allergies Srksirw-kji-qzm reductase inhibitors Medications Current Outpatient Medications Medication [...] 04/18/24 0800 -- 36.4 ???C (97.5 ???F) [facility] -- -- -- -- -- 04/18/24 0613 -- -- -- -- -- -- -- 59.9 kg (132 lb) 04/18/24 0520 137/81 36.4 ???C (97.5 ???F) [facility] 95 20 98 % -- -- 04/18/24 0400 -- 36.4 ???C (97.5 ???F) [facility] 56 14 96 % -- -- 04/18/24 0000 119/54 -- -- 57 12 93 % -- -- 04/17/24 2100 -- -- -- -- -- -- -- 49.2 kg (108 lb 8 oz) 04/17/241999 139/64 36.3 ???C (97.3 ???F) [facility] 64 12 97 % 1.499 m [...] or rales. Abdominal: Palpa (more content not included)...NormalUnBrecksville VA / Crille Hospital HEMOGLOBIN A1Con 71-00-9597Vcphmck [Mass/Vol]120 mg/dLNormalUniversUniversity Hospitals Elyria Medical CenterComment on above:Performed By: #### [id number] #### [facility] ([facility]) [address] [facility] [place], [place] [address]FnU4u (Bld) [Mass fraction]5.8 %Normal4.0-6.0UnBrecksville VA / Crille HospitalComment on above:Performed By: #### [id number] #### [facility] ([facility]) [address] [facility] [place], [place] [address]QCgq 78-91-3823SZ Attestation signed by Marija Johnson MD at [...] Teaching Physician's Revisions: none Marija Johnson MD MS Cardiology Cardiology Consult Note Reason for Consult: Chest pain HPI: Diana Mendez is a 79 year old female patient with past history remarkable for primary hypertension, prediabetes, mixed hyperlipidemia, coronary artery disease with prior LAD stent in 2017, chronic heart failure with improved ejection fraction, history of stress induced cardiomyopathy who presented to [facility] [place] a [place] [facility] [...] Other ( heart problems ) Father Allergies Ojlsllj-ynt-lmj reductase inhibitors Medications Current Outpatient Medications Medication [...] or rales. Abdominal: Palpa (more content not included)...NormalUnBrecksville VA / [facility]ille Hospital LIPID PANELon 79-99-8661FHCU/HDL3.9 mg/dLNormalUniProtestant Deaconess HospitalComment on above:Performed By: #### [id number] #### [facility] ([facility]) [address] [place] [place], [place] [address]Qxohlwisahy [Mass/Vol]181 mg/pHZbggtx322-180MuuqikhkgsBrecksville VA / Crille HospitalComment on above:Performed By: #### [id number] #### [facility] ([facility] [address] [place], [place] [address]Ovighthrm [Mass/Vol]141 mg/vDRhxkwx23-670GleqitqgxhBrecksville VA / Crille HospitalComment on above:Result Comment: TRIGLYCERIDE REFERENCE RANGE: 20 YEARS AND OLDER CARDIOVASCULAR RISK LESS THAN 150 mg/dL LOW RISK 150 TO 199 mg/dL BORDERLINE RISK 200 mg/dL AND GREATER HIGH RISKPerformed By: #### [id number] #### [facility] (BEAKER) [address] [place], [place] [address]Oxlzumddi [Mass/Vol]106 mg/dLNormal0-160UnBrecksville VA / Crille HospitalComment on above:Performed By: #### [id number] #### [facility] (BEAKER) [address] [place], [place] [address]Bfhmrzbih [Mass/Vol]47 mg/dDKmixnz31-26MnelknszseBrecksville VA / Crille HospitalComment on above:Performed By: #### [id number] #### [facility] (BEAKER) [address] [place], [place] [address]IER HDL CHOL. (LDL+VLDL)134NormalUniProtestant Deaconess HospitalComment on above:Performed By: #### [id number] #### [facility] ([facility]) [address] [place], [place] [address]VOBGS VLDL-C28 mg/dLNormal0-40UnBrecksville VA / Crille HospitalComment on above:Performed By: #### [id number] #### [facility] ([facility]) [address] [place] [address]FEWQPRAZ Ion 96-53-6510Ohezpkxz I.cardiac [Mass/Vol]0.00 ng/mL Normal0.00-0.04UnBrecksville VA / Crille HospitalComment on above:Performed By: #### [id number] #### [facility] ([facility]) [address] [place], [place] [address]Xnngpayf I.cardiac [Mass/Vol]0.00 ng/mLNormal0.00-0.04UnBrecksville VA / Crille HospitalComment on above:Performed By: #### [id number] ####[facility] ([facility])[address] [facility] [place], [place] [address]Dwzwpmsq I.cardiac [Mass/Vol]0.00 ng/mLNormal0.00-0.04UnBrecksville VA / Crille HospitalComment on above:Performed By: #### [id number] ####[facility] ([facility])[address] [place] [address]nd 91-25-748821Wph patient is Moderately Stable - Low risk [...] patient/family on patient safety, including physical limitations Eddy fall precautions as indicated by assessment Instruct [...] patient/family on patient safety, including physical limitations Eddy fall precautions as indicated by assessment Instruct [...] are exacerbated and prevent overall improvement and dischargeNormalUniversUniversity Hospitals Elyria Medical Center30The patient is Moderately Stable - Low risk of patient condition declining or worsening The patient's goals for the shift include VSS The clinical goals for the shift include VSSNormalUniversUniversity Hospitals Elyria Medical CenterAPTTon 79-23-4191YXUFEICMP PARTIAL THROMBOPLASTIN TIME IN PPP BY COAGULATION ASSAY27.3 CuonzjgUgghul66.0-35.0UnBrecksville [facility] Comment on above:Order Comment: Baseline aPTT before initiating heparin infusion.Result Comment: Clinical significance of the APTT is questionable in the presence of heparin.Performed By: #### [id number] ####[facility] ([facility])[address] [place], [place] [address]T-EQVR NATRIURETIC PEPTIDEon 48-11-1040Jeruhgtglsq peptide B (Bld) [Mass/Vol]49 pg/mLNormal0-100UnBrecksville VA / Crille HospitalComment on above:Performed By: #### [id number] #### [facility] ([facility]) [address], [place] [address]FEE WITH AUTO DIFFERENTIALon 48-80-5396Uwhdkxxeg (Bld) [#/Vol] 0.05 10*3/uLNormal0.00-0.20UnBrecksville VA / Crille HospitalComment on above: Performed By: #### [id number] #### [facility] ([facility]) [address], [place] [address]Cukpcjlqi/100 WBC (Bld)0.6 %Normal0.0-1.0UnBrecksville VA / Crille HospitalComment on above:Performed By: #### [id number] #### [facility] ([facility]) [address], [place] [address]Lullfvvwlks (Bld) [#/Vol]0.15 10*3/uLNormal0.00-0.50UnBrecksville VA / Crille HospitalComment on above:Performed By: #### [id number] #### [facility] ([facility]) [address] [place] [address]Ebsysysioak/100 WBC (Bld)1.8 %Normal0.0-6.0UnBrecksville VA / Crille HospitalComment on above:Performed By: #### [id number] #### [facility] ([facility]) [address] [place] [address]Uztrnebxyrf distribution width (RBC) [Ratio]13.0 %Normal 11.5-15.0UnBrecksville VA / Crille HospitalComment on above:Performed By: #### [id number] #### [facility] ([facility]) [address] [place] [address]PPBNSVJCOTT MEAN CORPUSCULAR HEMOGLOBIN CONCENTRATION (G/DL) BY DUTFOYHNP73.5 g/uQPrrqoo05.0-35.0UnBrecksville VA / Crille HospitalComment on above:Performed By: #### [id number] #### [facility] ([facility]) [address] [place] [address]Pnvlewumul (Bld) [Volume fraction]39.4 %Xenalj41.0-48.0 [facility] HospitalComment on above:Performed By: #### [id number] #### [facility] ([facility]) [address] [place] [address]Cvamxloyqo (Bld) [Mass/Vol]13.2 g/gQCweqdm74.0-15.0UnBrecksville VA / Crille HospitalComment on above:Performed By: #### [id number] #### [facility] ([facility]) [address] [place] [address]Ymvaijan granulocytes (Bld) [#/Vol]0.03 10*3/uLNormal0.00-0.20 [facility] HospitalComment on above:Performed By: #### [id number] #### [facility] ([facility]) [address] [place] [address]Hmspmemi granulocytes/100 WBC (Bld)0.4 %Normal0.0-1.0UnBrecksville VA / Crille HospitalComment on above:Performed By: #### [id number] #### [facility] ([facility]) [address] [place] [address]Jovtimemzxh (Bld) [#/Vol]1.54 10*3/uLNormal1.20-4.00UnBrecksville VA / Crille HospitalComment on above:Performed By: #### [id number] #### [facility] ([facility]) [address] [place] [address]Bvvqzmvcssg/100 WBC (Bld)18.8 %Low20.0-45.0UnBrecksville VA / Crille HospitalComment on above:Performed By: #### [id number] #### [facility] ([facility]) [address] [place], [place] [address]YZY (RBC) [Entitic mass]29.1 jvJvjwue79.0-33.0UnBrecksville VA / Crille HospitalComment on above:Performed By: #### [id number] #### [facility] ([facility]) [address] [place], [place] [address]ROJ (RBC) [Entitic vol]86.8 kKUcctmb28.0-98.0UnBrecksville VA / Crille HospitalComment on above:Performed By: #### [id number] #### [facility] ([facility]) [address] [place], [place] [address]Svwsgcdfb (Bld) [#/Vol]0.54 10*3/uLNormal0.10-1.00UnBrecksville VA / Crille HospitalComment on above:Performed By: #### [id number] #### [facility] ([facility]) [address] [place], [place] [address]Agecsotrb/100 WBC (Bld)6.6 %Normal5.0-12.0UnBrecksville VA / Crille HospitalComment on above:Performed By: #### [id number] #### [facility] ([facility]) [address] [place] [address]Erfakpcbwul (Bld) [#/Vol]5.88 10*3/uLNormal1.60-7.60UnBrecksville VA / Crille HospitalComment on above:Performed By: #### [id number] #### [facility] ([facility]) [address] [place] [address]Xzedtgxnkgi/100 WBC (Bld)71.8 %Cldruk37.0-72.0UnBrecksville VA / Crille HospitalComment on above:Performed By: #### [id number] #### [facility] ([facility]) [address] [place] [address]HPUW (PER 100 WBCS) BY AUTOMATED COUNT0.0 %Lbrfsk3AvflftxaiaBrecksville VA / Crille HospitalComment on above:Performed By: #### [id number] #### [facility] ([facility]) [address] [place] [id number] (10*3/UL) IN BLOOD AUTOMATED [id number] 10*3/uLNormal 150-400UnBrecksville VA / Crille HospitalComment on above:Performed By: #### [id number] #### [facility] ([facility]) [address] [place] [id number] (Bld) [#/Vol]4.54 10*6/uLNormal3.80-5.00UnBrecksville VA / Crille HospitalComment on above:Performed By: #### [id number] #### [facility] ([facility]) [address] [place] [address]BNI (Bld) [#/Vol]8.19 10*3/uLNormal4.00-10.60UnBrecksville VA / Crille HospitalComment on above:Performed By: #### [id number] #### [facility] ([facility]) [address] [place] [id number] METABOLIC PANELon [id number] [Mass/Vol]4.4 g/dLNormal3.5-5.7UnBrecksville VA / Crille HospitalComment on above:Performed By: #### [id number] #### [facility] ([facility]) [address] [place], [place] [address]GSI [Catalytic activity/Vol]72 U/IVrtvls88-878SezeythvifBrecksville VA / Crille HospitalComment on above:Performed By: #### [id number] #### [facility] ([facility]) [address] [place], [place] [address]YBJ [Catalytic activity/Vol]13 U/LNormal7-52UnBrecksville VA / Crille HospitalComment on above:Performed By: #### [id number] #### [facility] ([facility]) [address] [place], [place] [address]Xdkiq gap [Moles/Vol]11 mmol/LNormal7-20UnBrecksville VA / Crille HospitalComment on above:Performed By: #### [id number] #### [facility] ([facility]) [address] [place], [place] [address]RHT [Catalytic activity/Vol]16 U/DUgdxhj57-61UllzprbxizBrecksville VA / Crille HospitalComment on above:Performed By: #### [id number] #### [facility] ([facility]) [address] [place], [place] [address]Nyykdykmj [Mass/Vol]0.5 mg/dLNormal0.3-1.0UnBrecksville VA / Crille HospitalComment on above:Performed By: #### [id number] #### [facility] ([facility]) [address] [place], [place] [address]Qldvdcv [Mass/Vol]9.3 mg/dLNormal8.6-10.3UnBrecksville VA / Crille HospitalComment on above:Performed By: #### [id number] #### [facility] ([facility]) [address] [place], [place] [address]Vmrzjxuj [Moles/Vol]106 mmol/YVsupqw17-137UwjvpquplpBrecksville VA / Crille HospitalComment on above:Performed By: #### [id number] #### [facility] ([facility]) [address] [place], [place] [address]FM9 [Moles/Vol]25 mmol/UHybfup12-10AsvdqgyoitBrecksville VA / Crille HospitalComment on above:Performed By: #### [id number] #### [facility] ([facility]) [address] [place] [address]Xxyzpaxnmp [Mass/Vol]0.72 mg/dLNormal0.60-1.20UnBrecksville VA / Crille HospitalComment on above:Performed By: #### [id number] #### [facility] ([facility]) [address] [place] [place] [address]BPNGGCACBJ FILTRATION RATE ML/MIN/1.73 SQ M.ICSTJYQWO91.1 mL/min/1.73m*2Normal>60.0UnBrecksville VA / Crille HospitalComment on above: Result Comment: The [facility]???s estimated glomerular filtration rate (eGFR) will [...] potential consequences that do not disproportionately affect anyone group of individuals.Performed By: #### [id number] #### [facility] ([facility]) [address] [place] [address]Glbzfjw [Mass/Vol]103 mg/pBJzbq32-274YbcockawyyBrecksville VA / Crille HospitalComment on above:Performed By: #### [id number] #### [facility] ([facility]) [address] [place] [address]Vptrkdpeo [Moles/Vol]3.9 mmol/LNormal3.5-5.1UnBrecksville VA / Crille HospitalComment on above:Performed By: #### [id number] #### [facility] ([facility]) [address] [place] [address]Wojpcnf [Mass/Vol]7.4 g/dLNormal6.0-8.3UnBrecksville VA / Crille HospitalComment on above:Performed By: #### [id number] #### [facility] ([facility]) [address] [place] [address]Fxsxpb [Moles/Vol]138 mmol/WTknbav909-318ShjumkylpmBrecksville VA / Crille HospitalComment on above:Performed By: #### [id number] #### [facility] ([facility]) [address] [place] [address]Fgct nitrogen [Mass/Vol]12 mg/dLNormal7-25UnBrecksville VA / Crille HospitalComment on above:Performed By: #### [id number] #### [facility] ([facility]) [address] [place] [address]UXQR NITROGEN/CREATININE (MASS RATIO) IN SER/PLAS16.7Normal [facility] HospitalComment on above:Performed By: #### [id number] #### [facility] ([facility]) [address] [place] [address]NXYNCJ ACID, PLASMAon 05-37-1280PYXJZLG (MMOL/L) IN SER/PLAS1.2 mmol/LNormal0.5-2.2UnBrecksville VA / Crille HospitalComment on above:Performed By: #### [id number] #### [facility] ([facility]) [address] [place] [address]CCLMYIWJDld 15-56-8989Oisbpvlyc [Mass/Vol]2.2 mg/dLNormal1.9-2.7 [facility] HospitalComment on above:Performed By: #### [id number] ####[facility] ([facility])[address] [place] [address]RIYPJIEMJQfw 33-88-4750Lkjcuyfny [Mass/Vol]3.3 mg/dLNormal2.5-5.0UnBrecksville VA / Crille HospitalComment on above:Performed By: #### [id number] #### [facility] ([facility]) [address] [place] [address]ULAGQOA-MAQwt 11-01-7026FFQ IN PPP BY COAGULATION ASSAY1.01 Normal0.90-1.10UnBrecksville VA / Crille HospitalComment on above:Result Comment: ACCCP RECOMMENDED INR FOR WARFARIN THERAPY CONDITION INR PROPHYLAXIS OF VENOUS THROMBOSIS 2-3 (HIGH-RISK SURGERY) TREATMENT OF VENOUS THROMBOSIS 2-3 TREATMENT OF PULMONARY EMBOLISM 2-3 PREVENTION OF SYSTEMIC EMBOLISM: 2-3 ACUTE MYOCARDIAL INFARCTION TISSUE HEART VALVES VALVULAR HEART DISEASE ATRIAL FIBRILLATION RECURRENT SYSTEMIC EMBOLISM MECHANICAL HEART VALVE 2.5-3.5 FROM: ORAL ANTICOAGULANTS. MECHANISM OF ACTION, CLINICAL EFFECTIVENESS, AND OPTIMAL THERAPEUTIC RANGE. CHEST 1995;108:231S-246S.Performed By: #### [id number] ####[facility] drumbiSUM[facility])[address] [place], [place] [address]MOOOBZVNMFB TIME (PT) IN PPP BY COAGULATION ASSAY13.3 BiepoxfUsndlr72.3-14.8UnBrecksville VA / Crille HospitalComment on above:Performed By: #### [id number] ####[facility] drumbiSUM[facility])[address] [place], [place] [address]MLFRIDSI Ion 88-96-0951Oezylvxy I.cardiac [Mass/Vol]0.00 ng/mLNormal0.00-0.04UnBrecksville VA / Crille Hospital Comment on above:Performed By: #### [id number] #### [facility] drumbiSUM[facility]) [address] [place], [place] [address]Nydagv Visiton 62-57-9522Cpydgh-up [id number] Diana Jaeger 1945 Date Provider Department [place] 12/01/2023 [address] [facility] Family History Problem Relation Age of Onset Other Mother Other Father Family Status - Relation Status Age at Mother Father Level of Service:[address]15 [place] OFFICE/OUTPATIENT NEW LOW MDM 30 MINUTESNormal [facility] Vital Signs Date TimeVital SignValuePerforming FjrzknaibDcjpzmnh29-90-7045 11:13-0400Body .86 cmSunny Henning MD Work Phone: [phone]10-23-2025 11:13-0400 Body worwobpenzt58.4 [degF]Sunny Henning MD Work Phone: [phone])[address]10-23-2025 11:13-0400 Diastolic blood snfaagah18 mm[Hg]Sunny Henning MD Work Phone: [phone]10-23-2025 11:13-0400 Heart rate60 /minLindseyc Milady CHAN Work Phone: [phone])[address]10-23-2025 11:13-0400 Respiratory rate12 /minSunny Henning MD Work Phone: [phone])[address]83 [address]10-23-2025 11:13-0400 SaO2% (BldA) [Mass fraction]94 %Sunny Henning MD Work Phone: [phone] [address]10-23-2025 11:13-0400 Systolic blood clmeyxbd274 mm[Hg]Sunny Henning MD Work Phone: [phone] [place], [place] [address]10-20-2025 10:14-0400 Body womdemvguyz50.7 [degF]Sunny Henning MD Work Phone: 1(817)136-[address] [place], [place] [address]10-20-2025 10:14-0400 Diastolic blood oiybmcoy31 mm[Hg]Sunny Henning MD Work Phone: [phone]10-20-2025 10:14-0400 Heart rate58 /minSunny Henning MD Work Phone: 1([phone])558-[address] [place], [place] [address]10-20-2025 10:14-0400 Respiratory rate18 /minSunny Henning MD Work Phone: 1([phone] [place], [place] [address]110-20-2025 10:14-0400 SaO2% (BldA) [Mass fraction]99 %Sunny Henning MD Work Phone: [facility]10-20-2025 10:14-0400 Systolic blood mm[Hg]Sunny Henning MD Work Phone: [phone])[address]83 [address]08-22-2025 10:41-0400 Body hbjybw299.4 cmSunny Henning MD Work Phone: [phone] [place], [place] [address]Tzaqjpafsq63-22-0422 10:41-0400Body mass index (BMI) [Ratio]24.61 kg/m2Sunny Henning MD Work Phone: [phone] [place], [place] [address]Qmoqvxmxiz87-84-1115 10:41-0400Body temperature 97.11 [degF]Sunny Henning MD Work Phone: [facility] SystemOccxnqcial30-17-9985 10:41-0400Body .15 kgSunny Henning MD Work Phone: [facility] SystemRaejyotmnb52-31-4865 10:41-0400Diastolic blood patuzkiq25 mm[Hg]Sunny Henning MD Work Phone: [facility] SystemSxyjqulzwq84-08-1020 10:41-0400Heart rate56 /min Sunny Henning MD Work Phone: [facility] SystemWrugmsetku00-91-1609 10:41-0400Respiratory rate20 /minuSnny Henning MD Work Phone: [facility] SystemDclxjumhnc01-16-8322 10:41-1729SdQ1% (BldA) [Mass fraction]99 %Sunny Henning MD Work Phone: [facility] SystemVyuxjvoqtx84-68-1859 10:41-0400Systolic blood qfakhndc064 mm[Hg]Sunny Henning MD Work Phone: [facility] SystemKqjsjoqzby11-87-8557 10:56-0400Body uzonln150.4 cmSunny Henning MD Work Phone: [facility] SystemTrmyufjxml41-94-6728 10:56-0400Body mass index (BMI) [Ratio]25.39 kg/m2Sunny Henning MD Work Phone: [facility] SystemIjalmemsff11-85-1905 10:56-0400Body temperature 97.5 [degF]Sunny Henning MD Work Phone: [facility] SystemTfibzfjliz55-73-8268 10:56-0400Body bwqecq82.97 kgSunny Henning MD Work Phone: [facility] SystemScwcwhoegn50-42-5334 10:56-0400Diastolic blood vjyphksk72 mm[Hg]Sunny Henning MD Work Phone: [facility] SystemKlbmuivcsj72-80-3576 10:56-0400Heart rate70 /min Sunny Henning MD Work Phone: [facility] SystemFnqunsbtms16-37-5404 10:56-0400Respiratory rate20 /minSunny Henning MD Work Phone: [facility] SystemEgedhpcbuz59-69-2169 10:56-2081TxA2% (BldA) [Mass fraction]97 %Sunny Henning MD Work Phone: [facility] SystemIjdbseioso80-82-6553 10:56-0400Systolic blood uazqxwdh056 mm[Hg]Sunny Henning MD Work Phone: [facility] SystemDxpsksmnyj98-17-6578 09:29-0400Body .4 cmSunny Henning MD Work Phone: [facility] SystemInckgxkjol50-91-0350 09:29-0400Body mass index (BMI) [Ratio]26.95 kg/m2Sunny Henning MD Work Phone: [facility] SystemVcpxlvkfic10-39-5668 09:29-0400Body temperature 97.3 [degF]Sunny Henning MD Work Phone: [facility] SystemTvlhknjqly48-32-0453 09:29-0400Body .6 kg Sunny Henning MD Work Phone: [facility] SystemIaeytulfhe35-04-5412 09:29-0400Diastolic blood znlzghua14 mm[Hg]Sunny Henning MD Work Phone: [facility] SystemTilptarbvx86-74-9041 09:29-0400Heart rate53 /min Sunny Henning MD Work Phone: [facility] SystemNzyptensrx84-33-0768 09:29-0400Respiratory rate20 /minSunny Henning MD Work Phone: [facility] SystemDqqkqxumyl90-65-9311 09:292460GwC5% (BldA) [Mass fraction]97 %Sunny Henning MD Work Phone: [facility] SystemBksehihqxf71-06-4057 09:29-0400Systolic blood ulqfflax868 mm[Hg]Sunny Henning MD Work Phone: [phone] [place], [place] [address]Odogqmmhwb68-45-0748 10:10-0400Body eyqmvv592.9 cmTcholo Garza MD Work Phone: [phone])[address]03-26-2024 10:10-0400Body mass index (BMI) [Ratio]27.87 kg/t8Jvbawrmeeta Garza MD Work Phone: [phone]03-26-2024 10:10-0400Body pvjrni16.6 kgThmeeta Garza MD Work Phone: [phone]03-26-2024 10:10-0400Diastolic blood tlzkmgzu44 mm[Hg]Ras Garza MD Work Phone: [phone]03-26-2024 10:10-0400Heart rate 69 /minRas Garza MD Work Phone: [phone] [place], [place] [address]35603-26-2024 10:10-1184HiO9% (BldA) [Mass fraction]99 %Ras Garza MD Work Phone: 1([phone] [place], [place] [address]603-26-2024 10:Systolic blood jwfxeyns614 mm[Hg]Ras Garza MD Work Phone: [facility] Encounters Encounter DateEncounter TypeCare ProviderFacilityStart: 12-07-2024 End: 67-92-3338wstflaacxgXzit Naderer MD Work Phone: -[facility] ClydeStart: 12-07-2024 End: 12-39-1722Mkurbtk encounter procedureSunny Henning MD-[facility] Work Phone: Start: 12-04-2024 End: 03-31-8458Xqqpouftl department patient visitSunny Henning MD Work Phone: [phone]-Cratafidt Room Work Phone: Start: 21-09-4301Uih-patient / Non-visitFaustina Feliciano PA-C-[facility] Work Phone: Start: 03-14-9496Vyr-patient / Non-visitSunny Henning MD-[facility] Work Phone: Start: 10-11-2024 End: 13-62-9539IugqayYesa Naderer MD Work Phone: noms CWM FMComment on above:Generalized anxiety disorderStart: 10-06-2024 End: 94-72-5023Tysxsi flowsFloridalma Henning MD Work Phone: [facility] FMStart: 10-06-2024 End: 33-23-7462Nxcdwd flowsFloridalma Henning MD Work Phone: noms CWM FMStart: 10-06-2024 End: 70-54-1481Fjertd outpatient visit 25 minutesSunny Henning MD Work Phone: noMS CWM FMComment on above:Essential hypertension, benign (Primary Dx); Generalized anxiety disorder ; Primary insomnia; Primary osteoarthritis of left hip; CAD in mi'kmaq arteryStart: 10-06-2024 End: 17-17-1240rcgatxedyzCMNF NADERERNot AvailableStart: 09-06-2024 End: 45-45-2419Ycoladbek Result EncounterGeneric External Data ProviderNOMS External Department UnsolicitedStart: 09-06-2024 End: 19-09-9314Qurjrzodk Result EncounterGeneric External Data ProviderNOMS External Department UnsolicitedStart: 08-29-2024 End: 89-34-9091qonzsucmjgGYKO [facility]tart: 08-10-2024 End: 11-34-9836Sevgibhds Result EncounterGeneric External Data ProviderNOMS External Department UnsolicitedStart: 08-10-2024 End: 62-44-9548Lfjdbokni Result EncounterGeneric External Data ProviderNOMS External Department UnsolicitedStart: 08-04-2024 End: 82-52-0648Rtcwxnhallie Henning MD Work Phone: noms [facility] FMStart: 08-04-2024 End: 49-26-7900Yzdrtzbrian Henning MD Work Phone: noms [facility] FMStart: 08-04-2024 End: 45-37-2606Swklxre encounter Miladis Henning MD Work Phone: [facility] Work Phone: Start: 08-04-2024 End: 51-45-3265Gmxzye follow up visit related to original Willow Henning MD Work Phone: noms [facility] FMComment on above:Medicare annual wellness visit, subsequent (Primary Dx); Generalized anxiety disorderStart: 08-04-2024 End: 87-71-2756uhzpjlguooSDHA VALENTÍNRNot AvailableStart: 07-12-2024 End: 71-61-5879Gzxdirpoe Result EncounterGeneric External Data ProviderNOMS External Department UnsolicitedStart: 07-12-2024 End: 58-01-9782Oihnzsxie Result EncounterGeneric External Data ProviderNOMS External Department UnsolicitedStart: 07-04-2024 End: 60-87-7568Fbdbamtxp Result EncounterGeneric External Data ProviderNOMS External Department UnsolicitedStart: 07-04-2024 End: 82-60-8860Uzrfpkxfs Result EncounterGeneric External Data ProviderNOMS External Department UnsolicitedStart: 06-20-2024 End: 01-86-5715CwxbuzVatj Naderer MD Work Phone: NOXG [facility] FMComment on above:Generalized anxiety disorder (CMS/HCC)Start: 06-13-2024 End: 92-60-6102Smwwyxnpz Result EncounterGeneric External Data ProviderNOMS External Department UnsolicitedStart: 06-13-2024 End: 32-23-9851Tcnscsben Result EncounterGeneric External Data ProviderNOMS External Department UnsolicitedStart: 06-13-2024 End: 46-76-6052avrqpdadwqQNPAWood County Hospitaltart: 06-07-2024 End: 06-54-9221Ezuuxegwx Result EncounterGeneric External Data ProviderNOMS External Department UnsolicitedStart: 06-07-2024 End: 20-18-4479Pbevnejqs Result EncounterGeneric External Data ProviderNOMS External Department UnsolicitedStart: 05-03-2024 End: 64-73-1191wkvzwixmuqIIGG NADERERNot AvailableStart: 62-28-0104xthjczkyqe BARBARA YEARGalion Community Hospitaltart: 04-24-2024 End: 30-07-8484Fmwhwgpzt Result EncounterGeneric External Data ProviderNOMS External Department UnsolicitedStart: 04-24-2024 End: 37-70-0132Dwvcjktuo Result EncounterGeneric External Data ProviderNOMS External Department UnsolicitedStart: 59-49-2894Ncmqxjfpyf and management of inpatientEHAB [facility]tart: 04-18-2024 Evaluation and management of inpatientKYU CHUL [facility] Hospitaltart: 04-17-2024 End: 11-59-6951Vqzlrqkauq and management of inpatientDOUGLAS [facility]tart: 12-08-2023 End: 89-23-0980Qkxbrp Stan Henning MD Work Phone: noms CWM FMStart: 12-08-2023 End: 21-99-0401Wvtdof Stan Henning MD Work Phone: noms CWM FMStart: 12-08-2023 End: 97-08-0535Pveuhw outpatient visit 25 minutesSunny Henning MD Work Phone: noms CWM FMComment on above:Essential hypertension, benign (CMS/HCC) (Primary Dx); Generalized anxiety disorder (CMS/HCC); CAD in mi'kmaq artery (CMS/HCC); Primary insomnia; Primary osteoarthritis of left hipStart: 12-08-2023 End: 66-18-9618fvssvxhlrtZZOE NADERERNot AvailableStart: 12-01-2023 End: 98-16-6534rbkteznbleCKMOBlanchard Valley Health System [facility] Hospitaltart: 07-06-2023 End: 22-79-6733TzhqyhCkfjw Anderson DO Work Phone: [facility] CardiologyComment on above:Med RefillStart: 06-11-2023 End: 30-48-1646CuryblVtnmu Malas DO Work Phone: [facility] CardiologyComment on above:Med RefillStart: 05-11-2023 End: 28-83-6901wphmdzvkzrKLXTFG M PAPPASProMedSutter Medical Center of Santa Rosatart: 05-11-2023 End: 09-47-8305Lxosbw outpatient visit 15 minutesRas Garza MD Work Phone: [facility] CardiologyComment on above: Coronary artery disease involving mi'kmaq coronary artery of mi'kmaq heart without angina pectoris (Primary Dx)Start: 19-49-0909Esylkokjm Majo Arias CMABrattleboro Memorial HospitalMedica Physicians CardiologyStart: 90-24-9086Yqabkprwfhvb formerly [facility] Pratima Arias [facility] SystemStart: 67-75-2322Nlzpgfike to [place] Arias [facility] Work Phone: Procedures DateProcedureProcedure DetailPerforming ClinicianStart: 83-16-7353ILHRgaufpx External Data ProviderStart: 07-15-4586IHVTohtzax External Data ProviderStart: 24-21-8230RYHKfmqgco External Data ProviderStart: 31-61-5901PESAzelytn External Data ProviderStart: 53-67-6638GIEZowhzqu External Data ProviderStart: 06-07-2024 ALL LIPID PROFILE (FASTING)Generic External Data ProviderStart: 28-33-9477ROE CMP (CMP) (FOR REMOTE [facility] USE)Generic External Data ProviderStart: 21-55-0217KUL CBC WITH AUTO DIFFGeneric External Data Provider Plan of Treatment DateCare ActivityDetailAuthorStart: 06-20-2026Medicare Annual Wellness (AWV) Medicare Annual Wellness (AWV)[facility]OMS HealthcareStart: 04-09-2025 End: 98-61-1794Xatkwug encounter lkzzpyhiv56/23/2026 10:30 AM EST Office Visit [facility] [address] [place] [address] Sunny Henning MD [address] [place] [address] [facility] CWM FMStart: 10-23-2025Medicare Annual Wellness (AWV)Medicare Annual Wellness (AWV)[facility] HealthcareStart: 25-61-9252Eeubuiejs vaccinationInfluenza Vaccine (#1)[facility] HealthcareStart: 10-06-2024 End: 11-95-3168Wiqsult encounter procedureNOMS CWM FMComment on above:Arrived Start: 08-04-2024 End: 20-25-3784Wiwqlqh encounter procedureNOMS CWM FMComment on above:Arrived Start: 06-07-2024 End: 25-83-9728Vnllfxe encounter /23/2025 10:00 AM EDT Office Visit [facility] [address] [place] [address] Sunny Henning MD [address] [place] [address] N[facility] CWM FMStart: 38-95-4837Nvmyt BMI ScreeningAdult BMI ScreeningProRegency Hospital Cleveland Westca Health SystemStart: 71-63-5152Kjqpmjb ScreeningTobacco ScreeningBlanchard Valley Health System [facility] Hospitalca Health SystemStart: 05-04-2024 End: 58-86-8480Dnbornv encounter uoyyzjqpn62/20/2025 3:30 PM EDT Office Visit [facility] [address] [place] [address] Sunny Henning MD [address] [place] [address] NOMS CW FMStart: 12-08-2023 End: 72-56-0458Yvbgnku encounter cwsftupsx94/23/2024 9:30 AM EDT Office Visit [facility] [address] [place] [address] Sunny Henning MD [address] [place] [address] ArrivedBALDWIN PARK [facility] FMComment on above:ArrivedStart: 63-12-4815Ujwic BMI ScreeningAdult BMI ScreeningBlanchard Valley Health System [facility]ca [facility] SystemStart: 45-65-2917Ctwwtyz ScreeningTobacco ScreeningBlanchard Valley Health System [facility] Hospitalca [facility] SystemStart: 23-67-2796Ngloaxttz vaccinationNOMT HealthcareStart: 05-11-2023 End: 35-16-6672Qdnemdh encounter sugrdvweg44/26/2024 10:30 AM EDT Office Visit [facility] [address] [place] [address] Ras Garza MD [address] [facility] [id number] [facility] Physicians CardiologyStart: 83-34-4375TNYVU-19 Vaccine ( season)COVID-19 Vaccine ( season)[facility]: 15-57-3751Tplihzcdf vaccinationInfluenza VaccineAtrium Healthtart: 76-65-6246Vcas Risk ScreeningFall Risk ScreeningAtrium Healthtart: 1997 Administration of varicella zoster vaccineZoster (Shingles) Vaccine (1 of 2) [facility]: 45-35-8783EByD,Tdap and Td Vaccines (1 - Tdap) DTaP,Tdap and Td Vaccines (1 - Tdap)[facility]: 1965 Adult BMI Follow Up PlanAdult BMI Follow Up PlanAtrium Healthtart: 43-19-2596Crvlqzjidz ScreeningDepression ScreeningAtrium Healthtart: 02-18-1948Medicare Annual Wellness (AWV)Medicare Annual Wellness (AWV)[facility] HealthcareStart: 02-18-1948Medicare Annual Wellness VisitMediregional medical center Annual Wellness VisitSouthwest General Health CenterPatient EducationTaking care of cuts, scrapes, and puncture woundsUniversity Hospitals Par[facility] Work Phone: Immunizations Immunization DateImmunizationNotesCare HvrpfmhiIpxwmsyo07-56-1775lfdimsars virus vaccine, unspecified formulationGenelexington shriners hospital ProviderSaint Luke's Health SystemHmpvshifls84-86-5718 influenza virus vaccine, unspecified formulationJoon Barron DO Work Phone: [facility] CenterXdwkdm98-18-3954dkxsjgokv virus vaccine, unspecified formulationPratima Arias [facility] 49-26-1217OUOHG-19, mRNA, LNP-S, PF, 100mcg/0.5mL DosePratima Arias [facility]02-11-2021COVID-19, mRNA, LNP-S, PF, 100mcg/0.5mL Dose Pratima Arias [facility]09-29-2018Seasonal trivalent influenza vaccine, adjuvanted, preservative freePratima Arias [facility] Payers DatePayer CategoryPayerPolicy [id number]-[id number] Health [id number] [id number] [id number] [id number] [id number] [id number] 2.16.840.1.156688.3.57[id number] 2.16.840.1.451097.3.57[id number] 2.16.840.1.991956.3.57[id number] 2.16.840.1.55[id number] 2.16.840.1.487803.3.579.2.531 Social History DateTypeDetailFacilityStart: 08-10-2023 End: 71-50-8214Wwmhfar smoking status NHISNever smoked tobaccoNOMS Healthcare Start: 05-23-2021 End: 73-08-6495Mwrbvoj use and exposureSmokeless tobacco non-userAtrium Healthtart: 08-10-2023 End: 11-36-8245Gnbdrmsaw beverage intakeLifetime non-drinker (finding)[facility] HealthcareStart: 05-06-2023 End: 47-79-0864Lkkpwss of Social functionNOMS HealthcareStart: 05-06-2023 End: 39-25-7628Eurule connection and isolation panelNOMS HealthcareDo you belong to any clubs or organizations such as denominational groups, unions, fraternal or athletic groups, or school groups?YesNOMS HealthcareAre you now , , , , never or living with a partner? [facility] SystemHow often to you have a drink containing alcohol?Monthly or lessNOMS HealthcareHow many standard drinks containing alcohol do you have on a typical day?Patient does not drinkProNorth [facility] Health SystemHow often do you have 6 or more drinks on 1 occasion?NeverNOMT HealthcareDo you feel stress - tense, restless, nervous, or anxious, or unable to sleep at night because your mind is troubled all the time - these days [OSQ]Only a littleMetroHealth Main [facility](I/We) worried whether (my/our) food would run out before (I/we) got money to buy more.Never trueNOMT HealthcareIn the past 12 months, was there a time when you were not able to pay the mortgage or rent on time?NoNOMS Healthcare Start: [id number] assigned at birthFeNew Lifecare Hospitals of PGH - SuburbanStart: 11-11-2022 End: [phone] beverage intakeCurrent drinker of alcohol (finding) [facility] SystemHow often do you have 6 or more drinks on 1 occasion?Less than monthlySumma Health Akron Campus SystemStart: [id number] Commentdrinks wine occasionallySumma Health Ak[facility] Campus SystemStart: 17-11-7432Bfw assigned at birthNot on fileSumma Health Ak[facility] Campus SystemDo you feel stress - tense, restless, nervous, or anxious, or unable to sleep at night because yourmind is troubled all the time - these days [OSQ]To some extentNOMT HealthcareSexFemale (finding)[facility] Mary HospitalNEGATED: Highlighted rowStart: NINFHistory of tobacco use Passive smokerNOI-[facility] Medical Equipment Procedure CodeEquipment CodeEquipment Original TextEquipment IdentifierDatesLens Iol Ultrasert 14.0d - [id number] - [id number]: 22-09-4938Dzgs Iol Ultrasert 13.0d - [id number] - [id number]: 43-04-7039Puag Tiss 10x7cm Gibson - [id number] - [id number]: 15-57-6209Wyc Actb G7 Pps Ltd 52e - [id number]: 00-18-0273Diqo Actb G7 Ntrl 36mm E - [id number]: 72-54-1942Php Fem 115mm 133d 15 Std Os - [id number]: 63-26-1114Cf Fem 36mm Opt Shl Actb G7 Bl Rpl 650-1057 - [id number]: 18-05-3577Ais Fem Opt -3mm Tpr Hip Blx D Rpl 650-1065 - [id number]: 97-74-3945Gnb Xience Alpine 3.0x15mm Repl [id number] - [id number], [id number] FDAStart: 37-21-1340Tvw Xience Alpine 2.78w26uk Repl [id number] - [id number]: 10-12-2016 Goals DatePatient GoalDesired Activity/StatePersonal health goalComment on above: Evaluation of progress towards goal: Patient plans to discharge home with home care and support of spouse. - [place] Cardona RN 09/04/19 1:56 PM Functional Status Zyzd[id number] Health Questionnaire 2 item (PHQ- 2) [Reported][facility] Clinical Notes 05-10-2023 to 10-06-2024 Note Date & [id number] History of Present illness Narrative* Sunny Henning MD - 10/06/2024 11:13 AM EDTAssociated Problem(s): Primary osteoarthritis of left hip Minimal pain and use OTC PRN. * Sunny Henning MD - 10/06/2024 11:12 AM EDTAssociated Problem(s): Primary insomnia Sleeping well with medication and continue. * Sunny Henning MD - 10/06/2024 11:12 AM EDTAssociated Problem(s): Generalized anxiety disorder Symptoms stable without SSRI and monitor. Use xanax PRN. * Sunny Henning MD - 10/06/2024 11:12 AM EDTAssociated Problem(s): Essential hypertension, benign BP controlled and monitor PRN. * Sunny Henning MD - 10/06/2024 11:12 AM EDTAssociated Problem(s): CAD in mi'kmaq artery No pain and continue cardiac rehab. Follow with cardiology. * Sunny Henning MD - 10/06/2024 10:30 AM EDT Images from the original note were not included. Subjective Patient ID: Diana Jaeger is a 79 y.o. female who presents for Follow-up (2m). Follow up HTN, anxiety, insomnia, and OA hip. Patient doing well today. Checking BP PRN and typically controlled. BP normal today. Taking medication daily and tolerating without side effects. Anxietystable. Stopped zoloft due to sedation but overall [...] and walk and do things around the house.Using OTC PRN and helps. Following with cardiology [...] BP controlled and monitor PRN. CAD in mi'kmaq artery No pain and continue cardiac rehab. Follow with cardiology. Generalized anxiety disorder Symptoms stable without SSRI and monitor. Use xanax PRN. Primary insomnia Sleeping well with medication and continue. Primary osteoarthritis of left hip Minimal pain and use OTC PRN. documented in this encounterSaint Luke's Health [id number] NoteBELLEVUE CLINIC Cardiology Clinic Note Chief Complaint: Patient here [...] history of Anxiety, CHF (congestive heart failure) ([facility]), Coronary artery disease, GERD (gastroesophageal reflux disease), [...] Other ( heart problems ) Father Allergies Fxgcxzu-zls-tpp reductase inhibitors Medications Current Outpatient Medications: ALPRAZolam [...] increased effort of breathing, (more content not included)...[facility]06-20-2025 History of Present illness Narrative* Snuny Henning MD - 08/04/2024 11:21 AM EDTAssociated Problem(s): Generalized anxiety disorder Severe symptoms and did not tolerate prozac. Try zoloft and warned will take 2-3 weeks to notice improvement in mood. Use xanax PRN. * Sunny Henning MD - 08/04/2024 11:20 AM EDTAssociated Problem(s): Medicare annual wellness visit, subsequent Reviewed labs. Discussed proper diet and regular aerobic exercise. Need aerobic exercise 5-6 days aweek for 30 minutes at a time. Smaller portions and limit total calories. Tetanus every 10 years. Advised not to smoke. * Sunny Henning MD - 08/04/2024 11:00 AM EDT Images from the original note were not included. Subjective Patient ID: Diana Jaeger is a 79 y.o. female who presents for Medicare Annual Wellness Visit Subsequent (wellness). Presents for medicare annual wellness visit. Patient stable today. Weight down 8 pounds in the pastyear. In cardiac rehab and doing well after [...] Advised not to smoke. documented in this encounterSaint Luke's Health [id number] NoteBELLEVUE CLINIC Cardiology Clinic Note Chief Complaint: Patient here for 1 mo follow up CAD, unstable angina, and HFimpEF. Underwent PCI last month. She will start cardiac rehab after her trip to [place]. Had lipid panel last week. She's still [...] Other ( heart problems ) Father Allergies Hqgfala-rcx-dxz reductase inhibitors Medications Current Outpatient Medications: ALPRAZolam [...] thickened and exhibit normal excursion. There is pjbjx-le-usvb regurgitation. There is no evidence of mitral valve st (more content not included)...[facility]03-13-2025 NoteUTP CARDIOLOGY PROGRESS NOTE HVC Overview HPI: Diana Jaeger is a 79 y.o. female here for FU of recent hospitalization for [place] with Stenting of LAD She is followed by Divien Fregoso since 11/2023 HPI PMH: Recent unstable angina with additional stent to LAD, history of CAD with stenting of proximal and mid LAD (2017). Also heart failure with improved EF, history of stress-induced cardiomyopathy, hypertension, prediabetes, dyslipidemia, 04/17/2024 admitted as transfer from [facility] for unstable angina I with [...] in 3 months, referral to [facility] for cardiac rehab. After extended discussion, she declines alternative to statin, and we will recheck lipids in 3 months. Wt Readings from Last 3 Encounters: 04/27/24 62.9 kg (138 lb 9.6 oz) 04/20/24 59 kg (130 lb) 12/01/23 62.1 kg (137 lb) Assessment and Plan #CAD #Unstable angina. #Hyperlipidemia --Currently denies angina, chest pain --04/19/24 C: Severe stenosis of the left anterior descending [...] statin --Will fax referral to [facility] for phase 2 cardiac rehab. [...] wheeze, crackles or rhonchi (more content not included)...[facility]03-13-2025 Note Would like to discuss dosage of trazadoneUniversity of [facility] 04-20-[facility] NoteHospital Medicine Discharge Summary Final Discharge Diagnosis: Unstable angina Severe Stenosis of LAD Status post cardiac catheterization Status post placement of JUANJOSE to LAD Chornic HFrecEF. NYHA class I Essential hypertension GERD without esophagitis Anxiety Prediabetes Admission Diagnosis: NSTEMI (non-ST elevated myocardial infarction) ([facility]) [I21.4] Hospital course: Ms. Diana Jaeger is an 79 y.o. female admitted from [facility] as a direct transfer where [...] rhythm. Patient was seen and examined on 3 AM. She was doing well and denied [...] Center 04/27/2024 11:30 AM Oralia Olsen PA-C [facility] CARD UT HeartVAS Your medication list START [...] Medications These medications were sent to [facility] - [place], [place] - [facility] [address] [place] [address] [place] [address], [facility] [address] aspirin 81 mg EC tablet clopidogrel 75 mg tablet Diana is allergic to dztdegb-gxc-ybn reductase inhibitors. Disposition: Home or Self Care [...] last 7 days Lab Units 04/20/24 1124 04/17/242036 SODIUM mmol/L 135* 138 POTASSIUM mmol/L 4.2 3.9 CHLORIDE mmol/L 104 106 CO2 mmol/L 20* (more content not included)...[facility] 04-20-2024 NoteCardiology Inpatient Progress Note Subjective HPI: Diana Jaeger is a 79 y.o. year old female patient with a PMH of A 79-year-old female with a medical history significant for primary hypertension, prediabetes, mixed hyperlipidemia, coronary artery disease with a prior LAD stent (2017), chronic heart failure with improved ejection fraction, and a history of stress-induced cardiomyopathy was transferred to [facility] from [facility]. She initially presented with retrosternal [...] the left wrist access site from the [facility] shows an intact site with bruising but [...] lesions, or itching. ALLERGIES: Allergies Allergen Reactions Umchssh-Dax-Fxy Reductase Inhibitors Other myalgias Objective 12-24 hour [...] auscultation bilaterally. No whe (more content not included)...[facility]03-05-2025 Note Attestation signed by Marija Johnson MD [...] Teaching Physician's Revisions: none Marija Johnson MD [place] Cardiology Cardiology Progress Note Subjective Subjective: Patient [...] Daily, Chilo Gillette MD, 81 mg at 04/19/24 07 carvedilol (Coreg) tablet 6.25 mg, 6.25 mg, [...] Value Ventricular Rate 62 Atrial Rate 62 NH Interval 162 QRS DURATION 98 QT Interval 426 QTC CALCULATION(BAZETT) 432 P [place] 15 R-[place] -20 T Wave [place] 19 Impression Normal sinus rhythm with sinus [...] least in part, completed using a voice battery assembler dry cell system. Every effort was made to ensure accuracy. However, inadvertent computerized battery assembler dry cell error (more content not included)...[facility]03-05-2025 Note- Not on any PPI or other medications at home - Will start PPI if requestedUnBrecksville VA [facility]ille [facility]03-05-2025 Note- Initial troponin normal and EKG negative with no ST elevation -Patient on IV heparin -Allergic to statin, consider starting Zetia -Awaiting results of left heart cath this the morning.[facility]03-05-2025 Note- On Xanax and Trazodone at home - Xanax PRN and Trazodone have been orderedUnBrecksville VA [facility]ille [facility] 04-19-2024 Note-A1c: 5.8 -Follow-up with PCP for further recommendationsUnBrecksville [facility]03-05-2025 Note-Continue ASA and Coreg 6.25 mg BID -Monitor BP and control with medication as needed -Patient was on Ramipril 2.5 mg nightly, caused bradycardia so was discontinued -Blood pressure is at goal at this timeUnBrecksville [facility] 04-19-2024 Note-last TTE on 04/17/24 shows improved EF 60-65% -Continue GDMT as ableUnBrecksville VA [facility]03-05-2025 NoteHospital Medicine Daily Progress Note - 04/19/2024 10:41 AM; Room: [address] [place] [address] Admission: 04/17/2024 7:33 PM; Length of stay: 2 days THE HOSPITALIST TEAM PREFERS TO USE [employer] CHAT FOR NON-URGENT COMMUNICATION 7AM-7PM. IF I DO NOT RESPOND WITHIN 20 MINUTES OR URGENT MATTERS, PLEASE CALL THROUGH THE PIECER. FROM 7PM-7AM, PLEASE PAGE [phone](COVR). Code Status: Full Code Barriers to Discharge: [...] this hospital stay by a member of [facility] Medicine. Scheduled Meds aspirin, 81 mg, [...] 3.3 Results from las (more content not included)...[facility]03-04-2025 Note- One xanax and trazodone at home - Xanax PRN and trazodone have been orderedUnBrecksville VA [facility] 04-18-2024 Note- Not on any PPI or other medications at home - Will start PPI if requestedUnBrecksville [facility]03-04-2025 Note- last TTE on 04/17/24 shows improved EF 60-65% - Continue GDMT as ableUnBrecksville VA [facility]03-04-2025 Note- Continue ASA and Coreg 6.25 mg BID -Monitor BP and control with medication as needed -Patient was on Ramipril 2.5 mg nightly, caused bradycardia so was discontinued - Blood pressure is at goal at this timeMercy Health [facility] Hospital 04-18-2024 UiyhN8d checked this morning - 5.8 Follow-up with PCP for further recommendationsMercy Health Perrysburg Hospital03-04-2025 Note-Initial troponin normal and EKG negative with no ST elevation -Patient on IV heparin -Allergic to statin, consider starting Zetia -Awaiting results of left heart cath this the morning.[facility]03-04-2025 Note04/18/24 1033 Admission Assessment Questions Verify insurance with [...] Status Interested Does the patient have a watch case polisher assigned to them through their insurance? No [...] able to send link and activate MyChart? NoMercy Health Perrysburg Hospital03-04-2025 NoteHospital Medicine Daily Progress Note - 04/18/2024 11:09 AM; Room: 3177/3177-01 Admission: 04/17/2024 7:33 PM; Length of stay: 1 days THE HOSPITALIST TEAM PREFERS TO USE [employer] CHAT FOR NON-URGENT COMMUNICATION 7AM-7PM. IF I DO NOT RESPOND WITHIN 20 MINUTES OR URGENT MATTERS, PLEASE CALL THROUGH THE PIECER. FROM 7PM-7AM, PLEASE PAGE [phone](COVR). Code Status: Full Code Barriers to Discharge: [...] this hospital stay by a member of [facility] Medicine. Scheduled Meds aspirin, 81 mg, oral, Daily carvedilol, 6.25 mg, oral, BID with meals cholecalciferol, 2,000 Units, oral, Daily traZODone, 50 mg, oral, Nightly heparin, 0-28 Units/kg/hr, Last Rate: 15 Units/kg/hr (04/18/24 1020) Pertinent Investigations Hematology: Results from last 7 days Lab Units 04/18/24 0459 04/17/242036 WBC AUTO 1 (more content not included)...[facility] 04-17-2024 NoteCheck A1c in the morningMercy Health [facility]sburg Hospital 04-17-2024 NoteMonitor and controlled with medication as needed patient has been on ramipril but states that it caused bradycardia so she has not been taking itUnBrecksville [facility]03-03-2025 NotePatient on IV heparin entry she has allergies to statin consider Zetia patient is scheduled for left heart cath in the morningMercy Health [facility]sburg Hospital03-03-2025 NoteHospital Medicine History and Physical 04/17/2024 10:02 PM THE HOSPITALIST TEAM PREFERS TO USE [employer] FOR NON-URGENT COMMUNICATION 7AM-7PM. IF I DO NOT RESPOND WITHIN 20 MINUTES OR URGENT MATTERS, PLEASE CALL THROUGH THE PIECER. FROM 7PM-7AM, PLEASE PAGE [phone](COVR). Chief Complaint No chief complaint on file. History of Present Illness Diana Jaeger is an 79 y.o. female admitted from [facility] as a direct transfer where [...] this hospital stay by a member of [facility] Medicine. Past Medical History Past Medical History: Diagnosis Date CHF (congestive heart failure) ([facility]) Coronary artery disease GERD (gastroesophageal reflux disease) Hyperlipidemia Hypertension Myocardial infarction ([facility]/ (more content not included)...[facility]10-23-2024 History of Present illness Narrative* Sunny Henning MD - 12/08/2023 10:40 AM EDTAssociated Problem(s): Primary osteoarthritis of left hip Minimal pain and use OTC PRN. * Sunny Henning MD - 12/08/2023 10:40 AM EDTAssociated Problem(s): Primary insomnia Sleeping well with medication and continue. * Sunny Henning MD - 12/08/2023 10:40 AM EDTAssociated Problem(s): Generalized anxiety disorder ([facility]/HCC) Symptoms controlled with xanax and use PRN. * Sunny Henning MD - 12/08/2023 10:40 AM EDTAssociated Problem(s): Essential hypertension, benign (CMS/HCC) BP controlled and monitor PRN. * Sunny Henning MD - 12/08/2023 10:40 AM EDTAssociated Problem(s): CAD in mi'kmaq artery (CMS/HCC) No pain and follow with cardiology. * Sunny Henning MD - 12/08/2023 9:30 AM EDT Images from the original note were not [...] doing well. Still having minimal pain after IAVN. Able to increase activity and walk and [...] ramipril (Altace) 2.5 MG capsule CAD in mi'kmaq artery (CMS/HCC) No pain and follow with cardiology. Generalized anxiety disorder (CMS/HCC) Symptoms controlled with xanax and use PRN. Relevant Medications ALPRAZolam (Xanax) 0.5 MG tablet Primary insomnia Sleeping well with medication and continue. Primary osteoarthritis of left hip Minimal pain and use OTC PRN. documented in this encounterSaint Luke's Health [id number] NoteBELLEVUE CLINIC Cardiology Clinic Note Chief Complaint: New patient [...] thickened and exhibit normal excursion. There is xhtri-am-ilxz regurgitation. There is no evidence of mitral [...] regularities are seen throug (more content not included)...[facility]05-21-2024 Miscellaneous Notes* Telephone Encounter - Danni De Luna RN - 07/06/2023 12:43 AM EDT Last OV 05/08 documented in this [facility]05-21-2024 Telephone encounter Note* Telephone Encounter - Danni De Luna RN - 07/06/2023 12:43 AM EDT Last OV 05/08 [facility]04-26-2024 Miscellaneous Notes* Telephone Encounter - Antoinette Barnhart RN - 06/11/2023 12:18 AM EDT Appt 05/11/23 documented in this [facility]04-26-2024 Telephone encounter Note* Telephone Encounter - Antoinette Barnhart RN - 06/11/2023 12:18 AM EDT Appt 05/11/23 Estate Assist [id number] History of Present illness Narrative* Ras Garza MD - 05/11/2023 10:30 AM EDT Diana Jaeger Date of visit: 05/11/2023 Date of : 1945 Age: 78 y.o. Patient Active Problem List Diagnosis Status post angioplasty with stent Pure hypercholesterolemia Partial bowel obstruction (CMS-HCC) Gastric volvulus Thickened endometrium Right ovarian cyst Coronary artery disease involving mi'kmaq coronary artery of mi'kmaq heart without angina pectoris Pain of left hip joint Primary osteoarthritis of left hip Takotsubo cardiomyopathy Encounter for preadmission testing Preoperative clearance Allergies Allergen Reactions Mqgalng-Qfd-Pow Reductase Inhibitors pain and Nausea Patient states [...] Past Medical History: Diagnosis Date Angina pectoris ([facility]) not since 2018 Anxiety Arthritis osteoarthritis left hip Bowel obstruction ([facility]) Chronic combined systolic and diastolic congestive heart failure ([facility]) 10/23/2018 Coronary artery disease H/O gastroesophageal reflux (GERD) Hiatal hernia Myocardial infarct ([facility]) 09/2016; 2018 2 stents placed in 2017 PONV (postoperative nausea and vomiting) Shortness of breath with strenuous activity Visual impairment wears glasses No data recorded No data recorded No data recorded Past Surgical History: Procedure Laterality Date Cardiac catheterization N/A 10/12/2016 Performed by Hamilton Gleason MD at [facility] COLONOSCOPY N/A 08/05/2017 Performed by Carlos Justice DO at [facility] Coronary angiogram and left ventricular gram/pressure N/A 09/30/2018 Performed by Henry Rivera MD at [facility] Coronary angiogram and left ventricular gram/pressure N/A 06/02/2017 Performed by Octavio Nieves MD at [facility] Coronary angiogram and left ventricular gram/pressure N/A 10/12/2016 Performed by Hamilton Gleason MD at [facility] CORONARY ANGIOPLASTY DAVINCI PERIESOPHAGEAL SIMOARA FUNDOPLICATION/ HIATAL HERNIA REPAIR/ EGD/GASTROPEXY N/A 06/07/2017 Performed by Colin Morales MD at [facility] DIAGNOSTIC LAPAROSCOPY, LAPAROSCOPIC LYSIS OF ADHESIONS N/A 04/05/2017 Performed by Colin Morales MD at [facility] EGD N/A 06/03/2017 Performed by Johnathan Valenzuela MD at [facility] EXTRACTION CATARACT INTRAOCULAR LENS Right 05/01/2021 Performed by Adrienne Braga MD at [facility] EXTRACTION CATARACT INTRAOCULAR LENS Left 04/15/2021 Performed by Adrienne Braga MD at [facility] HERNIA REPAIR Intravascular pressure measurement first vessel(fractional flow reserve) N/A 09/30/2018 Performed by Henry Rivera MD at [facility] REPLACEMENT TOTAL JOINT ANTERIOR SUPINE INTERMUSCULAR HIP Left 09/04/2019 Performed by Juan Velasco MD at [facility] Revascularization occlusion with myocardial infarction drug eluting stent left anterior descending N/A 10/12/2016 Performed by Hamilton Gleason MD at [facility] Family History Problem Relation [...] min Stress: No Stress Concern Present (09/04/2019) Citizen Of [place] [employer] - Occupational Stress Questionnaire Feeling of Stress : Only a little Social Connections: Unknown (09/04/2019) Social Connection and Isolation Panel [NHANES] Frequency of Communication with Friends and Family: More than three times a week Frequency of Social Gatherings with Friends and Family: More than three times a week Attends Muslim Services: Patient declined Active Member of Clubs [...] 149.9 cm (4' 11 ) Wt 62.6 kg(138 lb) SpO2 99% BMI 27.87 kg/m Orders [...] is joining the health center here in [place] and will do this on a regular basis. Follow-up in a year TODAYS ORDERS No orders of the defined types were placed in this encounter. FOLLOW UP No follow-ups on file. PCP: SUNNY HENNING MD Referring Physician: Sunny Henning MD [address] [place] [address] documented in this encounterSouthwest General Health Center03-25-2024 Miscellaneous Notes* Telephone Encounter - Pratima Arias CMA - 05/10/2023 9:59 AM EDT Left message for patient to remind them to bring their most current medication list with them to their appointment. documented in this encounterSouthwest General Health Center03-25-2024 Telephone encounter Note* Telephone Encounter - Pratima Arias CMA - 05/10/2023 9:59 AM EDT Left message for patient to remind them to bring their most current medication list with them to their appointment. [facility] SystemEvaluation [facility]* Diagnosis Essential hypertension, benign (CMS/HCC)- Primary Essential hypertension, benign Generalized anxiety disorder (CMS/HCC) Generalized anxiety disorder Primary insomnia Persistent disorder of initiating or maintaining sleep Gastroesophageal reflux disease without esophagitis Esophageal reflux CAD in mi'kmaq artery (CMS/HCC) Essential hypertension, benign (CMS/HCC)- Primary Essential hypertension, benign Generalized anxiety disorder (CMS/HCC) Generalized anxiety disorder CAD in mi'kmaq artery (CMS/HCC) Primary insomnia Persistent disorder of initiating or maintaining sleep Primary osteoarthritis of left hip documented in this encounter [facility] HealthcareEvaluation note* Diagnosis Coronary artery disease involving mi'kmaq coronary artery of mi'kmaq heart without angina pectoris Takotsubo cardiomyopathy Takotsubo syndrome Status post angioplasty with stent Postsurgical percutaneous transluminal coronary angioplasty status Pure hypercholesterolemia documented in this encounter [facility] SystemEvaluation note* Diagnosis Coronary artery disease involving mi'kmaq coronary artery of mi'kmaq heart without angina pectoris- Primary [facility] Diagnosis Essential hypertension, benign (CMS/HCC)- Primary Essential hypertension, benign Generalized anxiety disorder (CMS/HCC) Generalized anxiety disorder Primary insomnia Persistent disorder of initiating or maintaining sleep Gastroesophageal reflux disease without esophagitis Esophageal reflux CAD in [place] artery (CMS/HCC) Essential hypertension, benign (CMS/HCC)- Primary Essential hypertension, benign Generalized anxiety disorder (CMS/HCC) Generalized anxiety disorder CAD in [place] artery (CMS/HCC) Primary insomnia Persistent disorder of initiating or maintaining sleep Primary osteoarthritis of left hip CAD in [place] artery (CMS/HCC)- Primary Essential hypertension, benign (CMS/HCC) [...] disease without esophagitis Esophageal reflux CAD in [place] artery Essential hypertension, benign- Primary Essential hypertension, benign Generalized anxiety disorder Generalized anxiety disorder CAD in [place] artery Primary insomnia Persistent disorder of initiating or maintaining sleep Primary osteoarthritis of left hip CAD in [place] artery- Primary Essential hypertension, benign Essential hypertension, [...] disease without esophagitis Esophageal reflux CAD in [place] artery Essential hypertension, benign- Primary Essential hypertension, benign Generalized anxiety disorder Generalized anxiety disorder CAD in [place] artery Primary insomnia Persistent disorder of initiating or maintaining sleep Primary osteoarthritis of left hip CAD in [place] artery- Primary Essential hypertension, benign Essential hypertension, [...] Primary osteoarthritis of left hip CAD in [place] artery [facility] Diagnosis Essential hypertension, benign- Primary Essential hypertension, benign Generalized anxiety disorder Generalized anxiety disorder Primary insomnia Persistent disorder of initiating or maintaining sleep Gastroesophageal reflux disease without esophagitis Esophageal reflux CAD in [place] artery Essential hypertension, benign- Primary Essential hypertension, benign Generalized anxiety disorder Generalized anxiety disorder CAD in [place] artery Primary insomnia Persistent disorder of initiating or maintaining sleep Primary osteoarthritis of left hip CAD in [place] artery- Primary Essential hypertension, benign Essential hypertension, [...] Primary osteoarthritis of left hip CAD in [place] artery Generalized anxiety disorder Generalized anxiety disorder [facility] noteNo assessment information availableUniversity [facility] Work Phone: InstructionsNot on filedocumented in this encounter [facility]InstructionsNot on filedocumented in this encounter [facility] SystemInstructionsNot on filedocumented in this encounter [facility] SystemReason for referral (narrative)No reason for referral information availableUniversity [facility] Work Phone: Summary Purpose Family History No Family History Records FoundNo Family History Records FoundNo Family History Records FoundNo Family History Records Found Advance Directives No Advanced Directives Records Found Date ActivatedDate InactivatedComments09/29/2018 10:11 PM10/01/2018 8:10 PMDate ActivatedDate InactivatedComments2017 11:52 04/09/2017 4:40 PMCode Status Date ActivatedDate InactivatedCommentsFull Code09/29/2018 10:11 PM10/01/2018 8:10 PMCode StatusDate ActivatedDate InactivatedCommentsFull Code2017 11:52 PM 04/09/2017 4:40 PM Advance Directive Response Recorded Date/ Time Advance Directives No October 6:46am Chief Complaint and Reason for Visit Chief Complaint Admit Date fall, lt leg lac December 04, 2024 9 :53am Chief Complaint Admit Date fall, lt leg lac December 04, 2024 9 :53am fell and cut leg December 07, 2024 1 0:41am Additional Source Comments INFORMATION SOURCE (unrecogn ized section and content) DATE CREATED AUTHOR 05/12/2023 [facility] DATE CREATED AUTHOR AUTHOR'S ORGANIZ ATION 10/08/2024 [facility] DATE CREATED AUTHOR AUTHOR'S ORGANIZ ATION 11/19/2024 [facility] DATE CREATED AUTHOR AUTHOR'S ORGANIZ ATION 12/12/2024 [facility] Care Teams (unrecognized sec tion and content) Team MemberRelationshipSpecialtyStart DateEnd Date Sunny Henning MD [address] [place] [address] PCP - GeneralFamily Medicine03/23/23Team MemberRelationshipSpecialtyStart DateEnd Date Sunny Henning MD [address] [place] [address] PCP - GeneralFamily Medicine03/23/23Team MemberRelationshipSpecialtyStart DateEnd Date Sunny Henning MD [address] [place] [address] PCP - GeneralFamily Medicine11/04/20Team MemberRelationshipSpecialtyStart DateEnd Date Sunny Henning MD [address] [place] [address] PCP - GeneralFamily Medicine11/04/20Team MemberRelationshipSpecialtyStart DateEnd Date Sunny Henning MD [address] [place] [address] PCP - GeneralFamily Medicine11/04/20Team MemberRelationshipSpecialtyStart DateEnd Date Sunny Henning MD [address] [place] [address] PCP - General acute hospital Medicine03/23/23 Sunny Henning MD [address] [place] [address] PCP - [facility]03/24/24Team MemberRelationshipSpecialtyStart DateEnd Date Sunny Henning MD [address] [place] [address] PCP - [facility]03/23/23 Sunny Henning MD [address] [place] [address] [facility] - [facility]03/24/24Team MemberRelationshipSpecialtyStart DateEnd Date Sunny Henning MD [address] [place] [address] [facility] - [facility]03/23/23 Sunny Henning MD [address] [place] [address] PCP - [facility]03/24/24Team MemberRelationshipSpecialtyStart DateEnd Date Sunny Henning MD [address] [place] [address] PCP - [facility]03/23/23 Sunny Henning MD [address] [place] [address] PCP - [facility]03/24/24Team MemberRelationshipSpecialtyStart DateEnd Date Sunny Henning MD [address] [place] [address] PCP - General acute hospital Medicine03/23/23 Sunny Henning MD [address] [place] [address] PCP - [facility]03/24/24Team MemberRelationshipSpecialtyStart DateEnd Date Sunny Henning MD [address] [place] [address] PCP - [facility]03/23/23 Sunny Henning MD [address] [place] [address] PCP - [facility]03/24/24Team MemberRelationshipSpecialtyStart DateEnd Date Sunny Henning MD [address] [place] [address] PCP - [facility]03/23/23 Sunny Henning MD [address] [place] [address] PCP - [facility]03/24/24Team MemberRelationshipSpecialtyStart DateEnd Date Sunny Henning MD [address] [place] [address] PCP - [facility]03/23/23 Sunny Henning MD [address] [place] [address] PCP - [facility]03/24/24Team MemberRelationshipSpecialtyStart DateEnd Date Sunny Henning MD [address] [place] [address] [facility] Sunny Henning MD [address] [place] [address] PCP - [facility]03/24/24 Team Status: Active Member Role/Relationship Status Dates Sunny Henning MD Primary Care Provider Active Team Status: Active Member Role/Relationship Status Dates Sunny Henning MD Attending Provider Active Star t: November 01, 2024 Team Status: Active Member Role/Relationship Status Dates Sunny Henning MD Primary Care Provider Active S tart: November 29, 2024 JE[facility] ProviderActiveStart: November 29, 2024 Team Status: Inactive Member Role/Relationship Status Dates Sunny Henning MD Primary Care Provider Active S tart: December 04, 2024 End: December 04chandni Roberts NP-CEmergency ProviderActiveStart: December 04, 2024 End: December 04, 2024 Team Status: Inactive Member Role/Relationship Status Dates Sunny Henning MD Primary Care Provider Active S tart: December 07, 2024 End: December 07, 2024Sunny Henning MDAttending ProviderActiveStart: December 07, 2024 End: December 07, 2024 Reason for Visit (unrecogniz ed section and content) ReasonCommentsFollow-[id number] RefillReasonCommentsFollow-up6 mo f/u-l/s RDG LABS DONE SCHED W/PTReasonCommentsMedicare Annual Wellness Visit SubsequentwellnessReasonCommentsFollow-up2m Goals (unrecognized section and content) Goals may be documented in a n alternate sectionGoals may be documented in an alternate section FOR RECORDS PERTAINING TO PATIENTS WHO ARE [...] BE BASED ON THE PRIMARY CLINICAL RECORDS. [facility] provides no warranty or guarantee of the accuracy or completeness of information in this document.
[2024-12-27 10:46] LABS: Cholesterol 159 mg/dL (<=200); HDL Cholesterol 57 mg/dL (40-60); Triglycerides 85 mg/dL (<=150); VLDL CHOLESTEROL 17.0 mg/dL
== END 2024-12-27 09:42 | disposition home or self-care (01) ==
LOC: LAB 09:42
PROVIDERS: PCP Family Medicine; Visit Provider Internal Medicine Interventional Cardiology
DX: E78.2 Mixed hyperlipidemia (principal); I25.10 Atherosclerotic heart disease of native coronary artery without angina pectoris
CPT/HCPCS: 36415; 80061